=== PATIENT | male | born 1955 | race Caucasian/White ===

== ENCOUNTER 2017-04-02 16:26 | Emergency (ER) | payer MEDICAID ==
[~2017-04-02] VITALS: Ht 185.4 cm; Wt 68.1 kg
[~2017-04-02 16:26] MED LIST: CLON-529 PO; GABA-532 PO; LORA1TAB PO; NAPR220C15 PO; ONDA4TAB12 PO; QUET300T2 PO; SERT25TA PO; SERT50TA PO
[2017-04-02] MEDS ORDERED: LORA-269 PO (21:00)
[2017-04-02] MEDS ORDERED: ZOL50T PO (21:00)
[2017-04-02] MEDS ORDERED: naproxen sodium 220mg tablet PO SCH (21:40)
[2017-04-02] MEDS: LORazepam 1 MG tablet PO SCH (21:52)
[2017-04-03] MEDS: LORazepam 1 MG tablet PO SCH (07:27)
[2017-04-03] MEDS ORDERED: sertraline 50mg tablet PO SCH (08:00)
[2017-04-03 09:40] VITALS: BP 106/62
== END 2017-04-03 09:42 ==
LOC: ER 16:26
DX: R45.851 Suicidal ideations (principal); J44.9 Chronic obstructive pulmonary disease, unspecified; G89.29 Other chronic pain; F41.9 Anxiety disorder, unspecified; Z59.0 Homelessness; F17.200 Nicotine dependence, unspecified, uncomplicated
CPT/HCPCS: 99285

== ENCOUNTER 2017-05-09 17:48 | Emergency (ER) | payer MEDICAID ==
[~2017-05-09] VITALS: Ht 185.4 cm; Wt 63.3 kg
[~2017-05-09 17:48] MED LIST changes: -CLON-529 PO; -GABA-532 PO; +LORA-269 PO; -LORA1TAB PO; -ONDA4TAB12 PO; -QUET300T2 PO; -SERT25TA PO; -SERT50TA PO; +ZOL50T PO
[2017-05-09 20:20] LABS: BASOPHILS % (AUTO) 0.1 % (0-1); EOSINOPHILS # (AUTO) 0.2 X10'3 (0-0.9); EOSINOPHILS % (AUTO) 2.3 % (0-6); HEMATOCRIT 42.4 % (42.0-52.0); HEMOGLOBIN 14.4 g/dl (14.0-17.9); LYMPHOCYTES # (AUTO) 2.1 X10'3 (1.1-4.8); LYMPHOCYTES % (AUTO) 19.8 % (21-51); MEAN CORPUSCULAR HEMOGLOBIN 30.3 PG (27.0-31.0); MEAN CORPUSCULAR HGB CONC 33.9 % (33.0-36.5); MEAN CORPUSCULAR VOLUME 89.3 FL (78-98); MEAN PLATELET VOLUME 7.8 FL (7.4-10.4); MONOCYTES # (AUTO) 0.7 X10'3 (0-0.9); MONOCYTES % (AUTO) 7.1 % (2-12); NEUTROPHILS # (AUTO) 7.5 X10'3 (1.8-7.7); NEUTROPHILS % (AUTO) 70.7 % (42-75); PLATELET COUNT 213 X10'3 (140-440); RED BLOOD COUNT 4.74 X10'6 (4.70-6.10); RED CELL DISTRIBUTION WIDTH 13.1 % (11.5-14.5); WHITE BLOOD COUNT 10.6 X10'3 (4.5-11.0)
[2017-05-09 20:45] LABS: ALANINE AMINOTRANSFERASE 49 U/L (12-78); ALBUMIN 4.1 G/DL (3.4-5.0); ALBUMIN/GLOBULIN RATIO 1.1 (1.1-1.5); ALKALINE PHOSPHATASE 88 IU/L (46-116); ANION GAP 9 (8-16); ASPARTATE AMINO TRANSFERASE 35 U/L (10-37); BILIRUBIN,TOTAL 0.7 MG/DL (0.1-1.0); BLOOD UREA NITROGEN 22 MG/DL (7-18); BUN/CREATININE RATIO 24.4 (5.4-32.0); CHLORIDE 100 MMOL/L (99-107); ETHANOL < 0.010 GM/DL (0.0-0.010); GLUCOSE 94 MG/DL (70-104); POTASSIUM 3.4 MMOL/L (3.5-5.1); SODIUM 141 MMOL/L (135-145); TOTAL CARBON DIOXIDE 31.9 MMOL/L (24-32); TOTAL PROTEIN 7.9 G/DL (6.4-8.2); eGFR 86 ML/MIN
[2017-05-09] MEDS ORDERED: potassium Cl 20 mEq SR tablet PO STA (21:27)
[2017-05-09 23:39] LABS: URINE AMPHETAMINE SCREEN NEGATIVE (Neg); URINE BARBITUATE SCREEN NEGATIVE (Neg); URINE BENZODIAZEPINES SCREEN NEGATIVE (Neg); URINE CANNABINOID SCREEN NEGATIVE (Neg); URINE COCAINE SCREEN NEGATIVE (Neg); URINE METHADONE SCREEN NEGATIVE (Neg); URINE OPIATE SCREEN NEGATIVE (Neg); URINE PHENCYCLIDINE SCREEN NEGATIVE (Neg)
[2017-05-09] MEDS: ziprasidone 20mg capsule PO PRN (23:52)
[2017-05-10] MEDS: gabapentin 100mg capsule PO SCH ×4 (07:41→23:05)
[2017-05-10] MEDS: ziprasidone 20mg capsule PO PRN (07:41)
[2017-05-10] MEDS ORDERED: ziprasidone 20mg capsule PO ONE (11:00)
[2017-05-10] MEDS ORDERED: LORazepam 1 MG tablet PO ONE (13:00)
[2017-05-10] MEDS ORDERED: diphenhydrAMINE 25mg capsule PO ONE (13:00)
[2017-05-10] MEDS ORDERED: OLAN10TA3 PO (13:43)
[2017-05-10] MEDS ORDERED: ZOLP5TAB2 PO (13:50)
[2017-05-10] MEDS ORDERED: MIRT30TA PO (13:50)
[2017-05-10 13:53] LABS: CLARITY,URINE SLIGHTLY CLOUDY (Clear); COLOR,URINE YELLOW (Yellow); GLUCOSE, URINE NEGATIVE (Neg); KETONES,URINE 15 mg/dl (Neg); LEUKOCYTE ESTERASE ,URINE NEGATIVE (Neg); NITRITES, URINE NEGATIVE (Neg); OCCULT BLOOD,URINE NEGATIVE (Neg); PROTEIN,URINE TRACE mg/dl (Neg)
[2017-05-10 14:03] LABS: UA COLLECTION TYPE CLN CATCH MIDSTREAM
[2017-05-10 14:05] LABS: AMORPHOUS URATES 1+; BACTERIA,URINE NONE SEEN /HPF (Neg); CAL OXALATE CRYSTALS 1+ /HPF (NEGATIVE); MUCUS STRANDS FEW /LPF (Neg); RBC,URINE NONE SEEN /HPF (0-2); SPERM MODERATE /HPF (NEGATIVE); SQUAMOUS EPITHELIAL CELL,UR NONE SEEN /LPF (FEW); WBC,URINE 0-4 /HPF (0-4)
[2017-05-10] MEDS: ziprasidone 20mg capsule PO SCH ×2 (20:00→23:05)
[2017-05-10] MEDS: mirtazapine 15mg tablet PO SCH ×2 (21:00→23:05)
[2017-05-10] MEDS: OLANZapine 2.5MG tablet PO SCH ×2 (21:00→23:04)
[2017-05-10] MEDS: zolpidem 5mg tablet PO SCH ×2 (21:00→23:05)
[2017-05-11] MEDS: gabapentin 100mg capsule PO SCH (07:37)
[2017-05-11] MEDS: ziprasidone 20mg capsule PO SCH (07:37)
[2017-05-11 08:45] VITALS: BP 113/69
== END 2017-05-11 08:50 ==
LOC: ER 17:49
DX: F99 Mental disorder, not otherwise specified (principal); F23 Brief psychotic disorder; R45.851 Suicidal ideations; E87.6 Hypokalemia; G89.29 Other chronic pain; J44.9 Chronic obstructive pulmonary disease, unspecified; F41.9 Anxiety disorder, unspecified; F32.9 Major depressive disorder, single episode, unspecified; Z98.62 Peripheral vascular angioplasty status; Z56.0 Unemployment, unspecified; Z59.0 Homelessness; Z60.2 Problems related to living alone; Z79.899 Other long term (current) drug therapy
CPT/HCPCS: 36415; 80053; 80305; 80320; 81001; 84443; 85025; 99285; Q0163

== ENCOUNTER 2018-01-29 18:20 | Inpatient (IN) | payer MEDICAID ==
[~2018-01-29] VITALS: Ht 185.4 cm; Wt 80.6 kg
[~2018-01-29 18:20] MED LIST changes: +MIRT30TA PO; +OLAN10TA3 PO; +ZOLP5TAB2 PO
[2018-01-30 02:47] VITALS: BP 119/87
[2018-01-30] MEDS ORDERED: magnesium hydroxide 30ml (MOM) UD suspension PO PRN (05:15)
[2018-01-30] MEDS ORDERED: mag hydrox/Alum hydrox/simeth 30ml oral suspension PO PRN (05:15)
[2018-01-30] MEDS ORDERED: acetaminophen 325mg tablet PO PRN ×2 (05:15)
--- NOTE | 2018-01-30 05:52 | NUR ---
ADMIT NOTE: Suicidal Ideation/Schizoaffective DO/GD. Admit orders. [place] to unit. Physical/Mental Health assessment. Inventory personal belongings. Client was transferred from [facility] via EMS and arrived on the unit at 02:30. The client has a longstanding hx of mental health issues and numerous inpatient psych admissions. Client reported suicidal ideation. Client has had prior suicide attempts including overdoses and jumping off of a bridge into shallow water. The jump resulted in a spinal fracture. The client is a high fall risk. His gait is unsteady, a walker was provided. He appears to have general weakness. Client was recently diagnosed with a TIA and left-sided weakness. His gait is unsteady and client may require a LOS for safety. Cooperative during admission. Depressed. Appears older than stated age. Disheveled with poor hygiene. Client was escorted to his room and fell asleep.
--- NOTE | 2018-01-30 05:52 | NUR ---
HIGH FALL RISK.
[2018-01-30] MEDS ORDERED: MIRT30TA PO (07:35)
[2018-01-30] MEDS ORDERED: ZOLP5TAB8 PO (07:35)
[2018-01-30 07:52] LABS: HEMOGLOBIN A1C 5.5 % (4.5-6.2)
[2018-01-30 07:55] VITALS: BP 119/72
[2018-01-30 08:00] LABS: CHOL/HDL RATIO 4.8 (0.00-4.99); CHOLESTEROL 163 MG/DL (0-200); HDL CHOLESTEROL 34 MG/DL (35-60); LDL CHOLESTEROL 107 MG/DL (50-100); TRIGLYCERIDES 159 MG/DL (20-135)
[2018-01-30] MEDS ORDERED: sertraline 50mg tablet PO SCH (08:00)
[2018-01-30] MEDS: naproxen sodium 220mg tablet PO SCH ×2 (08:22→20:47)
[2018-01-30] MEDS: LORazepam 1 MG tablet PO SCH ×2 (08:22→20:45)
--- NOTE | 2018-01-30 12:05 | NUR ---
Nursing Note: This underwriter mortgage loan spoke with Khadijah Scott, Public Guardian. She gave verbal consent for all medications. Patient consent forms to be faxed to Public Guardian office to be signed on Thursday. [facility] Public Guardian FAX number [phone]. [place] Public Guardian office number [phone], After hours number [phone].
[2018-01-30] MEDS ORDERED: buPROPion SR 150mg tablet PO ONE (15:00)
[2018-01-30] MEDS ORDERED: sertraline 50mg tablet PO ONE (15:00)
--- NOTE | 2018-01-30 16:00 | NUR ---
Nursing Note: Consent Forms faxed to [facility] Public Guardian. The Public Guardian indicated the signed forms should be returned to this unit on February 01. Will continue to monitor.
--- NOTE | 2018-01-30 17:05 | NUR ---
Nursing Progress Note: Pt was sleeping at change of shift. Pt up to group room for breakfast. Pt is a fall risk. Fall risk precautions implemented. Pt's gait impaired and he uses a walker. He reports weakness in his L leg. When walking, his leg appears to become weak and he lunges to the left. Pt was maintained on standby assist and the bed alarm was set on his bed. Performed 1:1 assessment. When asked about depression pt stated, "Ya, a little bit." He had the same response when asked about anxiety. When asked about SI he said, "Not really." He denied having a suicide plan. His affect was constricted. He reported that he has visual and olfactory hallucinations saying, "Sometimes see images moving, things outside the windows, smell things that are not there." Pt slept for much of the morning. Medications administered, monitored pt for response. Q15 min safety checks maintained, no falls or injuries, will continue to monitor.
--- NOTE | 2018-01-30 18:30 | NUR ---
Nursing Notes: Patient is low fowlers in bed at shift change. Patient states he is feeling very tired. His affect is flat. Patient admits to occational hallucinations where he can see objects in the room moving, for example the shelves. This patient denies S/I or H/I at this time. There are no audible hallucinations. Patient states a bipolar history. This patient has been medication compliant. Patient ate dinner. This patient has difficulty ambulating. He is up with assist with the use of a walker too. On occasion patient exhibits some confussion. Plan: This patient is reassured that he is in a save place. Patient will bu up with assist only. 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 Q15 minute rounding for patient safety.
[2018-01-30 19:00] VITALS: BP 132/81
[2018-01-30] MEDS ORDERED: gabapentin 300mg capsule PO ONE (20:00)
[2018-01-30] MEDS: mirtazapine 15mg tablet PO SCH (20:44)
[2018-01-30] MEDS: docusate sod 100mg capsule PO SCH (20:45)
[2018-01-30] MEDS: gabapentin 300mg capsule PO SCH (20:46)
[2018-01-30] MEDS: olanzapine 10mg tablet PO SCH (20:46)
[2018-01-30] MEDS: lithium carbonate 150mg capsule PO SCH (20:47)
[2018-01-30] MEDS ORDERED: non-formulary drug (Mirtazapine (Remeron) 1 TAB) PO SCH (21:00)
[2018-01-30] MEDS ORDERED: zolpidem 5mg tablet PO SCH ×2 (21:00)
[2018-01-30] MEDS ORDERED: olanzapine 10mg tablet PO SCH (21:00)
[2018-01-30] MEDS: HYDROcodone/acetaminophen 5mg/325mg tablet PO PRN (23:34)
[2018-01-31 08:00] VITALS: BP 105/62
[2018-01-31] MEDS: buPROPion SR 150mg tablet PO SCH (08:08)
[2018-01-31] MEDS: lithium carbonate 150mg capsule PO SCH ×2 (08:08→20:22)
[2018-01-31] MEDS: LORazepam 1 MG tablet PO SCH ×2 (08:08→20:21)
[2018-01-31] MEDS: naproxen sodium 220mg tablet PO SCH ×2 (08:08→20:21)
[2018-01-31] MEDS: sertraline 50mg tablet PO SCH (08:09)
[2018-01-31] MEDS: gabapentin 300mg capsule PO SCH ×2 (08:09→20:21)
[2018-01-31] MEDS: docusate sod 100mg capsule PO SCH ×2 (08:09→20:21)
[2018-01-31] MEDS: HYDROcodone/acetaminophen 5mg/325mg tablet PO PRN ×3 (08:16→20:21)
--- NOTE | 2018-01-31 15:07 | NUR ---
SW Assessment and Discharge The undersigned completed a biopsychosocial assessment, treatment Planning #9 and JAXON. Valarie Rosas FUR TANNER Addendum: 01/31/18 at 1508 by Valarie Rosas SS Amended: Links added.
[2018-01-31] MEDS: predniSONE 20 mg tablet PO SCH (16:38)
[2018-01-31] MEDS ORDERED: zolpidem 5mg tablet PO PRN (16:55)
[2018-01-31] MEDS: ipratropium/albuterol 3ml nebule NEB SCH ×2 (17:01→23:00)
[2018-01-31 17:20] LABS: BASOPHILS % (AUTO) 0.3 % (0-1); EOSINOPHILS # (AUTO) 0.5 X10'3 (0-0.9); EOSINOPHILS % (AUTO) 5.5 % (0-6); HEMOGLOBIN 14.5 g/dl (14.0-17.9); LYMPHOCYTES # (AUTO) 1.5 X10'3 (1.1-4.8); LYMPHOCYTES % (AUTO) 16.4 % (21-51); MEAN CORPUSCULAR HEMOGLOBIN 30.9 PG (27.0-31.0); MEAN CORPUSCULAR VOLUME 93.4 FL (78-98); MEAN PLATELET VOLUME 8.1 FL (7.4-10.4); MONOCYTES # (AUTO) 0.6 X10'3 (0-0.9); MONOCYTES % (AUTO) 6.6 % (2-12); NEUTROPHILS # (AUTO) 6.5 X10'3 (1.8-7.7); NEUTROPHILS % (AUTO) 71.2 % (42-75); PLATELET COUNT 274 X10'3 (140-440); RED BLOOD COUNT 4.71 X10'6 (4.70-6.10); WHITE BLOOD COUNT 9.2 X10'3 (4.5-11.0)
[2018-01-31 17:25] LABS: ALANINE AMINOTRANSFERASE 40 U/L (12-78); ALBUMIN 3.8 G/DL (3.4-5.0); ALKALINE PHOSPHATASE 92 IU/L (46-116); ANION GAP 9 (8-16); ASPARTATE AMINO TRANSFERASE 22 U/L (10-37); BILIRUBIN,TOTAL 0.3 MG/DL (0.1-1.0); BLOOD UREA NITROGEN 25 MG/DL (7-18); BUN/CREATININE RATIO 22.9 (5.4-32.0); CHLORIDE 103 MMOL/L (99-107); CREATININE 1.09 MG/DL (0.60-1.10); GLUCOSE 105 MG/DL (70-104); PARTIAL THROMBOPLASTIN TIME 26 SECONDS (22-32); POTASSIUM 3.7 MMOL/L (3.5-5.1); SODIUM 138 MMOL/L (135-145); TOTAL CARBON DIOXIDE 26.1 MMOL/L (24-32); TOTAL PROTEIN 7.8 G/DL (6.4-8.2); eGFR 69 ML/MIN
--- NOTE | 2018-01-31 17:30 | NUR ---
NURSING PROGRESS NOTE The patient was asleep at change of shift. Attended all meals and groups. Depressed mood, bland affect. Denies SI/HI at this time. No hallucinations. COPD exacerbation. CXR and nebs treatment, prednisone added. Had wheezes and increase with exertion. LOS for left sided weakness. Education provided regarding medications. PRN for pain x2. continue to provide a sfe and therapeutic environment.
[2018-01-31 18:02] LABS: % IRON SATURATION 26 % (11-46); IRON 75 UG/DL (53-167); TOTAL IRON BINDING CAPACITY 287 UG/DL (259-388)
[2018-01-31 19:00] VITALS: BP 141/73
[2018-01-31] MEDS: mirtazapine 15mg tablet PO SCH (20:21)
[2018-01-31] MEDS: olanzapine 10mg tablet PO SCH (20:22)
--- NOTE | 2018-02-01 01:03 | NUR ---
RN PROGRESS NOTE: CHIEF COMPLAINT: Suicidal Ideation/Hx Schizophrenia/Depression. LEGAL STATUS: [facility] Conservatorship. SYMPTOMS/BEHAVIORS: Client was in bed at [facility] with a sitter present. He was AO X 3. Unsteady gait, uses a walker and is a standby assist. Reports that his appetite has been good. Difficulty falling and staying asleep. Reported a labile mood. Stated, "I just need to do something. I haven't been outside." This RN asked what the client liked to do 'inside' and client said, "Play cards. But I don't know how to play many card games. I know five star draw." Reported 8/10 back pain. Affect and mood are depressed. Made repeated requests for Galena. Begin requesting Galena 30 min after receiving 5 mg Galena Tab PO. INTERVENTIONS/PRN'S: 5 mg Ambien Tab PO, 5mg/325 mg Galena Tab PO for 8/10 back pain. JUSTIFICAFTION: Client is affect is depressed, mood is sad. During shift client was talking to unseen others and was responding to internal stimuli.
[2018-02-01] MEDS: ipratropium/albuterol 3ml nebule NEB SCH ×2 (06:59→10:48)
[2018-02-01 08:00] VITALS: BP 97/57
[2018-02-01] MEDS: HYDROcodone/acetaminophen 5mg/325mg tablet PO PRN ×2 (08:01→19:10)
[2018-02-01] MEDS: sertraline 50mg tablet PO SCH (08:01)
[2018-02-01] MEDS: buPROPion SR 150mg tablet PO SCH (08:01)
[2018-02-01] MEDS: predniSONE 20 mg tablet PO SCH (08:02)
[2018-02-01] MEDS: LORazepam 1 MG tablet PO SCH ×2 (08:02→19:09)
[2018-02-01] MEDS: gabapentin 300mg capsule PO SCH ×2 (08:02→21:25)
[2018-02-01] MEDS: lithium carbonate 150mg capsule PO SCH (08:02)
[2018-02-01] MEDS: naproxen sodium 220mg tablet PO SCH (08:02)
[2018-02-01] MEDS: docusate sod 100mg capsule PO SCH ×2 (08:02→21:24)
--- NOTE | 2018-02-01 17:41 | NUR ---
Nursing Progress Note: Legal hold: [facility] Report received from night coordinator nurse with use of SBAR. Pt is here for psychosis and depression NOS. Pt presents with a constricted affect. He was pleasant and cooperative with assessment. His thoughts appear linear and connected. He reports having high anxiety and some depression, but no SI. He indicates he has some visual hallucinations describing them as patterns of light. He reported that he did not sleep well. He said he woke up and could not go back to sleep due to his anxiety. Pt reports he has 7-8/10 pain in his back. As he laid in bed, He was reclining at a 45 degree angle supported by his elbows and said this made his back feel better. PRN [place] given for back pain. Pt maintained LOS due to fall risk. Multiple times during the day the aide had to support the patient when the patients legs gave out. Pt attended groups. Pt cooperative with medication administration, no adverse effects noted. Pt independent with ADLs. Administered medications, no adverse effects noted. No falls or injuries, will continue to monitor. Pt had an ECG in the AM which was ordered yesterday. The ECG was abnormal. Notified Dr. Baker and Dr. Jaimes. The QT was prolonged so Dr. Jaimes made medication changes. Zyprexa discontinued. Repeat ECG ordered for 02/02 AM.
[2018-02-01] MEDS ORDERED: temazepam 15mg capsule PO PRN (18:05)
[2018-02-01] MEDS: benzocaine/menthol oral lozeng 1 EACH BOX MM PRN (19:14)
[2018-02-01 19:40] VITALS: BP 118/70
[2018-02-01] MEDS: mirtazapine 15mg tablet PO SCH (21:25)
[2018-02-01] MEDS ORDERED: HYDROcodone/acetaminophen 5mg/325mg tablet PO ONE (22:00)
[2018-02-01] MEDS ORDERED: temazepam 15mg capsule PO ONE (22:00)
--- NOTE | 2018-02-02 04:10 | NUR ---
Nursing Progress Note: Chief Complaint: Psychosis/DTS [facility] Received report from ZAKI Baker. Pt. remains on LOS per fall precautions, isolated in room this shift, however did go out to take a shower. States S/I that, "Comes and goes," without a plan. Reports that his anxiety is not bad at this time, however his depression is still bad with some hopelessness, reports phobia r/t "starting over," and finding somewhere to go after this, however he believes that his sisters will help him. One lives in the [facility] and and one in [facility]. Pt. 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 compliant with all medications this shift, no adverse S/E noted, however Sertraline has been D/C'd and Olanzapine will be replaced by a medicine with less potential to influence QT interval. [place] will be held until repeat EKG tomorrow. Pt. reports he has difficulty with sleep. Continues to use walker for ambulation and complete ADLs with minimal assistance r/t on-going left-sided weakness. Mental Status Exam: Pt. presents as neat and well-groomed, he makes good eye contact during conversation. His behavior is relaxed and speech is clear and logical, however with blocking and poor insight. Affect is depressed and blunted, but pt. cooperative and pleasant with conversation. Thought process is clear and pt. A&O. Interventions:Pt. requested additional pain medication Roebling, this shift, for chronic medial back pain, at approximately 2130 and next PRN dose not due yet. This software writer explained to pt. that medication was PRN Q 4 hr. and was not due yet, pt. became slightly irritated and reported he would be unable to sleep because he was in pain and ordered Naproxen upset his stomach. Obtained order from Dr. Jaimes to give an additional dose of Roebling-5 and to give 30mg of Restoril one-time scheduled at HS. Pt. appears to be resting comfortably, tech at bedside, will continue to monitor.
[2018-02-02 08:00] VITALS: BP 112/61
[2018-02-02] MEDS: gabapentin 300mg capsule PO SCH ×2 (08:15→20:19)
[2018-02-02] MEDS: LORazepam 1 MG tablet PO SCH ×2 (08:15→20:19)
[2018-02-02] MEDS: atorvastatin 20mg tablet PO SCH (08:16)
[2018-02-02] MEDS: buPROPion SR 150mg tablet PO SCH (08:16)
[2018-02-02] MEDS: docusate sod 100mg capsule PO SCH ×2 (08:16→20:19)
[2018-02-02] MEDS: predniSONE 20 mg tablet PO SCH (08:16)
[2018-02-02] MEDS: HYDROcodone/acetaminophen 5mg/325mg tablet PO PRN ×3 (08:25→20:26)
[2018-02-02] MEDS: ipratropium/albuterol 3ml nebule NEB PRN (11:11)
--- NOTE | 2018-02-02 16:30 | NUR ---
Nursing Progress Note: Pt is under [facility] Conservatorship. Received Report from ZAKI Lopez. Patient sleeping at change of shift and up for breakfast. Patient with depressed affect. Patient has a sitter 1:1 due to Fall Risk. Patient states he is depressed but denies suicidal ideation. 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 Pt is pleasant and cooperative. Patient up to breakfast with his walker. Patient had PT eval today and PT states they will come back tomorrow to work on balance. Per PT, pt does fine walking but has trouble balancing. Patient attended both groups today. Patient continues on Q 15 minute checks. Continue to monitor.
--- NOTE | 2018-02-02 19:44 | NUR ---
Patient was walking around unit with FWW and sitter at beginning of shift. Patient appeared to be tolerating his walk well.
[2018-02-02 20:00] VITALS: BP 124/68
[2018-02-02] MEDS: aripiprazole 5mg tablet PO SCH (20:20)
[2018-02-02] MEDS: mirtazapine 15mg tablet PO SCH (20:20)
--- NOTE | 2018-02-02 23:47 | NUR ---
Nursing Progress Note: Chief Complaint[facility] Received report from ZAKI Valerio. Pt was walking around unit during shift change with KIM and Aida dill. Pt is cooperative during his physical assessment and answered all questions appropriately. Mental Status Exam: Pt. presents as neat and well-groomed, is making good eye contact while making conversation. His behavior is relaxed. Pt states he does not have current S/I and also mentioned that he has failed at all of his attempts. Interventions: Pt requested [place] to be brought with his other nightly medications this evening. He states it is for his back pain. Pt was encourage to ambulate and change positions in bed to help ease his back pain as well. Sitter at bedside with pt. Will continue to monitor.
[2018-02-03] MEDS: gabapentin 300mg capsule PO SCH ×2 (07:42→20:03)
[2018-02-03] MEDS: docusate sod 100mg capsule PO SCH ×2 (07:42→20:04)
[2018-02-03] MEDS: HYDROcodone/acetaminophen 5mg/325mg tablet PO PRN ×3 (07:42→17:23)
[2018-02-03] MEDS: LORazepam 1 MG tablet PO SCH ×2 (07:42→20:04)
[2018-02-03] MEDS: predniSONE 20 mg tablet PO SCH (07:42)
[2018-02-03] MEDS: buPROPion SR 150mg tablet PO SCH (07:42)
[2018-02-03] MEDS: atorvastatin 20mg tablet PO SCH (07:42)
[2018-02-03 08:06] VITALS: BP 113/69
[2018-02-03] MEDS: naproxen sodium 220mg tablet PO PRN (09:29)
--- NOTE | 2018-02-03 12:08 | NUR ---
Nursing Progress Note: Chief Complaint: Psychosis/DTS [facility] Received report from ZAKI Bowden. Pt was walking around unit during shift change with FWW and Avril dill. Pt is cooperative during his physical assessment and answered all questions appropriately. Mental Status Exam: Pt. presents as neat and well-groomed, is making good eye contact while making conversation. His behavior is relaxed. Pt states he does not have current S/I. Interventions: Pt requested to shave and was set up to do so. Pt requested [place] to be brought with his other morning medications this morning. He states it is for his back pain. Pt was encourage to ambulate and change positions in bed to help ease his back pain as well. Pt was able to walk the whole length of the hester with a FWW. PT tolerated walking with physical therapy well. Sitter at bedside with pt. Will continue to monitor for SI and fall risk.
[2018-02-03] MEDS: benzocaine/menthol oral lozeng 1 EACH BOX MM PRN (13:17)
[2018-02-03 20:00] VITALS: BP 109/55
[2018-02-03] MEDS: aripiprazole 5mg tablet PO SCH (20:05)
[2018-02-03] MEDS: mirtazapine 15mg tablet PO SCH (20:07)
--- NOTE | 2018-02-03 21:37 | NUR ---
Nursing Progress Note: Chief Complaint: Psychosis/DTS Client on voluntary/involuntary status for GD/DTS/DTO. Involuntary DTS [facility] Report received from day shift nurse ZAKI Hussein with use of SBAR. yes. Why are they here:Suicidal ideations, 5249. Diagnosis/presenting symptoms:Suicidal ideations, skitzo-effective. Assessment What has happened this shift: Pt sleeping when first seen. Pt cooperative during his physical assessment and answered all questions appropriately. Took all medications well, is thinking about a future job. S/I, H/I:none this shift A/VH: denies Sleep:good ADL's:needs some assistance with walking. Group attendance:N/A no group tonight Were meds taken:yes Any med S/E: none observed or reported. Mental Status Exam: Pt states he does not have current S/I. Appearance: neat and wll-groomed Eye contact: yes Behavior:relaxed Speech:Clear Mood: good Affect: positive Thought process: good Thought Content: good- thinking about future job Cognition:good Insight:good Judgment:good Interventions PRN's used:[] Therapeutic interventions:[] Restraints/seclusion/emergency medication:sitter at bedside Justification:[]
[2018-02-04] MEDS: atorvastatin 20mg tablet PO SCH (08:08)
[2018-02-04] MEDS: gabapentin 300mg capsule PO SCH ×2 (08:08→20:11)
[2018-02-04] MEDS: buPROPion SR 150mg tablet PO SCH (08:08)
[2018-02-04] MEDS: docusate sod 100mg capsule PO SCH ×2 (08:08→20:11)
[2018-02-04] MEDS: LORazepam 1 MG tablet PO SCH ×2 (08:08→20:11)
[2018-02-04] MEDS: predniSONE 20 mg tablet PO SCH (08:09)
[2018-02-04] MEDS: HYDROcodone/acetaminophen 5mg/325mg tablet PO PRN ×3 (08:09→19:42)
[2018-02-04 08:42] VITALS: BP 112/61
--- NOTE | 2018-02-04 17:35 | NUR ---
NURSING PROGRESS NOTE The patient was asleep at change of shift. He is depressed with a bland affect. Denies suicidal thoughts at this time. Looks brighter today and is eating well. had a shower. Attending groups with his peers. Good eye contact. Has generalized weakness due to back injury. PRN for pain today Cerulean given with good results. Education provided regarding coping skills and depression. Continue to provide a safe and therapeutic environment.
[2018-02-04 20:00] VITALS: BP 122/77
[2018-02-04] MEDS: mirtazapine 15mg tablet PO SCH (20:11)
[2018-02-04] MEDS: aripiprazole 5mg tablet PO SCH (20:11)
[2018-02-04] MEDS ORDERED: temazepam 15mg capsule PO SCH (21:00)
--- NOTE | 2018-02-05 03:42 | NUR ---
Nursing Progress Note: Chief Complaint: Psychosis Legal hold: Conserved Client on involuntary status for DTS Report received from overnight cashier nurse with use of SBAR: ZAKI Overton Why are they here: Pt. was in a [facility] facility [facility]NF) and having increased paranoia and increased agitation. He is on conservatorship and recently attempted suicide by jumping off [address] and fractured his back. Diagnosis/presenting symptoms: Pt. currently denies S/I, he states he is still having some depression, states, "Just a feeling of uncertainty, like I have so much to do," (in regards to finding appropriate housing and finding a job to care for himself). Diagnosis/presenting symptoms: Pt. presents with no s/s of paranoia and no episodes of agitation this shift. Assessment What has happened this shift: Pt. sitting in Group Room at beginning of shift watching TV and interacting with others. He presents and friendly and cooperative with assessment, however reports to this director underwriter sales that he is somewhat upset because his Conservator probably won't let him have a license and he needs to get a job upon discharge to pay his rent and buy food. He would like to apply for another job at a [employer]. Pt. states, "When I think about it I get overwhelmed and then I think about doing a stupid thing like going out and drinking." Pt. admits he has no desire to drink, this is just what comes to his mind. He also reports he may possibly discharge to a place called [facility] in [place]. Pt. presents with some phobia r/t discharge and how he will be able to take care of himself. Pt. is off LOS and is able to ambulate with use of his walker independently with a steady gait, no reports of dizziness, SOB, and no episodes of knees buckling. S/I, H/I: Pt. denies A/VH: None Sleep: Pt. reports he woke up the previous night around 0200 and was unable to fall back asleep, administered ordered Temazepam this evening and pt. appears to be resting comfortably. ADL's: Independent with use of walker, however pt. reports SOB while performing some tasks such as putting on his shoes. Group attendance: Attended HS snack in Group Room Were meds taken: Yes Any med S/E: No Mental Status Exam Appearance: Presents as neat and well dressed Eye contact: Good Behavior: Pleasant and cooperative Speech: Articulated and talkative Mood: Relaxed Affect: Animated Thought process: Intact Thought Content: Logical Cognition: A&O X4 Insight: Good Judgment: Good Interventions PRN's used: PRN [place] for chronic back pain with effectiveness Therapeutic interventions: Provided a therapeutic environment and promoted feeling of safety, fall precautions in place, and Q 15min safety checks in place. Restraints/seclusion/emergency medication: No Justification:N/A
[2018-02-05 08:00] VITALS: BP 97/68
[2018-02-05] MEDS: atorvastatin 20mg tablet PO SCH (08:12)
[2018-02-05] MEDS: docusate sod 100mg capsule PO SCH ×2 (08:12→20:26)
[2018-02-05] MEDS: gabapentin 300mg capsule PO SCH ×2 (08:12→20:26)
[2018-02-05] MEDS: buPROPion SR 150mg tablet PO SCH (08:12)
[2018-02-05] MEDS: LORazepam 1 MG tablet PO SCH ×2 (08:12→20:25)
[2018-02-05] MEDS: predniSONE 20 mg tablet PO SCH (08:12)
[2018-02-05] MEDS: HYDROcodone/acetaminophen 5mg/325mg tablet PO PRN ×3 (08:13→19:45)
--- NOTE | 2018-02-05 13:04 | NUR ---
Pt PO 100% regular meals meeting needs w/ LBM 02/03. Addendum: 02/05/18 at [address] Amended: Links added.
--- NOTE | 2018-02-05 16:19 | NUR ---
NURSING PROGRESS NOTE The patient is cooperative and compliant with all medications. Denies suicidal thoughts and states he is feeling better and more "coherent." Also states at this time in his life he feels he has the support of his family especially his sister Trcai. Reports not sleeping well at night, waking up tossing and turning. Encouraged to let nursing staff know when wakes at night. At times retreats to room stating fatigue. He is reading a novel. He would like to work again and is interested in learning more about [employer]. He is LPS Conserved. Had visit today with Dr. Stafford. Continue to provide a safe and therapeutic environment.
[2018-02-05 19:00] VITALS: BP 127/84
[2018-02-05] MEDS ORDERED: temazepam 15mg capsule PO PRN (20:20)
[2018-02-05] MEDS: mirtazapine 15mg tablet PO SCH (20:25)
[2018-02-05] MEDS: aripiprazole 5mg tablet PO SCH (20:26)
[2018-02-05] MEDS: temazepam 15mg capsule PO SCH (21:00)
--- NOTE | 2018-02-06 02:30 | NUR ---
Nurses Notes: This patient was in the recreation room at shift change. He is well oriented. 1:1 Assessment: Patient is ambulating well with the assistance of a walker. He tells this insurance underwriter he is still having moderate anxiety and depression this evening. Patient states he is excited about getting transferred in the near future to [facility] [place], hopefully soon. Patient denies homicidal or suicidal ideation. He denies hallucinations. Patient exhibits a flat affect. This patient has been compliant with medications and attending group. Plan: Q15 minute rounding, keep patient medication compliant.
[2018-02-06] MEDS: buPROPion SR 150mg tablet PO SCH (07:47)
[2018-02-06] MEDS: gabapentin 300mg capsule PO SCH ×2 (07:47→21:13)
[2018-02-06] MEDS: LORazepam 1 MG tablet PO SCH ×2 (07:47→21:12)
[2018-02-06] MEDS: docusate sod 100mg capsule PO SCH ×2 (07:48→21:12)
[2018-02-06] MEDS: atorvastatin 20mg tablet PO SCH (07:48)
[2018-02-06] MEDS: predniSONE 20 mg tablet PO SCH (07:48)
[2018-02-06 08:00] VITALS: BP 96/75
[2018-02-06] MEDS: HYDROcodone/acetaminophen 5mg/325mg tablet PO PRN ×2 (08:18→13:55)
[2018-02-06] MEDS: naproxen sodium 220mg tablet PO PRN (12:10)
--- NOTE | 2018-02-06 17:13 | NUR ---
RN Nursing Note: Dx: Psychosis NOS; Depression Status: Conserved 1:1 assessment provided at bedside. Pt reports he is not suicidal. He states he was depressed living on the streets and felt abandoned by his family. He states he is now in touch with a sister in [place] and is not as depressed. He states, [place] the river after jumping [place] the bridge he thinks he was confused from a heat stroke and dehydration. He states he does not remember planning to jump off the bridge. He c/o pain in his back and ask for "Daisetta." He reports he has to take it [id number]. Medication administration provided on all his medications and PRN norco. Education provided as needed on all his medications. Pt discussed going to [employer] in [place]. He is looking forward to going. He denies voices and hallucination of any. He denies SI today. He states he has been suicidal on and off throughout his life. Pt uses a FWW no falls or injuries Q15min safety checks provided
[2018-02-06 19:00] VITALS: BP 137/82
--- NOTE | 2018-02-06 19:00 | NUR ---
Nursing Notes: This patient is in the community room at shift change. He is conversing with others and watching television. 1:1 Assessment: Patient is warm/dry, well oriented, he has good color. He denies discomfort save for low level neck and back pain. This patient denies S/I or H/I. He denies hallucinations. Patient states his last Bm was yesterday. Patient states "I'm trying to be hopeful." Patient states some anxiety over his pending transfer to the [facility]. "I'm trying to get the details worked out about my new place." He desires to get a job but is concerned as he isn't allowed to have a drivers license. This patient has been medication compliant and has been attending group. He has been eating full meals. Plan: Patient was encouraged to follow through in group about his fears and anxiety. Patient was reassured that he is in a safe place. Q15 minute rounding will be continued for patient safety.
[2018-02-06] MEDS: temazepam 15mg capsule PO SCH (21:13)
[2018-02-06] MEDS: mirtazapine 15mg tablet PO SCH (21:14)
[2018-02-06] MEDS: aripiprazole 5mg tablet PO SCH (21:15)
[2018-02-07] MEDS: LORazepam 1 MG tablet PO SCH ×2 (07:47→20:52)
[2018-02-07] MEDS: predniSONE 20 mg tablet PO SCH (07:47)
[2018-02-07] MEDS: gabapentin 300mg capsule PO SCH ×2 (07:47→20:53)
[2018-02-07] MEDS: docusate sod 100mg capsule PO SCH ×2 (07:47→20:53)
[2018-02-07] MEDS: HYDROcodone/acetaminophen 5mg/325mg tablet PO PRN ×4 (07:47→22:01)
[2018-02-07] MEDS: atorvastatin 20mg tablet PO SCH (07:47)
[2018-02-07] MEDS: buPROPion SR 150mg tablet PO SCH (07:47)
[2018-02-07 08:00] VITALS: BP 119/82
--- NOTE | 2018-02-07 17:16 | NUR ---
RN Progress Note LPS Conserved Report received from ZAKI Gtz with SBAR Why are they here: increased paranoia, agitation had been escalating, recently attempted suicide by jumping off [address] and fractured his back. Diagnosis/presenting symptoms: Depression, anxiety Assessment What has happened this shift: Pt asleep at change of shift. Met with RN for 1:1 assessment at the bedside. Pt up to groups and meals. Met with Psychiatrist for 1:1 assessment today. Compliant with medications, participated in group milieu. S/I, H/I: Denies A/VH: Denies, does not appear to be responding to internal stimuli Sleep: reports some disturbance in sleep due to back pain and reports vivid dreams ADL's: Independent Group attendance: Yes Were meds taken: Yes Any med S/E: vivid dreams Mental Status Exam Appearance: Appears stated age Eye contact: Direct Behavior: Calm, cooperative Speech: clear Mood: anxious, "I'm just trying to stay hopeful" Affect: blunted Thought process: Goal directed Thought Content: No delusions/paranoia Cognition: alert and oriented x4 Insight: Good Judgment:Fair to good Interventions PRN's used: [place] x2 Therapeutic interventions: 1:1 assessment with RN, compliant with medications, participated in milieu Restraints/seclusion/emergency medication: N/A
--- NOTE | 2018-02-07 19:00 | NUR ---
Nursing Notes: This patient is in his room resting after shift change. He is well oriented, warm and dry, He has fair color. 1:1 Assessment: Patient tells this program writer that he is feeling depressed today. "It's because I don't respond well to change, like leaving here. But I'll be ok, I just have to adapt, it takes time." This patient denies S/I, H/I, or hallucinations. Patient has been compliant with medications, he has been going to group. This patient states he had a normal bowel movement today. Patient states his neck and back are hurting again. Plan: This patient is advised that he is in a safe place. We will give norco for pain as the Rx allows. Patient is reassured that we will transition him to outside living with care. Q15 minute rounding will be continued for patient safety.
[2018-02-07 19:55] VITALS: BP 117/70
[2018-02-07] MEDS: aripiprazole 5mg tablet PO SCH (20:50)
[2018-02-07] MEDS: temazepam 15mg capsule PO SCH (20:52)
[2018-02-07] MEDS: mirtazapine 15mg tablet PO SCH (20:53)
[2018-02-08] MEDS: HYDROcodone/acetaminophen 5mg/325mg tablet PO PRN ×4 (03:10→20:54)
[2018-02-08] MEDS: gabapentin 300mg capsule PO SCH ×2 (07:49→20:48)
[2018-02-08] MEDS: LORazepam 1 MG tablet PO SCH ×2 (07:49→20:47)
[2018-02-08] MEDS: buPROPion SR 150mg tablet PO SCH (07:49)
[2018-02-08] MEDS: docusate sod 100mg capsule PO SCH ×2 (07:49→20:48)
[2018-02-08] MEDS: atorvastatin 20mg tablet PO SCH (07:49)
[2018-02-08 08:00] VITALS: BP 121/80
[2018-02-08] MEDS: ipratropium/albuterol 3ml nebule NEB PRN (14:18)
--- NOTE | 2018-02-08 17:11 | NUR ---
RN Progress Note LPS Conserved Report received from ZAKI Gtz with SBAR Why are they here: increased paranoia, agitation had been escalating, recently attempted suicide by jumping off [address] and fractured his back. Diagnosis/presenting symptoms: Depression, anxiety Assessment What has happened this shift: Pt asleep at change of shift. Met with RN for 1:1 assessment at the bedside. Reports feeling depressed and anxious about the next step of life. "I'm tired the changes". C/O SOB; RT paged and given breathing treatment. S/I, H/I: Denies A/VH: Denies Sleep: reports some disturbance in sleep due to back pain, reportedly slept 8.75 hours ADL's: Independent Group attendance: Yes Were meds taken: Yes Any med S/E: denies Mental Status Exam Appearance: Appears stated age Eye contact: Direct Behavior: Calm, cooperative Speech: clear Mood: Depressed, anxious Affect: mildly constricted Thought process: Goal directed Thought Content: No delusions/paranoia Cognition: alert and oriented x4 Insight: Good Judgment:Fair to good Interventions PRN's used: [place] x2 Therapeutic interventions: 1:1 assessment with RN, compliant with medications, participated in milieu Restraints/seclusion/emergency medication: N/A
--- NOTE | 2018-02-08 17:30 | NUR ---
Nurses Notes: This patient is supine in bed at shift change.This patient is alert and oriented, warm and dry, he has good color. 1:1 Assessment: This patient exhibits depression, he states the same. Patient tells this typewriter repairer that he is worried about transitioning to the outside. He wants to get it done however. Patient has a sister who lives in [place], he states that she advocates for him. This patient states that it is change that he does not like. Patient denies H/I or S/I. He denies hallucinations. Patient has eaten meals and has been medication compliant. Plan: This patient is reassured that he is in a safe place. Patient will be encouraged to continue taking his medications. Q15 minute rounding will be done for patient safety.
[2018-02-08 19:44] VITALS: BP 123/77
[2018-02-08] MEDS: temazepam 15mg capsule PO SCH (20:48)
[2018-02-08] MEDS: aripiprazole 5mg tablet PO SCH (20:49)
[2018-02-08] MEDS: mirtazapine 15mg tablet PO SCH (21:20)
--- NOTE | 2018-02-09 03:30 | NUR ---
This patient has been sleeping quietly. Q15 minute vital signs are being done for patient safety.
[2018-02-09] MEDS: docusate sod 100mg capsule PO SCH ×2 (07:43→20:26)
[2018-02-09] MEDS: gabapentin 300mg capsule PO SCH ×2 (07:43→20:23)
[2018-02-09] MEDS: atorvastatin 20mg tablet PO SCH (07:43)
[2018-02-09] MEDS: LORazepam 1 MG tablet PO SCH ×2 (07:43→20:23)
[2018-02-09] MEDS: buPROPion SR 150mg tablet PO SCH (07:43)
[2018-02-09] MEDS: HYDROcodone/acetaminophen 5mg/325mg tablet PO PRN ×3 (07:49→20:25)
[2018-02-09 08:00] VITALS: BP 111/77
--- NOTE | 2018-02-09 16:57 | NUR ---
RN Progress Note LPS Conserved Report received from ZAKI Gtz with SBAR Pt admitted with increased paranoia, agitation had been escalating, recently attempted suicide by jumping [place] [address] and fractured his back. Diagnosis/presenting symptoms: Depression, anxiety Assessment What has happened this shift: Pt asleep at change of shift. Met with RN for 1:1 assessment at the bedside. Reports he is feeling depressed and anxious, but denies S/I. Denies A/VH. No reported sleep issues last night. Performs ADL's independently. Attends all groups, compliant with medications, denies AE's to meds. Mental Status Exam Appearance: Appears stated age Eye contact: Direct Behavior: Calm, cooperative Speech: clear Mood: Depressed Affect: mildly constricted Thought process: Goal directed Thought Content: No delusions/paranoia Cognition: alert and oriented x4 Insight: Good Judgment:Fair to good Interventions PRN's used: [place] x2 Therapeutic interventions: 1:1 assessment with RN, compliant with medications, participated in milieu Restraints/seclusion/emergency medication: N/A
[2018-02-09 20:00] VITALS: BP 97/61
[2018-02-09] MEDS: OLANZapine 5mg rapidly disint. tablet PO SCH (20:24)
--- NOTE | 2018-02-10 01:49 | NUR ---
Nurses Notes: This patient was in his room at shift change. He is self isolating. Patient is oriented X4, warm and dry, he has good color. 1:1 Assessment: This patient is interviewed from his bed. He tells this race and sports book writer that he is just tired today, "a little depressed too." Patient states he is awaiting placement, this causes him some angst, patient is resistant to change. Patient denies suicidal or homicidal ideations. Patient states mild depression is present. His affect is flat. Patient denies hallucinations. Patient states he has support of his sister and his brother in law respectively. This patient has been medication compliant, he states he has been attending group sessions. Plan: to reinforce to this patient that he is in a safe place. Continue to prepare patient mentally for his transfer. Q15 minute rounding for patient safety.
[2018-02-10 07:34] VITALS: BP 118/74
[2018-02-10] MEDS: buPROPion SR 150mg tablet PO SCH ×2 (08:14→20:42)
[2018-02-10] MEDS: gabapentin 300mg capsule PO SCH ×2 (08:14→20:42)
[2018-02-10] MEDS: docusate sod 100mg capsule PO SCH ×2 (08:15→20:42)
[2018-02-10] MEDS: LORazepam 1 MG tablet PO SCH ×2 (08:15→20:42)
[2018-02-10] MEDS: atorvastatin 20mg tablet PO SCH (08:15)
[2018-02-10] MEDS: HYDROcodone/acetaminophen 5mg/325mg tablet PO PRN ×3 (08:46→17:48)
--- NOTE | 2018-02-10 16:22 | NUR ---
RN PROGRESS NOTE: Patient awoke in severe pain. States that he suffered fracture of his spine jumping off bridge a few months ago, received [place] with adequate relief of pain. States that he still feels depressed, but appears to have some brightening. States that he will be discharging to [facility]. States that he has worked in [employer] for the last 10 years, and wants to return to work. States that this is the first time he has been out of work. Ambulates to the shower with walker. Denies SI. Patient went to all group activities. Continues on q15 minute checks for patient safety.
--- NOTE | 2018-02-10 18:45 | NUR ---
pt in bed; eyes closed; lights out; no distress noted
[2018-02-10 20:03] VITALS: BP 103/64
[2018-02-10] MEDS: OLANZapine 5mg rapidly disint. tablet PO SCH (20:43)
[2018-02-11] MEDS: HYDROcodone/acetaminophen 5mg/325mg tablet PO PRN ×3 (06:56→21:22)
[2018-02-11 07:51] VITALS: BP 110/69
[2018-02-11] MEDS: buPROPion SR 150mg tablet PO SCH ×2 (08:09→21:08)
[2018-02-11] MEDS: gabapentin 300mg capsule PO SCH ×2 (08:09→21:08)
[2018-02-11] MEDS: atorvastatin 20mg tablet PO SCH (08:09)
[2018-02-11] MEDS: docusate sod 100mg capsule PO SCH ×2 (08:09→21:08)
[2018-02-11] MEDS: LORazepam 1 MG tablet PO SCH ×2 (08:09→21:07)
--- NOTE | 2018-02-11 10:43 | NUR ---
Reassessment: Documented PO intake continues at 100% meeting nutrient needs. [facility] 02/10. No edema or wounds. Will continue to follow. Recommendations: 1) Continue with regular diet 2) Weekly wt Addendum: 02/11/18 at [address] Amended: Links added.
--- NOTE | 2018-02-11 17:39 | NUR ---
Chief Complaint: Depression, gravely disabled Legal hold: LPS conservator Client on LPS status for GD. Report received from automatic door mechanic nurse with use of SBAR[Betsy float nurse]. Why are they here: depression, recent suicide attempt, psychosis, gravely disabled. Diagnosis/presenting symptoms: Psychosis, depression Assessment Pt was sitting on the edge of his bed at change of shift. He was pleasant and cooperative with assessment. When asked about depression, he stated, "little bit, more boredom than anything." Regarding anxiety he said, "Little bit anxious, not as bad as yesterday." He said he has not had hallucinations for three weeks. He denied SI. Pt discussed his suicide attempt when he jumped off the bridge. He stated, "hearing voices, nothing to eat or drink for two weeks, just did it, not planned." Pt attended groups. PRN Fonda give for pain. Pt noted to be moaning in pain when he was trying to get out of bed in the morning. No falls or injuries, will continue to monitor. S/I, H/I: Pt denies A/VH: Pt denies ADL's: Independent Group attendance: Yes Were meds taken: Yes Any med S/E None noted Mental Status Exam Appearance: Neat and clean Eye contact: Direct Behavior: Appropriate Speech: Articulated Mood: Depressed Affect: Constricted Thought process: Linear Cognition: Sufficient Insight: Good Judgment: Fair Interventions PRN's used: [place] Therapeutic interventions: 1:1 assessment, therapeutic communication, administered medications and observed for adverse effects Restraints/seclusion/emergency medication: None Justification: Pt continues to exhibit symptoms of depression and anxiety.
[2018-02-11 19:00] VITALS: BP 113/74
[2018-02-11] MEDS: OLANZapine 5mg rapidly disint. tablet PO SCH (21:08)
--- NOTE | 2018-02-12 00:36 | NUR ---
Chief Complaint: Depression, gravely disabled Legal hold: LPS conservator Client on LPS status for GD. Report received from day shift nurse Olivia RN with use of SBAR. Why are they here: depression, recent suicide attempt, psychosis, gravely disabled. Diagnosis/presenting symptoms: Psychosis, depression Assessment Pt lying in bed at the start of the shift and remained there throughout. We met for 1:1 and pt reports improvement in his depression, but states he struggles with it due to his chronic pain issues. Discussed plan of trying to return to exercise when he gets discharge to help both his mood and his pain issues. S/I, H/I: Pt denies A/VH: Pt denies ADL's: Independent Group attendance: no group this shift Were meds taken: Yes Any med S/E none observed and denies any side effects Mental Status Exam Appearance: Neat and clean Eye contact: Good Behavior: WNL Speech: Normal rate, rhythm, volume Mood: Depressed Affect: Blunted Thought process: Linear Cognition: Sufficient Insight: Good Judgment: Fair Interventions PRN's used: [place] Therapeutic interventions: 1:1 assessment, therapeutic communication, administered medications and observed for adverse effects Restraints/seclusion/emergency medication: None Justification: Pt continues to exhibit symptoms of depression and anxiety.
[2018-02-12] MEDS: HYDROcodone/acetaminophen 5mg/325mg tablet PO PRN ×4 (01:11→19:20)
[2018-02-12 07:32] VITALS: BP 117/64
[2018-02-12] MEDS: docusate sod 100mg capsule PO SCH ×2 (07:42→20:59)
[2018-02-12] MEDS: LORazepam 1 MG tablet PO SCH ×2 (07:42→20:59)
[2018-02-12] MEDS: gabapentin 300mg capsule PO SCH ×2 (07:42→20:59)
[2018-02-12] MEDS: buPROPion SR 150mg tablet PO SCH ×2 (07:42→20:00)
[2018-02-12] MEDS: atorvastatin 20mg tablet PO SCH (07:43)
--- NOTE | 2018-02-12 14:31 | NUR ---
DISCHARGE PLANNING: Notified Public Guardian, Ewelina basil is ready for D/C. She said she will notify [facility]anco who does placement and either she or Blanco will call back will more detailed D/C - placement information. Shelly Hammond, ACSW
--- NOTE | 2018-02-12 16:09 | NUR ---
Nursing Progress Note: Pt up and out of bed for meals. Pt did attend am group, but refused art therapy and remained lying in bed. Pt did c/o pain in lower back and received norco x 2 which brought pain from 11/13 - 08/13. Pt stated he remains depressed and now bored. Pt does currently deny S.I. Pt says, "I'm tired of bopping around not having a set place to live" and is hopeful for what the social worker delinquency prevention is attempting to arrange for his discharge.
[2018-02-12 19:00] VITALS: BP 114/55
[2018-02-12] MEDS: OLANZapine 5mg rapidly disint. tablet PO SCH (20:59)
[2018-02-13] MEDS: HYDROcodone/acetaminophen 5mg/325mg tablet PO PRN ×4 (02:48→19:38)
--- NOTE | 2018-02-13 04:22 | NUR ---
Chief Complaint: Depression, gravely disabled Legal hold: LPS conservator Client on LPS status for GD. Report received from day shift nurse Jin RN with use of SBAR. Why are they here: depression, S/I, psychosis, gravely disabled. Diagnosis/presenting symptoms: Psychosis, depression Assessment Pt lying in bed at the start of the shift and remained there throughout. We met for 1:1 and pt continues to report improvement overall in his mood, but states pain issues continue to cause depression. Reports plan of seeing a pain specialist after he leaves here. S/I, H/I: Pt denies A/VH: Pt denies ADL's: Independent Group attendance: no group this shift Were meds taken: Yes Any med S/E none observed and denies any side effects Mental Status Exam Appearance: Neat and clean Eye contact: Good Behavior: WNL Speech: Normal rate, rhythm, volume Mood: Depressed Affect: Blunted Thought process: Linear Cognition: Sufficient Insight: Good Judgment: Fair Interventions PRN's used: [place] Therapeutic interventions: 1:1 assessment, therapeutic communication, administered medications and observed for adverse effects Restraints/seclusion/emergency medication: None Justification: Pt continues to exhibit symptoms of depression and anxiety.
[2018-02-13] MEDS: buPROPion SR 150mg tablet PO SCH ×2 (07:44→14:15)
[2018-02-13] MEDS: gabapentin 300mg capsule PO SCH ×2 (07:44→20:02)
[2018-02-13] MEDS: docusate sod 100mg capsule PO SCH ×2 (07:44→20:01)
[2018-02-13] MEDS: LORazepam 1 MG tablet PO SCH ×2 (07:44→20:01)
[2018-02-13] MEDS: atorvastatin 20mg tablet PO SCH (07:44)
[2018-02-13 08:00] VITALS: BP 100/64
--- NOTE | 2018-02-13 14:47 | NUR ---
Nursing Progress Note: Pt more isolative today. He refused am group, instead, sleeping in his bed. Pt rates his depression at 6/10 and says he hasn't thought of suicide today and holding on to hope that the Chain [employer]er will get him a room at [facility]. Pt had questions about what it looked like so he was provided a printout. Pt continues to c/o pain and received norco x 2 for pain 11/13 which was reduced to 5/10 after receiving medication.
[2018-02-13 19:00] VITALS: BP 107/68
[2018-02-13] MEDS: OLANZapine 5mg rapidly disint. tablet PO SCH (20:51)
--- NOTE | 2018-02-13 23:57 | NUR ---
Chief Complaint: Depression, gravely disabled Legal hold: LPS conservator Client on LPS status for GD. Report received from day shift nurse Jin HAINES with use of SBAR. Why are they here: depression, S/I, psychosis, gravely disabled. Diagnosis/presenting symptoms: Psychosis, depression Assessment Pt lying in bed at the start of the shift and remained there throughout. We met for 1:1 and I asked him why he was so isolative today. Pt reports he continues to feel depressed due his chronic pain, stating "I am tired of this crap." He denies any thoughts of suicide and contracts for safety. Does state there is a plan to be evalulated regarding pain management prior to discharge. Pt is looking forward to this and is hopeful that something can be done to better manage his pain. S/I, H/I: Pt denies A/VH: Pt denies ADL's: Independent Group attendance: no group this shift Were meds taken: Yes Any med S/E none observed and denies any side effects Mental Status Exam Appearance: Neat and clean Eye contact: Good Behavior: WNL Speech: Normal rate, rhythm, volume Mood: Depressed Affect: Blunted Thought process: Linear Cognition: Sufficient Insight: Good Judgment: Fair Interventions PRN's used: [place] Therapeutic interventions: 1:1 assessment, therapeutic communication, administered medications and observed for adverse effects Restraints/seclusion/emergency medication: None Justification: Pt continues to exhibit symptoms of depression
[2018-02-14] MEDS: HYDROcodone/acetaminophen 5mg/325mg tablet PO PRN ×4 (02:11→21:05)
[2018-02-14] MEDS: buPROPion SR 150mg tablet PO SCH ×2 (07:47→13:01)
[2018-02-14] MEDS: LORazepam 1 MG tablet PO SCH ×2 (07:47→21:05)
[2018-02-14] MEDS: gabapentin 300mg capsule PO SCH ×2 (07:47→21:05)
[2018-02-14] MEDS: atorvastatin 20mg tablet PO SCH (07:47)
[2018-02-14] MEDS: docusate sod 100mg capsule PO SCH ×2 (07:47→21:05)
[2018-02-14 08:00] VITALS: BP 115/74
[2018-02-14] MEDS ORDERED: buPROPion SR 150mg tablet PO SCH (13:30)
--- NOTE | 2018-02-14 16:28 | NUR ---
RN Progress Note LPS Conserved Report received from ZAKI Turner with use of SBAR Pt admitted with increased paranoia, agitation had been escalating, recently attempted suicide by jumping off [address] and fractured his back. Diagnosis/presenting symptoms: Depression, anxiety Assessment Pt asleep at change of shift. Met with RN for 1:1 assessment at the bedside. Presents calm and cooperative with a mildly constricted affect. Reports his mood is "ok... I'm worried about kind of a strange thing". Pt talking about not knowing he was receiving income for disability until recently, and has not heard this from his conservator or his sister. Denies S/I. No reported sleep issues last night. Reportedly slept 8 hours. Performs ADL's independently. Ambulates with the use of a walker. Attends all groups, compliant with medications. Reports some dry mouth as only AE to medications. Mental Status Exam Appearance: Appears stated age Eye contact: Direct Behavior: Calm, cooperative Speech: clear Mood: "ok" denies S/I Affect: mildly constricted Thought process: Goal directed Thought Content: No delusions/paranoia Cognition: alert and oriented x4 Insight: Good Judgment:Fair to good Interventions PRN's used: [place] x2 Therapeutic interventions: 1:1 assessment with RN, 1:1 with psychiatrist, compliant with medications, participated in milieu Restraints/seclusion/emergency medication: N/A
[2018-02-14 19:46] VITALS: BP 113/51
[2018-02-14] MEDS: OLANZapine 5mg rapidly disint. tablet PO SCH (21:05)
[2018-02-15] MEDS: temazepam 15mg capsule PO PRN ×2 (01:11→21:16)
--- NOTE | 2018-02-15 04:47 | NUR ---
RN Progress Note LPS Conserved Report received from nurse Schrader with use of SBAR Patient admitted with increased paranoia, agitation, recent suicide attempt by jumping off a bridge resulting in a back fracture. Diagnosis/presenting symptoms: Depression and anxiety. Assessment: Patient is in room at change of shift. Patient tells this gag writer that he is feeling better, "I'm looking forward to placement." Some mild anxiety is present. Minor depression is present. Back pain is present and chronic. Patient denies S/I or H/I. S/I, H/I:Denies A/VH: Denies Sleep:Sleeping well. ADL's:No problems. Group attendance:None scheduled during this shift. Were meds taken:Patient has been medication compliant. Any med S/E: Nnne Mental Status Exam Appearance:Appears stated age. Eye contact:Direct. Behavior:Calm and cooperative. Speech:Clear. Mood:"I'm ok." Affect:Mildly constricted. Thought process:Goal directed. Thought Content:No delusions or paranoia. Cognition:Alert and oriented X4. Insight:Good. Judgment:Fair to good. Interventions PRN's used: [place] and Restoril Therapeutic Interventions Restraints/seclusion/emergency medication:None Justification:[]
[2018-02-15 07:55] VITALS: BP 90/58
[2018-02-15] MEDS: gabapentin 300mg capsule PO SCH ×2 (08:03→21:16)
[2018-02-15] MEDS: docusate sod 100mg capsule PO SCH ×2 (08:03→21:15)
[2018-02-15] MEDS: atorvastatin 20mg tablet PO SCH (08:03)
[2018-02-15] MEDS: LORazepam 1 MG tablet PO SCH ×2 (08:03→21:17)
[2018-02-15] MEDS: buPROPion SR 150mg tablet PO SCH ×2 (08:03→12:55)
[2018-02-15] MEDS: HYDROcodone/acetaminophen 5mg/325mg tablet PO PRN ×3 (08:04→21:21)
--- NOTE | 2018-02-15 16:42 | NUR ---
RN Progress Note Chief Complaint: Pt admitted for mental status changes (paranoia and agitation) and after a TIA/stroke at [facility] decreased ability to ambulate. He was seen by telepsychiatrist at the [facility] but several days later, re-presented and was admitted to [place] for behavioral [facility] Legal Hold: LPS Conserved Report received from ZAKI Gtz with ESTEBAN Diagnosis/presenting symptoms: Depression, anxiety Assessment Pt asleep at change of shift. Met with RN for 1:1 assessment at the bedside. Continues to endorse symptoms of depression, but denies S/I. States "I'm just frustrated with this whole thing" re moving from place to place and being on conservatorship. When asked if he knows why he is conserved, he states that he does not. Educated patient on parameters for conservatorship and he endorses that he was unable to care for himself and had a suicide attempt. Provided supportive listening for patient as he voiced his frustration, and shared additional information about [facility] in [place] with patient. Pt participates in group and in the milieu of the unit. Reports some improvement of depressive symptoms on current medications. Compliant with medications and denies AE's to meds. Mental Status Exam Appearance: Appears stated age, ambulates with a walker Eye contact: Direct Behavior: Calm, cooperative Speech: clear Mood: Depressed Affect: mildly constricted Thought process: Goal directed Thought Content: No delusions/paranoia. Denies A/VH Cognition: alert and oriented x4 Insight: Fair Judgment:Fair to good Interventions PRN's used: [place] x2 Therapeutic interventions: 1:1 assessment with RN, therapeutic/active listening, education to improve insight, participated in milieu Restraints/seclusion/emergency medication: N/A Justification for Inpatient Hospitalization: Pt stable on current medications, and symptoms have lessened with treatment, however, pt is conserved and awaiting placement by conservator
[2018-02-15 19:55] VITALS: BP 112/87
[2018-02-15] MEDS: OLANZapine 5mg rapidly disint. tablet PO SCH (21:15)
[2018-02-15] MEDS: cyclobenzaprine 10mg tablet PO PRN (21:15)
--- NOTE | 2018-02-16 02:53 | NUR ---
RN Progress Note LPS Conserved Report received from nurse Schrader with use of SBAR Patient admitted with increased paranoia, agitation, recent suicide attempt by jumping off a bridge resulting in a back fracture. Diagnosis/presenting symptoms: Depression and anxiety. Assessment: Patient is in room at change of shift. Patient tells this web content writer that he is feeling better, Patient tells this web content writer that he is adapting with the idea of leaving here and having a new place to live. Some mild anxiety is present. Minor depression is present. Back pain is present and chronic. Patient denies S/I or H/I. S/I, H/I:Denies A/VH: Denies Sleep:Sleeping well. ADL's:No problems. Group attendance:None scheduled during this shift. Were meds taken:Patient has been medication compliant. Any med S/E: Nnne Mental Status Exam Appearance:Appears stated age. Eye contact:Direct. Behavior:Calm and cooperative. Speech:Clear. Mood:"I'm ok." Affect:Mildly constricted. Thought process:Goal directed. Thought Content:No delusions or paranoia. Cognition:Alert and oriented X4. Insight:Good. Judgment:Fair to good. Interventions PRN's used: [place] and Restoril Therapeutic Interventions Restraints/seclusion/emergency medication:None Justification: None
--- NOTE | 2018-02-16 06:40 | NUR ---
Received report on patient. Patient is sleeping sound in no apparent distress. Addendum: 02/16/18 at 0700 by Tatiana Maldonado RN Above not charted by Tatiana Maldonado RN
[2018-02-16] MEDS: buPROPion SR 150mg tablet PO SCH ×2 (07:25→12:49)
[2018-02-16] MEDS: LORazepam 1 MG tablet PO SCH ×2 (07:25→20:43)
[2018-02-16] MEDS: atorvastatin 20mg tablet PO SCH (07:25)
[2018-02-16] MEDS: docusate sod 100mg capsule PO SCH ×2 (07:25→20:44)
[2018-02-16 08:00] VITALS: BP 111/77
[2018-02-16] MEDS: LIDOcaine 5% patch TP SCH (08:00)
[2018-02-16] MEDS: gabapentin 300mg capsule PO SCH ×2 (08:00→20:44)
[2018-02-16] MEDS: HYDROcodone/acetaminophen 5mg/325mg tablet PO PRN ×3 (08:35→20:44)
--- NOTE | 2018-02-16 11:41 | NUR ---
RN Progress Note LPS Conserved Report received from Ulisses Dacosta RN Patient admitted with increased paranoia, agitation, recent suicide attempt by jumping off a bridge resulting in a back fracture. Diagnosis/presenting symptoms: Depression and anxiety. Assessment: Patient is in room at change of shift. Patient tells this underwriter that he is feeling better, he is adapting with the idea of leaving here and having a new place to live. Some mild anxiety is present. Minor depression is present. Back pain is present and chronic. Patient denies S/I or H/I at this time. S/I, H/I:Denies A/VH: Denies Sleep:Sleeping well. ADL's:No problems. Group attendance: Patient attended group. Were meds taken:Patient has been medication compliant. Any med S/E: Nnne Mental Status Exam Appearance:Appears stated age. Eye contact:Direct. Behavior:Calm and cooperative. Speech:Clear. Mood:Patient states he is mildy anxious but ok Affect:Mildly constricted. Thought process:Goal directed. Thought Content:No delusions or paranoia. Cognition:Alert and oriented X4. Insight:Good. Judgment:Fair to good. Interventions PRN's used: [place] Therapeutic Interventions Restraints/seclusion/emergency medication:None Justification: None
[2018-02-16 19:00] VITALS: BP 124/69
[2018-02-16] MEDS: OLANZapine 5mg rapidly disint. tablet PO SCH (20:43)
[2018-02-16] MEDS: temazepam 15mg capsule PO PRN (20:44)
--- NOTE | 2018-02-17 03:23 | NUR ---
RN Progress Note LPS Conserved Report received from nurse Tatiana Maldonado RN with use of SBAR Patient admitted with increased paranoia, agitation, recent suicide attempt by jumping off a bridge resulting in a back fracture. Diagnosis/presenting symptoms: Depression and anxiety. Assessment: Patient is in room at change of shift. Patient tells this ad copy writer that he is feeling better, Patient tells this ad copy writer that he is adapting with the idea of leaving here and having a new place to live. Some mild anxiety is present. Minor depression is present. Back pain is present and chronic. Patient denies S/I or H/I. This patient denies any hallucinations. Patient is medication compliant. He does self isolate in his room. S/I, H/I:Denies A/VH: Denies Sleep:Sleeping well. ADL's:No problems. Group attendance:None scheduled during this shift. Were med's taken:Patient has been medication compliant. Any med S/E: None Mental Status Exam Appearance:Appears stated age. Eye contact:Direct. Behavior:Calm and cooperative. Speech:Clear. Mood:"I'm ok." Affect:Mildly constricted. Thought process:Goal directed. Thought Content:No delusions or paranoia. Cognition:Alert and oriented X4. Insight:Good.
[2018-02-17 07:45] VITALS: BP 93/56
[2018-02-17] MEDS: atorvastatin 20mg tablet PO SCH (08:09)
[2018-02-17] MEDS: docusate sod 100mg capsule PO SCH ×2 (08:09→20:27)
[2018-02-17] MEDS: LORazepam 1 MG tablet PO SCH ×2 (08:09→20:27)
[2018-02-17] MEDS: buPROPion SR 150mg tablet PO SCH ×2 (08:09→12:44)
[2018-02-17] MEDS: gabapentin 300mg capsule PO SCH ×2 (08:10→20:27)
[2018-02-17] MEDS: HYDROcodone/acetaminophen 5mg/325mg tablet PO PRN ×4 (08:10→22:44)
[2018-02-17] MEDS: LIDOcaine 5% patch TP SCH (08:11)
--- NOTE | 2018-02-17 14:52 | NUR ---
Reassessment: Documented PO intake continues at 100% meeting nutrient needs. [facility] 02/17. No edema or wounds. No nutrition concerns at this time. Recommendations: 1) Continue with regular diet 2) Weekly wt Addendum: 02/17/18 at [address] Amended: Links added.
--- NOTE | 2018-02-17 16:20 | NUR ---
Nursing Progress Note: Chief Complaint: Patient came into the hospital with SI and hallucinating. Legal hold:[conserved] Client on voluntary/involuntary status for GD/DTS/DTO[involuntary GD]. Report received from nurse with use of SBAR[No SBAR]. Why are they here:[SI, gravely disabled]. Diagnosis/presenting symptoms:[Depression] Assessment What has happened this shift:[Patient has ambulated hallways three times to shower today, becomes slightly short of breath. Showered. Exhibits anxiety and is on ativan BID with good results. Feels like conservator is not working for him.] S/I, H/I:[Denies] A/VH: [Denies] Sleep:[States poor sleep last night, ] ADL's:[minimal assistance] Group attendance:[Yes] Were meds taken:[Yes] Any med S/E[No] Mental Status Exam Appearance:[Patient took shower and is clean and appropriate.] Eye contact:[good] Behavior:[Med compliant, attends groups, walked 3 x today] Speech:[soft] Mood:[Depressed] Affect:[Blunted] Thought process:[Logical and linear] Thought Content:[Concern about discharge] Cognition:[Good] Insight:[good] Judgment:[impaired] Interventions PRN's used:[norco] Therapeutic interventions:[1:1 to assess for severity of symptoms. Administered medications. Monitoed for AE's. Monitored progress on ambulating independently with standby assist, q15 minute observations for patient safety.] Restraints/seclusion/emergency medication:[no] Justification of Continued Inpatient Treatment:[Patient continues to improve psychologically and physically. He is gravely disabled and on conservatorship and is awaiting [facility]. If discharged, patient would be at high risk for readmission without concrete plan]
[2018-02-17 20:00] VITALS: BP 125/77
[2018-02-17] MEDS: cyclobenzaprine 10mg tablet PO PRN (20:27)
[2018-02-17] MEDS: OLANZapine 5mg rapidly disint. tablet PO SCH (20:28)
--- NOTE | 2018-02-18 01:13 | NUR ---
Chief Complaint: Depression, gravely disabled Legal hold: LPS conservator Client on LPS status for GD. Report received from day shift nurse Guera RN with use of SBAR. Why are they here: depression, S/I, psychosis, gravely disabled. Diagnosis/presenting symptoms: Psychosis, depression Assessment Pt lying in bed at the start of the shift and remained there throughout. We met for 1:1 and he states his mood is "ok", and continues to deny thoughts of suicide. He states that he just tries to keep his mind busy so he doesn't feel depressed. Continues to endorse depression surrounding his pain issues, discussed his plans after discharge to try to follow up with pain specialist. Denies any psychotic symptoms at this time and thoughts were clear, linear and goal directed. Stated he spoke with his sister that has been trying to get a hold of his conservator to find out about his discharge, and stated they are working on getting him placed. S/I, H/I: Pt denies A/VH: Pt denies ADL's: Independent Group attendance: no group this shift Were meds taken: Yes Any med S/E none observed and denies any side effects Mental Status Exam Appearance: Neat and clean Eye contact: Good Behavior: WNL Speech: Normal rate, rhythm, volume Mood: "ok" Affect: euthymic Thought process: Linear Cognition: Sufficient Insight: Good Judgment: Fair Interventions PRN's used: Anayeli Phillips Therapeutic interventions: 1:1 assessment, therapeutic communication, administered medications and observed for adverse effects Restraints/seclusion/emergency medication: None Justification: N/A pt on LPS conservatorship, continues to endorse some depression surrounding his chronic pain issues.
[2018-02-18 08:00] VITALS: BP 90/53
[2018-02-18] MEDS: LORazepam 1 MG tablet PO SCH ×2 (08:10→21:14)
[2018-02-18] MEDS: buPROPion SR 150mg tablet PO SCH ×2 (08:10→13:42)
[2018-02-18] MEDS: docusate sod 100mg capsule PO SCH ×2 (08:10→21:14)
[2018-02-18] MEDS: atorvastatin 20mg tablet PO SCH (08:10)
[2018-02-18] MEDS: gabapentin 300mg capsule PO SCH ×2 (08:10→21:14)
[2018-02-18] MEDS: LIDOcaine 5% patch TP SCH (08:24)
[2018-02-18] MEDS: HYDROcodone/acetaminophen 5mg/325mg tablet PO PRN ×4 (08:24→21:39)
--- NOTE | 2018-02-18 15:35 | NUR ---
Nursing Progress Note: Chief Complaint: Depression, gravely disabled Legal hold: LPS conservator Client on LPS status for GD. Report received from day shift nurse Guera RN with use of SBAR. Why are they here: depression, S/I, psychosis, gravely disabled. Diagnosis/presenting symptoms: Psychosis, depression Assessment: Patient asleep at change of shift and up for breakfast. Patient is pleasant and takes his medication as prescribed. Patient in room with RN. Patient took [place] at breakfast this morning. Patient denies suicidal ideation but has some depression due to his chronic back pain. Patient denies hearing voices. Patient is going to group and is social. S/I, H/I: Pt denies A/VH: Pt denies ADL's: Independent Group attendance: patient went to both groups Were meds taken: Yes Any med S/E none observed and denies any side effects Mental Status Exam Appearance: Neat and clean Eye contact: Good Behavior: WNL Speech: Normal rate, rhythm, volume Mood: "ok" Affect: euthymic Thought process: Linear Cognition: Sufficient Insight: Good Judgment: Fair Interventions PRN's used: [place] Therapeutic interventions: 1:1 assessment, therapeutic communication, administered medications and observed for adverse effects Restraints/seclusion/emergency medication: None Justification: N/A pt on LPS conservatorship, continues to endorse some depression surrounding his chronic pain issues.
[2018-02-18 20:00] VITALS: BP 124/76
[2018-02-18] MEDS: OLANZapine 5mg rapidly disint. tablet PO SCH (21:15)
--- NOTE | 2018-02-18 23:59 | NUR ---
Chief Complaint: Psychosis Legal hold: LPS Conserved Client on involuntary status for GD/DTS Report received from nurse with use of SBAR: ZAKI Valerio Why are they here: Pt. admitted for increased paranoia and agitation and was transferred from a care home facility. He is LPS Conserved for gravely disabled. Pt. has depression and previous suicide attempts, one during which he jumped off a bridge and broke his back. Pt. has a history of chronic pain, alcoholism, and a possible TIA/stroke which left him with left-sided weakness. He also was having SOB and QTc prolongation which prompted this MD to stop the major potentially offensive medications. Pt. is awaiting placement by conservator. Diagnosis/presenting symptoms: Pt. currently denies S/I, paranoia, agitation, or h/a. He is still experiencing some depression and anxiety r/t finding a place to live. Assessment What has happened this shift: Pt. laying in bed at the beginning of the shift, he seems to be well adjusted to his new room and new roommate since his move yesterday evening. He was up later to use the phone, continues to ambulate independently with steady gait. Pt. is pleasant, friendly, and cooperative. He denies any S/I or psychosis, however he admits to on-going depression and anxiety, when this travel writer questioned pt. why, he stated, "I have anxiety over finding a place to live." Pt. reports that he may be going to [facility] in [place], and he appears optimistic about this transition. S/I, H/I: Denies A/VH: Denies Sleep: Pt. reports he is sleeping well ADL's: Pt. is able to ambulate independently with use of walker. Group attendance: Pt. reports he has been attending all groups Were meds taken: Yes Any med S/E: Pt. reports he has been having dry itchy skin, however denies any rash, states, "I have been putting lotion on it and it helps." Will endorse to AM shift, and continue to monitor. Mental Status Exam Appearance: Neat and well groomed Eye contact: Good Behavior: Pleasant and relaxed Speech: Articulate and talkative Mood: Pleasant and cooperative Affect: Animated Thought process: Intact Thought Content: Logical, with continued phobia regarding discharge and how he will support himself Cognition: A&O X4 Insight: Good Judgment: Good Interventions PRN's used: PRN [place] administered for chronic back pain with effectiveness and Lidocaine Patch removed at HS per order Therapeutic interventions: Established rapport, provided active listening, and maintained a safe and therapeutic environment. Restraints/seclusion/emergency medication: N/A Justification of Continued Inpatient Treatment: Pt. remains at this facility awaiting placement by conservator. He is gravely disabled and a DTS per chronic depression and would be unable to independently form a plan for food, clothing, or mcfp independently.
[2018-02-19 08:00] VITALS: BP 114/61
[2018-02-19] MEDS: gabapentin 300mg capsule PO SCH ×2 (08:08→20:55)
[2018-02-19] MEDS: docusate sod 100mg capsule PO SCH ×2 (08:08→20:55)
[2018-02-19] MEDS: buPROPion SR 150mg tablet PO SCH ×2 (08:08→13:15)
[2018-02-19] MEDS: LORazepam 1 MG tablet PO SCH ×2 (08:08→20:55)
[2018-02-19] MEDS: atorvastatin 20mg tablet PO SCH (08:08)
[2018-02-19] MEDS: LIDOcaine 5% patch TP SCH (08:09)
[2018-02-19] MEDS: HYDROcodone/acetaminophen 5mg/325mg tablet PO PRN ×2 (10:11→19:21)
--- NOTE | 2018-02-19 16:09 | NUR ---
Nursing Progress Note: hief Complaint: Increased agitation and paranoia at half-way facility Legal hold:[conservatorship] Client on involuntary status for GD. Report received from nurse with use of SBAR[Pili RN]. Why are they here:[After pt was worked up neurologically, psychiatric hospitalization was recommended]. Diagnosis/presenting symptoms: [F29 Psychosis/Depression NOS] Assessment What has happened this shift:[Pt took a shower, went to groups, reported decreased depression and denies S.I. Pt was able to discuss previous S.A. ] S/I, H/I:[denies] A/VH: [denies] Sleep:[noc shift reported 9.25 hours] ADL's:[Y: independent] Group attendance:[Y] Were meds taken:[Y] Any med S/E[N] Mental Status Exam Appearance:[appropriate - took shower] Eye contact:[Good eye contact] Behavior:[cooperative, stays mostly to himself] Speech:[WNL] Mood:[ok] Affect:[appropriate, content] Thought process:[Logical] Thought Content:[appropriate to situation] Cognition:[Pt a/o x 4 and is able to focus on tasks] Insight:[fair] Judgment:[fair] Interventions PRN's used:[N] Therapeutic interventions:[1:1 interaction with empathic listening, milieu push & groups] Restraints/seclusion/emergency medication:[N] Justification of Continued Inpatient Treatment: [facility] will [facility] taking him.
[2018-02-19 19:00] VITALS: BP 122/79
[2018-02-19] MEDS: OLANZapine 5mg rapidly disint. tablet PO SCH (20:55)
--- NOTE | 2018-02-20 02:52 | NUR ---
Nursing progress note: Chief Complaint: Psychosis Legal hold: LPS Conserved Client on involuntary status for GD/DTS Report received from nurse with use of SBAR: Jin HAINES Why are they here: Pt. admitted for increased paranoia and agitation and was transferred from a care home facility. He is LPS Conserved for gravely disabled. Pt. has depression and previous suicide attempts, one during which he jumped off a bridge and broke his back. Pt. has a history of chronic pain, alcoholism, and a possible TIA/stroke which left him with left-sided weakness. Pt is awaiting placement by conservator. Diagnosis/presenting symptoms: Pt. currently denies S/I or anxiety. Patient is in good spirts due to a possible lead on discharge in [place]. Assessment What has happened this shift: Pt was painful when i came on to shift. Pt received PRN pain med and was in better spirts. Pt denies any S/I. Patient went to movie night and was in good spirts this shift. Unable to find his Lidoderm patch. Patient denies taking it off and throwing away. Pt's clothing and bedding was searched with no luck of finding the patch. S/I, H/I: Denies A/VH: Denies Sleep: Seems to slept well ADL's: Pt. is able to ambulate independently with use of walker. Group attendance: Pt. reports he has been attending all groups Were meds taken: Yes Any med S/E: N/A Mental Status Exam Appearance: Neat and well groomed Eye contact: Good Behavior: Cooperative, relaxed Speech: Talkative Mood: Pleasant and cooperative Affect: Normal Thought process: Intact Thought Content: Logical Cognition: A&O X4 Insight: Good Judgment: Good Interventions PRN's used: PRN [place] given for back pain. Lidoderm patch was unable to locate Therapeutic interventions: Established rapport, active listening, safe and therapeutic environment. Restraints/seclusion/emergency medication: N/A Justification of Continued Inpatient Treatment: Pt. remains at this facility awaiting placement by conservator. He is gravely disabled and a DTS per chronic depression. High readmission risk.
[2018-02-20 07:00] VITALS: BP 123/62
[2018-02-20] MEDS: HYDROcodone/acetaminophen 5mg/325mg tablet PO PRN ×4 (08:14→23:34)
[2018-02-20] MEDS: atorvastatin 20mg tablet PO SCH (08:14)
[2018-02-20] MEDS: buPROPion SR 150mg tablet PO SCH ×2 (08:14→12:07)
[2018-02-20] MEDS: docusate sod 100mg capsule PO SCH ×2 (08:14→20:37)
[2018-02-20] MEDS: gabapentin 300mg capsule PO SCH ×2 (08:14→20:37)
[2018-02-20] MEDS: LORazepam 1 MG tablet PO SCH ×2 (08:14→20:37)
[2018-02-20] MEDS: LIDOcaine 5% patch TP SCH (08:46)
[2018-02-20 08:47] VITALS: BP 123/62
--- NOTE | 2018-02-20 16:28 | NUR ---
Chief Complaint: Increased agitation and paranoia at care home facility Legal hold:[conservatorship] Client on involuntary status for GD. Report received from nurse with use of SBAR[Pili RN]. Why are they here:[After pt was worked up neurologically, psychiatric hospitalization was recommended]. Diagnosis/presenting symptoms: [F29 Psychosis/Depression NOS] Assessment What has happened this shift:[Pt went to groups, Pt stated his depression was slightly more today due to my physical health is just bringing me down ... Im pretty limited on what I can do. Pt denies S.I.] S/I, H/I:[denies] A/VH: [denies] Sleep:[no napping today] ADL's:[Y: independent] Group attendance:[Y] Were meds taken:[Y] Any med S/E[N] Mental Status Exam Appearance:[appropriate ] Eye contact:[Good eye contact] Behavior:[cooperative, stays mostly to himself] Speech:[WNL] Mood:[ok] Affect:[appropriate, content] Thought process:[Logical] Thought Content:[appropriate to situation] Cognition:[Pt a/o x 4 and is able to focus on tasks] Insight:[fair] Judgment:[fair] Interventions PRN's used:[N] Therapeutic interventions:[1:1 interaction with empathic listening, milieu push & groups] Restraints/seclusion/emergency medication:[N] Justification of Continued Inpatient Treatment: Pt awaiting placement at [facility] care. [facility] will possibly be taking him. Pt remains depressed due to his physical health and pain.
[2018-02-20] MEDS: cyclobenzaprine 10mg tablet PO PRN (18:55)
[2018-02-20 20:00] VITALS: BP 109/78
[2018-02-20] MEDS: OLANZapine 5mg rapidly disint. tablet PO SCH (20:37)
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
[2018-02-21] MEDS: LORazepam 1 MG tablet PO SCH ×2 (07:45→21:16)
[2018-02-21] MEDS: buPROPion SR 150mg tablet PO SCH ×2 (07:45→12:33)
[2018-02-21] MEDS: gabapentin 300mg capsule PO SCH ×2 (07:46→21:15)
[2018-02-21] MEDS: atorvastatin 20mg tablet PO SCH (07:46)
[2018-02-21] MEDS: docusate sod 100mg capsule PO SCH ×2 (07:46→21:15)
[2018-02-21] MEDS: HYDROcodone/acetaminophen 5mg/325mg tablet PO PRN ×4 (07:49→21:15)
[2018-02-21 08:00] VITALS: BP 100/60
[2018-02-21] MEDS: LIDOcaine 5% patch TP SCH (08:20)
--- NOTE | 2018-02-21 13:30 | NUR ---
Chief Complaint: Increased agitation and paranoia at half-way facility Legal hold:[conservatorship] Client on involuntary status for GD. Report received from nurse with use of SBAR: yes Why are they here: Psychosis. After pt was worked up neurologically, psychiatric hospitalization was recommended Diagnosis/presenting symptoms: Psychosis/Depression NOS Assessment What has happened this shift: Pt continues to feel depressed though denies SI, his focus seems to be on pending discharge, he is thinking over the logistics; wanting to get his stuff out of the safe and go through things, concerned phone may not be charged. Educated pt on discharge process and how usually there is time day of D/c to charge phone. Pt out of room for meals and groups, ambulates in the hester with FWW, gait steady, socializes with peers, currently in the rec room watching a football game, making game related comments to another male patient, no unsafe behaviors noted. S/I, H/I:denies A/VH: denies Sleep: Pt states he slept last night though woke up early in the morning. ADL's:independent Group attendance: Attended morning group Were meds taken:yes Any med S/E: none noted, none reported Mental Status Exam Appearance: Clean, appropriate Eye contact:good Behavior:calm, cooperative Speech:clear Mood: a little anxious over pending discharge Affect:depressed Thought process:logical, goal oriented Thought Content:organized, focused on discharge Cognition: A/O X 4 Insight:good Judgment:good Interventions PRN's used: [place] 5/325 mg at 0750 & 1230. Therapeutic interventions:1:1 interaction, discharge education, Q 15 minute checks Restraints/seclusion/emergency medication: none Justification of Continued Inpatient Treatment: Pt awaiting placement at [facility] and care. [facility] will possibly be taking him. Pt remains depressed due to his physical health and pain, needs assistance with medication management.
--- NOTE | 2018-02-21 16:48 | NUR ---
Pt took a shower and removed his lidocaine patch, he stuck it on his bedside table, a director industrial nursing found it and gave it to the charge nurse who disposed of it. Pt requested a new patch be put on, appled new patch.
[2018-02-21 19:58] VITALS: BP 114/66
[2018-02-21] MEDS: OLANZapine 5mg rapidly disint. tablet PO SCH (21:16)
[2018-02-21] MEDS: temazepam 15mg capsule PO PRN (21:16)
--- NOTE | 2018-02-22 02:36 | NUR ---
Nursing progress note: Chief Complaint: Psychosis Legal hold: LPS Conserved Client on involuntary status for GD/DTS Report received from nurse with use of SBAR: Why are they here: Pt. admitted for increased paranoia and agitation and was transferred from a care home facility. He is LPS Conserved for gravely disabled. Pt. has depression and previous suicide attempts, one during which he jumped off a bridge and broke his back. Pt. has a history of chronic pain, alcoholism, and a possible TIA/stroke which left him with left-sided weakness. Pt is awaiting placement by conservator. Diagnosis/presenting symptoms: Pt. currently denies S/I or anxiety. Patient is in good spirts due to a possible lead on discharge in [place]. Assessment: This patient is awake and well oriented. He is cooperative with staff. He is isolating himself in his room. Patient complains of chronic back pain. Patient states he had a bowel movement prior to evening shift. He still complains of feeling somewhat hopeless and has minor depression. S/I, H/I: Denies A/VH: Denies Sleep: Seems to slept well ADL's: Pt. is able to ambulate independently with use of walker. Group attendance: Pt. reports he has been attending all groups Were meds taken: Yes Any med S/E: N/A Mental Status Exam Appearance: Neat and well groomed Eye contact: Good Behavior: Cooperative, relaxed Speech: Talkative Mood: Depression and feeling hopeless. Affect: Normal Thought process: Intact Thought Content: Logical Cognition: A&O X4 Insight: Good Judgment: Good Interventions PRN's used: PRN [place] given for back pain, Restoril for sleep. Therapeutic interventions: Established rapport, active listening, safe and therapeutic environment. Restraints/seclusion/emergency medication: None. Justification of Continued Inpatient Treatment: Pt. remains at this facility awaiting placement by conservator. He is gravely disabled and a DTS per chronic depression. High readmission risk.
[2018-02-22] MEDS: buPROPion SR 150mg tablet PO SCH ×2 (07:53→12:40)
[2018-02-22] MEDS: LORazepam 1 MG tablet PO SCH ×2 (07:53→21:32)
[2018-02-22] MEDS: LIDOcaine 5% patch TP SCH (07:54)
[2018-02-22] MEDS: HYDROcodone/acetaminophen 5mg/325mg tablet PO PRN ×4 (07:54→21:33)
[2018-02-22] MEDS: gabapentin 300mg capsule PO SCH ×2 (07:54→21:33)
[2018-02-22] MEDS: docusate sod 100mg capsule PO SCH ×2 (07:54→21:33)
[2018-02-22] MEDS: atorvastatin 20mg tablet PO SCH (07:54)
[2018-02-22 08:00] VITALS: BP 125/69
[2018-02-22] MEDS: cyclobenzaprine 10mg tablet PO PRN (12:42)
--- NOTE | 2018-02-22 13:57 | NUR ---
Nursing progress note: Chief Complaint: Psychosis Legal hold: LPS Conserved Client on involuntary status for GD/DTS Report received from nurse with use of SBAR: Ulisses RN Why are they here: Pt. admitted for increased paranoia and agitation and was transferred from a retirement facility. He is LPS Conserved for gravely disabled. Pt. has depression and previous suicide attempts, one during which he jumped off a bridge and broke his back. Pt. has a history of chronic pain, alcoholism, and a possible TIA/stroke which left him with left-sided weakness. Pt is awaiting placement by conservator. Diagnosis/presenting symptoms: Depression Assessment: Pt rates depression today as 7/10, expresses some anxiety about pending discharge, "I don't really do well out there." Pt does however, express some hope and has some future oriented goals. He hopes that after discharge he will be able to get more exercise and possibly have a more comfortable bed thus reducing back pain so that he may be able to get a part-time job. Pt states that a good thing that happened was that his social security came through though was a little disappointed that he couldn't have waited another year until he was 64 so he could get a little more money. Pt understands that the money will be used for his room and board and seems okay with this, discussed possibility that pt may receive a small stipend for spending money. Pt stated that his back pain is worse today, states that standing aggravates it, medicated with prn [place] 5/325 mg at 0754 & 1242, prn Flexeril given at 1242, lidocaine patch applied per MD order. Pt showered today, states he likes to shower daily, socializes with staff and peers, attended groups, walked in hester with FWW, no unsafe behaviors noted. S/I, H/I: Denies A/VH: Denies Sleep: Pt states he did awaken during the noc with back pain ADL's: Pt. is able to ambulate independently with use of walker. Group attendance: Pt attended groups Were meds taken: Yes Any med S/E: No adverse side effects noted or reported Mental Status Exam: Appearance: Pt is clean, appears depressed at times Eye contact: Good Behavior: Cooperative, relaxed Speech: Talkative Mood: Depressed, anxious Affect: [place] Thought process: Linear, goal directed Thought Content: Apprehensive about the future, focused on discharge. Cognition: A&O X4 Insight: Good Judgment: Good Interventions PRN's used: PRN [place] 5/325 mg at 0754, 1242, prn Flexeril at 1242 Therapeutic interventions: Established rapport, therapeutic listening, encouragement of pt's future goals, pain management, distraction. Restraints/seclusion/emergency medication: None. Justification of Continued Inpatient Treatment: Pt. remains at this facility awaiting placement by conservator. He is gravely disabled and a DTS per chronic depression. High readmission risk.
[2018-02-22 19:50] VITALS: BP 126/77
[2018-02-22] MEDS: temazepam 15mg capsule PO PRN (21:31)
[2018-02-22] MEDS: OLANZapine 5mg rapidly disint. tablet PO SCH (21:34)
--- NOTE | 2018-02-23 04:27 | NUR ---
Nursing progress note: Chief Complaint: Psychosis Legal hold: LPS Conserved Client on involuntary status for GD/DTS Report received from nurse with use of SBAR: Why are they here: Pt. admitted for increased paranoia and agitation and was transferred from a senior living facility. He is LPS Conserved for gravely disabled. Pt. has depression and previous suicide attempts, one during which he jumped off a bridge and broke his back. Pt. has a history of chronic pain, alcoholism, and a possible TIA/stroke which left him with left-sided weakness. Pt is awaiting placement by conservator. Diagnosis/presenting symptoms: Pt. currently denies S/I or anxiety. Patient is in good spirts due to a possible lead on discharge in [place]. Assessment: This patient is awake and well oriented. He is cooperative with staff. He is isolating himself in his room. Patient complains of chronic back pain. Patient states he had a bowel movement today. This patient has not gotten out of bed except to go to the restroom this shift. The patient tells this justowriter operator that he is stressed, he states his depression is still present. Patient states he is ready to leave this unit, "it's time, I'm thinking it will be next week" S/I, H/I: Denies A/VH: Denies Sleep: Seems to slept well ADL's: Pt. is able to ambulate independently with use of walker. Group attendance: Pt. reports he has been attending all groups Were meds taken: Yes Any med S/E: N/A Mental Status Exam Appearance: Neat and well groomed Eye contact: Good Behavior: Cooperative, relaxed Speech: Talkative Mood: Depression. Affect: Normal Thought process: Intact Thought Content: Logical Cognition: A&O X4 Insight: Good Judgment: Good Interventions PRN's used: PRN [place] given for back pain, Restoril for sleep. Therapeutic interventions: Established rapport, active listening, safe and therapeutic environment. Restraints/seclusion/emergency medication: None. Justification of Continued Inpatient Treatment: Pt. remains at this facility awaiting placement by conservator. He is gravely disabled and a DTS per chronic depression. High readmission risk.
[2018-02-23] MEDS: HYDROcodone/acetaminophen 5mg/325mg tablet PO PRN ×4 (06:53→23:04)
[2018-02-23] MEDS: buPROPion SR 150mg tablet PO SCH ×2 (06:53→12:49)
[2018-02-23 08:00] VITALS: BP 106/57
[2018-02-23] MEDS: LORazepam 1 MG tablet PO SCH ×2 (08:04→21:21)
[2018-02-23] MEDS: atorvastatin 20mg tablet PO SCH (08:04)
[2018-02-23] MEDS: gabapentin 300mg capsule PO SCH ×2 (08:04→21:19)
[2018-02-23] MEDS: docusate sod 100mg capsule PO SCH ×2 (08:04→21:19)
[2018-02-23] MEDS: LIDOcaine 5% patch TP SCH (08:05)
--- NOTE | 2018-02-23 09:25 | NUR ---
Reassessment: PO intake continues at 100% meeting nutrient needs. [facility] 02/22. Will continue to follow. Recommendations: 1) Continue with regular diet 2) Weekly wt Addendum: 02/23/18 at [address] Amended: Links added.
--- NOTE | 2018-02-23 16:37 | NUR ---
RN Progress Note: Chief Complaint: Psychosis Legal hold: LPS Conserved Client on involuntary status for GD/DTS Report received from nurse with use of SBAR: Ulisses HAINES Why are they here: Pt. admitted for increased paranoia and agitation and was transferred from a residential facility. He is LPS Conserved for gravely disabled. Pt. has depression and previous suicide attempts, one during which he jumped off a bridge and broke his back. Pt. has a history of chronic pain, alcoholism, and a possible TIA/stroke which left him with left-sided weakness. Pt is awaiting placement by conservator. Diagnosis/presenting symptoms: Depression Assessment: Pt in bed at change of shift. He reports his back continues to hurt and ask for "pain medicine." He states he received his social security earlier than anticipated with the help of his conservator. He shares that he continues to be depressed mainly "out of boredom doing nothing all day and being here." He anticipates his depression will improve once he moves to the "[facility]." S/I, H/I: Denies A/VH: Denies Sleep: WNL's ADL's: Pt. is able to ambulate independently with use of walker. Group attendance: Pt attended groups Were meds taken: Yes Any med S/E: No adverse side effects noted or reported Mental Status Exam: Appearance: Pt is clean, appears depressed at times Eye contact: Good Behavior: Cooperative, relaxed Speech: Talkative Mood: Depressed, anxious Affect: [place] Thought process: Linear, goal directed Thought Content: Apprehensive about the future, focused on discharge. Cognition: A&O X4 Insight: Good Judgment: Good Interventions PRN's used: PRN [place] 5/325 mg Therapeutic interventions: Established rapport, therapeutic listening, pain management Restraints/seclusion/emergency medication: None. Justification of Continued Inpatient Treatment: Pt. remains at this facility awaiting placement by conservator. He is gravely disabled and a DTS per chronic depression.
[2018-02-23 19:00] VITALS: BP 132/61
[2018-02-23] MEDS: temazepam 15mg capsule PO PRN (21:19)
[2018-02-23] MEDS: naproxen sodium 220mg tablet PO PRN (21:19)
[2018-02-23] MEDS: cyclobenzaprine 10mg tablet PO PRN (21:19)
[2018-02-23] MEDS: OLANZapine 5mg rapidly disint. tablet PO SCH (21:20)
--- NOTE | 2018-02-24 04:16 | NUR ---
Nursing progress note: Chief Complaint: Psychosis Legal hold: LPS Conserved Client on involuntary status for GD/DTS Report received from ZAKI Rouse with use of SBAR: Why are they here: Pt. admitted for increased paranoia and agitation and was transferred from a snf facility. He is LPS Conserved for gravely disabled. Pt. has depression and previous suicide attempts, one during which he jumped off a bridge and broke his back. Pt. has a history of chronic pain, alcoholism, and a possible TIA/stroke which left him with left-sided weakness. Pt is awaiting placement by conservator. Diagnosis/presenting symptoms: Pt. currently denies S/I or anxiety. Patient is in good spirts due to a possible lead on discharge in [place]. Assessment: This patient is awake and well oriented. He is cooperative with staff. He is isolating himself in his room. Patient complains of chronic back pain. Patient states he had a bowel movement today. This patient has not gotten out of bed except to go to the restroom this shift. The patient tells this headline writer that he is stressed, he states his depression is still present. This patient has been medication compliant. Patients lidocaine patch for his back pain has fallen off, he states someone picked it up and threw it away. This patient states he is ready for a fresh start upon leaving this unit. Patient awoke during the night and requested a norco for his back pain. This was given. Q15 minute rounding is being done for patient safety. S/I, H/I: Denies A/VH: Denies Sleep: Seems to slept well ADL's: Pt. is able to ambulate independently with use of walker. Group attendance: Pt. reports he has been attending all groups Were meds taken: Yes Any med S/E: N/A Mental Status Exam Appearance: Neat and well groomed Eye contact: Good Behavior: Cooperative, relaxed Speech: Talkative Mood: Depression. Affect: Normal Thought process: Intact Thought Content: Logical Cognition: A&O X4 Insight: Good Judgment: Good Interventions PRN's used: PRN Blanket given for back pain, Restoril for sleep. Therapeutic interventions: Established rapport, active listening, safe and therapeutic environment. Restraints/seclusion/emergency medication: None. Justification of Continued Inpatient Treatment: Pt. remains at this facility awaiting placement by conservator. He is gravely disabled and a DTS per chronic depression. High readmission risk.
[2018-02-24 08:00] VITALS: BP 110/58
[2018-02-24] MEDS: buPROPion SR 150mg tablet PO SCH ×2 (08:15→13:30)
[2018-02-24] MEDS: LORazepam 1 MG tablet PO SCH ×2 (08:15→21:04)
[2018-02-24] MEDS: docusate sod 100mg capsule PO SCH ×2 (08:16→21:05)
[2018-02-24] MEDS: atorvastatin 20mg tablet PO SCH (08:16)
[2018-02-24] MEDS: HYDROcodone/acetaminophen 5mg/325mg tablet PO PRN ×4 (08:16→21:06)
[2018-02-24] MEDS: gabapentin 300mg capsule PO SCH ×2 (08:16→21:05)
[2018-02-24] MEDS: LIDOcaine 5% patch TP SCH (08:17)
--- NOTE | 2018-02-24 16:55 | NUR ---
NURSING PROGRESS NOTE The patient is LPS Conserved, involuntary GD/DTS. Has had significant previous suicide attempt by jumping from a bridge and fracturing back. He is no longer having suicidal thoughts. Depressed mood with bland affect. Pain issues to back, controlled with [place] 5mg q4h. Attends all groups and meals with others with good interactions. Awaiting placement and discharge to [facility] in [place].
[2018-02-24 20:00] VITALS: BP 119/80
[2018-02-24] MEDS: temazepam 15mg capsule PO PRN (21:05)
[2018-02-24] MEDS: OLANZapine 5mg rapidly disint. tablet PO SCH (21:05)
--- NOTE | 2018-02-25 00:38 | NUR ---
Nursing Note: Chief Complaint: Psychosis Legal hold: LPS Conserved Client on involuntary status for GD/DTS Report received from nurse with use of SBAR: ZAKI Overton Why are they here: Pt. admitted for increased paranoia and agitation and was transferred from a retirement facility. He is LPS Conserved for gravely disabled. Pt. has depression and previous suicide attempts, one during which he jumped off a bridge and broke his back. Pt. has a history of chronic pain, alcoholism, and a possible TIA/stroke which left him with left-sided weakness. He also was having SOB and QTc prolongation which prompted this MD to stop the major potentially offensive medications. Pt. is awaiting placement by conservator. Diagnosis/presenting symptoms: Pt. currently denies S/I, paranoia, agitation, or h/a. He is still experiencing some depression r/t not knowing where he will be discharging to and "Being cooped up in here." Pt. also admits he has been having some anxiety attacks during the day time. Assessment What has happened this shift: Pt. up in the Group Room at the beginning of the shift watching TV and interacting with others, he continues to ambulate with use of his walker, with steady gait. Fall precautions remain in place. Pt. is pleasant, friendly, and cooperative. He denies any S/I or psychosis, however he admits to on-going depression and anxiety, states, "I have anxiety attacks all day long." When questioned by this commercial underwriter what triggers his anxiety attacks, pt. reports he does not know, however his order for scheduled BID Ativan helps. He would like something to help his anxiety in the middle of the day as well, will endorse to AM shift. Pt. reports on-going phobia r/t discharge, he may be going to [facility] in [place], states, "I would like a room of my own." S/I, H/I: Denies A/VH: Denies Sleep: Pt. reports he has been sleeping very well ADL's: Pt. is able to ambulate independently with use of walker. Group attendance: Pt. reports he has been attending all groups Were meds taken: Yes Any med S/E: None. Mental Status Exam Appearance: Neat and well groomed Eye contact: Good Behavior: Pleasant and relaxed Speech: Articulate and talkative Mood: Pleasant and cooperative Affect: Animated Thought process: Intact Thought Content: Logical, with continued phobia regarding discharge and where he will be going Cognition: A&O X4 Insight: Good Judgment: Good Interventions PRN's used: PRN [place] administered for chronic back pain with effectiveness and Lidocaine Patch removed at HS per order Therapeutic interventions: Provided active listening and maintained a safe and therapeutic environment. This commercial underwriter will endorse to AM shift the possible need for a PRN or scheduled afternoon anxiolytic r/t pt. report of increased anxiety during this time of day. Restraints/seclusion/emergency medication: N/A Justification of Continued Inpatient Treatment: Pt. remains at this facility awaiting placement by conservator. He is gravely disabled and a DTS per chronic depression and would be unable to independently form a plan for food, clothing, or long-term independently.
[2018-02-25 08:00] VITALS: BP 98/52
[2018-02-25] MEDS: gabapentin 100mg capsule PO SCH ×2 (08:08→21:43)
[2018-02-25] MEDS: LORazepam 1 MG tablet PO SCH ×2 (08:08→21:29)
[2018-02-25] MEDS: buPROPion SR 150mg tablet PO SCH ×2 (08:08→13:06)
[2018-02-25] MEDS: docusate sod 100mg capsule PO SCH ×2 (08:08→21:29)
[2018-02-25] MEDS: atorvastatin 20mg tablet PO SCH (08:08)
[2018-02-25] MEDS: HYDROcodone/acetaminophen 5mg/325mg tablet PO PRN ×4 (08:09→21:32)
[2018-02-25] MEDS: LIDOcaine 5% patch TP SCH (08:09)
--- NOTE | 2018-02-25 15:58 | NUR ---
NURSING PROGRESS NOTE The patient is LPS Conserved, involuntary GD/DTS. Has had significant previous suicide attempt by jumping from a bridge and fracturing back. He is no longer having suicidal thoughts. Depressed mood with bland affect. Pain issues to back, controlled with [place] 5mg q4h. Attends all groups and meals with others with good interactions. Denies anxiety this shift. Reassurance regarding upcoming discharge offered. Awaiting placement and discharge to [facility] in [place].
[2018-02-25 19:00] VITALS: BP 125/67
[2018-02-25] MEDS: OLANZapine 5mg rapidly disint. tablet PO SCH (21:31)
[2018-02-25] MEDS: temazepam 15mg capsule PO PRN (21:31)
--- NOTE | 2018-02-26 00:02 | NUR ---
Nursing Note: Chief Complaint: Psychosis Legal hold: LPS Conserved Client on involuntary status for GD/DTS Report received from nurse with use of SBAR: ZAKI Overton Why are they here: Pt. admitted for increased paranoia and agitation and was transferred from a senior care facility. He is LPS Conserved for gravely disabled. Pt. has depression and previous suicide attempts, one during which he jumped off a bridge and broke his back. Pt. has a history of chronic pain, alcoholism, and a possible TIA/stroke which left him with left-sided weakness. He also was having SOB and QTc prolongation which prompted this MD to stop the major potentially offensive medications. Pt. is awaiting placement by conservator at [facility] in [place]. He is still having some c/o SOB and has a new order to use an Incentive Spirometer Q 15 min. while awake. Diagnosis/presenting symptoms: Pt. currently denies S/I, paranoia, agitation, or h/a. He is still experiencing some depression, states, "It's on and off throughout the day." Pt. reports his anxiety is better today. Assessment What has happened this shift: Pt. laying in bed at the beginning of the shift, continues to isolate here, reports he is relaxing after Thanksgiving dinner and escaping the noise of other patients in the hallway. 1:1 completed at bedside, he continues to deny S/I or any psychosis, however states, "My depression is on and off throughout the day, about what I'm going to do after here, I have too much time on my hands to think." Pt. reports that his anxiety is better today and he denies the need for any PRN anxiolytics as he had discussed yesterday evening, will continue to monitor. Pt. continues to ambulate with use of his walker, with steady gait, fall precautions remain in place. Pt. is pleasant, friendly, and cooperative. Pt. reports on-going phobia r/t discharge, his conservator is looking into sending him to [facility] in [place]. S/I, H/I: Denies A/VH: Denies Sleep: Pt. reports he has been sleeping very well ADL's: Pt. is able to ambulate independently with use of walker, fall precautions remain in place Group attendance: Pt. reports he has been attending all groups Were meds taken: Yes Any med S/E: None. Mental Status Exam Appearance: Neat and well groomed, dressed in hospital gown Eye contact: Good Behavior: Pleasant and relaxed Speech: Articulate and talkative Mood: Pleasant and cooperative Affect: Blunted, animated with conversation Thought process: Intact Thought Content: Logical, with continued phobia regarding discharge and how he will support himself Cognition: A&O X4 Insight: Good Judgment: Good Interventions PRN's used: PRN [place] administered for chronic back pain with effectiveness and Lidocaine Patch removed at HS per order. PRN Temazepam for sleep Therapeutic interventions: Provided active listening and maintained a safe and therapeutic environment. This production underwriter will endorse to AM shift the possible need for a PRN anxiolytic and continue to monitor patient. Restraints/seclusion/emergency medication: N/A Justification of Continued Inpatient Treatment: Pt. remains at this facility awaiting placement by conservator. He is gravely disabled and a DTS per chronic depression and would be unable to independently form a plan for food, clothing, or chcf independently.
--- NOTE | 2018-02-26 00:32 | NUR ---
Nursing Note on Incentive Spirometer: Pt. is still having some c/o SOB and has a new order to use an Incentive Spirometer Q 15 min. while awake and to send home with him, per Dr. Aguilar. Respiratory alerted and will go over use of IS with pt.
[2018-02-26 07:00] VITALS: BP 117/62
[2018-02-26] MEDS: docusate sod 100mg capsule PO SCH ×2 (08:12→20:15)
[2018-02-26] MEDS: atorvastatin 20mg tablet PO SCH (08:12)
[2018-02-26] MEDS: buPROPion SR 150mg tablet PO SCH ×2 (08:12→12:56)
[2018-02-26] MEDS: gabapentin 100mg capsule PO SCH (08:12)
[2018-02-26] MEDS: LORazepam 1 MG tablet PO SCH ×2 (08:12→20:15)
[2018-02-26] MEDS: HYDROcodone/acetaminophen 5mg/325mg tablet PO PRN ×3 (08:13→19:11)
[2018-02-26] MEDS: LIDOcaine 5% patch TP SCH (08:37)
--- NOTE | 2018-02-26 16:11 | NUR ---
Nursing Progress Note: Chief Complaint: Patient is now awaiting placement by conservator to [facility] Legal hold: Conserved. Client on voluntary/involuntary status for GD/DTS/DTO Involuntary for GD Report received from nurse with use of SBAR Yes Why are they here: Patient attempted suicide by jumping off [address] and broke his back. He has been conserved in the past. Diagnosis/presenting symptoms: Presented to unit as suicidal and depressed. Had been living on the streets. No plan for food, clothing or halfway. Assessment What has happened this shift: Patient states that he is bored awaiting placement. He attends all groups, meals, is medication compliant. Walks halls multiple times a day, but becomes short of breath. S/I, H/I: Denies. A/VH: Denies Sleep: Naps during day between activities ADL's: Independent. Group attendance: Yes Were meds taken: Yes. [place] q4' prn for back pain. Any med S/E None Mental Status Exam Appearance: 63-year-old male that is clean and neat. Eye contact: Good Behavior: Walks slow, in chronic pain. WNL. Compliant. Speech:Soft Mood: Depressed. Affect: Flat Thought process: Linear. Thought Content: Discharge plans. Cognition: Slowed. Insight:Fair Judgment: Fair Interventions PRN's used: Sac[place] Therapeutic interventions: 1:1 to assess for severity of symptoms. Administered medications. Monitored for side effects. Q15" checks for safety. Monitored patient ambulation. Restraints/seclusion/emergency medication: None. Justification of Continued Inpatient Treatment:Patient continues to be gravely disabled and cannot provide food/clothing or halfway.
[2018-02-26 20:00] VITALS: BP 141/90
[2018-02-26] MEDS: OLANZapine 5mg rapidly disint. tablet PO SCH (20:16)
[2018-02-26] MEDS: temazepam 15mg capsule PO PRN (20:16)
[2018-02-26] MEDS: gabapentin 300mg capsule PO SCH (20:16)
[2018-02-26] MEDS: ipratropium/albuterol 3ml nebule NEB PRN (20:41)
--- NOTE | 2018-02-27 00:43 | NUR ---
Nursing Note: Chief Complaint: Psychosis Legal hold: LPS Conserved Client on involuntary status for GD/DTS Report received from nurse with use of SBAR: ZAKI Lynne Why are they here: Pt. admitted for increased paranoia and agitation and was transferred from a half-way facility. He is LPS Conserved for gravely disabled. Pt. has depression and previous suicide attempts, one during which he jumped off a bridge and broke his back. Pt. has a history of chronic pain, alcoholism, and a possible TIA/stroke which left him with left-sided weakness. He also was having SOB and QTc prolongation which prompted this MD to stop the major potentially offensive medications. Pt. is awaiting placement by conservator at [facility] in [place]. He is still having some c/o SOB with exertion and has a new order to use an Incentive Spirometer Q 15 min. while awake. Diagnosis/presenting symptoms: Pt. continues to deny S/I or any psychosis. He is still experiencing depression, states, "I am depressed all the time, I'm bored, I'm just waiting around and I want my back to get better." Pt. reports his anxiety is till there also, but well managed. Assessment What has happened this shift: Pt. laying in bed at the beginning of the shift, ambulates to the Group Room briefly for HS snack and then returns to bed. 1:1 completed at bedside, he continues to be friendly and cooperative. Pt. continues to deny S/I or any psychosis, however states, "I am depressed all the time, I'm bored, I'm just waiting around and I want my back to get better. I want to be able to get around normally without using a walker." Pt. reports his anxiety is present, however controlled, he is anxious about what his new facility will be like and when he will get to go. Pt. continues to ambulate with use of his walker, with steady gait, however reports he got up too fast today and became dizzy and then realized that he was pushing his walker too fast which caused him to become off balance, fall precautions remain in place. Pt. encouraged on use of his incentive spirometer, he is compliant, however reports he is still having some SOB, PRN breathing tx provided and pt. voiced effectiveness, Dr. Jaimes notified and will continue to monitor. S/I, H/I: Denies A/VH: Denies Sleep: Pt. reports he has been sleeping very well with use of PRN Temazepam and he has not been waking up early in the morning like he used to ADL's: Pt. is able to ambulate independently with use of walker, fall precautions remain in place. Continues to have SOB with exertion and reports some dizziness, will continue to monitor. Group attendance: Pt. reports he has been attending all groups Were meds taken: Yes Any med S/E: None. Mental Status Exam Appearance: Neat and well groomed, dressed appropriately Eye contact: Good Behavior: Pleasant, yet withdrawn Speech: Articulate and talkative, WNL Mood: Pleasant, depressed at times Affect: Blunted Thought process: Intact Thought Content: Logical, with continued phobia regarding discharge Cognition: A&O X4 Insight: Good Judgment: Good Interventions PRN's used: PRN [place] administered for chronic back pain with effectiveness and Lidocaine Patch removed at HS per order. PRN Temazepam for sleep Therapeutic interventions: Provided active listening and maintained a safe and therapeutic environment. Maintained fall precautions and encouraged pt. to use call light during transfer as needed for any s/s of experienced SOB or dizziness. Provided education and encouraged use of IS, breathing tx provided, and Dr. Jaimes notified about continued SOB, will continue to monitor. Restraints/seclusion/emergency medication: N/AI Justification of Continued Inpatient Treatment: Pt. remains at this facility awaiting placement by conservator. He is gravely disabled and a DTS per chronic depression and would be unable to independently form a plan for food, clothing, or chcf independently.
[2018-02-27] MEDS: HYDROcodone/acetaminophen 5mg/325mg tablet PO PRN ×3 (05:43→19:09)
[2018-02-27 08:00] VITALS: BP 105/75
[2018-02-27] MEDS: atorvastatin 20mg tablet PO SCH (08:07)
[2018-02-27] MEDS: gabapentin 300mg capsule PO SCH ×2 (08:07→20:31)
[2018-02-27] MEDS: LORazepam 1 MG tablet PO SCH ×2 (08:08→20:31)
[2018-02-27] MEDS: buPROPion SR 150mg tablet PO SCH ×2 (08:08→13:23)
[2018-02-27] MEDS: LIDOcaine 5% patch TP SCH (08:08)
[2018-02-27] MEDS: docusate sod 100mg capsule PO SCH ×2 (08:08→20:30)
[2018-02-27] MEDS: cyclobenzaprine 10mg tablet PO PRN ×2 (12:21→19:08)
--- NOTE | 2018-02-27 12:27 | NUR ---
Nursing Progress Note: Chief Complaint: Patient is now awaiting placement by conservator to [facility] Legal hold: Conserved. Client on involuntary status for Involuntary for GD Report received from nurse with use of SBAR; Yes Why are they here: Patient attempted suicide by jumping off [address] and broke his back. He has been conserved in the past. Diagnosis/presenting symptoms: Presented to unit as suicidal and depressed. Had been living on the streets. No plan for food, clothing or [place] [facility]. Assessment What has happened this shift: Patient states that he is bored awaiting placement. He attends all groups, meals, is medication compliant. Walks halls multiple times a day, but becomes short of breath. Hospitalist in to assess his lungs will be ordering a nebulizer tx's. S/I, H/I: Denies. A/VH: Denies Sleep: Naps during day between activities ADL's: Independent. Group attendance: Yes Were Meds taken: Yes. [place] q4' PRN for back pain. Any med S/E None Mental Status Exam Appearance: 63-year-old male that is clean and neat. Eye contact: Good Behavior: Walks slow, in chronic pain. WNL. Compliant. Speech:Soft Mood: Depressed. Affect: Flat Thought process: Linear. Thought Content: Discharge plans. Cognition: Slowed. Insight:Fair Judgment: Fair Interventions PRN's used: Flexeril Therapeutic interventions: 1:1 to assess for severity of symptoms. Administered medications. Monitored for side effects. Q15" checks for safety. Monitored patient ambulation. Restraints/seclusion/emergency medication: None. Justification of Continued Inpatient Treatment: Patient continues to be gravely disabled and cannot provide food/clothing or [place] [facility].
[2018-02-27] MEDS ORDERED: ipratropium/albuterol 3ml nebule NEB PRN (14:20)
[2018-02-27] MEDS: ipratropium/albuterol 3ml nebule NEB SCH ×2 (15:57→19:00)
[2018-02-27 20:00] VITALS: BP 123/78
[2018-02-27] MEDS: budesonide 0.5mg/2ml UD nebule IH SCH (20:00)
[2018-02-27] MEDS: OLANZapine 5mg rapidly disint. tablet PO SCH (20:31)
--- NOTE | 2018-02-27 23:58 | NUR ---
RN progress note: Chief Complaint: Awaiting placement Legal hold:[LPS Conserved] Client on involuntary status for GD/DTS.. Report received from nurse with use of SBAR[Padma HAINES]. Why are they here:[The patient was living in a SNF when he started becoming paranoid and agitated. He was already conserved for GD. he was depressed with SI, and went and jumped off [place] bridge breaking his back. He has a history of suicide attempts. He has chronic back pain and left-side weakness from possible stroke.]. Diagnosis/presenting symptoms:[depression with SI, SOB, left side weakness, chronic pain] Assessment What has happened this shift:[The patient was in group room at shift change for a few minutes, then he ambulated with walker with steady gait to his room and got in bed. The patient is friendly and cooperative with care. The patient reports that he is bored and tired of waiting for placement. he says he's still depressed, but not wanting to harm himself anymore. The patient has SOB and is provided breathing treatments by respiratory. The patient has spent the rest of the evening in bed. ] S/I, H/I:[Denies] A/VH: [denies] Sleep:[Good with Restoril] ADL's:[Self] Group attendance:[No groups tonight] Were meds taken:[Compliant] Any med S/E[None noted] Mental Status Exam Appearance:[Clean and neat] Eye contact:[Good] Behavior:[Isolative, withdrawn] Speech:[clear, articulate] Mood:[depressed] Affect:[blunted] Thought process:[Linear] Thought Content:[Logical, preoccupied with his discharge and new place to live.] Cognition:[A/O x4] Insight:[fair] Judgment:[intact] Interventions PRN's used:[[place] for back pain, Restoril for sleep, flexeril for spasms.] Therapeutic interventions:[1:1, active listening, education about meds and IS, maintained fall precautions.] Restraints/seclusion/emergency medication:[None] Justification of Continued Inpatient Treatment:[The patient remains unable to live independently and formulate a plan for food, housing, and safety on his own. Awaiting discharge to [facility].]
[2018-02-28] MEDS: HYDROcodone/acetaminophen 5mg/325mg tablet PO PRN ×5 (04:16→21:04)
[2018-02-28] MEDS: budesonide 0.5mg/2ml UD nebule IH SCH ×2 (07:14→20:05)
[2018-02-28] MEDS: ipratropium/albuterol 3ml nebule NEB SCH ×3 (07:14→20:05)
[2018-02-28 08:00] VITALS: BP 118/59
[2018-02-28] MEDS: atorvastatin 20mg tablet PO SCH (08:11)
[2018-02-28] MEDS: buPROPion SR 150mg tablet PO SCH ×2 (08:11→12:10)
[2018-02-28] MEDS: LORazepam 1 MG tablet PO SCH ×2 (08:11→20:37)
[2018-02-28] MEDS: docusate sod 100mg capsule PO SCH ×2 (08:11→20:37)
[2018-02-28] MEDS: gabapentin 300mg capsule PO SCH ×2 (08:11→20:37)
[2018-02-28] MEDS: LIDOcaine 5% patch TP SCH (08:11)
--- NOTE | 2018-02-28 13:27 | NUR ---
Nursing Note: Chief Complaint: Psychosis Legal hold: LPS Conserved Client on involuntary status for GD/DTS Report received from nurse with use of SBAR: ZAKI Garcia Why are they here: Pt. admitted for increased paranoia and agitation and was transferred from a retirement facility. He is LPS Conserved for gravely disabled. Pt. has depression and previous suicide attempts, one during which he jumped off a bridge and broke his back. Pt. has a history of chronic pain, alcoholism, and a possible TIA/stroke which left him with left-sided weakness. Diagnosis/presenting symptoms: Psychosis, anxiety,depression, GD Assessment What has happened this shift: Pt rates depression today as a 5/10, states he feels "so so." Continues to c/o back pain especially while standing. Pt had a f/u EKG done today which was read by ER MD, showed no QT prolongation, no acute findings. Pt pleasant and cooperative, no unsafe behaviors noted. S/I, H/I: Denies A/VH: Denies Sleep: Pt. reports he has been sleeping very well ADL's: Pt. is able to ambulate independently with use of walker. Group attendance: Pt attended morning group. Were meds taken: Yes Any med S/E: None. Mental Status Exam Appearance: Neat and well groomed, pt likes to shower daily. Eye contact: Good Behavior: Pleasant, cooperative Speech: Articulate Mood: Depressed though stable Affect: calm Thought process: Intact Thought Content: Logical Cognition: A&O X4 Insight: Good Judgment: Good Interventions PRN's used: PRN [place] 5/325 mg at 0824, 1226. Therapeutic interventions: 1:1 intervention, pain management, Q 15 minute checks Restraints/seclusion/emergency medication: N/A Justification of Continued Inpatient Treatment: Pt. remains at this facility awaiting placement by conservator. He is gravely disabled and a DTS per chronic depression and would be unable to independently form a plan for food, clothing, or residential independently.
[2018-02-28 20:00] VITALS: BP 107/68
[2018-02-28] MEDS: temazepam 15mg capsule PO PRN (20:37)
[2018-02-28] MEDS: cyclobenzaprine 10mg tablet PO PRN (20:37)
[2018-02-28] MEDS: OLANZapine 5mg rapidly disint. tablet PO SCH (20:37)
--- NOTE | 2018-02-28 22:27 | NUR ---
RN progress note: Chief Complaint: Psychosis/paranoia Legal hold:[LPS Conserved] Client on involuntary status for GD/DTS. Report received from nurse with use of SBAR [Jose HAINES]. Why are they here:[The patient was living in a SNF when he started becoming paranoid and agitated. He was already conserved for GD. he was depressed with SI, and went and jumped off [address] bridge breaking his back. He has a history of suicide attempts. He has chronic back pain and left-side weakness from possible stroke.]. Diagnosis/presenting symptoms:[depression with SI, SOB, left side weakness, chronic pain] Assessment: What has happened this shift:[The patient was in group room at shift change. He sat for a while with other clients, then went to bed. He walks with steady gait using FWW. He believes he's walking well enough without it and would like to stop. The patient remains alert and cooperative with staff. The patient os showing none of the psychosis or paranoia he was admitted with. He is happy with his medications and reports that he is "just bored" waiting for his placement to happen.] S/I, H/I:[Denies] A/VH: [denies] Sleep:[Good with Restoril] ADL's:[Self] Group attendance:[No groups tonight] Were meds taken:[Compliant] Any med S/E[None noted] Mental Status Exam: Appearance:[Clean, wearing street clothes] Eye contact:[Good] Behavior:[Friendly, talkative] Speech:[clear, articulate] Mood:["OK, bored"] Affect:[Bright] Thought process:[Linear, goal directed] Thought Content:[Logical, preoccupied with his discharge and new place to live.] Cognition:[A/O x4] Insight:[fair] Judgment:[intact] Interventions PRN's used:[[place] for back pain, Restoril for sleep, Flexeril for spasms.] Therapeutic interventions:[1:1, active listening, education about meds and IS, pain management, maintained fall precautions.] Restraints/seclusion/emergency medication:[None] Justification of Continued Inpatient Treatment:[The patient remains unable to live independently and formulate a plan for food, housing, and safety on his own. Awaiting discharge to [facility].]
[2018-03-01] MEDS: HYDROcodone/acetaminophen 5mg/325mg tablet PO PRN ×5 (02:13→23:03)
[2018-03-01] MEDS: LORazepam 1 MG tablet PO SCH ×2 (07:41→20:10)
[2018-03-01] MEDS: docusate sod 100mg capsule PO SCH ×2 (07:41→20:10)
[2018-03-01] MEDS: gabapentin 300mg capsule PO SCH ×2 (07:41→20:10)
[2018-03-01] MEDS: buPROPion SR 150mg tablet PO SCH ×2 (07:41→12:26)
[2018-03-01] MEDS: atorvastatin 20mg tablet PO SCH (07:41)
[2018-03-01] MEDS: LIDOcaine 5% patch TP SCH (07:43)
[2018-03-01 08:00] VITALS: BP 117/56
[2018-03-01] MEDS: ipratropium/albuterol 3ml nebule NEB SCH ×4 (08:08→20:06)
[2018-03-01] MEDS: budesonide 0.5mg/2ml UD nebule IH SCH ×2 (08:08→20:06)
--- NOTE | 2018-03-01 14:13 | NUR ---
RN progress note: Chief Complaint: Psychosis/paranoia Legal hold:[LPS Conserved] Client on involuntary status for GD/DTS. Report received from nurse with use of SBAR [Jose HAINES]. Why are they here:[The patient was living in a SNF when he started becoming paranoid and agitated. He was already conserved for GD. he was depressed with SI, and went and jumped [place] bridge breaking his back. He has a history of suicide attempts. He has chronic back pain and left-side weakness from possible stroke.]. Diagnosis/presenting symptoms:[depression with SI, SOB, left side weakness, chronic pain] Assessment: Pt states his depression is the same today as it was yesterday, denies SI. Pt showers daily, continues to c/o low back pain, lidocaine patch applied, administered prn [place] at 0724 & 1227 with fairly good effect. Pt is able to ambulate independently with FWW, pleasant and cooperative with staff, participates in group. No unsafe behaviors noted. S/I, H/I:[Denies] A/VH: [denies] Sleep:[Good with Restoril] ADL's:[Self] Group attendance:[attended group] Were meds taken:[Compliant] Any med S/E[None noted] Mental Status Exam: Appearance: neat and clean Eye contact:[Good] Behavior:[Friendly, talkative] Speech:[clear, articulate] Mood:[depressed] Affect:[appropriate to situation] Thought process:[Linear, goal directed] Thought Content:[Logical, preoccupied with his discharge and new place to live.] Cognition:[A/O x4] Insight:[fair] Judgment:[good] Interventions PRN's used:[[place] 5/325 mg at 0742, 1227] Therapeutic interventions:[1:1, active listening, pain management, q 15 minute checks] Restraints/seclusion/emergency medication:[None] Justification of Continued Inpatient Treatment:[The patient remains unable to live independently and formulate a plan for food, housing, and safety on his own. Placement pending]
[2018-03-01] MEDS: cyclobenzaprine 10mg tablet PO PRN (17:31)
--- NOTE | 2018-03-01 19:09 | NUR ---
[employer] [employer] [facility], Continued: Please refer to the group notations for 03/01/18 for a complete overview of the patients functional overview. Patient was engaged, able to visualize as guided, coming up w/ a symbolic drawing that provided some insight and comfort to him. Patient wrote:(In relationship to his drawing themes & life struggles) "I am getting old. I think life should be getting easier, but that isn't always the case. I feel like I'm stressed all the time. I wish I could get my life easier. I want to move to a warmer climate. I need to quit feeling this way. I will not let my bad feelings run my life. I believe I can do better, If I apply myself". Patient was pleasant and interactive w/ the other patients, sometimes humorous and positive, having some insights. Bri Goldberg MA, [facility] #[id number] Art Therapist Addendum: 03/01/18 at 1914 by Bri SANDY Amended: Links added.
[2018-03-01 19:50] VITALS: BP 127/70
[2018-03-01 19:57] VITALS: BP 127/70
[2018-03-01] MEDS: OLANZapine 5mg rapidly disint. tablet PO SCH (20:10)
[2018-03-01] MEDS: temazepam 15mg capsule PO PRN (20:10)
--- NOTE | 2018-03-01 23:43 | NUR ---
RN progress note: Chief Complaint: Psychosis/paranoia Legal hold:[LPS Conserved] Client on involuntary status for GD/DTS. Report received from nurse with use of SBAR [Jose HAINES]. Why are they here:[The patient was living in a SNF when he started becoming paranoid and agitated. He was already conserved for GD. he was depressed with SI, and went and jumped off [place] bridge breaking his back. He has a history of suicide attempts. He has chronic back pain and left-side weakness from possible stroke.]. Diagnosis/presenting symptoms:[depression with SI, SOB, left side weakness, chronic pain] Assessment: What happened today: The patient spent the evening in his room, He is pleasant and cooperative. "[facility] accepted me, I'm going nuts just sitting here waiting." The patient did all groups today and stated that he enjoyed them. S/I, H/I:[Denies] A/VH: [denies] Sleep:[Good with Restoril] ADL's:[Self] Group attendance:[No groups tonight] Were meds taken:[Compliant] Any med S/E[None noted] Mental Status Exam: Appearance: neat and clean Eye contact:[Good] Behavior:[Friendly, talkative] Speech:[clear, articulate] Mood:[depressed] Affect:[appropriate to situation] Thought process:[Linear, goal directed] Thought Content:[Logical, preoccupied with his discharge and new place to live.] Cognition:[A/O x4] Insight:[fair] Judgment:[good] Interventions PRN's used:[[place] 5/325 mg x2.] Therapeutic interventions:[1:1, active listening, pain management, q 15 minute checks] Restraints/seclusion/emergency medication:[None] Justification of Continued Inpatient Treatment:[The patient remains unable to live independently and formulate a plan for food, housing, and safety on his own. Placement pending]
[2018-03-02] MEDS: HYDROcodone/acetaminophen 5mg/325mg tablet PO PRN ×3 (05:48→19:03)
[2018-03-02] MEDS: buPROPion SR 150mg tablet PO SCH ×2 (07:07→12:52)
[2018-03-02] MEDS: budesonide 0.5mg/2ml UD nebule IH SCH ×2 (07:13→19:06)
[2018-03-02] MEDS: ipratropium/albuterol 3ml nebule NEB SCH ×4 (07:13→19:07)
[2018-03-02 08:00] VITALS: BP 113/60
[2018-03-02] MEDS: LORazepam 1 MG tablet PO SCH ×2 (08:04→21:10)
[2018-03-02] MEDS: atorvastatin 20mg tablet PO SCH (08:04)
[2018-03-02] MEDS: gabapentin 300mg capsule PO SCH ×2 (08:04→21:11)
[2018-03-02] MEDS: docusate sod 100mg capsule PO SCH ×2 (08:04→21:10)
[2018-03-02] MEDS: LIDOcaine 5% patch TP SCH (08:06)
--- NOTE | 2018-03-02 09:07 | NUR ---
Reassessment: PO intake 100% on regular diet meeting nutrient needs. [facility] 02/28, pt receiving routine Col[facility] with [facility]. Will continue to follow. Recommendations: 1) Continue with regular diet 2) Weekly wt Addendum: 03/02/18 at [address] Amended: Links added.
[2018-03-02 20:00] VITALS: BP 131/81
[2018-03-02] MEDS: OLANZapine 5mg rapidly disint. tablet PO SCH (21:11)
[2018-03-02] MEDS: temazepam 15mg capsule PO PRN (21:11)
[2018-03-02] MEDS: naproxen sodium 220mg tablet PO PRN (21:12)
--- NOTE | 2018-03-03 01:23 | NUR ---
Nursing Note: Chief Complaint: Psychosis Legal hold: LPS Conserved Client on involuntary status for GD/DTS Report received from nurse with use of SBAR: ZAKI Beck Why are they here: Pt. admitted for increased paranoia and agitation and was transferred from a correction facility. He is LPS Conserved for gravely disabled. Pt. has depression and previous suicide attempts, one during which he jumped off a bridge and broke his back. Pt. has a history of chronic pain, alcoholism, and a possible TIA/stroke which left him with left-sided weakness. He also was having SOB and QTc prolongation which prompted this MD to stop the major potentially offensive medications. Pt. is awaiting placement by conservator at [facility] in [place]. He is still having some c/o SOB with exertion and has a new order to use an Incentive Spirometer Q 15 min. while awake and scheduled breathing treatments. Diagnosis/presenting symptoms: Pt. continues to deny S/I or any psychosis. He is still experiencing depression r/t his prolonged stay at this facility and experiencing boredom, however states, "At least I'm not out there in the rain." Pt. reports his anxiety is still there also, but managed. Assessment What has happened this shift: Pt. laying in bed at the beginning of the shift talking on the phone, continues to isolate here throughout the shift. Upon seeing this fiction writer he requests PRN [place] for chronic back pain and a breathing tx for SOB with effectiveness, pt. also continues to use his incentive spirometer. 1:1 completed at bedside, pt. continues to be animated with conversation and denies S/I or any psychosis. When this fiction writer questioned him about depression, pt. admitted on-going depression r/t his prolonged stay at this facility and experiencing boredom, however states, "At least I'm not out there in the rain. I need to figure out what the conservator is doing with my social security and disability money." Pt. reports his anxiety is still there also, but managed. Pt. continues to ambulate with use of his walker, with steady gait, fall precautions remain in place. No reports of dizziness or increased SOB this shift, will continue to monitor. S/I, H/I: Denies A/VH: Denies Sleep: Pt. reports he has been sleeping very well with use of PRN Temazepam, however he has been woken up early the last few days at approximately 0600 and he would appreciate being able to sleep until 0700, will endorse to AM shift. ADL's: Pt. is able to ambulate independently with use of walker, fall precautions remain in place. Continues to have some SOB with exertion, will continue to monitor. Group attendance: Pt. reports he has been attending all groups and identifies coping mechanisms as deep breathing and meditation. Were meds taken: Yes Any med S/E: None. Mental Status Exam Appearance: Neat and well groomed, dressed appropriately Eye contact: Good Behavior: Pleasant, yet withdrawn Speech: Articulate and talkative, WNL Mood: Pleasant, depressed at times Affect: Blunted Thought process: Intact Thought Content: Logical, with continued phobia regarding discharge Cognition: A&O X4 Insight: Good Judgment: Good Interventions PRN's used: PRN [place] administered for chronic back pain with effectiveness and Lidocaine Patch removed at HS per order. PRN Temazepam for sleep Therapeutic interventions: Provided active listening and maintained a safe and therapeutic environment. Maintained fall precautions and encouraged pt. to use call light during transfer as needed for any s/s of experienced SOB or dizziness. Provided education and encouraged use of IS, breathing tx provided, will continue to monitor. Restraints/seclusion/emergency medication: N/AI Justification of Continued Inpatient Treatment: Pt. remains at this facility awaiting placement by conservator. He is gravely disabled and a DTS per chronic depression and would be unable to independently form a plan for food, clothing, or usp independently. Per social services counselor, conservator is currently looking at placing patient at [facility] in [place], [place].
[2018-03-03] MEDS: HYDROcodone/acetaminophen 5mg/325mg tablet PO PRN ×4 (03:39→19:12)
--- NOTE | 2018-03-03 05:15 | NUR ---
Nursing Note: Pt. awake making statements to staff that she believes a bomb is under her bed and if she reaches her hand down there someone will grab her. However, pt. refuses to let any staff members into her room to check under the bed for her as she is asking. Pt. also reports that she believes we are all and the bomb already killed us all, this account underwriter asked pt if she was feeling anxious and she denied this although appears visibility shaken. This account underwriter asks pt. if she needs anything or if she can come in her room and talk, pt. states, "Absolutely not!" However, pt. does accept a bottled water, but will not let this account underwriter hand it to her, states, "Leave it by my door." Will endorse to AM shift the changes exhibited by this patient.
--- NOTE | 2018-03-03 05:45 | NUR ---
Disregard last note: Written under wrong patient
[2018-03-03 07:00] VITALS: BP_SYST 106; BP_SYST 127; BP_DIAS 61; BP_DIAS 76
[2018-03-03] MEDS: ipratropium/albuterol 3ml nebule NEB SCH ×4 (07:00→19:17)
--- NOTE | 2018-03-03 07:12 | NUR ---
Patient in room MH 326. I have received report from Jessica HAINES and had the opportunity to ask questions and assume patient care.
[2018-03-03] MEDS: budesonide 0.5mg/2ml UD nebule IH SCH ×2 (08:00→20:00)
[2018-03-03] MEDS: LORazepam 1 MG tablet PO SCH ×2 (08:39→20:51)
[2018-03-03] MEDS: atorvastatin 20mg tablet PO SCH (08:39)
[2018-03-03] MEDS: docusate sod 100mg capsule PO SCH ×2 (08:39→20:52)
[2018-03-03] MEDS: buPROPion SR 150mg tablet PO SCH ×2 (08:39→12:35)
[2018-03-03] MEDS: gabapentin 300mg capsule PO SCH ×2 (08:39→20:52)
[2018-03-03] MEDS: LIDOcaine 5% patch TP SCH (08:40)
--- NOTE | 2018-03-03 09:15 | NUR ---
Patient states that he is "hearing noises that are not there" Patient denies thoughts of suicidal ideation at this time. Denies self harm thoughts or harm to others.
--- NOTE | 2018-03-03 15:08 | NUR ---
Patient was ambulated per Dr Jaimes request with gait belt and to check his oxygen saturation with ambulation. Patient ambulated 300 feet with gait belt tolerated well. However, patient stated " I am walking with my feet so I don't trip over them." Patient also, stated " I feel better with the walker due to my back pain." Patients Oxygen level was 93% with ambulation.
[2018-03-03 18:03] LABS: BASOPHILS % (AUTO) 0.3 % (0-1); EOSINOPHILS # (AUTO) 0.2 X10'3 (0-0.9); EOSINOPHILS % (AUTO) 3.7 % (0-6); HEMATOCRIT 40.9 % (42.0-52.0); HEMOGLOBIN 13.7 g/dl (14.0-17.9); LYMPHOCYTES # (AUTO) 1.8 X10'3 (1.1-4.8); LYMPHOCYTES % (AUTO) 29.5 % (21-51); MEAN CORPUSCULAR HEMOGLOBIN 30.7 PG (27.0-31.0); MEAN CORPUSCULAR HGB CONC 33.5 % (33.0-36.5); MEAN CORPUSCULAR VOLUME 91.6 FL (78-98); MEAN PLATELET VOLUME 8.2 FL (7.4-10.4); MONOCYTES # (AUTO) 0.5 X10'3 (0-0.9); MONOCYTES % (AUTO) 8.2 % (2-12); NEUTROPHILS # (AUTO) 3.6 X10'3 (1.8-7.7); NEUTROPHILS % (AUTO) 58.3 % (42-75); PLATELET COUNT 219 X10'3 (140-440); RED BLOOD COUNT 4.47 X10'6 (4.70-6.10); RED CELL DISTRIBUTION WIDTH 12.6 % (11.5-14.5); WHITE BLOOD COUNT 6.2 X10'3 (4.5-11.0)
[2018-03-03 18:21] LABS: ALANINE AMINOTRANSFERASE 32 U/L (12-78); ALBUMIN 3.3 G/DL (3.4-5.0); ALKALINE PHOSPHATASE 76 IU/L (46-116); ANION GAP 8 (8-16); ASPARTATE AMINO TRANSFERASE 14 U/L (10-37); BILIRUBIN,TOTAL 0.2 MG/DL (0.1-1.0); BLOOD UREA NITROGEN 19 MG/DL (7-18); BUN/CREATININE RATIO 20.4 (5.4-32.0); CALCIUM 8.7 MG/DL (8.5-10.1); CHLORIDE 105 MMOL/L (99-107); CREATININE 0.93 MG/DL (0.60-1.10); GLUCOSE 128 MG/DL (70-104); POTASSIUM 3.5 MMOL/L (3.5-5.1); SODIUM 140 MMOL/L (135-145); TOTAL CARBON DIOXIDE 27.4 MMOL/L (24-32); TOTAL PROTEIN 6.5 G/DL (6.4-8.2); eGFR 83 ML/MIN
--- NOTE | 2018-03-03 18:22 | NUR ---
Problems reprioritized. Patient report given, questions answered & plan of care reviewed with Jessica HAINES.
[2018-03-03 20:29] VITALS: BP 110/73
[2018-03-03] MEDS: temazepam 15mg capsule PO PRN (20:52)
[2018-03-03] MEDS: OLANZapine 5mg rapidly disint. tablet PO SCH (20:52)
[2018-03-03] MEDS: cyclobenzaprine 10mg tablet PO PRN (21:05)
--- NOTE | 2018-03-04 01:37 | NUR ---
Nursing Note: Chief Complaint: Psychosis Legal hold: LPS Conserved Client on involuntary status for GD/DTS Report received from nurse with use of SBAR: ZAKI Whittaker Why are they here: Pt. admitted for increased paranoia and agitation and was transferred from a residential facility. He is LPS Conserved for gravely disabled. Pt. has depression and previous suicide attempts, one during which he jumped off a bridge and broke his back. Pt. has a history of chronic pain, alcoholism, and a possible TIA/stroke which left him with left-sided weakness. He also was having SOB and QTc prolongation which prompted this MD to stop the major potentially offensive medications. Pt. is awaiting placement by conservator at a [facility] in [place]. He is still having some c/o SOB with exertion and has a new order to use an Incentive Spirometer Q 15 min. while awake and scheduled breathing treatments. Pt. received a CMP, BMP, PBNP, chest x-ray, and echocardiogram this shift to r/o SOB r/t cardiac problems, results pending. Diagnosis/presenting symptoms: Pt. continues to deny S/I or any psychosis. He is still experiencing depression and anxiety r/t his prolonged stay at this facility and experiencing boredom, states, "I am feeling cooped up in here." Assessment What has happened this shift: Pt. laying in bed at the beginning of the shift in the dark, continues to isolate here throughout the shift. Upon seeing this creative writer he requests PRN [place] for chronic back pain and a breathing tx for SOB, states, "I can't walk from one end of the hester to the other without pain, I just get winded too easily." Pt. does admit that he may be experiencing more back pain lately because he has been walking less r/t SOB. Chest x-ray, and echocardiogram completed this shift as ordered to r/o SOB r/t cardiac problems, results pending. Pt. also continues to use his incentive spirometer. 1:1 completed at bedside, pt. continues to deny S/I or any psychosis. He is still experiencing depression and anxiety r/t his prolonged stay at this facility and experiencing boredom, states, "I am feeling cooped up in here." He reports that he plans to talk to Dr. Jaimes about the possibility of increasing his scheduled Ativan to 2mg BID. Pt. continues to ambulate with use of his walker, with steady gait, fall precautions remain in place. No reports of dizziness or increased SOB this shift, will continue to monitor. S/I, H/I: Denies A/VH: Denies Sleep: Pt. reports he has been going to sleep easily, however waking up a few times during the night, PRN Temazepam administered ADL's: Pt. is able to ambulate independently with use of walker, fall precautions remain in place. Continues to have some SOB with exertion, will continue to monitor. Group attendance: Pt. reports he has been attending all groups and identifies coping mechanisms as deep breathing and meditation. Were meds taken: Yes Any med S/E: None. Mental Status Exam Appearance: Neat and well groomed, dressed appropriately Eye contact: Good Behavior: Pleasant, yet withdrawn Speech: Articulate and talkative, WNL Mood: Pleasant, depressed and anxious at times Affect: Blunted Thought process: Intact Thought Content: Logical, with continued phobia and anxiety regarding discharge Cognition: A&O X4 Insight: Fair to Good Judgment: Good Interventions PRN's used: PRN [place] and Baclofen administered for chronic back pain with effectiveness and Lidocaine Patch removed at HS per order. PRN Temazepam for sleep Therapeutic interventions: Provided active listening and maintained a safe and therapeutic environment. Maintained fall precautions and encouraged pt. to use call light during transfer as needed for any s/s of experienced SOB or dizziness. Provided education on ordered test completed this shift (chest x-ray and echocardiogram) and encouraged use of IS, breathing tx provided, will continue to monitor. Restraints/seclusion/emergency medication: N/AI Justification of Continued Inpatient Treatment: Pt. remains at this facility awaiting placement by [facility]. He is gravely disabled and a DTS per chronic depression and would be unable to independently form a plan for food, clothing, or residential independently. Per social organization professor, [facility] is currently looking at placing patient at a [facility] in [place], [place].
[2018-03-04] MEDS: HYDROcodone/acetaminophen 5mg/325mg tablet PO PRN ×4 (05:52→22:05)
[2018-03-04] MEDS: ipratropium/albuterol 3ml nebule NEB SCH ×4 (07:43→19:00)
[2018-03-04] MEDS: budesonide 0.5mg/2ml UD nebule IH SCH ×2 (07:44→20:00)
[2018-03-04 08:00] VITALS: BP 112/63
[2018-03-04] MEDS: LORazepam 1 MG tablet PO SCH ×2 (08:16→20:51)
[2018-03-04] MEDS: docusate sod 100mg capsule PO SCH ×2 (08:16→20:51)
[2018-03-04] MEDS: LIDOcaine 5% patch TP SCH (08:16)
[2018-03-04] MEDS: buPROPion SR 150mg tablet PO SCH ×2 (08:17→12:26)
[2018-03-04] MEDS: atorvastatin 20mg tablet PO SCH (08:17)
[2018-03-04] MEDS: gabapentin 300mg capsule PO SCH ×2 (08:17→20:51)
--- NOTE | 2018-03-04 17:03 | NUR ---
NURSING PROGRESS NOTE Chief Complaint Depression, suicide attempt Legal hold:[Conserved] Client on voluntary/involuntary status for GD/DTS/DTO[GD]. Report received from nurse with use of SBAR[ZAKI Ribera]. Why are they here:[Conserved, awaiting housing]. Diagnosis/presenting symptoms:[Depression] Assessment What has happened this shift:[The patient attended all groups and meals with others, is med compliant. Denies SI and states he is ready to leave and would like to get to his permanent housing. States he is bored here. No incidents. Continues to have lower back pain being treated with Norcol] S/I, H/I:[Denies] A/VH: [Denies] Sleep:[Napped] ADL's:[took shower by self] Group attendance:[Yes] Were meds taken:[Yes] Any med S/E[No] Mental Status Exam Appearance:[Neat and clean] Eye contact:[good] Behavior:[cooperative] Speech:[clear] Mood:[mild depressed] Affect:[bland] Thought process:[goal directed] Thought Content:[wnl] Cognition:[normal] Insight:[good] Judgment:[good] Interventions PRN's used:[[place], back pain] Therapeutic interventions:[1:1, q15m checks, groups, reassurance. ] Restraints/seclusion/emergency medication:[None] Justification of Continued Inpatient Treatment:[awaiting housing by guardian]
[2018-03-04 20:00] VITALS: BP 134/83
[2018-03-04] MEDS: cyclobenzaprine 10mg tablet PO PRN (20:52)
[2018-03-04] MEDS: OLANZapine 5mg rapidly disint. tablet PO SCH (20:52)
[2018-03-04] MEDS: temazepam 15mg capsule PO PRN (20:52)
--- NOTE | 2018-03-05 01:23 | NUR ---
Nursing Note: Chief Complaint: Psychosis Legal hold: LPS Conserved Client on involuntary status for GD/DTS Report received from nurse with use of SBAR: ZAKI Overton Why are they here: Pt. admitted for increased paranoia and agitation and was transferred from a assisted facility. He is LPS Conserved for gravely disabled. Pt. has depression and previous suicide attempts, one during which he jumped off a bridge and broke his back. Pt. has a history of chronic pain, alcoholism, and a possible TIA/stroke which left him with left-sided weakness. He also was having SOB and QTc prolongation which prompted this MD to stop the major potentially offensive medications. A new chest xray shows some bibasilar atelectasis. Pt. is awaiting placement by conservator at a [facility] in [place]. Diagnosis/presenting symptoms: Pt. continues to deny S/I, he states his mood is, "So, so, my depression is not too bad." Assessment What has happened this shift: Pt. laying in bed at the beginning of the shift in the dark, continues to isolate here throughout the shift. When this casualty underwriter questions pt. about this he states, "I'm just relaxing here, it's too loud out there." However, pt. also reports he misses having a roommate. Pt. continues to deny S/I, he states his mood is, "So, so, my depression is not too bad, I'm just really bored." He reports he took a shower today and attended groups. Pt. continues to ambulate with use of his walker, with steady gait, fall precautions remain in place. No reports of dizziness or increased SOB this shift, and echocardiogram results are back and are WNL. Chest x-ray results show some bibasilar atelectasis, Dr. Jaimes notified and scheduled breathing treatments administered with effectiveness. Dr. Jaimes believes the pt's on-going SOB which is exacerbated when bending over, may be r/t the twenty pound wt. gain he has had since November (the pressure from his omentum restricts expansion of his lungs and contributes to worsening of SOB). New orders given to discontinue Olanzapine which can contribute to weight gain and re-start Abilify at , pt. is agreeable. Pt. V/S are WNL, he denies any pain upon inhalation, or any production of sputum, and lung sounds are clear bilaterally. Pt. has an Incentive Spirometer at bedside, this casualty underwriter encourages and witnesses pt's correct use of IS when awake, and encourages more frequent use and mobility to increase lung expansion. Will endorse to AM shift and continue to monitor, per Dr. Jaimes, the pt's frequent use of PRN [place] r/t chronic back pain may be further contributing to the problem. S/I, H/I: Denies A/VH: Denies Sleep: Pt. reports he slept very well last night after the administration of PRN Flexeril ADL's: Pt. is able to ambulate independently with use of walker, fall precautions remain in place. Continues to have some SOB with exertion, will continue to monitor. Group attendance: Pt. reports he has been attending all groups, no new coping skills identified Were meds taken: Yes Any med S/E: Weight gain possibly r/t Olanzapine, discontinued this shift Mental Status Exam Appearance: Neat and well groomed, dressed appropriately Eye contact: Good Behavior: Pleasant, psychomotor activity WNL Speech: WNL Mood: Cooperative Affect: Blunted, animated with conversation Thought process: Intact, WNL Thought Content: Continues to have some phobia regarding discharge and continued SOB Cognition: A&O X4 Insight: Fair to Good Judgment: Good Interventions PRN's used: PRN [place] and Baclofen administered for chronic back pain with effectiveness and Lidocaine Patch removed at HS per order. PRN Temazepam for sleep Therapeutic interventions: Provided active listening and maintained a safe and therapeutic environment and encouraged and witnesses pt's correct use of IS when awake, and encourages more frequent use and mobility to increase lung expansion. Maintained fall precautions and encouraged pt. to use call light during transfer as needed for any s/s of experienced SOB or dizziness. Restraints/seclusion/emergency medication: N/AI Justification of Continued Inpatient Treatment: Pt. remains at this facility awaiting placement by [facility]. He is gravely disabled and a DTS. Per social media designer, [facility] is currently looking at placing patient at a [facility] in [place], [place].
[2018-03-05] MEDS: HYDROcodone/acetaminophen 5mg/325mg tablet PO PRN ×5 (02:51→22:45)
--- NOTE | 2018-03-05 02:54 | NUR ---
Nursing Note: Pt. awoke requested PRN [place] for chronic back pain, administered and prompted pt. on use of Incentive Spirometer, pt. complied.
[2018-03-05 08:00] VITALS: BP 111/62
[2018-03-05] MEDS: LIDOcaine 5% patch TP SCH (08:01)
[2018-03-05] MEDS: LORazepam 1 MG tablet PO SCH ×2 (08:01→19:03)
[2018-03-05] MEDS: docusate sod 100mg capsule PO SCH ×2 (08:02→20:59)
[2018-03-05] MEDS: gabapentin 300mg capsule PO SCH ×2 (08:03→20:59)
[2018-03-05] MEDS: atorvastatin 20mg tablet PO SCH (08:03)
[2018-03-05] MEDS: buPROPion SR 150mg tablet PO SCH ×2 (08:03→12:34)
[2018-03-05] MEDS: budesonide 0.5mg/2ml UD nebule IH SCH ×2 (09:35→20:13)
[2018-03-05] MEDS: ipratropium/albuterol 3ml nebule NEB SCH ×4 (09:35→20:13)
--- NOTE | 2018-03-05 16:26 | NUR ---
NURSING PROGRESS NOTE Chief Complaint Depression, suicide attempt Legal hold:[Conserved] Client on voluntary/involuntary status for GD/DTS/DTO[GD]. Report received from nurse with use of SBAR[ZAKI Ribera]. Why are they here:[Conserved, awaiting housing]. Diagnosis/presenting symptoms:[Depression] Assessment What has happened this shift:[The patient attended all groups and meals with others, is med compliant. Encouraged to use incentive spirometer which he did multiple times today. Complaining about guardian not communicating with him regarding his money. His sister called guardian and was able to talk with someone who will send information. He states he is "bored" and would like to "get on with living." S/I, H/I:[Denies] A/VH: [Denies] Sleep:[Napped] ADL's:[took shower by self] Group attendance:[Yes] Were meds taken:[Yes] Any med S/E[No] Mental Status Exam Appearance:[Neat and clean] Eye contact:[good] Behavior:[cooperative] Speech:[clear] Mood:[mild depressed] Affect:[bland] Thought process:[goal directed] Thought Content:[wnl] Cognition:[normal] Insight:[good] Judgment:[good] Interventions PRN's used:[[place], back pain] Therapeutic interventions:[1:1, q15m checks, groups, reassurance. ] Restraints/seclusion/emergency medication:[None] Justification of Continued Inpatient Treatment:[awaiting housing by guardian]
[2018-03-05 19:00] VITALS: BP 128/67
[2018-03-05] MEDS ORDERED: olanzapine 10mg tablet PO SCH (21:00)
[2018-03-05] MEDS ORDERED: aripiprazole 5mg tablet PO SCH (21:00)
[2018-03-05] MEDS: cyclobenzaprine 10mg tablet PO PRN (21:00)
[2018-03-05] MEDS: temazepam 15mg capsule PO PRN (21:00)
--- NOTE | 2018-03-06 00:08 | NUR ---
Nursing Note: Chief Complaint: Psychosis Legal hold: LPS Conserved Client on involuntary status for GD/DTS Report received from nurse with use of SBAR: ZAKI Overton Why are they here: Pt. admitted for increased paranoia and agitation and was [place] [facility]. He is LPS Conserved for gravely disabled. Pt. has depression and previous suicide attempts, one during which he jumped off a bridge and broke his back. Pt. has a history of chronic pain, alcoholism, and a possible TIA/stroke which left him with left-sided weakness. He has ongoing c/o SOB and is receiving scheduled breathing tx, encouraged to use incentive spirometer, and Dr. Jaimes has changed Olanzapine to Abilify to combat recent weight gain. Pt. is awaiting placement by conservator at a [facility] in [place]. Diagnosis/presenting symptoms: Pt. continues to deny S/I, he reports he is having more anxiety today about future housing and, "Figuring everything out." Assessment What has happened this shift: Pt. laying in bed at the beginning of the shift in the dark, up for HS snack. Pt. continues to deny S/I, he reports he is having more anxiety today about future housing and, "Figuring everything out," scheduled Ativan administered with effectiveness. This caption writer returned later to complete 1:1 and assess pt's anxiety, pt. states, "I don't know how much longer I can do this, just here waiting here. 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 voiced content. Pt. continues to ambulate with use of his walker, with steady gait, fall precautions remain in place. No reports of increased SOB this shift, pt. states, "I am breathing a little better and I am using my incentive spirometer." Dr. Jaimes has changed Olanzapine to Abilify to combat recent weight gain which he feels may be contributing to his SOB, however Abilify unavailable per pharmacy so Dr. Jaimes will begin tomorrow night. S/I, H/I: Denies A/VH: Denies Sleep: Pt. reports he slept pretty well last night, but he is always waking up tired, will continue to monitor. ADL's: Pt. is able to ambulate independently with use of walker, fall precautions remain in place. Group attendance: Pt. reports he has been attending all groups Were meds taken: Yes Any med S/E: Weight gain possibly r/t Olanzapine, will discontinue and start on Abilify per Dr. Jaimes Mental Status Exam Appearance: Neat and appropriately dressed, presents as fatigued Eye contact: Good Behavior: Pleasant, restless, psychomotor activity WNL Speech: WNL Mood: Cooperative with restlessness Affect: Blunted Thought process: Intact, WNL Thought Content: Continues to have phobia regarding discharge Cognition: A&O X4 Insight: Fair to Good Judgment: Good Interventions PRN's used: PRN [place] and Baclofen administered for chronic back pain with effectiveness and Lidocaine Patch removed at HS per order. PRN Temazepam for sleep Therapeutic interventions: Provided active listening and information on conservator sending information, maintained a safe and therapeutic environment, and encouraged and witnesses pt's correct use of IS when awake. Maintained fall precautions and encouraged pt. to use call light during transfer as needed for any s/s of experienced SOB or dizziness. Restraints/seclusion/emergency medication: N/A Justification of Continued Inpatient Treatment: Pt. remains at this facility awaiting placement by conservator. He is gravely disabled and a DTS. Per psych social worker, conservator is currently looking at placing patient at a [facility] in [place], [place].
[2018-03-06 08:00] VITALS: BP 120/74
[2018-03-06] MEDS: LORazepam 1 MG tablet PO SCH ×2 (08:03→21:25)
[2018-03-06] MEDS: LIDOcaine 5% patch TP SCH (08:03)
[2018-03-06] MEDS: gabapentin 300mg capsule PO SCH ×2 (08:03→21:24)
[2018-03-06] MEDS: docusate sod 100mg capsule PO SCH ×2 (08:04→21:25)
[2018-03-06] MEDS: atorvastatin 20mg tablet PO SCH (08:04)
[2018-03-06] MEDS: HYDROcodone/acetaminophen 5mg/325mg tablet PO PRN ×4 (08:04→21:24)
[2018-03-06] MEDS: buPROPion SR 150mg tablet PO SCH ×2 (08:04→13:04)
[2018-03-06] MEDS: budesonide 0.5mg/2ml UD nebule IH SCH ×2 (08:09→19:50)
[2018-03-06] MEDS: ipratropium/albuterol 3ml nebule NEB SCH ×4 (08:09→19:50)
--- NOTE | 2018-03-06 12:11 | NUR ---
NURSING PROGRESS NOTE Chief Complaint Depression, suicide attempt Legal hold:[Conserved] Client on voluntary/involuntary status for GD/DTS/DTO[GD]. Report received from nurse with use of SBAR[ZAKI Ribera]. Why are they here:[Conserved, awaiting housing]. Diagnosis/presenting symptoms:[Depression] Assessment What has happened this shift:[The patient attended all groups and meals with others and went out on patio with group. Compliant with all medications. Asks appropriate questions. States his lungs feel better today and is not SOB, reports using incentive spirometer frequently. Complaining about guardian not communicating with him regarding his money. Asking questions about challenging conservatorship. He states he would really like to get in permanent housing. Depressed mood, pleasant affect. Denies any thoughts of suicide. S/I, H/I:[Denies] A/VH: [Denies] Sleep:[Napped] ADL's:[by self] Group attendance:[Yes] Were meds taken:[Yes] Any med S/E[No] Mental Status Exam Appearance:[Neat and clean] Eye contact:[good] Behavior:[cooperative] Speech:[clear] Mood:[mild depressed] Affect:[bland and pleasant] Thought process:[goal directed] Thought Content:[wnl] Cognition:[normal] Insight:[good] Judgment:[good] Interventions PRN's used:[[place], back pain] Therapeutic interventions:[1:1, q15m checks, groups, reassurance. ] Restraints/seclusion/emergency medication:[None] Justification of Continued Inpatient Treatment:[awaiting housing by guardian]
[2018-03-06 20:00] VITALS: BP 119/74
[2018-03-06] MEDS: temazepam 15mg capsule PO PRN (21:24)
[2018-03-06] MEDS: cyclobenzaprine 10mg tablet PO PRN (21:29)
[2018-03-06] MEDS: aripiprazole 5mg tablet PO SCH (21:30)
--- NOTE | 2018-03-07 03:12 | NUR ---
RN progress note: Chief Complaint: Psychosis. Legal hold:Conserved Client on involuntary status for GD/DTS. Report received from nurse with use of SBAR: Brooklynn HAINES. Why are they here: The patient was living in a SNF, when he started becoming paranoid and agitated. His depression increased and he became suicidal, leading him to jump off [place] bridge where he broke his back. The patient is conserved and waiting for placement. Diagnosis/presenting symptoms: Depression with SI Assessment What has happened this shift: The patient remained in bed this evening. The patient's attitude has been good, even though he continues to wait for housing. the patient reports that his medication is working well, and he no longer is thinking of suicide. He has anxiety related to his future housing, but meds are effective. The MD increased his Restoril, so he can sleep better, and it has been effective so far. S/I, H/I:[Denies] A/VH: [Denies] Sleep: Has been sleeping since HS med pass. ADL's:Independent Group attendance:No groups tonight Were meds taken:[Yes] Any med S/E: None noted. Mental Status Exam Appearance: Neat and clean, looks appropriate. Eye contact: Good Behavior:Talkative, cooperative, restless Speech:[clear] Mood: Anxious Affect: Bright Thought process: Linear, goal directed Thought Content:Preoccupied with lack of housing. Cognition: A/O x4 Insight: Good Judgment: intact Interventions PRN's used: [place] 5/325 x2 for pain, flexeril for spasms, Restoril for sleep. Therapeutic interventions:[1:1, q15m checks, active listening. Restraints/seclusion/emergency medication:[None] Justification of Continued Inpatient Treatment: Waiting for conservators to find housing. The patient remains GD and DTS. If discharged now without housing, the patient would be at risk to harm himself again.
[2018-03-07] MEDS: ipratropium/albuterol 3ml nebule NEB SCH ×4 (06:57→19:40)
[2018-03-07] MEDS: budesonide 0.5mg/2ml UD nebule IH SCH ×2 (06:57→19:41)
[2018-03-07 08:00] VITALS: BP 118/69
[2018-03-07] MEDS: buPROPion SR 150mg tablet PO SCH ×2 (08:21→13:25)
[2018-03-07] MEDS: LORazepam 1 MG tablet PO SCH ×2 (08:21→20:36)
[2018-03-07] MEDS: gabapentin 300mg capsule PO SCH ×2 (08:22→20:36)
[2018-03-07] MEDS: docusate sod 100mg capsule PO SCH ×2 (08:22→20:36)
[2018-03-07] MEDS: atorvastatin 20mg tablet PO SCH (08:22)
[2018-03-07] MEDS: HYDROcodone/acetaminophen 5mg/325mg tablet PO PRN ×3 (08:22→20:36)
[2018-03-07] MEDS: LIDOcaine 5% patch TP SCH (08:23)
--- NOTE | 2018-03-07 16:54 | NUR ---
Nursing Progress Note Chief Complaint: Psychosis, depression and S/I. Legal hold:Conserved Client on involuntary status for GD/DTS. Report received from Jose HAINES with use of SBAR Why are they here: Patient presented depressed with S/I and past suicide attempts. Diagnosis/presenting symptoms: Psychosis/Depression NOS Assessment What has happened this shift: Patient asleep at change of shift. Met with RN for 1:1 assessment at bedside. Patient reports that he slept well the night before after taking his new medication, Restoril. He states that he is doing well today, reports being happy but bored. He says that he wants to be able to get outside and see the trees. He eats his meals and attends group with others. He reports chronic back pain that is relieved with pain medications but is exasperated when walking. S/I, H/I: none reported A/VH: denies Sleep: reports sleeping well last night ADL's:Independent Group attendance: yes Were meds taken: yes Any med S/E: denied Mental Status Exam Appearance: appropriate, hair brushed and cleaned, showered Eye contact: Good Behavior:cooperative, friendly Speech: clear soft tone, normal rate and rythm Mood: bored Affect: blunted Thought process: Linear, goal directed, wants housing and employment Thought Content: focused on housing, loss of truck and personal belongings Cognition: A/O x4 Insight: fair to good Judgment: good Interventions PRN's used: [place] 5/325 x2 for pain. Therapeutic interventions: Therapeutic and supportive listening. Discussion related to goal building that included obtaining housing and employment. Restraints/seclusion/emergency medication: no Justification of Continued Inpatient Treatment: Patient is conserved and waiting for housing.
[2018-03-07 20:00] VITALS: BP 120/74
[2018-03-07] MEDS: temazepam 15mg capsule PO PRN (20:35)
[2018-03-07] MEDS: aripiprazole 5mg tablet PO SCH (20:35)
[2018-03-07] MEDS: cyclobenzaprine 10mg tablet PO PRN (20:36)
--- NOTE | 2018-03-08 00:43 | NUR ---
RN progress note: Chief Complaint: "I got tired of living like I was, so I jumped off the bridge". Legal hold: T-Conserved Client on involuntary status for GD/DTS. Report received from nurse with use of SBAR: Macrina HAINES. Why are they here: The patient was living in a SNF, when he started becoming paranoid and agitated. His depression increased and he became suicidal, leading him to jump off [place] bridge where he broke his back. The patient is conserved and waiting for placement. Diagnosis/presenting symptoms: Depression with SI Assessment What has happened this shift: the patient was found in his bed at shift change. He's alert and cooperative with care. His affect is bright, and his attitude is hopeful. He denies having thoughts of self harm anymore. His only complaint is that he's bored silly waiting for somebody to find him housing. The patient reports that the Restoril increase really helped him sleep last night. S/I, H/I:[Denies] A/VH: [Denies] Sleep: "I slept until 0600. ADL's:Independent Group attendance:No groups tonight Were meds taken: Yes Any med S/E: None noted. Mental Status Exam Appearance: Laying in bed. He appears clean without odors. Eye contact: Good Behavior: Bored, restless Speech:[clear] Mood: "Relaxed" Affect: Bright Thought process: Linear, goal directed Thought Content:Preoccupied with lack of housing, and his guardians lack of finding him housing. Cognition: A/O x4 Insight: Good Judgment: Fair Interventions PRN's used: [place] 5/325 x1 for pain, flexeril for spasms, Restoril for sleep. Therapeutic interventions:[1:1, q15m checks, active listening, provided positive support. Restraints/seclusion/emergency medication:[None] Justification of Continued Inpatient Treatment: Waiting for conservators to find housing. The patient remains GD and DTS. If discharged now without housing, the patient would be at risk to harm himself bobamalia
[2018-03-08] MEDS: HYDROcodone/acetaminophen 5mg/325mg tablet PO PRN ×4 (05:19→20:36)
[2018-03-08] MEDS: ipratropium/albuterol 3ml nebule NEB SCH ×4 (07:00→19:01)
[2018-03-08 07:29] VITALS: BP 98/69
[2018-03-08] MEDS: budesonide 0.5mg/2ml UD nebule IH SCH ×2 (07:48→19:01)
[2018-03-08] MEDS: docusate sod 100mg capsule PO SCH ×2 (08:20→20:34)
[2018-03-08] MEDS: LIDOcaine 5% patch TP SCH (08:20)
[2018-03-08] MEDS: atorvastatin 20mg tablet PO SCH (08:20)
[2018-03-08] MEDS: LORazepam 1 MG tablet PO SCH ×2 (08:20→20:34)
[2018-03-08] MEDS: buPROPion SR 150mg tablet PO SCH ×2 (08:20→13:03)
[2018-03-08] MEDS: gabapentin 300mg capsule PO SCH ×2 (08:20→20:35)
--- NOTE | 2018-03-08 13:43 | NUR ---
Reassessment: PO intake 100% on regular diet meeting nutrient needs. LB 03/07, pt receiving routine Colace with [facility] DAVID. Will continue to follow Recommendations: 1) Continue with regular diet 2) Weekly wt Addendum: 03/08/18 at [address] Amended: Links added.
--- NOTE | 2018-03-08 16:09 | NUR ---
RN PROGRESS NOTE Chief Complaint: Psychosis, depression, and S/I Legal hold: [facility] Conservatorship Client on involuntary status for GD/DTS Report received from Jose HAINES with use of SBAR Why are they here: Patient presented depressed with S/I and past suicide attempts Diagnosis/presenting symptoms: Psychosis/Depression NOS Assessment Pt asleep at change of shift. Met with RN for 1:1 assessment at the bedside after breakfast. Presents calm and cooperative with a blunted affect. Reports no changes in mood since the following day "I'm patito depressed and want to get out of here". Denies current S/I. His C/C at this time is that he has "cabin fever" and uncertainty and no control over placement and financial decisions is unsettling. Pt rests in his bed in between group activities and meals. Seen by hospitalist today at Dr. Jaimes's request due to pt's C/O ongoing intermittent SOB. Pt seen by Dr. Gamboa and christina x2 6 hours apart ordered. Pt denies chest pain/tightness. S/I, H/I: denies A/VH: denies Sleep: states he was woken up too early, but slept ok last night ADL's: Independent, showered today Group attendance: yes Were meds taken: yes Any med S/E: denies Mental Status Exam Appearance: well groomed, good hygiene, dressed appropriately Eye contact: Good Behavior: cooperative, friendly, psychomotor mildly reduced d/t back pain and L sided weakness (ambulates with walker) Speech: clear, normal rate and rythm Mood: "patito depressed" Affect: blunted Thought process: goal directed Thought Content: focused on housing, loss of truck and personal belongings Cognition: A/O x4 Insight: fair to good Judgment: good Interventions PRN's used: [place] 5/325 x2 for pain Therapeutic interventions: Therapeutic and supportive listening. Encouraged to engage in groups, pain management with [place], ice pack, and lidoderm patch Restraints/seclusion/emergency medication: none Justification of Continued Inpatient Treatment: Patient is conserved and awaiting placement
[2018-03-08 20:00] VITALS: BP 122/63
[2018-03-08] MEDS: aripiprazole 5mg tablet PO SCH (20:35)
[2018-03-08] MEDS: cyclobenzaprine 10mg tablet PO PRN (20:35)
[2018-03-08] MEDS: temazepam 15mg capsule PO PRN (20:35)
--- NOTE | 2018-03-09 03:04 | NUR ---
RN progress note: Chief Complaint: "I got tired of living like I was, so I jumped off the [place] bridge". Legal hold: LPS Conserved Client on involuntary status for GD/DTS. Report received from nurse with use of SBAR: Macrina HAINES. Why are they here: The patient was living in a SNF, when he started becoming paranoid and agitated. His depression increased and he became suicidal, leading him to jump off [place] bridge where he broke his back. The patient is conserved and waiting for placement. Diagnosis/presenting symptoms: Psychosis/Depression with SI. Assessment What has happened this shift: The patient was in his bed at change of shift. 1:1 completed at bedside. The patient reported that he is just bored laying here waiting for something to happen. "I want to be able to go outside and look at the [place], see some trees." The patient stayed in bed all night and reported that nothing has changed today. "Still haven't heard from the Conservator." The patient remained in bed all night. S/I, H/I:[Denies] A/VH: [Denies] Sleep: "I slept until 0600. ADL's:Independent Group attendance:"No groups today, I hurt too much." Were meds taken: Yes Any med S/E: None noted. Mental Status Exam Appearance: Laying in bed. appears clean, well groomed. Eye contact: Good Behavior: Bored, restless. Speech: Clear, normal volume Mood: "I'm pretty quiet." Affect: Depressed, blunted. Thought process: Linear, goal directed Thought Content:Preoccupied with lack of housing, and his Guardians finding him housing. Cognition: A/O x4 Insight: Good Judgment: Intact Interventions PRN's used: [place] 5/325 x1 for pain, Flexeril for spasms, Restoril for sleep. Therapeutic interventions:[1:1, q15m checks, active listening, provided positive support. Provided medications. Restraints/seclusion/emergency medication:[None] Justification of Continued Inpatient Treatment: Waiting for conservators to find housing. The patient remains GD and DTS. If discharged now without housing, the patient would be at risk to harm himself again.
[2018-03-09] MEDS: HYDROcodone/acetaminophen 5mg/325mg tablet PO PRN ×3 (07:09→19:15)
[2018-03-09] MEDS: ipratropium/albuterol 3ml nebule NEB SCH ×2 (07:30→18:53)
[2018-03-09] MEDS: budesonide 0.5mg/2ml UD nebule IH SCH ×2 (07:33→18:53)
--- NOTE | 2018-03-09 07:42 | NUR ---
PT ONLY WANT SVNS 7A & 7P.
[2018-03-09 08:00] VITALS: BP 112/67
[2018-03-09] MEDS: LORazepam 1 MG tablet PO SCH ×2 (08:39→21:00)
[2018-03-09] MEDS: atorvastatin 20mg tablet PO SCH (08:40)
[2018-03-09] MEDS: buPROPion SR 150mg tablet PO SCH ×2 (08:40→13:08)
[2018-03-09] MEDS: gabapentin 300mg capsule PO SCH ×2 (08:40→21:01)
[2018-03-09] MEDS: docusate sod 100mg capsule PO SCH ×2 (08:40→21:00)
[2018-03-09] MEDS: LIDOcaine 5% patch TP SCH (08:44)
--- NOTE | 2018-03-09 17:13 | NUR ---
RN PROGRESS NOTE Chief Complaint: Psychosis, depression, and S/I Legal hold: [facility] Conservatorship Client on involuntary status for GD/DTS Report received from Jose HAINES with use of SBAR Why are they here: Patient presented depressed with S/I and past suicide attempts Diagnosis/presenting symptoms: Psychosis/Depression NOS Assessment Pt asleep at change of shift, awakened early C/O back pain and requesting a [place]. Met with RN for 1:1 assessment at the bedside. Pt presents depressed, affect is blunted. He continues to state that it's difficult to be stuck here and finds it difficult to enjoy activities. Pt rests in bed between group activities and meals. Socializes with others appropriately. S/I, H/I: denies A/VH: denies Sleep: difficulty sleeping due to pt's roommates snoring. Provided earplugs ADL's: Independent. Showers every other day Group attendance: yes Were meds taken: yes Any med S/E: denies Mental Status Exam Appearance: well groomed, dressed appropriately for the unit Eye contact: good Behavior: calm, quiet. Psychomotor slightly reduced/ambulates with a walker Speech: clear, normal rate and rhythm Mood: depressed Affect: blunted Thought process: goal directed Thought Content: no delusions, no paranoia noted Cognition: A/O x4 Insight: fair to good Judgment:good Interventions PRN's used: [place] 5/325 x2 for pain Therapeutic interventions: 1:1 assessment with RN provided supportive listening and emotional support. Encouraged to participate in groups. Provided calm milieu Restraints/seclusion/emergency medication: none Justification of Continued Inpatient Treatment: Patient is conserved and awaiting placement
[2018-03-09 20:09] VITALS: BP 127/76
[2018-03-09] MEDS: cyclobenzaprine 10mg tablet PO PRN (21:01)
[2018-03-09] MEDS: aripiprazole 5mg tablet PO SCH (21:01)
[2018-03-09] MEDS: temazepam 15mg capsule PO PRN (21:02)
--- NOTE | 2018-03-10 00:12 | NUR ---
Nursing Note: Chief Complaint: Psychosis Legal hold: LPS Conserved Client on involuntary status for GD/DTS Report received from nurse with use of SBAR: ZAKI Schrader Why are they here: Pt. admitted for increased paranoia and agitation and was transferred from a group home facility. He is LPS Conserved for gravely disabled. Pt. has depression and previous suicide attempts, one during which he jumped off a bridge and broke his back. Pt. has a history of chronic pain, alcoholism, and a possible TIA/stroke which left him with left-sided weakness. He has ongoing c/o SOB with exertion, possibly r/t recent weight gain (Olanzapine changed to Abilify), cardiac etiology r/o. Pt. is awaiting placement by conservator at a [facility] in [place]. Diagnosis/presenting symptoms: Pt. continues to deny S/I, he reports he is still feeling depressed and anxious, "I'm in the doldrums, feeling cooped up." Assessment What has happened this shift: Pt. laying in bed this shift, requests PRN [place] for chronic back pain, up for HS snack. Pt. continues to deny S/I, he reports he is still feeling depressed and anxious, "I'm in the doldrums, feeling cooped up." He reports that he called his conservator today and left a message, regarding what is happening to back-pay from his checks. Also, he has not yet received the print-out of his finances, will endorse to AM shift. Pt. spoke a little about how he came to be conserved, immediately after he tried to take his own life from jumping from a bridge, he regrets his decision because he has to live everyday in pain now (chronic back pain). Pt. continues to ambulate with use of his walker, with steady gait, fall precautions remain in place. No reports of increased SOB this shift, scheduled breathing treatment received with effectiveness and pt. using his incentive spirometer. S/I, H/I: Denies A/VH: Denies Sleep: Pt. reports he is sleeping well with the increased dose of Temazepam ADL's: Pt. is able to ambulate independently with use of walker, fall precautions remain in place. Group attendance: Pt. reports he has been attending all groups, reports coping mechanisms a deep breathing and relaxation Were meds taken: Yes Any med S/E: Weight gain possibly r/t Olanzapine, medication has been discontinued and pt. started on Abilify, no adverse S/E reported Mental Status Exam Appearance: Neat and appropriately dressed in hospital attire. Eye contact: Good Behavior: Pleasant, restless, psychomotor activity WNL Speech: WNL Mood: Fatigued with some restlessness Affect: Blunted Thought process: Intact, WNL Thought Content: Continues to have phobia regarding discharge and his finances Cognition: A&O X4 Insight: Fair to Good Judgment: Good Interventions PRN's used: PRN [place] and Baclofen administered for chronic back pain with effectiveness and Lidocaine Patch removed at HS per order. PRN Temazepam for sleep Therapeutic interventions: Provided active listening, maintained a safe and therapeutic environment, encouraged and witnesses pt's correct use of IS when awake, and Q 15 min. safety checks in place. Maintained fall precautions and encouraged pt. to use call light during transfer. Restraints/seclusion/emergency medication: N/A Justification of Continued Inpatient Treatment: Pt. remains at this facility awaiting placement by conservator. He is gravely disabled and a DTS. Per vp digital marketing social media and crm, conservator is currently looking at placing patient at a [facility] in [place], [place].
[2018-03-10] MEDS: HYDROcodone/acetaminophen 5mg/325mg tablet PO PRN ×4 (04:53→19:03)
[2018-03-10] MEDS: ipratropium/albuterol 3ml nebule NEB SCH ×2 (07:04→21:17)
[2018-03-10] MEDS: budesonide 0.5mg/2ml UD nebule IH SCH ×2 (07:04→21:17)
[2018-03-10] MEDS: LORazepam 1 MG tablet PO SCH ×2 (07:59→20:19)
[2018-03-10] MEDS: docusate sod 100mg capsule PO SCH ×2 (07:59→20:19)
[2018-03-10] MEDS: buPROPion SR 150mg tablet PO SCH ×2 (07:59→12:21)
[2018-03-10] MEDS: atorvastatin 20mg tablet PO SCH (07:59)
[2018-03-10 08:00] VITALS: BP 111/67
[2018-03-10] MEDS: gabapentin 300mg capsule PO SCH ×2 (08:00→20:20)
[2018-03-10] MEDS: LIDOcaine 5% patch TP SCH (08:00)
[2018-03-10 08:21] VITALS: BP 111/67
--- NOTE | 2018-03-10 14:57 | NUR ---
Nursing progress note: Chief Complaint: Psychosis Legal hold: LPS Conserved Client on involuntary status for GD/DTS Report received from nurse with use of SBAR: Jessica HAINES Why are they here: Pt. admitted for increased paranoia and agitation and was transferred from a halfway facility. He is LPS Conserved for gravely disabled. Pt. has depression and previous suicide attempts, one during which he jumped off a bridge and broke his back. Pt. has a history of chronic pain, alcoholism, and a possible TIA/stroke which left him with left-sided weakness. Pt is awaiting placement by conservator. Diagnosis/presenting symptoms: Psychosis,Depression NOS Assessment: Pt states that his mood is better today thought continues to be depressed, denies SI. Pt expressed some irritation on being conserved as he feels that he has no control over his life, he has requested an itemized list of expenses from his guardian as he would like to know how his money is being utilized, pt states "I've heard weird things about the conservator." Pt showered today. Pt had a brighter affect after lunch, told SW and myself that his guardian actually called back and told him that the place they have been trying to place him-[facility]-had a bed open up. Pt was telling SW that he wants to get off his conservatorship as soon as possible, SW explained that the place where he is going is only for conserved people but that while he is staying there, he could be getting on the waiting list for low income housing. S/I, H/I: Denies A/VH: Denies Sleep: No complaints today ADL's: Ambulates Ad lennie with FWW, likes to shower daily Group attendance: Pt attended groups Were meds taken: Yes Any med S/E: No adverse side effects noted or reported Mental Status Exam: Appearance: Pt is clean, appears depressed Eye contact: Good Behavior: Cooperative, relaxed Speech: articulate, audible, talkative Mood: Depressed, anxious Affect: [place] Thought process: Linear, goal directed Thought Content: conservatorship and placement, feels as though he has no control over his life Cognition: A&O X4 Insight: Good Judgment: Good Interventions PRN's used: PRN [place] 5/325 mg at 0900 & 1423 Therapeutic interventions: 1:1, therapeutic listening, encouraged to focus on the positives rather than the negatives of his situation, pain management, Q 15 min checks. Restraints/seclusion/emergency medication: None. Justification of Continued Inpatient Treatment: Pt is conserved and awaiting placement, states he has been accepted and a bed has opened up at [facility].
[2018-03-10 20:13] VITALS: BP 102/61
[2018-03-10] MEDS: aripiprazole 5mg tablet PO SCH (20:21)
[2018-03-10] MEDS: cyclobenzaprine 10mg tablet PO PRN (20:22)
[2018-03-10] MEDS: temazepam 15mg capsule PO PRN (20:25)
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
[2018-03-11] MEDS: HYDROcodone/acetaminophen 5mg/325mg tablet PO PRN ×4 (04:45→19:01)
[2018-03-11 08:00] VITALS: BP 102/57
[2018-03-11] MEDS: buPROPion SR 150mg tablet PO SCH ×2 (08:49→13:21)
[2018-03-11] MEDS: gabapentin 300mg capsule PO SCH ×2 (08:49→20:29)
[2018-03-11] MEDS: atorvastatin 20mg tablet PO SCH (08:49)
[2018-03-11] MEDS: docusate sod 100mg capsule PO SCH ×2 (08:49→20:29)
[2018-03-11] MEDS: LORazepam 1 MG tablet PO SCH ×2 (08:49→20:29)
[2018-03-11] MEDS: ipratropium/albuterol 3ml nebule NEB SCH ×2 (09:10→20:52)
[2018-03-11] MEDS: budesonide 0.5mg/2ml UD nebule IH SCH ×2 (09:14→20:52)
--- NOTE | 2018-03-11 12:19 | NUR ---
NURSING PROGRESS NOTE Chief Complaint: Depression with suicidal ideation Legal hold: LPS Conserved Client on involuntary status for: Gravely disabled Report received from nurse with use of SBAR: ZAKI Lopez Why are they here: He is LPS Conserved. Depression and previous suicide attempts, jumped off a bridge and fractured his back to which he suffers from chronic back pain. Awaiting placement by conservator at [facility] in [place], [place]. Diagnosis/presenting symptoms: Depression. Denies suicidal thoughts, states he is ready to move to permanent housing and is bored. Pain to back 5/10 Assessment What has happened this shift: Depressed mood, bland affect. Attended all groups and meals with cohorts. Cooperative, and med compliant. States his SOB comes and goes and is worse when bends over. He continues to use incentive spirometer. Reports concern about being conserved and would like sometime in the near future to possibly become responsible for his own affairs. Walks in hallway multiple times today. C/O pain to lower back which is chronic and receives prn [place]. S/I, H/I: Denies A/VH: Denies Sleep: Napped ADL's: Ambulates independently with walker, fall precautions remain in place. ADLs by self. Group attendance: Yes Any med S/E: Weight gain possibly r/t Olanzapine, medication has been discontinued and pt. started on Abilify. Mental Status Exam Appearance: Neat and clean Eye contact: Good Behavior: Cooperative Speech: WNL Mood: Pleasant Affect: [place] Thought process: Intact, WNL Thought Content: Normal Cognition: A&O X4 Insight: Good Judgment: Good Interventions PRN's used: PRN [place] for back pain. Therapeutic interventions: 1:1 maintained a safe and therapeutic environment, encouraged incentive spirometer, and Q 15 min. safety checks in place. Restraints/seclusion/emergency medication: None Justification of Continued Inpatient Treatment: Pt. remains at this facility awaiting placement by conservator.
[2018-03-11] MEDS: LIDOcaine 5% patch TP SCH (13:20)
[2018-03-11 20:00] VITALS: BP 120/81
[2018-03-11] MEDS: aripiprazole 5mg tablet PO SCH (20:29)
[2018-03-11] MEDS: cyclobenzaprine 10mg tablet PO PRN (20:30)
[2018-03-11] MEDS: temazepam 15mg capsule PO PRN (20:30)
--- NOTE | 2018-03-11 23:15 | NUR ---
Nursing Note: Chief Complaint: Psychosis Legal hold: LPS Conserved Client on involuntary status for GD/DTS Report received from nurse with use of SBAR: ZAKI Overton Why are they here: Pt. admitted for increased paranoia and agitation, he is LPS Conserved. Pt. has depression and previous suicide attempts, one during which he jumped off a bridge and broke his back. Pt. has a history of chronic pain, alcoholism, and a possible TIA/stroke which left him with left-sided weakness. He has ongoing c/o SOB with exertion, possibly r/t recent weight gain (Olanzapine changed to Abilify), cardiac etiology r/o. Pt. is awaiting placement by conservator at [facility] in [place], [place]. Diagnosis/presenting symptoms: Pt. continues to deny S/I, he reports he is still, "Liya depressed with a little anxiety." Assessment What has happened this shift: Pt. laying in bed in dark room relaxing, continues to isolate here throughout the shift. Requests PRN [place] for chronic back pain, and uses his incentive spirometer while awake as encouraged by this junior technical writer. Pt. continues to deny S/I, he reports he is still, "Liya depressed with a little anxiety." Pt. continues to ambulate with use of his walker, with steady gait, fall precautions remain in place. Reports ongoing SOB with exertion, reports he became "winded" 4-5X throughout the day but it's not as bad as before, scheduled breathing treatment received with effectiveness. Pt. reports, he decided not to talk to Dr. Jaimes about increasing the strength of his [place], instead he will try taking his ordered Aleve tomorrow after breakfast on a full stomach because the pain relief it provides lasts longer than the the [place], however it upsets his stomach if he doesn't take it after eating, will endorse to AM shift and continue to monitor. S/I, H/I: Denies A/VH: Denies Sleep: Reports he slept well last night until his roommate woke him up at 0530, this junior technical writer encouraged pt. to let staff know immediately if he felt any anxiety or fear r/t periodic labile behavior of roommate and he voiced understanding ADL's: Pt. is able to ambulate independently with use of walker, fall precautions remain in place. He reports ongoing SOB with exertion, however it is getting better. Group attendance: Pt. reports he attended groups today and he enjoyed the [employer] theme, he was proud of the sleigh he made. Were meds taken: Yes Any med S/E: Weight gain possibly r/t Olanzapine, medication has been discontinued and pt. started on Abilify, pt. reports he feels his SOB is getting better. Mental Status Exam Appearance: Neat and appropriately dressed in nighttime attire. Eye contact: Good Behavior: Cooperative with fatigue, psychomotor activity WNL Speech: WNL, talkative with this junior technical writer Mood: Pleasant Affect: Blunted, animated with conversation Thought process: Intact, WNL Thought Content: Continues to have phobia regarding discharge, his finances, and conservatorship Cognition: A&O X4 Insight: Fair to Good Judgment: Good Interventions PRN's used: PRN [place] and Baclofen administered for chronic back pain. PRN Temazepam for sleep Therapeutic interventions: Provided active listening, maintained a safe and therapeutic environment, encouraged pt. to let staff know if he felt any anxiety or fear r/t periodic labile behavior of roommate and he voiced understanding, encouraged and witnesses pt's correct use of IS when awake, and Q [address] checks in [address]. Maintained fall precautions and encouraged pt. to use call light during transfer. Restraints/seclusion/emergency medication: N/A Justification of Continued Inpatient Treatment: Pt. remains at this facility awaiting placement by iker. Iker spoke with this patient today and reports that a place will most likely open up at [facility] in [place], [place] by the end of this month.
[2018-03-12] MEDS: HYDROcodone/acetaminophen 5mg/325mg tablet PO PRN ×4 (03:13→20:34)
[2018-03-12] MEDS: buPROPion SR 150mg tablet PO SCH ×2 (08:17→12:49)
[2018-03-12] MEDS: gabapentin 300mg capsule PO SCH ×2 (08:17→21:36)
[2018-03-12] MEDS: atorvastatin 20mg tablet PO SCH (08:17)
[2018-03-12] MEDS: LORazepam 1 MG tablet PO SCH (08:17)
[2018-03-12] MEDS: docusate sod 100mg capsule PO SCH ×2 (08:17→21:35)
[2018-03-12] MEDS: ipratropium/albuterol 3ml nebule NEB SCH ×2 (08:22→19:44)
[2018-03-12] MEDS: BUDESONIDE 0.25 MG/2 ML AMPUL.NEB IH SCH ×2 (08:22→19:43)
[2018-03-12 11:33] VITALS: BP 103/64
[2018-03-12] MEDS ORDERED: LORazepam 1 MG tablet PO PRN (11:50)
[2018-03-12] MEDS: LIDOcaine 5% patch TP SCH (15:27)
[2018-03-12] MEDS ORDERED: clonazePAM 0.5mg tablet PO ONE (16:10)
--- NOTE | 2018-03-12 17:39 | NUR ---
NURSING PROGRESS NOTE Chief Complaint: Depression with suicidal ideation Legal hold: LPS Conserved Client on involuntary status for: Gravely disabled Report received from nurse with use of SBAR: Jessica RN Why are they here: He is LPS Conserved. Depression and previous suicide attempts, jumped off a bridge and fractured his back to which he suffers from chronic back pain. Awaiting placement by conservator at [facility] in [place], [place]. Diagnosis/presenting symptoms: Depression. Denies suicidal thoughts, states he is ready to move to permanent housing and is bored. Pain to back 5/10 Assessment What has happened this shift: Depressed mood, bland affect. Increased anxiety today, states he is having a "panic attack" and upon entering his room appeared pale and tremulous. He was asked to deep breath and he did so, returning his color and started to feel better. When asked he said he was "having really bad thoughts", upon further questioning admitted it "might be voices coming back." Dr. Jaimes was notified and new order was received for increased Ativan (prn). Patient was able to recover and attend afternoon group, walk in the hallway, and watch some TV with others. continues to deny suicidal thoughts. S/I, H/I: Denies A/VH: Possible voices returning Sleep: Napped ADL's: Ambulates independently with walker, fall precautions remain in place. ADLs by self. Group attendance: Yes Any med S/E: Possible AH due to decrease in Zyprexa. Mental Status Exam Appearance: Neat and clean Eye contact: Good Behavior: Cooperative Speech: WNL Mood: Pleasant Affect: [place] and at times anxious Thought process: Intact, WNL Thought Content: Normal Cognition: A&O X4 Insight: Good Judgment: Good Interventions PRN's used: PRN [place] for back pain, Ativan for anxiety Therapeutic interventions: 1:1 maintained a safe and therapeutic environment, encouraged incentive spirometer, and Q [address] min[address] checks in [address]. Restraints/seclusion/emergency medication: None Justification of Continued Inpatient Treatment: Pt. remains at this facility awaiting placement by conservator.
[2018-03-12 19:00] VITALS: BP 151/73
[2018-03-12] MEDS: clonazePAM 0.5mg tablet PO SCH (21:35)
[2018-03-12] MEDS: aripiprazole 5mg tablet PO SCH (21:36)
--- NOTE | 2018-03-13 00:54 | NUR ---
NURSING PROGRESS NOTE Chief Complaint: Depression with suicidal ideation Legal hold: LPS Conserved Client on involuntary status for: Gravely disabled Report received from Brooklynn HAINES with use of SBAR. Why are they here: He is LPS Conserved. Depression and previous suicide attempts, jumped off a bridge and fractured his back to which he suffers from chronic back pain. Diagnosis/presenting symptoms: Pt admitted due to depression and S/I with history of previous of suicide attempts. Assessment What has happened this shift: Pt was lying in bed at the start of the shift, I introduced myself as his nurse and asked if he had any immediate needs and discussed what happened earlier in the day when he had a panic attack. Pt reported having 5/10 bacl pain and was due for a [place], which was given. I asked pt about the events earlier in the day and if he was hearing voices or having any strange thoughts. Pt stated that it just over came him (the panic attack) and that he wasn't thinking anything, but that is how they normally happen per pt. Pt discussed his prior issues with anxiety, in particular when he was working. Pt was also verbal about his frustrations with still being here, concerns about his money, what is going on with his placement and wanting to get off conservatorship. Pt also stated that his sister is planning on calling his conservator to try to get some answers/results. Tried to reassure pt, provided supportive feedback. Pt did request to shave which I assisted him with. Pt also did come to group room during a movie and popcorn, but did not stay long stating he had seen the movie "10 times". He took his evening meds and has been resting since that time. S/I, H/I: Denies A/VH: denies Sleep: states increased difficulty sleeping due to new roommate that he states snores loudly ADL's: independent, pt shaved this evening with supervision Group attendance: no groups scheduled this shift Any med S/E: denies any side effects at this time Mental Status Exam Appearance: Neat and clean Eye contact: Good Behavior: Cooperative Speech: normal rate, rhythm, volume Mood: "oK" Affect: blunted, does smile at times during interaction Thought process: linear Thought Content: WNL, focused on issues with money, conservators office, placement Cognition: A&O X4 Insight: Good Judgment: Good Interventions PRN's used: [place] Therapeutic interventions: 1:1, medications administered and pt monitored for effects and side effects, therapeutic support given, continues on q 15 checks for safety, education on new rx of Klonopin Restraints/seclusion/emergency medication: None Justification of Continued Inpatient Treatment: Pt. remains at this facility awaiting placement by conservator.
[2018-03-13] MEDS: HYDROcodone/acetaminophen 5mg/325mg tablet PO PRN ×4 (04:49→19:39)
[2018-03-13 08:00] VITALS: BP 119/68
[2018-03-13] MEDS: clonazePAM 0.5mg tablet PO SCH ×2 (08:16→20:11)
[2018-03-13] MEDS: atorvastatin 20mg tablet PO SCH (08:16)
[2018-03-13] MEDS: LIDOcaine 5% patch TP SCH ×2 (08:16→09:58)
[2018-03-13] MEDS: buPROPion SR 150mg tablet PO SCH (08:17)
[2018-03-13] MEDS: duloxetine 30mg CAPSULE.DR PO SCH (08:17)
[2018-03-13] MEDS: docusate sod 100mg capsule PO SCH ×2 (08:18→20:11)
[2018-03-13] MEDS: ipratropium/albuterol 3ml nebule NEB SCH ×2 (09:35→20:16)
[2018-03-13] MEDS: BUDESONIDE 0.25 MG/2 ML AMPUL.NEB IH SCH ×2 (09:35→20:00)
--- NOTE | 2018-03-13 16:47 | NUR ---
Chief Complaint: Depression with suicidal ideation Legal hold: LPS Conserved Client on involuntary status for: Gravely disabled Report received from HENRY HAINES with use of SBAR. Why are they here: He is LPS Conserved. Depression and previous suicide attempts, jumped off a bridge and fractured his back to which he suffers from chronic back pain. Diagnosis/presenting symptoms: Pt admitted due to depression and S/I with history of previous of suicide attempts. Assessment What has happened this shift: Patient was sleeping when I initially checked in on patient after I recieved report. When I brought in patients morning meds patient was very appropriate and friendly, he enquired about his placement and that he has not talked to his consertiver for quit some time. I asked him how he was feeling today and he stated that he was depressed about his placement taking so long. He also stated that he was experiening back pain and would like pain meds. Patient denies any suicidal thoughts or ideations. Patient stayed in his room for most of the day and slept on and off. After lunch he walked around the [place] ways and used the telephone. Around two o'clock patient asked for another poain med stating he was in pain 7/10 in his lower back, patient was very pleasent when med was administered. S/I, H/I: Denies A/VH: denies Sleep: states increased difficulty sleeping due to new roommate that he states snores loudly ADL's: independent Group attendance: Patient attended one of the group activities Any med S/E: denies any side effects at this time Mental Status Exam Appearance: Neat and clean Eye contact: Good Behavior: Cooperative Speech: normal rate, rhythm, volume Mood: "Depressed" Affect: blunted, does smile at times during interaction Thought process: linear Thought Content: WNL, focused on issues with conservator and placement Cognition: A&O X4 Insight: Good Judgment: Good Interventions PRN's used: [place] Therapeutic interventions: 1:1, medications administered and pt monitored for effects and side effects, therapeutic support given, continues on q 15 checks for safety Restraints/seclusion/emergency medication: None Justification of Continued Inpatient Treatment: Pt. remains at this facility awaiting placement by conservator.
[2018-03-13] MEDS ORDERED: ibuprofen tablet 400 MG TABLET PO ONE (17:00)
[2018-03-13 19:00] VITALS: BP 126/73
[2018-03-13] MEDS: aripiprazole 5mg tablet PO SCH (20:12)
[2018-03-13] MEDS: gabapentin 300mg capsule PO SCH (20:12)
[2018-03-13] MEDS: temazepam 15mg capsule PO PRN (20:13)
--- NOTE | 2018-03-14 00:32 | NUR ---
NURSING PROGRESS NOTE Chief Complaint: Depression with suicidal ideation Legal hold: LPS Conserved Client on involuntary status for: Gravely disabled Report received from Benito HAINES with use of SBAR. Why are they here: He is LPS Conserved. Depression and previous suicide attempts, jumped off a bridge and fractured his back to which he suffers from chronic back pain. Diagnosis/presenting symptoms: Pt admitted due to depression and S/I with history of previous of suicide attempts. Assessment What has happened this shift: Pt lying and bed at the start of the shift and pt remained throughout the shift. Pt continues to endorse frustration and boredom with being here, we discussed ways to cope with these feelings and pt verbalized understanding. S/I, H/I: Denies A/VH: denies Sleep: disrupted, prn restoril given to help with sleep tonight ADL's: independent Group attendance: no groups scheduled this shift Any med S/E: denies any side effects at this time Mental Status Exam Appearance: Neat and clean Eye contact: Good Behavior: Cooperative Speech: normal rate, rhythm, volume Mood: bored Affect: blunted, does smile at times during interaction Thought process: linear Thought Content: WNL Cognition: A&O X4 Insight: Good Judgment: Good Interventions PRN's used: [place], Restoril Therapeutic interventions: 1:1, medications administered and pt monitored for effects and side effects, therapeutic support given, continues on q 15 checks for safety Restraints/seclusion/emergency medication: None Justification of Continued Inpatient Treatment: Pt. remains at this facility awaiting placement by conservator.
[2018-03-14] MEDS: HYDROcodone/acetaminophen 5mg/325mg tablet PO PRN ×4 (05:29→21:23)
[2018-03-14 07:00] VITALS: BP 107/59
[2018-03-14] MEDS: ipratropium/albuterol 3ml nebule NEB SCH ×2 (07:51→20:16)
[2018-03-14] MEDS: BUDESONIDE 0.25 MG/2 ML AMPUL.NEB IH SCH ×2 (07:51→20:16)
[2018-03-14] MEDS: docusate sod 100mg capsule PO SCH ×2 (08:44→21:17)
[2018-03-14] MEDS: buPROPion SR 150mg tablet PO SCH (08:44)
[2018-03-14] MEDS: duloxetine 30mg CAPSULE.DR PO SCH (08:44)
[2018-03-14] MEDS: clonazePAM 0.5mg tablet PO SCH ×3 (08:44→21:17)
[2018-03-14] MEDS: atorvastatin 20mg tablet PO SCH (08:44)
[2018-03-14] MEDS: LIDOcaine 5% patch TP SCH (08:45)
--- NOTE | 2018-03-14 15:42 | NUR ---
Nursing Progress Note. Chief Complaint: Depression with SI. Legal hold: LPS Conserved. Client on involuntary status for GD. Report received from Yue with use of SBAR. Why are they here: Patient is gravely disabled, was wandering around [place] unable to obtain food or water. Became suicidal and jumped off [address] sustaining nondisplaced pelvic fracture.. Diagnosis/presenting symptoms: Depression with suicidal ideation Assessment What has happened this shift: Ayan complains of back pain and [place] given ~q4' with good relief. Attends all meals and groups. Reading in his room this afternoon. S/I, H/I: Denies. A/VH: Denies. Sleep: Naps after meals. ADL's: Showered today, independent. Walks with front wheel walker. Group attendance: Yes. Were meds taken: Yes. Any med S/E None. Mental Status Exam Appearance: Clean and appropriate 63 year old male with graying hair. Eye contact: Direct. Behavior: Cooperative, calm. Speech: Clear, slowed Mood: Depressed. Affect: Flat. Thought process: Goal oriented. Thought Content: Discharge. Cognition: intact. Insight: Fair. Judgment: Poor. Interventions PRN's used: [place] Therapeutic interventions: 1:1 to assess for severity of symtpoms. Administered medications and monitored for side effects. q15" checks for patient safety. Restraints/seclusion/emergency medication: None Justification of Continued Inpatient Treatment: Patient continues to be gravely disabled. Awaiting placement by Public Guardian. Without a residence, patient would not be safe to discharge at this point.
[2018-03-14 19:59] VITALS: BP 127/63
[2018-03-14] MEDS: aripiprazole 5mg tablet PO SCH (21:17)
[2018-03-14] MEDS: gabapentin 300mg capsule PO SCH (21:17)
--- NOTE | 2018-03-15 00:51 | NUR ---
NURSING PROGRESS NOTE Chief Complaint: Depression with suicidal ideation Legal hold: LPS Conserved Client on involuntary status for: Gravely disabled Report received from Guera RN with use of SBAR. Why are they here: He is LPS Conserved. Depression and previous suicide attempts, jumped off a bridge and fractured his back to which he suffers from chronic back pain. Diagnosis/presenting symptoms: Pt admitted due to depression and S/I with history of previous of suicide attempts. Assessment What has happened this shift: Patient lying and bed at the start of the shift and pt remained throughout the shift. Patient talked to RN about being transferred to a facility and he is a little depressed because he is still here. Patient states he wants to call his Conservator tomorrow and find out when he is going to his new place. Patient was pleasant and c/o 5/10 back pain. RN gave patient his medication a little later in the evening due to the fact that it was too soon to give him his [place]. Patient denies SI/HI. Pt denies hallucinations. Patient continues on Q 15 minute checks. S/I, H/I: Denies A/VH: denies Sleep: disrupted due to back pain ADL's: independent Group attendance: no groups scheduled this shift Any med S/E: denies any side effects at this time Mental Status Exam Appearance: Neat and clean Eye contact: Good Behavior: Cooperative Speech: normal rate, rhythm, volume Mood: bored Affect: blunted, does smile at times during interaction Thought process: linear Thought Content: WNL Cognition: A&O X4 Insight: Good Judgment: Good Interventions PRN's used: [place], Restoril Therapeutic interventions: 1:1, medications administered and pt monitored for effects and side effects, therapeutic support given, continues on q 15 checks for safety Restraints/seclusion/emergency medication: None Justification of Continued Inpatient Treatment: Pt. remains at this facility awaiting placement by conservator.
[2018-03-15] MEDS: HYDROcodone/acetaminophen 5mg/325mg tablet PO PRN ×4 (04:46→22:09)
[2018-03-15 08:00] VITALS: BP 98/51
[2018-03-15] MEDS: BUDESONIDE 0.25 MG/2 ML AMPUL.NEB IH SCH ×2 (08:00→19:26)
[2018-03-15] MEDS: duloxetine 30mg CAPSULE.DR PO SCH (08:52)
[2018-03-15] MEDS: docusate sod 100mg capsule PO SCH ×2 (08:52→19:06)
[2018-03-15] MEDS: buPROPion SR 150mg tablet PO SCH (08:52)
[2018-03-15] MEDS: atorvastatin 20mg tablet PO SCH (08:52)
[2018-03-15] MEDS: clonazePAM 0.5mg tablet PO SCH ×2 (08:52→19:06)
[2018-03-15] MEDS: LIDOcaine 5% patch TP SCH (08:53)
[2018-03-15] MEDS: ipratropium/albuterol 3ml nebule NEB SCH ×2 (09:00→19:26)
--- NOTE | 2018-03-15 16:29 | NUR ---
RN PROGRESS NOTE Chief Complaint: Psychosis, depression, and S/I Legal hold: [facility] Conservatorship Client on involuntary status for GD/DTS Report received from Pili HAINES with use of SBAR Why are they here: Patient presented depressed with S/I and past suicide attempts Diagnosis/presenting symptoms: Psychosis/Depression NOS Assessment Pt asleep at change of shift, met with RN for 1:1 assessment at the bedside. Pt presents with a flat affect, reports a sad mood. Reports no significant changes in mood, that he's waiting for his conservator to find placement. Pt spent time resting in bed, and was up to the group room for groups and meals. S/I, H/I: Denies A/VH: Denies Sleep: interrupted sleep from roommate's snoring, is using earplugs ADL's: Independent Group attendance: yes Were meds taken: yes Any med S/E: Denies Mental Status Exam Appearance: dressed appropriately for the unit, appears stated age Eye contact: good Behavior: psychomotor slightly reduced/ambulates with a walker Speech: clear, normal rate and rhythm Mood: sad, bored Affect: blunted Thought process: goal directed Thought Content: no delusions or paranoia noted Cognition: A/O x4 Insight: fair to good Judgment: good Interventions PRN's used: [place] 5/325 x2 for pain Therapeutic interventions: 1:1 assessment with RN provided supportive listening and emotional support. Encouraged to participate in groups. Provided calm milieu Restraints/seclusion/emergency medication: none Justification of Continued Inpatient Treatment: Patient is conserved and awaiting placement
[2018-03-15 20:00] VITALS: BP 124/58
[2018-03-15] MEDS ORDERED: ibuprofen 200mg tablet PO ONE (20:15)
[2018-03-15] MEDS: aripiprazole 5mg tablet PO SCH (20:36)
[2018-03-15] MEDS: gabapentin 300mg capsule PO SCH (20:37)
[2018-03-15] MEDS: cyclobenzaprine 10mg tablet PO PRN (20:37)
[2018-03-15] MEDS: temazepam 15mg capsule PO PRN (20:38)
--- NOTE | 2018-03-16 01:17 | NUR ---
Nursing Note: Chief Complaint: Psychosis Legal hold: LPS Conserved Client on involuntary status for GD/DTS Report received from nurse with use of SBAR: ZAKI Schrader Why are they here: Pt. admitted for increased paranoia and agitation, he is LPS Conserved. Pt. has depression and a suicide attempt during which he jumped off a bridge and broke his back. Pt. has a history of chronic pain, alcoholism, and a possible TIA/stroke which left him with left-sided weakness. He has ongoing c/o SOB with exertion, possibly r/t recent weight gain, cardiac etiology r/o. Pt. is awaiting placement by conservator at [facility] in [place], [place]. Diagnosis/presenting symptoms: Pt. continues to deny S/I, denies anxiety, however states, "I am still depressed about being here, it's driving me crazy being locked up." Assessment What has happened this shift: Pt. laying in bed at the beginning of the shift, continued to isolate here. He c/o fatigue r/t not brandy able to sleep at night per roommate's snoring and he is agreeable with changing rooms to 330B. Pt. reports he likes the view from his new room and he appears to be tolerating the change well, will continue to monitor. Pt. continues to deny S/I, denies anxiety, however states, "I am still depressed about being here, it's driving me crazy being locked up." He reports he spoke with his sister today and he believes he will be discharging on the 04 of April, however he plans to call his conservator again tomorrow. Pt. continues to ambulate with use of his walker, with steady gait, fall precautions remain in place. Reports some ongoing SOB with exertion, scheduled breathing treatment received with effectiveness, however pt. reports that they give him a h/a sometimes, one-time order for 600mg of Motrin administered with effectiveness. Pt. also continues to use his incentive spirometer while awake as encouraged by this senior technical writer. S/I, H/I: Denies A/VH: Denies Sleep: Reports he has not been able to sleep per his roommates snoring, and he is agreeable with changing rooms to 330B, will monitor. ADL's: Pt. is able to ambulate independently with use of walker, fall precautions remain in place. He reports ongoing SOB with exertion, however reports it is getting better. Group attendance: Pt. reports he has attended every group since he has been here, and states he was the only one to attend art group today. Were meds taken: Yes Any med S/E: Weight gain possibly r/t Olanzapine, medication has been discontinued Mental Status Exam Appearance: Neat and appropriately dressed Eye contact: Good Behavior: Cooperative with fatigue, psychomotor activity WNL Speech: WNL, somewhat monotonous r/t fatigue Mood: Pleasant, however slightly irritated r/t lack of sleep Affect: Constricted with animation during conversation Thought process: Intact, WNL Thought Content: Continues to have preoccupation with discharge and his conservatorship Cognition: A&O X4 Insight: [place] to Good Judgment: Good Interventions PRN's used: PRN Hortense and Baclofen administered for chronic back pain and obtained a one-time order for Motrin for a h/a r/t breathing treatment. PRN Temazepam for sleep Therapeutic interventions: Provided active listening, maintained a safe and therapeutic environment, changed rooms to 330B per pt. inability to sleep, encouraged and witnesses pt's correct use of IS when awake, obtained an order for Motrin r/t h/a from breathing treatments, and Q 15 min. safety checks in place. Maintained fall precautions and encouraged pt. to use call light during transfer. Restraints/seclusion/emergency medication: N/A Justification of Continued Inpatient Treatment: Pt. remains at this facility awaiting placement by conservator. Per Dr. Jaimes's note, pt. will discharge to [facility] in [place], [place] by the end of this month.
[2018-03-16 07:48] VITALS: BP 105/62
[2018-03-16] MEDS: duloxetine 30mg CAPSULE.DR PO SCH (07:57)
[2018-03-16] MEDS: buPROPion SR 150mg tablet PO SCH (07:57)
[2018-03-16] MEDS: docusate sod 100mg capsule PO SCH ×2 (07:57→20:27)
[2018-03-16] MEDS: clonazePAM 0.5mg tablet PO SCH ×2 (07:57→20:28)
[2018-03-16] MEDS: HYDROcodone/acetaminophen 5mg/325mg tablet PO PRN ×3 (07:58→20:30)
[2018-03-16] MEDS: LIDOcaine 5% patch TP SCH (07:58)
[2018-03-16] MEDS: atorvastatin 20mg tablet PO SCH (07:58)
[2018-03-16] MEDS: BUDESONIDE 0.25 MG/2 ML AMPUL.NEB IH SCH ×2 (08:39→19:14)
--- NOTE | 2018-03-16 10:21 | NUR ---
Reassessment: PO intake 100% on regular diet meeting nutrient needs. [facility] 03/15, pt receiving routine Colace with [facility] SUSANN. Will continue to follow. Recommendations: 1) Continue with regular diet 2) Weekly wt Addendum: 03/16/18 at [address] Amended: Links added. Addendum: 03/16/18 at [address] I have reviewed and agree with this note by Horseshoer. Sondra Wen RD
--- NOTE | 2018-03-16 15:03 | NUR ---
Nursing progress note: Chief Complaint: Psychosis Legal hold: LPS Conserved Client on involuntary status for GD/DTS Report received from nurse with use of SBAR: Jessica HAINES Why are they here: Pt. admitted for increased paranoia and agitation and was transferred from a halfway facility. He is LPS Conserved for gravely disabled. Pt. has depression and previous suicide attempts, one during which he jumped off a bridge and broke his back. Pt. has a history of chronic pain, alcoholism, and a possible TIA/stroke which left him with left-sided weakness. Pt is awaiting placement by conservator. Diagnosis/presenting symptoms: Psychosis,Depression NOS Assessment: What has happened this shift: Pt alert, pleasant and cooperative, out of room for meals and groups, continues to feel depressed and somewhat frustrated over how long he has been here. Denies SI, happy with room change, " I changed rooms you know? That salma snores." S/I, H/I: Denies A/VH: Denies Sleep: Per pt, slept better ADL's: Ambulates Ad lennie with FWW, likes to shower daily Group attendance: Pt attended groups Were meds taken: Yes Any med S/E: No adverse side effects noted or reported Mental Status Exam: Appearance: Pt is neat & clean Eye contact: Good Behavior: Calm, cooperative Speech: articulate, audible Mood: Depressed Affect: Bored, tired Thought process: Linear, goal directed Thought Content: Appreciating his new room Cognition: A&O X4 Insight: Good Judgment: Good Interventions PRN's used: PRN [place] 5/325 mg at 0758 & 1417 Therapeutic interventions: 1:1, therapeutic conversation,Q 15 min checks. Restraints/seclusion/emergency medication: None. Justification of Continued Inpatient Treatment: Pt is conserved and awaiting placement, plan is for him to discharge to [facility] on 04/04/18.
[2018-03-16] MEDS: ipratropium/albuterol 3ml nebule NEB SCH (19:15)
[2018-03-16] MEDS: aripiprazole 5mg tablet PO SCH (20:28)
[2018-03-16] MEDS: gabapentin 300mg capsule PO SCH (20:29)
[2018-03-16 20:30] VITALS: BP 105/46
[2018-03-16] MEDS: temazepam 15mg capsule PO PRN (20:30)
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
[2018-03-17] MEDS: HYDROcodone/acetaminophen 5mg/325mg tablet PO PRN ×4 (03:48→19:24)
[2018-03-17] MEDS: ipratropium/albuterol 3ml nebule NEB SCH ×2 (07:36→21:00)
[2018-03-17] MEDS: BUDESONIDE 0.25 MG/2 ML AMPUL.NEB IH SCH ×2 (07:36→20:00)
[2018-03-17] MEDS: buPROPion SR 150mg tablet PO SCH (07:59)
[2018-03-17] MEDS: docusate sod 100mg capsule PO SCH ×2 (07:59→20:36)
[2018-03-17] MEDS: duloxetine 30mg CAPSULE.DR PO SCH (07:59)
[2018-03-17] MEDS: clonazePAM 0.5mg tablet PO SCH ×2 (07:59→20:36)
[2018-03-17] MEDS: atorvastatin 20mg tablet PO SCH (07:59)
[2018-03-17] MEDS: LIDOcaine 5% patch TP SCH (07:59)
[2018-03-17 08:00] VITALS: BP 116/74
[2018-03-17] MEDS: cyclobenzaprine 10mg tablet PO PRN (14:02)
--- NOTE | 2018-03-17 14:34 | NUR ---
Nursing progress note: Chief Complaint: Psychosis Legal hold: LPS Conserved Client on involuntary status for GD/DTS Report received from nurse with use of SBAR: Pili HAINES Why are they here: Pt. admitted for increased paranoia and agitation and was transferred from a shelter facility. He is LPS Conserved for gravely disabled. Pt. has depression and previous suicide attempts, one during which he jumped off a bridge and broke his back. Pt. has a history of chronic pain, alcoholism, and a possible TIA/stroke which left him with left-sided weakness. Pt is awaiting placement by conservator. Diagnosis/presenting symptoms: Psychosis,Depression NOS Assessment: Pt states his depression is a little better today, continues to be cooperative with meds an unit procedures, looking forward to discharge at the end of the month, no unsafe behaviors noted. S/I, H/I: Denies A/VH: Denies Sleep: slept 8.25 hours per noc shift report ADL's: Ambulates Ad lennie with FWW, likes to shower daily Group attendance: Pt attended groups Were meds taken: Yes Any med S/E: No adverse side effects noted or reported Mental Status Exam: Appearance: Pt is neat & clean Eye contact: Good Behavior: Calm, cooperative Speech: articulate, audible Mood: Depressed Affect: Bored, tired Thought process: Linear, goal directed Thought Content: frustrated that discharge is taking so long Cognition: A&O X4 Insight: Good Judgment: Good Interventions PRN's used: PRN [place] 5/325 mg at 0758 & 1417 Therapeutic interventions: 1:1, therapeutic conversation, pain management, Q 15 min checks. Restraints/seclusion/emergency medication: None. Justification of Continued Inpatient Treatment: Pt is conserved and awaiting placement, plan is for him to discharge to [facility] on 04/04/18.
[2018-03-17 20:28] VITALS: BP 127/79
[2018-03-17] MEDS: aripiprazole 5mg tablet PO SCH (20:36)
[2018-03-17] MEDS: gabapentin 300mg capsule PO SCH (20:36)
[2018-03-18] MEDS: HYDROcodone/acetaminophen 5mg/325mg tablet PO PRN ×4 (04:16→20:17)
--- NOTE | 2018-03-18 04:31 | NUR ---
NURSING PROGRESS NOTE Chief Complaint: Depression with suicidal ideation Legal hold: LPS Conserved Client on involuntary status for: Gravely disabled Report received from oJse HAINES with use of SBAR. Why are they here: He is LPS Conserved. Depression and previous suicide attempts, jumped off a bridge and fractured his back. Diagnosis/presenting symptoms: Pt admitted due to depression and S/I with history of previous of suicide attempts. Assessment What has happened this shift: Pt lying and bed at the start of the shift and pt remained throughout the shift. Pt happy about now having a date for transfer to the [facility]. He continues to deny and thoughts of suicide or depression s/s. Some continued frustration over his lengthy stay here, but happier now with his room change. S/I, H/I: Denies A/VH: denies Sleep: sleeps well, wakes at night due to pain ADL's: independent Group attendance: no groups scheduled this shift Any med S/E: denies any side effects at this time Mental Status Exam Appearance: Neat and clean Eye contact: Good Behavior: Cooperative Speech: normal rate, rhythm, volume Mood: good Affect: euthymic Thought process: linear Thought Content: WNL Cognition: A&O X4 Insight: Good Judgment: Good Interventions PRN's used: [place] Therapeutic interventions: 1:1, medications administered and pt monitored for effects and side effects, therapeutic support given, continues on q 15 checks for safety Restraints/seclusion/emergency medication: None Justification of Continued Inpatient Treatment: Pt. remains at this facility awaiting placement by conservator.
[2018-03-18 08:00] VITALS: BP 109/68
[2018-03-18] MEDS: docusate sod 100mg capsule PO SCH ×2 (08:29→20:16)
[2018-03-18] MEDS: duloxetine 30mg CAPSULE.DR PO SCH (08:29)
[2018-03-18] MEDS: clonazePAM 0.5mg tablet PO SCH ×2 (08:29→20:16)
[2018-03-18] MEDS: buPROPion SR 150mg tablet PO SCH (08:29)
[2018-03-18] MEDS: atorvastatin 20mg tablet PO SCH (08:29)
[2018-03-18] MEDS: ipratropium/albuterol 3ml nebule NEB SCH ×2 (09:00→21:00)
[2018-03-18] MEDS: BUDESONIDE 0.25 MG/2 ML AMPUL.NEB IH SCH ×2 (09:35→20:00)
[2018-03-18] MEDS: LIDOcaine 5% patch TP SCH (11:03)
[2018-03-18] MEDS: cyclobenzaprine 10mg tablet PO PRN (14:45)
--- NOTE | 2018-03-18 17:37 | NUR ---
NURSING PROGRESS NOTE Chief Complaint: Depression with suicidal ideation Legal hold: LPS Conserved Client on involuntary status for: Gravely disabled Report received from nurse with use of SBAR: Yue RN Why are they here: He is LPS Conserved. Depression and previous suicide attempts, jumped off a bridge and fractured his back to which he suffers from chronic back pain. Awaiting placement by conservator at [facility] in [place], [place]. Diagnosis/presenting symptoms: Depressive mood Assessment What has happened this shift: Depressed mood, bland affect. Attended all groups and meals with cohorts. Cooperative, and med compliant. Walks in hallway multiple times today. C/O pain to lower back which is chronic and received [place] and muscle relaxant. States concern again over loss of his belongings and mementos. Phone number for [employer] was given to patient as requested. He remains cooperative and calm. S/I, H/I: Denies A/VH: Denies Sleep: Napped ADL's: Ambulates independently with walker, fall precautions remain in place. ADLs by self. Group attendance: Yes Any med S/E: None Mental Status Exam Appearance: Neat and clean Eye contact: Good Behavior: Cooperative Speech: WNL Mood: Pleasant Affect: [place] Thought process: Intact, WNL Thought Content: Normal Cognition: A&O X4 Insight: Good Judgment: Good Interventions PRN's used: PRN [place] for back pain. Therapeutic interventions: 1:1 maintained a safe and therapeutic environment, encouraged incentive spirometer, and Q 15 min. safety checks in place. Restraints/seclusion/emergency medication: None Justification of Continued Inpatient Treatment: Pt. remains at this facility awaiting placement by conservator.
[2018-03-18 19:00] VITALS: BP 114/76
[2018-03-18] MEDS: gabapentin 300mg capsule PO SCH (20:16)
[2018-03-18] MEDS: aripiprazole 5mg tablet PO SCH (20:17)
--- NOTE | 2018-03-19 02:25 | NUR ---
NURSING PROGRESS NOTE Chief Complaint: Depression with suicidal ideation Legal hold: LPS Conserved Client on involuntary status for: Gravely disabled Report received from Brooklynn HAINES with use of SBAR. Why are they here: He is LPS Conserved. Depression and previous suicide attempts, jumped off a bridge and fractured his back. Diagnosis/presenting symptoms: Pt admitted due to depression and S/I with history of previous of suicide attempts. Assessment What has happened this shift: Pt lying and bed at the start of the shift and pt remained throughout the shift. No changes with pt, he continues to be in good spirits, despite being bored and tired of being here. Continues to deny depression, S/I and any psychotic symptoms. S/I, H/I: Denies A/VH: denies Sleep: slept well ADL's: independent Group attendance: no groups scheduled this shift Any med S/E: denies any side effects at this time Mental Status Exam Appearance: Neat and clean Eye contact: Good Behavior: Cooperative, pleasant Speech: normal rate, rhythm, volume Mood: good Affect: euthymic Thought process: linear Thought Content: WNL Cognition: A&O X4 Insight: Good Judgment: Good Interventions PRN's used: [facility] Therapeutic interventions: 1:1, medications administered and pt monitored for effects and side effects, therapeutic support given, continues on q 15 checks for safety Restraints/seclusion/emergency medication: None Justification of Continued Inpatient Treatment: Pt. remains at this facility awaiting placement by conservator.
[2018-03-19] MEDS: HYDROcodone/acetaminophen 5mg/325mg tablet PO PRN ×3 (04:49→19:18)
[2018-03-19 08:00] VITALS: BP 106/58
[2018-03-19] MEDS: docusate sod 100mg capsule PO SCH ×2 (08:28→20:46)
[2018-03-19] MEDS: clonazePAM 0.5mg tablet PO SCH ×2 (08:28→20:46)
[2018-03-19] MEDS: buPROPion SR 150mg tablet PO SCH (08:28)
[2018-03-19] MEDS: atorvastatin 20mg tablet PO SCH (08:28)
[2018-03-19] MEDS: duloxetine 30mg CAPSULE.DR PO SCH (08:28)
[2018-03-19] MEDS: ipratropium/albuterol 3ml nebule NEB SCH ×2 (12:36→20:07)
[2018-03-19] MEDS: BUDESONIDE 0.25 MG/2 ML AMPUL.NEB IH SCH ×2 (12:37→20:00)
[2018-03-19] MEDS: LIDOcaine 5% patch TP SCH (16:30)
--- NOTE | 2018-03-19 16:54 | NUR ---
NURSING PROGRESS NOTE Chief Complaint: Depression with suicidal ideation Legal hold: LPS Conserved Client on involuntary status for: Gravely disabled Report received from nurse with use of SBAR: ZAKI Turner Why are they here: He is LPS Conserved. Depression and previous suicide attempts, jumped off a bridge and fractured his back to which he suffers from chronic back pain. Awaiting placement by conservator at [facility] in [place], [place]. Diagnosis/presenting symptoms: Depressive mood Assessment What has happened this shift: Depressed mood, bland affect. Cooperative, and med compliant. Walks in hallway multiple times today. C/O pain to lower back which is chronic and received [place] x 2. States he has no new concerns today. He remains cooperative and calm. Denies suicidal thoughts and no hallucinations. Showered and shaved in late afternoon Lidocaine patch was applied after shower at patient's request. S/I, H/I: Denies A/VH: Denies Sleep: Napped ADL's: Ambulates independently, only uses walker if increasing back. ADLs by self. Group attendance: Yes Any med S/E: None Mental Status Exam Appearance: Neat and clean Eye contact: Good Behavior: Cooperative Speech: WNL Mood: Pleasant Affect: [place] Thought process: Intact, WNL Thought Content: Normal Cognition: A&O X4 Insight: Good Judgment: Good Interventions PRN's used: PRN [place] for back pain x 2. Therapeutic interventions: 1:1 maintained a safe and therapeutic environment, encouraged incentive spirometer, and Q 15 min. safety checks in place. Restraints/seclusion/emergency medication: None Justification of Continued Inpatient Treatment: Pt. remains at this facility awaiting placement by conservator.
[2018-03-19 20:00] VITALS: BP 106/76
[2018-03-19] MEDS: aripiprazole 5mg tablet PO SCH (20:46)
[2018-03-19] MEDS: gabapentin 300mg capsule PO SCH (20:46)
[2018-03-20] MEDS: HYDROcodone/acetaminophen 5mg/325mg tablet PO PRN ×4 (03:26→20:48)
--- NOTE | 2018-03-20 04:23 | NUR ---
NURSING PROGRESS NOTE Chief Complaint: Depression with suicidal ideation Legal hold: LPS Conserved Client on involuntary status for: Gravely disabled Report received from Brooklynn HAINES with use of SBAR. Why are they here: He is LPS Conserved. Depression and previous suicide attempts, jumped off a bridge and fractured his back. Diagnosis/presenting symptoms: Pt admitted due to depression and S/I with history of previous of suicide attempts. Assessment What has happened this shift: Pt talking with at the start of the shift in his room and pt remained in bed throughout the shift, which has been his norm, but pt did state "This is too early for me to be going to bed." I encouraged him to come out and watch tv and engage with others, but pt did not do so. No changes in mental health status, his mood remains good, no psychotic symptoms present, and he continues to deny S/I. Pt reports talking to his public guardian and that they are going to bring him some needed items such as shoes ect, and confirmed plan to transfer to [facility] near the end of the month, but they did say date could vary. S/I, H/I: Denies A/VH: denies Sleep: slept well ADL's: independent Group attendance: no groups scheduled this shift Any med S/E: denies any side effects at this time Mental Status Exam Appearance: Neat and clean Eye contact: Good Behavior: Cooperative, pleasant Speech: normal rate, rhythm, volume Mood: good Affect: euthymic Thought process: linear Thought Content: WNL Cognition: A&O X4 Insight: Good Judgment: Good Interventions PRN's used: [place] Therapeutic interventions: 1:1, medications administered and pt monitored for effects and side effects, therapeutic support given, continues on q 15 checks for safety Restraints/seclusion/emergency medication: None Justification of Continued Inpatient Treatment: Pt. remains at this facility awaiting placement by conservator.
[2018-03-20 08:00] VITALS: BP 124/76
[2018-03-20] MEDS: BUDESONIDE 0.25 MG/2 ML AMPUL.NEB IH SCH ×2 (08:00→20:00)
[2018-03-20] MEDS: ipratropium/albuterol 3ml nebule NEB SCH ×2 (08:14→21:00)
[2018-03-20] MEDS: clonazePAM 0.5mg tablet PO SCH ×2 (09:13→20:47)
[2018-03-20] MEDS: atorvastatin 20mg tablet PO SCH (09:13)
[2018-03-20] MEDS: duloxetine 30mg CAPSULE.DR PO SCH (09:13)
[2018-03-20] MEDS: docusate sod 100mg capsule PO SCH ×2 (09:13→20:47)
[2018-03-20] MEDS: buPROPion SR 150mg tablet PO SCH (09:13)
[2018-03-20] MEDS: LIDOcaine 5% patch TP SCH (09:22)
--- NOTE | 2018-03-20 16:31 | NUR ---
NURSING PROGRESS NOTE Chief Complaint: Depression with suicidal ideation Legal hold: LPS Conserved Client on involuntary status for: Gravely disabled Report received from Yue HAINES with use of SBAR. Why are they here: He is LPS Conserved. Depression and previous suicide attempts, jumped off a bridge and fractured his back. Diagnosis/presenting symptoms: Pt admitted due to depression and S/I with history of previous of suicide attempts. Assessment What has happened this shift: Pt sleeping at shift change. Awoke in pleasant mood. Showered in AM and took meds. No changes in mental health status, his mood remains good, no psychotic symptoms present, and he continues to deny S/I. Attended and participated in both groups today.Talked about his potential transfer to [facility] near the end of the month. Was able to relay information about [facility] and [place]. S/I, H/I: Denies A/VH: denies Sleep: slept well last night and rested in bed periodically this shift. ADL's: independent Group attendance: Attended both groups today. Any med S/E: denies any side effects at this time Mental Status Exam Appearance: Neat and clean Eye contact: Good Behavior: Cooperative, pleasant Speech: normal rate, rhythm, volume Mood: good Affect: euthymic Thought process: linear Thought Content: WNL Cognition: A&O X4 Insight: Good Judgment: Good Interventions PRN's used: [place] X2 Therapeutic interventions: 1:1, medications administered and pt monitored for effects and side effects, therapeutic support given, continues on q 15 checks for safety, therapeutic milieu maintained. Restraints/seclusion/emergency medication: None Justification of Continued Inpatient Treatment: Pt. remains at this facility awaiting placement by conservator. Addendum: 03/21/18 at 0437 by Ulisses Mcgraw RN NURSING PROGRESS NOTE Chief Complaint: Depression with suicidal ideation Legal hold: LPS Conserved Client on involuntary status for: Gravely disabled Report received from Yue HAINES with use of SBAR. Why are they here: He is LPS Conserved. Depression and previous suicide attempts, jumped off a bridge and fractured his back. Diagnosis/presenting symptoms: Pt admitted due to depression and S/I with history of previous of suicide attempts. Assessment What has happened this shift: This patient is in bed at shift change. He is resting quietly low fowlers position. Patient is well oriented. Affect is flat. He complains of minor depression only. Patient is anticipating a transfer soon to the [facility] in [place]. Patient states he is feeling upbeat. Patient has been medication compliant. S/I, H/I: Denies A/VH: denies Sleep: slept well last night and rested in bed periodically this shift. ADL's: independent Group attendance: Attended both groups today. Any med S/E: denies any side effects at this time Mental Status Exam Appearance: Neat and clean Eye contact: Good Behavior: Cooperative, pleasant Speech: normal rate, rhythm, volume Mood: good Affect: euthymic Thought process: linear Thought Content: WNL Cognition: A&O X4 Insight: Good Judgment: Good Interventions PRN's used: [place] X2 Therapeutic interventions: 1:1, medications administered and pt monitored for effects and side effects, therapeutic support given, continues on q 15 checks for safety, therapeutic milieu maintained. Restraints/seclusion/emergency medication: None Justification of Continued Inpatient Treatment: Pt. remains at this facility awaiting placement by conservator. Addendum: 03/21/18 at 0453 by Ulisses Mcgraw RN NURSING PROGRESS NOTE Chief Complaint: Depression with suicidal ideation Legal hold: LPS Conserved Client on involuntary status for: Gravely disabled Report received from ZAKI Cornejo with use of SBAR. Why are they here: He is LPS Conserved. Depression and previous suicide attempts, jumped off a bridge and fractured his back. Diagnosis/presenting symptoms: Pt admitted due to depression and S/I with history of previous of suicide attempts. Assessment What has happened this shift: Pt is mid fowlers in bed at shift change. He is well oriented and states he is happy. Patient anticipates his potential transfer to [facility] near the end of the month. Was able to relay information about [facility] and [place]. Patient states he is mentally ready to transfer. S/I, H/I: Denies A/VH: denies Sleep: slept well last night and rested in bed periodically this shift. ADL's: independent Group attendance: No group on shift mgr. Any med S/E: denies any side effects at this time Mental Status Exam Appearance: Neat and clean Eye contact: Good Behavior: Cooperative, pleasant Speech: normal rate, rhythm, volume Mood: good Affect: euthymic Thought process: linear Thought Content: WNL Cognition: A&O X4 Insight: Good Judgment: Good Interventions PRN's used: [place] X2 Therapeutic interventions: 1:1, medications administered and pt monitored for effects and side effects, therapeutic support given, continues on q 15 checks for safety, therapeutic milieu maintained. Restraints/seclusion/emergency medication: None Justification of Continued Inpatient Treatment: Pt. remains at this facility awaiting placement by conservator.
[2018-03-20 19:00] VITALS: BP 107/74
[2018-03-20] MEDS: aripiprazole 5mg tablet PO SCH (20:44)
[2018-03-20] MEDS: temazepam 15mg capsule PO PRN (20:46)
[2018-03-20] MEDS: gabapentin 300mg capsule PO SCH (20:47)
--- NOTE | 2018-03-21 05:01 | NUR ---
NURSING PROGRESS NOTE Chief Complaint: Depression with suicidal ideation Legal hold: LPS Conserved Client on involuntary status for: Gravely disabled Report received from ZAKI Cornejo with use of SBAR. Why are they here: He is LPS Conserved. Depression and previous suicide attempts, jumped off a bridge and fractured his back. Diagnosis/presenting symptoms: Pt admitted due to depression and S/I with history of previous of suicide attempts. Assessment What has happened this shift: Pt is mid fowlers in bed at shift change. He is well oriented and states he is happy. Patient anticipates his potential transfer to [facility] near the end of the month. Was able to relay information about [facility] and [place]. Patient states he is mentally ready to transfer. S/I, H/I: Denies A/VH: denies Sleep: slept well last night and rested in bed periodically this shift. ADL's: independent Group attendance: No group on overnight stocker. Any med S/E: denies any side effects at this time Mental Status Exam Appearance: Neat and clean Eye contact: Good Behavior: Cooperative, pleasant Speech: normal rate, rhythm, volume Mood: good Affect: euthymic Thought process: linear Thought Content: WNL Cognition: A&O X4 Insight: Good Judgment: Good Interventions PRN's used: [place] X2 Therapeutic interventions: 1:1, medications administered and pt monitored for effects and side effects, therapeutic support given, continues on q 15 checks for safety, therapeutic milieu maintained. Restraints/seclusion/emergency medication: None Justification of Continued Inpatient Treatment: Pt. remains at this facility awaiting placement by conservator.
[2018-03-21 07:42] VITALS: BP 114/71
[2018-03-21] MEDS: clonazePAM 0.5mg tablet PO SCH ×3 (07:54→21:16)
[2018-03-21] MEDS: cyclobenzaprine 10mg tablet PO PRN (07:54)
[2018-03-21] MEDS: atorvastatin 20mg tablet PO SCH (07:54)
[2018-03-21] MEDS: naproxen sodium 220mg tablet PO PRN (07:54)
[2018-03-21] MEDS: duloxetine 30mg CAPSULE.DR PO SCH (07:54)
[2018-03-21] MEDS: buPROPion SR 150mg tablet PO SCH (07:54)
[2018-03-21] MEDS: BUDESONIDE 0.25 MG/2 ML AMPUL.NEB IH SCH ×2 (08:00→11:23)
[2018-03-21] MEDS: docusate sod 100mg capsule PO SCH ×2 (08:00→21:17)
[2018-03-21] MEDS: LIDOcaine 5% patch TP SCH (08:07)
[2018-03-21] MEDS: ipratropium/albuterol 3ml nebule NEB SCH ×2 (09:00→11:24)
--- NOTE | 2018-03-21 09:05 | NUR ---
Paged hospitalist to read ecg
--- NOTE | 2018-03-21 09:30 | NUR ---
Paged hospitalist to read ecg. No response first page.
--- NOTE | 2018-03-21 15:12 | NUR ---
RN PROGRESS NOTE Chief Complaint: Psychosis, MDD, and S/I Legal hold: [facility] Conservatorship Client on involuntary status for GD/DTS Report received from Ulisses HAINES with use of SBAR Why are they here: Patient presented depressed with S/I and past suicide attempts. Unable to return to previous housing arrangement. Awaiting placement by the [facility]. Diagnosis/presenting symptoms: Psychosis/Depression Assessment Pt awake at change of shift, met with RN for 1:1 assessment at the bedside. Pt presents with a flat affect, reports a depressed mood. Pt spent time resting in bed, and was up to the group room for groups and meals. Pt showered today and was present at all meals. He ambulated in the hallway several times. An ECG was done prolonged QT ordered by Dr Flaherty. Hospitalist was paged twice to read it. S/I, H/I: Denies A/VH: Denies Sleep: Naps several times a day ADL's: Independent Group attendance: yes Were meds taken: yes Any med S/E: Denies Mental Status Exam Appearance: Neat, clean, casual Eye contact: good Behavior: psychomotor slightly reduced/ambulates with a walker Speech: clear, normal rate and rhythm Mood: depressed Affect: blunted Thought process: linear, future oriented Thought Content: Bored. Awaiting placement Cognition: A/O x4 Insight: fair Judgment: good Interventions PRN's used: None Therapeutic interventions: 1:1 assessment with RN provided active listening and emotional support. Encouraged to participate in groups. Encouraged to participate in milieu. Q15 minute checks for safety. Restraints/seclusion/emergency medication: none Justification of Continued Inpatient Treatment: Patient is conserved and awaiting placement
[2018-03-21] MEDS: HYDROcodone/acetaminophen 5mg/325mg tablet PO PRN (17:03)
[2018-03-21 19:57] VITALS: BP 103/75
[2018-03-21] MEDS: naproxen 375mg tablet PO SCH (21:14)
[2018-03-21] MEDS: temazepam 15mg capsule PO PRN (21:15)
[2018-03-21] MEDS: aripiprazole 5mg tablet PO SCH (21:16)
[2018-03-21] MEDS: gabapentin 400mg capsule PO SCH (21:17)
[2018-03-21] MEDS: HYDROcodone/acetaminophen 10/325mg tab PO SCH (21:18)
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
[2018-03-22] MEDS: cyclobenzaprine 10mg tablet PO PRN (07:21)
[2018-03-22] MEDS: docusate sod 100mg capsule PO SCH ×2 (07:22→21:06)
[2018-03-22] MEDS: naproxen 375mg tablet PO SCH ×2 (07:22→21:06)
[2018-03-22] MEDS: clonazePAM 0.5mg tablet PO SCH ×3 (07:22→21:05)
[2018-03-22] MEDS: atorvastatin 20mg tablet PO SCH (07:22)
[2018-03-22] MEDS: HYDROcodone/acetaminophen 5mg/325mg tablet PO PRN ×2 (07:23→16:39)
[2018-03-22] MEDS: buPROPion SR 150mg tablet PO SCH (07:23)
[2018-03-22] MEDS: LIDOcaine 5% patch TP SCH (07:24)
[2018-03-22] MEDS: duloxetine 30mg CAPSULE.DR PO SCH (07:24)
[2018-03-22] MEDS: BUDESONIDE 0.25 MG/2 ML AMPUL.NEB IH SCH ×2 (07:25→19:55)
[2018-03-22 07:57] VITALS: BP 105/62
[2018-03-22] MEDS: ipratropium/albuterol 3ml nebule NEB SCH ×2 (09:00→19:55)
--- NOTE | 2018-03-22 13:43 | NUR ---
RN PROGRESS NOTE Chief Complaint: Psychosis, MDD, GD, and anxiety Legal hold: [facility]/DTS Report received from Pili HAINES with use of SBAR Why are they here: Patient presented depressed with S/I and past suicide attempts. Unable to return to previous housing arrangement. Awaiting placement by public guardian. Diagnosis/presenting symptoms: Psychosis/Depression Assessment Pt awake at change of shift. He asked for [place] for pain. He was present on the unit at all meals and groups. He napped in the late morning. He was seen ambulating on the unit without his walker at one point. Asked pt to make sure he ambulates with walker. Educated pt on fall risk. Cymbalta being optimized. Encouraged ambulation for pain. S/I, H/I: Denies A/VH: Denies Sleep: Naps several times a day, complains of wakefulness at night ADL's: Independent Group attendance: yes Were meds taken: yes Any med S/E: Denies Mental Status Exam Appearance: Neat, clean, casual Eye contact: good Behavior: pleasant, cooperative Speech: clear, normal rate and rhythm Mood: euthymic Affect: blunted Thought process: linear, future oriented, unguarded Thought Content: Bored. Awaiting placement Cognition: A/O x4 Insight: good Judgment: good Interventions PRN's used: [place] Therapeutic interventions: 1:1 assessment with RN provided active listening and emotional support. Encouraged to participate in groups. Encouraged to participate in milieu. Q15 minute checks for safety. Educated on medication and safety Restraints/seclusion/emergency medication: none Justification of Continued Inpatient Treatment: Patient is conserved and awaiting placement. Medications being optimized
[2018-03-22 19:50] VITALS: BP 114/54
[2018-03-22] MEDS: HYDROcodone/acetaminophen 10/325mg tab PO SCH (21:05)
[2018-03-22] MEDS: gabapentin 400mg capsule PO SCH (21:06)
[2018-03-22] MEDS: temazepam 15mg capsule PO PRN (21:07)
[2018-03-22] MEDS: aripiprazole 5mg tablet PO SCH (21:07)
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
[2018-03-23] MEDS: ipratropium/albuterol 3ml nebule NEB SCH ×2 (07:26→19:30)
[2018-03-23] MEDS: BUDESONIDE 0.25 MG/2 ML AMPUL.NEB IH SCH ×2 (07:26→19:30)
[2018-03-23] MEDS: docusate sod 100mg capsule PO SCH ×2 (07:42→20:40)
[2018-03-23] MEDS: atorvastatin 20mg tablet PO SCH (07:42)
[2018-03-23] MEDS: LIDOcaine 5% patch TP SCH (07:42)
[2018-03-23] MEDS: HYDROcodone/acetaminophen 5mg/325mg tablet PO PRN ×2 (07:43→17:25)
[2018-03-23] MEDS: clonazePAM 0.5mg tablet PO SCH ×3 (07:43→20:40)
[2018-03-23] MEDS: duloxetine 30mg CAPSULE.DR PO SCH (07:43)
[2018-03-23] MEDS: naproxen 375mg tablet PO SCH ×2 (07:43→20:39)
[2018-03-23] MEDS: cyclobenzaprine 10mg tablet PO PRN (07:43)
[2018-03-23] MEDS: buPROPion SR 150mg tablet PO SCH (07:44)
[2018-03-23 08:00] VITALS: BP 122/90
--- NOTE | 2018-03-23 13:50 | NUR ---
RN PROGRESS NOTE Chief Complaint: Psychosis, MDD, GD, and anxiety Legal hold: [facility] Client on involuntary status for GD/DTS Report received from Pili HAINES with use of SBAR Why are they here: Patient presented depressed with S/I and past suicide attempts. Unable to return to previous housing arrangement. Awaiting placement by public guardian. Diagnosis/presenting symptoms: Psychosis/Depression Assessment One to one for assessment with patient in his room. Patient awake at change of shift. He states he woke up early. He complains of pain but does not want his lidocaine patch put on right away. He takes all of his medications. He eatws breakfast and goes back to sleep. He is present for groups. He does not shower today or change clothes. He is awaiting placement at the [facility] which, according to addiction social worker, might not happen until April. S/I, H/I: Denies A/VH: Denies Sleep: Naps several times a day, complains of wakefulness at night ADL's: Independent Group attendance: yes Were meds taken: yes Any med S/E: Denies Mental Status Exam Appearance: disheveled, casual Eye contact: good Behavior: pleasant, cooperative Speech: clear, normal rate and rhythm Mood: euthymic Affect: blunted, constricted Thought process: linear, future oriented, unguarded Thought Content: Bored. Awaiting placement Cognition: A/O x4 Insight: good Judgment: good Interventions PRN's used: [place] Therapeutic interventions: 1:1 assessment with RN provided active listening and emotional support. Encouraged to participate in groups. Encouraged to participate in milieu. Q15 minute checks for safety. Educated on medication and safety Restraints/seclusion/emergency medication: none Justification of Continued Inpatient Treatment: Patient is conserved and awaiting placement. Medications being optimized
[2018-03-23 20:25] VITALS: BP 106/59
[2018-03-23] MEDS: HYDROcodone/acetaminophen 10/325mg tab PO SCH (20:40)
[2018-03-23] MEDS: gabapentin 400mg capsule PO SCH (20:40)
[2018-03-23] MEDS: temazepam 15mg capsule PO PRN (20:40)
[2018-03-23] MEDS: aripiprazole 5mg tablet PO SCH (20:40)
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
[2018-03-24 08:01] VITALS: BP 121/58
[2018-03-24] MEDS: clonazePAM 0.5mg tablet PO SCH ×3 (08:04→20:51)
[2018-03-24] MEDS: docusate sod 100mg capsule PO SCH ×2 (08:04→20:52)
[2018-03-24] MEDS: duloxetine 30mg CAPSULE.DR PO SCH (08:05)
[2018-03-24] MEDS: atorvastatin 20mg tablet PO SCH (08:05)
[2018-03-24] MEDS: naproxen 375mg tablet PO SCH ×2 (08:05→20:51)
[2018-03-24] MEDS: HYDROcodone/acetaminophen 5mg/325mg tablet PO PRN ×2 (08:05→14:22)
[2018-03-24] MEDS: LIDOcaine 5% patch TP SCH (08:05)
[2018-03-24] MEDS: buPROPion SR 150mg tablet PO SCH (08:05)
[2018-03-24] MEDS: BUDESONIDE 0.25 MG/2 ML AMPUL.NEB IH SCH ×2 (09:55→20:00)
[2018-03-24] MEDS: ipratropium/albuterol 3ml nebule NEB SCH ×2 (09:55→21:54)
--- NOTE | 2018-03-24 13:40 | NUR ---
Nursing Note: Chief Complaint: Psychosis Legal hold: LPS Conserved Client on involuntary status for GD/DTS Report received from nurse with use of SBAR: ZAKI Alejandre Why are they here: Pt. admitted for increased paranoia and agitation and was transferred from a assisted facility. He is LPS Conserved for gravely disabled. Pt. has depression and previous suicide attempts, one during which he jumped off a bridge and broke his back. Pt. has a history of chronic pain, alcoholism, and a possible TIA/stroke which left him with left-sided weakness. Diagnosis/presenting symptoms: Psychosis, anxiety,depression, GD Assessment What has happened this shift: Pt rates his depression as a 3/10 today, denies SI, out of room for meals and group, no unsafe behaviors noted. S/I, H/I: Denies A/VH: Denies Sleep: Slept per noc shift and pt report. ADL's: Pt. is able to ambulate independently with use of FWW Group attendance: Pt attended morning group. Were meds taken: Yes Any med S/E: None. Mental Status Exam Appearance: Neat and well groomed Eye contact: Good Behavior: Pleasant, cooperative Speech: Articulate Mood: Depressed though stable Affect: Calm, bored Thought process: organized, linear Thought Content: Logical Cognition: A&O X4 Insight: Good Judgment: Good Interventions PRN's used: PRN [place] 5/325 mg at 0805. Therapeutic interventions: 1:1 assessment, pain management, Q 15 minute checks Restraints/seclusion/emergency medication: N/A Justification of Continued Inpatient Treatment: Pt. remains at this facility awaiting placement by conservator. He will hopefully be discharged to [facility] early April.
[2018-03-24] MEDS ORDERED: tuberculin, purif. prot. deriv. 5 units/0.1ml ID ONE (14:00)
[2018-03-24 19:58] VITALS: BP 118/76
[2018-03-24] MEDS: gabapentin 400mg capsule PO SCH (20:51)
[2018-03-24] MEDS: HYDROcodone/acetaminophen 10/325mg tab PO SCH (20:51)
[2018-03-24] MEDS: aripiprazole 5mg tablet PO SCH (20:52)
--- NOTE | 2018-03-25 05:22 | NUR ---
Nursing Note: Chief Complaint: Psychosis Legal hold: LPS Conserved Client on involuntary status for GD/DTS Report received from nurse with use of SBAR: ZAKI Baltazar Why are they here: Pt. admitted for increased paranoia and agitation and was transferred from a [facility] facility. He is LPS Conserved for gravely disabled. Pt. has depression and previous suicide attempts, one during which he jumped off a bridge and broke his back. Pt. has a history of chronic pain, alcoholism, and a possible TIA/stroke which left him with left-sided weakness. Diagnosis/presenting symptoms: Psychosis, anxiety,depression, GD Assessment What happened this shift: Patient self isolates in bed. He is well oriented with a flat affect. Patient complains of minor depression. He denies H/I or S/I. Patient has eaten. Patient states I just feel tired, I need to get out of here to feel better. S/I, H/I: Denies A/VH: Denies Sleep: Slept per noc shift and pt report. ADL's: Pt. is able to ambulate independently with use of FWW Group attendance: No group on nights. Were meds taken: Yes Any med S/E: None. Mental Status Exam Appearance: Neat and well groomed Eye contact: Good Behavior: Pleasant, cooperative Speech: Articulate Mood: Depressed though stable Affect: Calm, bored Thought process: organized, linear Thought Content: Logical Cognition: A&O X4 Insight: Good Judgment: Good Interventions PRN's used: PRN [place] 5/325 Therapeutic interventions: 1:1 assessment, pain management, Q 15 minute checks Restraints/seclusion/emergency medication: N/A Justification of Continued Inpatient Treatment: Pt. remains at this facility awaiting placement by conservator. [facility]
[2018-03-25 08:00] VITALS: BP 101/59
[2018-03-25] MEDS: naproxen 375mg tablet PO SCH ×2 (08:06→21:29)
[2018-03-25] MEDS: duloxetine 30mg CAPSULE.DR PO SCH (08:06)
[2018-03-25] MEDS: clonazePAM 0.5mg tablet PO SCH ×3 (08:06→21:29)
[2018-03-25] MEDS: buPROPion SR 150mg tablet PO SCH (08:06)
[2018-03-25] MEDS: docusate sod 100mg capsule PO SCH ×2 (08:06→21:29)
[2018-03-25] MEDS: HYDROcodone/acetaminophen 5mg/325mg tablet PO PRN ×2 (08:38→16:48)
--- NOTE | 2018-03-25 09:35 | NUR ---
Reassessment: PO intake 100% on regular diet meeting nutrient needs. [facility] 03/21, pt receiving routine Colace with [facility]. Will continue to follow. Recommendations: 1) Continue with regular diet 2) Weekly wt Addendum: 03/25/18 at [address] Amended: Links added. Addendum: 03/25/18 at [address] RD agree with note
[2018-03-25] MEDS: atorvastatin 20mg tablet PO SCH (10:30)
[2018-03-25] MEDS: LIDOcaine 5% patch TP SCH (10:32)
[2018-03-25] MEDS: BUDESONIDE 0.25 MG/2 ML AMPUL.NEB IH SCH ×2 (11:07→20:00)
[2018-03-25] MEDS: ipratropium/albuterol 3ml nebule NEB SCH ×2 (11:07→21:00)
--- NOTE | 2018-03-25 17:37 | NUR ---
Nursing Progress Note: Chief Complaint: Psychosis Legal hold: LPS Conserved Client on involuntary status for GD/DTS Report received from nurse with use of SBAR: Ulisses RN Why are they here: Pt conserved for grave disability, he was admitted for depression with SI. He has previous suicide attempts including jumping off a bridge. Diagnosis/presenting symptoms: Psychosis, anxiety,depression, GD Assessment Pt was sleeping at change of shift. He was cooperative with assessment and medication administration. PRN [place] relieved back pain given x's 2. Pt attended groups. S/I, H/I: Denies A/VH: Denies Sleep: Napped ADL's: Independent with front wheel walker Group attendance: Pt attended groups Were meds taken: Yes Any med S/E: None. Mental Status Exam Appearance: Clean and neat Eye contact: Direct Behavior: Cooperative Speech: Articulate Mood: Depressed Affect: Constricted Thought process: Linear and connected Thought Content: Logical Cognition: A&O X4 Insight: Good Judgment: Good Interventions PRN's used: PRN [place] 5/325 mg x's 2. Therapeutic interventions: 1:1 assessment, pain management, Q 15 minute checks Restraints/seclusion/emergency medication: N/A Justification of Continued Inpatient Treatment: Unable to formulate a plan for food, housing, and clothing, GD.
[2018-03-25 20:00] VITALS: BP 125/56
[2018-03-25] MEDS: aripiprazole 5mg tablet PO SCH (21:29)
[2018-03-25] MEDS: gabapentin 400mg capsule PO SCH (21:29)
[2018-03-25] MEDS: HYDROcodone/acetaminophen 10/325mg tab PO SCH (21:30)
--- NOTE | 2018-03-26 01:09 | NUR ---
NURSING PROGRESS NOTE Chief Complaint: Depression with suicidal ideation Legal hold: LPS Conserved Client on involuntary status for: Gravely disabled Report received from Olivia HAINES with use of SBAR. Why are they here: He is LPS Conserved. Depression and previous suicide attempts, jumped off a bridge and fractured his back. Diagnosis/presenting symptoms: Pt admitted due to depression and S/I with history of previous of suicide attempts. Assessment What has happened this shift: Pt sitting in hallway socializing with another patient at the start of the shift, pt went to bed at 8pm and then slept the rest of the night. He continues to deny any depression s/s, denies any thoughts of suicide, and no psychotic symptoms present at this time. He does continue to c/o boredom being here for so long, and states that conservator told him that his transfer may not happen till after the first of the year. No complaints of side effects to meds and none noted. S/I, H/I: Denies A/VH: denies Sleep: has been sleeping well per pt ADL's: independent Group attendance: no groups scheduled this shift Any med S/E: none Mental Status Exam Appearance: unshaven Eye contact: Good Behavior: appropriate Speech: WNL Mood: "bored" Affect: WNL Thought process: linear, goal directed Thought Content: WNL Cognition: A&O X4 Insight: Good Judgment: Good Interventions PRN's used: none Therapeutic interventions: 1:1, medications administered and pt monitored for effects and side effects, therapeutic support given, continues on q 15 checks for safety Restraints/seclusion/emergency medication: None Justification for continued hospitalization: Pt on LPS conservatorship and is awaiting placement.
[2018-03-26 07:00] VITALS: BP 113/63
[2018-03-26] MEDS: clonazePAM 0.5mg tablet PO SCH ×3 (08:13→20:41)
[2018-03-26] MEDS: naproxen 375mg tablet PO SCH ×2 (08:13→20:41)
[2018-03-26] MEDS: docusate sod 100mg capsule PO SCH ×2 (08:13→20:38)
[2018-03-26] MEDS: buPROPion SR 150mg tablet PO SCH (08:13)
[2018-03-26] MEDS: duloxetine 30mg CAPSULE.DR PO SCH (08:13)
[2018-03-26] MEDS: atorvastatin 20mg tablet PO SCH (08:13)
[2018-03-26] MEDS: HYDROcodone/acetaminophen 5mg/325mg tablet PO PRN ×2 (08:14→13:42)
[2018-03-26] MEDS: BUDESONIDE 0.25 MG/2 ML AMPUL.NEB IH SCH ×2 (10:19→20:00)
[2018-03-26] MEDS: ipratropium/albuterol 3ml nebule NEB SCH ×2 (10:20→20:43)
[2018-03-26] MEDS: LIDOcaine 5% patch TP SCH (13:43)
--- NOTE | 2018-03-26 15:44 | NUR ---
Nursing Progress Note Chief Complaint: Depression. SI. Legal hold: [employer] Conservatorship. Client on involuntary status for GD. Report received from Yue with use of SBAR. Why are they here: Patient became suicidal after wandering around for two weeks without sufficient amounts of food or water and jumped off [employer] [place] [address], landed on his back and sustained fx. Diagnosis/presenting symptoms: Depression. Assessment What has happened this shift: Patient took shower and shaved this a.m. Attended all groups. Patient complains of getting short of breath while walking. S/I, H/I: None. A/VH: None. Sleep: Good. ADL's: Independent. Group attendance: Attends all groups. Were meds taken: Yes. Any med S/E: None. Mental Status Exam Appearance: 63-year-old male walking with walker. Eye contact: Good. Behavior: Slowed. Compliant. Speech: Slowed, clear. Mood: Depressed. Affect: Flat. Thought process: Linear. Thought Content: When he will be discharged. Not being able to communicate with guardian. Cognition: A&O Insight: Fair. Judgment: Fair. Interventions PRN's used: [place]. Therapeutic interventions: 1:1 to assess for severity of symptoms. q15" safety checks. Restraints/seclusion/emergency medication: None. Justification of Continued Inpatient Treatment: Patient is awaiting to hear from Public Guardian when he will be moved to [facility].
[2018-03-26 19:00] VITALS: BP 115/71
[2018-03-26] MEDS: gabapentin 400mg capsule PO SCH (20:38)
[2018-03-26] MEDS: HYDROcodone/acetaminophen 10/325mg tab PO SCH (20:39)
[2018-03-26] MEDS: aripiprazole 5mg tablet PO SCH (20:41)
--- NOTE | 2018-03-27 03:49 | NUR ---
NURSING PROGRESS NOTE Chief Complaint: Depression with suicidal ideation Legal hold: LPS Conserved Client on involuntary status for: Gravely disabled Report received from Guera RN with use of SBAR. Why are they here: He is LPS Conserved. Depression and previous suicide attempts, jumped off a bridge and fractured his back. Diagnosis/presenting symptoms: Pt admitted due to depression and S/I with history of previous of suicide attempts. Assessment What has happened this shift: No changes with this pt, he continues to deny S/I, psychotic symptoms. He continues to voice his frustration with being here so long. No complaints of side effects to meds and none noted. S/I, H/I: Denies A/VH: denies Sleep: good ADL's: independent Group attendance: no groups scheduled this shift Any med S/E: none Mental Status Exam Appearance: neat and clean Eye contact: Good Behavior: appropriate Speech: WNL Mood: "bored" Affect: WNL Thought process: linear, goal directed Thought Content: WNL Cognition: A&O X4 Insight: Good Judgment: Good Interventions PRN's used: none Therapeutic interventions: 1:1, medications administered and pt monitored for effects and side effects, therapeutic support given, continues on q 15 checks for safety Restraints/seclusion/emergency medication: None Justification for continued hospitalization: Pt on LPS conservatorship and is awaiting placement.
[2018-03-27 08:00] VITALS: BP 116/70
[2018-03-27] MEDS: BUDESONIDE 0.25 MG/2 ML AMPUL.NEB IH SCH ×2 (08:00→20:00)
[2018-03-27] MEDS: naproxen 375mg tablet PO SCH ×2 (08:12→20:40)
[2018-03-27] MEDS: clonazePAM 0.5mg tablet PO SCH ×3 (08:12→20:40)
[2018-03-27] MEDS: buPROPion SR 150mg tablet PO SCH (08:12)
[2018-03-27] MEDS: docusate sod 100mg capsule PO SCH ×2 (08:12→20:39)
[2018-03-27] MEDS: atorvastatin 20mg tablet PO SCH (08:12)
[2018-03-27] MEDS: duloxetine 30mg CAPSULE.DR PO SCH (08:12)
[2018-03-27] MEDS: LIDOcaine 5% patch TP SCH (08:13)
[2018-03-27] MEDS: HYDROcodone/acetaminophen 5mg/325mg tablet PO PRN ×2 (08:17→13:42)
[2018-03-27] MEDS: cyclobenzaprine 10mg tablet PO PRN (08:19)
[2018-03-27] MEDS: ipratropium/albuterol 3ml nebule NEB SCH ×2 (08:55→20:41)
--- NOTE | 2018-03-27 17:05 | NUR ---
Nursing progress note: Legal hold:[Conserved] Client on voluntary/involuntary status for GD/DTS/DTO[GD]. Report received from nurse with use of SBAR[Y]. Why are they here:[Conserved]. Diagnosis/presenting symptoms:[Conserved] Assessment What has happened this shift:[PT got up and amulates and showered and ate and played guitar.] S/I, H/I:[Denies] A/VH: [denies today] Sleep:[short naps] ADL's:[self] Group attendance:[attended] Were meds taken:[Y] Any med S/E[denies] Mental Status Exam Appearance:[clean] Eye contact:[good] Behavior:[well behaved] Speech:[normal] Mood:[good] Affect:[normal] Thought process:[good] Thought Content:[good] Cognition:[able to focus] Insight:[good] Judgment:[good] Interventions PRN's used:[pain meds] Therapeutic interventions:[none] Restraints/seclusion/emergency medication:[NA] Justification of Continued Inpatient Treatment:[conserved awaiting placement]
[2018-03-27 19:00] VITALS: BP 117/74
[2018-03-27] MEDS: gabapentin 400mg capsule PO SCH (20:39)
[2018-03-27] MEDS: aripiprazole 5mg tablet PO SCH (20:40)
[2018-03-27] MEDS: HYDROcodone/acetaminophen 10/325mg tab PO SCH (20:40)
--- NOTE | 2018-03-28 03:48 | NUR ---
NURSING PROGRESS NOTE Chief Complaint: Depression with suicidal ideation Legal hold: LPS Conserved Client on involuntary status for: Gravely disabled Report received from Surjit HAINES with use of SBAR. Why are they here: He is LPS Conserved. Depression and previous suicide attempts, jumped off a bridge and fractured his back. Diagnosis/presenting symptoms: Pt admitted due to depression and S/I with history of previous of suicide attempts. Assessment What has happened this shift:Pt continues to do well, but states that he felt groggy this morning and requested his evening meds be given earlier to try to help avoid this feeling in the am. His mood continues to be even, denies thoughts of suicide, denies psychotic s/s. Voiced some of his frustrations about being on conservatorship like not being able to drive and having to be under some ones control. Pt is sleeping through the night without waking due to pain with the addition of the naproxen and norco as a give at bedtime, pt is happy about this. S/I, H/I: Denies A/VH: denies Sleep: good ADL's: independent Group attendance: no groups scheduled this shift Any med S/E: none Mental Status Exam Appearance: neat and clean Eye contact: Good Behavior: pleasant and cooperative Speech: WNL Mood: good Affect: WNL Thought process: linear, goal directed Thought Content: WNL Cognition: A&O X4 Insight: Good Judgment: Good Interventions PRN's used: none Therapeutic interventions: 1:1, medications administered and pt monitored for effects and side effects, therapeutic support given, continues on q 15 checks for safety Restraints/seclusion/emergency medication: None Justification for continued hospitalization: Pt on LPS conservatorship and is awaiting placement.
[2018-03-28] MEDS: LIDOcaine 5% patch TP SCH (07:47)
[2018-03-28] MEDS: clonazePAM 0.5mg tablet PO SCH ×3 (07:48→20:21)
[2018-03-28] MEDS: cyclobenzaprine 10mg tablet PO PRN (07:48)
[2018-03-28] MEDS: docusate sod 100mg capsule PO SCH ×2 (07:48→20:21)
[2018-03-28] MEDS: duloxetine 30mg CAPSULE.DR PO SCH (07:48)
[2018-03-28] MEDS: buPROPion SR 150mg tablet PO SCH (07:48)
[2018-03-28] MEDS: atorvastatin 20mg tablet PO SCH (07:48)
[2018-03-28] MEDS: naproxen 375mg tablet PO SCH ×2 (07:48→20:21)
[2018-03-28 08:00] VITALS: BP 124/71
[2018-03-28] MEDS: BUDESONIDE 0.25 MG/2 ML AMPUL.NEB IH SCH ×2 (08:00→20:26)
[2018-03-28] MEDS: HYDROcodone/acetaminophen 5mg/325mg tablet PO PRN (10:33)
[2018-03-28] MEDS: ipratropium/albuterol 3ml nebule NEB SCH ×2 (10:35→20:26)
--- NOTE | 2018-03-28 12:13 | NUR ---
Nursing Note: Chief Complaint: Psychosis, MDD, anxiety, SI Legal hold: LPS Conserved Client on involuntary status for GD/DTS Report received from nurse with use of SBAR: ZAKI Turner Why are they here: Pt. admitted for increased paranoia and agitation and was transferred from a half-way facility. He is LPS conserved for being gravely disabled. Pt. has depression and previous suicide attempts, one during which he jumped off a bridge and broke his back. He has a history of anxiety and depression and multiple suicide attempts. Pt. has a history of chronic pain, alcoholism, and a possible TIA/stroke which left him with left-sided weakness. Diagnosis/presenting symptoms: Psychosis, anxiety,depression, GD Assessment What has happened this shift: Pt is pleasant and cooperative. He is up before breakfast. He eats well. He takes all of his medications. He asks for a pain pill. He complained of SOB. Vitals done and O2 is 97% and pulse 79. He has a respiratory treatment and is educated on its importance. He is up and socializing with other on the unit. He denies SI. S/I, H/I: Denies A/VH: Denies Sleep: Slept per noc shift and pt report. Naps ADL's: Pt. is able to ambulate independently with use of FWW Group attendance: No group. Were meds taken: Yes Any med S/E: None. Mental Status Exam Appearance: Neat and well groomed, showered today Eye contact: Good Behavior: Pleasant, cooperative Speech: Articulate, soft Mood: Depressed, anxious Affect: euthymic Thought process: organized, linear, Thought Content: Logical, future oriented Cognition: A&O X4 Insight: Good Judgment: Fair Interventions PRN's used: PRN [place] 5/325 mg and Flexeril Therapeutic interventions: 1:1 assessment, pain management, Q 15 minute checks, therapeutic active listening, Restraints/seclusion/emergency medication: no Justification of Continued Inpatient Treatment: Pt. remains at this facility awaiting placement by conservator. He will be discharged to [facility] early April. Paperwork being filled out by psychiatrist to assist placement.
--- NOTE | 2018-03-28 14:32 | NUR ---
Reassessment: Documented PO intake with recent fluctuations however still averaging 75% on regular diet meeting nutrient needs. [facility] 03/28. Will continue to follow. Recommendations: 1) Continue with regular diet 2) Weekly wt Addendum: 03/28/18 at [address] Amended: Links added.
[2018-03-28 20:00] VITALS: BP 98/65
[2018-03-28] MEDS: gabapentin 400mg capsule PO SCH (20:21)
[2018-03-28] MEDS: HYDROcodone/acetaminophen 10/325mg tab PO SCH (20:21)
[2018-03-28] MEDS: temazepam 15mg capsule PO PRN (20:21)
[2018-03-28] MEDS: aripiprazole 5mg tablet PO SCH (20:21)
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
[2018-03-29 07:00] VITALS: BP 104/60
[2018-03-29] MEDS: cyclobenzaprine 10mg tablet PO PRN (07:02)
[2018-03-29] MEDS: clonazePAM 0.5mg tablet PO SCH ×3 (07:02→20:29)
[2018-03-29] MEDS: naproxen 375mg tablet PO SCH ×2 (07:02→20:29)
[2018-03-29] MEDS: buPROPion SR 150mg tablet PO SCH (07:02)
[2018-03-29] MEDS: docusate sod 100mg capsule PO SCH ×2 (07:02→20:30)
[2018-03-29] MEDS: duloxetine 30mg CAPSULE.DR PO SCH (07:02)
[2018-03-29] MEDS: atorvastatin 20mg tablet PO SCH (07:02)
[2018-03-29] MEDS: LIDOcaine 5% patch TP SCH (07:03)
[2018-03-29] MEDS: HYDROcodone/acetaminophen 5mg/325mg tablet PO PRN ×2 (07:03→15:40)
[2018-03-29] MEDS: ipratropium/albuterol 3ml nebule NEB SCH ×2 (07:53→20:29)
[2018-03-29] MEDS: BUDESONIDE 0.25 MG/2 ML AMPUL.NEB IH SCH ×2 (07:53→20:00)
--- NOTE | 2018-03-29 13:16 | NUR ---
Nursing Note: Chief Complaint: Psychosis, MDD, anxiety, SI Legal hold: LPS Conserved Client on involuntary status for GD/DTS Report received from nurse with use of SBAR: ZAKI Alejandre Why are they here: Pt. admitted for increased paranoia and agitation and was transferred [place] [facility]. He is LPS conserved for being gravely disabled. Pt. has depression and previous suicide attempts, one during which he jumped off a bridge and broke his back. He has a history of anxiety and depression and multiple suicide attempts. Pt. has a history of chronic pain, alcoholism, and a possible TIA/stroke which left him with left-sided weakness. Diagnosis/presenting symptoms: Psychosis, anxiety,depression, GD Assessment What has happened this shift: Patient pleasant and cooperative. He reports he slept well S/I, H/I: Denies A/VH: Denies Sleep: Slept per noc shift and pt report. Naps ADL's: Pt. is able to ambulate independently with use of FWW.No shower today. Group attendance: Yes. Were meds taken: Yes Any med S/E: None. Mental Status Exam Appearance: Neat and well groomed Eye contact: Good Behavior: Pleasant, cooperative Speech: Articulate, soft Mood: Depressed, anxious Affect: restricted Thought process: linear, Thought Content: Logical, future oriented Cognition: A&O X4 Insight: Good Judgment: Fair Interventions PRN's used: PRN [place] 5/325 mg and Flexeril Therapeutic interventions: 1:1 assessment, pain management, Q 15 minute checks, therapeutic active listening, Restraints/seclusion/emergency medication: no Justification of Continued Inpatient Treatment: Pt. remains at this facility awaiting placement by conservator. He will be discharged to [facility] early April. Paperwork being filled out by psychiatrist to assist placement.
[2018-03-29] MEDS: aripiprazole 5mg tablet PO SCH (20:28)
[2018-03-29] MEDS: gabapentin 400mg capsule PO SCH (20:29)
[2018-03-29] MEDS: temazepam 15mg capsule PO PRN (20:29)
[2018-03-29] MEDS: HYDROcodone/acetaminophen 10/325mg tab PO SCH (20:30)
[2018-03-29 20:37] VITALS: BP 120/84
--- NOTE | 2018-03-30 00:24 | NUR ---
Nursing progress note: Chief Complaint: Psychosis Legal hold: LPS Conserved Client on involuntary status for GD/DTS Report received from nurse with use of SBAR from Jer HAINES Why are they here: Pt. admitted for increased paranoia and agitation and [facility]. He is LPS Conserved for gravely disabled. Pt. has depression and previous suicide attempts, one during which he jumped off a bridge and broke his back. Pt. has a history of chronic pain, alcoholism, and a possible TIA/stroke which left him with left-sided weakness. Pt is awaiting placement by conservator. Diagnosis/presenting symptoms: Psychosis,Depression NOS Assessment: What has happened this shift: Patient stays in bed again the entire shift. He is pleasant on approach and talkative. He talks about when he used to live in [place] and camping there which seems to make him smile. Patient says he has been in a good mood and did some [place] crafts today. Q15 minute safety checks. 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 Restraints/seclusion/emergency medication: None. Justification of Continued Inpatient Treatment: Pt is conserved and awaiting placement, plan is for him to discharge to [facility] on 04/04/18.
[2018-03-30] MEDS: HYDROcodone/acetaminophen 5mg/325mg tablet PO PRN ×2 (07:03→17:12)
[2018-03-30] MEDS: buPROPion SR 150mg tablet PO SCH (07:03)
[2018-03-30] MEDS: duloxetine 30mg CAPSULE.DR PO SCH (07:03)
[2018-03-30] MEDS: naproxen 375mg tablet PO SCH ×2 (07:04→20:33)
[2018-03-30] MEDS: atorvastatin 20mg tablet PO SCH (07:04)
[2018-03-30] MEDS: docusate sod 100mg capsule PO SCH ×2 (07:04→20:33)
[2018-03-30 08:00] VITALS: BP 111/79
[2018-03-30] MEDS: BUDESONIDE 0.25 MG/2 ML AMPUL.NEB IH SCH ×2 (08:09→19:21)
[2018-03-30] MEDS: ipratropium/albuterol 3ml nebule NEB SCH ×2 (08:09→19:21)
[2018-03-30] MEDS: LIDOcaine 5% patch TP SCH (08:55)
[2018-03-30] MEDS: clonazePAM 0.5mg tablet PO SCH ×3 (08:57→20:35)
--- NOTE | 2018-03-30 14:15 | NUR ---
RN Progress Note: Chief Complaint: Psychosis, MDD, anxiety, SI Legal hold: LPS Conserved Client on involuntary status for GD/DTS Report received from nurse with use of SBAR: ZAIK Alejandre Why are they here: Pt. admitted for increased paranoia and agitation and was transferred from a [facility] facility. He is LPS conserved for being gravely disabled. Pt. has depression and previous suicide attempts, one during which he jumped off a bridge and broke his back. He has a history of anxiety and depression and multiple suicide attempts. Pt. has a history of chronic pain, alcoholism, and a possible TIA/stroke which left him with left-sided weakness. Diagnosis/presenting symptoms: Psychosis, anxiety,depression, GD Assessment What has happened this shift: Patient up before breakfast. Complained of SOB. Respiratory paged and performed breathing tx. Patient present and active in all groups. He showered. He interacted with other patients in the milieu. S/I, H/I: Denies A/VH: Denies Sleep: Slept per noc shift and pt report. Naps ADL's: Pt. is able to ambulate independently with use of FWW.No shower today. Group attendance: Yes. Were meds taken: Yes Any med S/E: None. Mental Status Exam Appearance: Neat and well groomed Eye contact: Good Behavior: Pleasant, cooperative Speech: Articulate, soft Mood: Depressed, anxious Affect: euthymic Thought process: linear, logical Thought Content: future oriented Cognition: A&O X4 Insight: Good Judgment: Fair Interventions PRN's used: PRN [place] 5/325 mg X2 Therapeutic interventions: 1:1 assessment, pain management, Q 15 minute checks, therapeutic active listening, medication eduaction. Restraints/seclusion/emergency medication: no Justification of Continued Inpatient Treatment: Pt. remains at this facility awaiting placement by conservator. He will be discharged to [facility] early April. Paperwork being filled out by psychiatrist to assist placement.
[2018-03-30 19:55] VITALS: BP 123/73
[2018-03-30] MEDS: temazepam 15mg capsule PO PRN (20:34)
[2018-03-30] MEDS: HYDROcodone/acetaminophen 10/325mg tab PO SCH (20:34)
[2018-03-30] MEDS: aripiprazole 5mg tablet PO SCH (20:34)
--- NOTE | 2018-03-31 01:21 | NUR ---
Nursing progress note: Chief Complaint: Psychosis Legal hold: LPS Conserved Client on involuntary status for GD/DTS Report received from nurse with use of SBAR from Jer HAINES Why are they here: Pt. admitted for increased paranoia and agitation and was transferred from a [facility] facility. He is LPS Conserved for gravely disabled. Pt. has depression and previous suicide attempts, one during which he jumped off a bridge and broke his back. Pt. has a history of chronic pain, alcoholism, and a possible TIA/stroke which left him with left-sided weakness. Pt is awaiting placement by conservator. Diagnosis/presenting symptoms: Psychosis,Depression NOS Assessment: What has happened this shift: Patient rests in bed this shift. 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 He said he enjoyed making a cookie and watching a movie. He reports he is still a little SOB upon exertion. Finished Hardware Erector encourages patient to use incentive spirometer which pt agrees to do. Q15 minute safety checks. 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 Restraints/seclusion/emergency medication: None. Justification of Continued Inpatient Treatment: Pt is conserved and awaiting placement, plan is for him to discharge to [facility] on 04/04/18 or early April.
[2018-03-31] MEDS: HYDROcodone/acetaminophen 5mg/325mg tablet PO PRN ×4 (03:57→17:41)
[2018-03-31 08:00] VITALS: BP 102/77
[2018-03-31] MEDS: BUDESONIDE 0.25 MG/2 ML AMPUL.NEB IH SCH ×2 (08:00→20:00)
[2018-03-31] MEDS: atorvastatin 20mg tablet PO SCH (08:36)
[2018-03-31] MEDS: docusate sod 100mg capsule PO SCH ×2 (08:36→20:17)
[2018-03-31] MEDS: duloxetine 30mg CAPSULE.DR PO SCH (08:36)
[2018-03-31] MEDS: buPROPion SR 150mg tablet PO SCH (08:36)
[2018-03-31] MEDS: clonazePAM 0.5mg tablet PO SCH ×3 (08:36→20:16)
[2018-03-31] MEDS: naproxen 375mg tablet PO SCH ×2 (08:36→20:16)
[2018-03-31] MEDS: LIDOcaine 5% patch TP SCH (08:37)
[2018-03-31] MEDS: ipratropium/albuterol 3ml nebule NEB SCH ×2 (09:00→20:13)
--- NOTE | 2018-03-31 14:50 | NUR ---
Nursing progress note: Chief Complaint: Psychosis Legal hold: LPS Conserved Client on involuntary status for GD/DTS Report received from nurse with use of SBAR from Pili HAINES Why are they here: Pt. admitted for increased paranoia and agitation and was [facility]. He is LPS Conserved for gravely disabled. Pt. has depression and previous suicide attempts, one during which he jumped off a bridge and broke his back. Pt. has a history of chronic pain, alcoholism, and a possible TIA/stroke which left him with left-sided weakness. Pt is awaiting placement by conservator. Diagnosis/presenting symptoms: Psychosis,Depression NOS Assessment: Patient was asleep at change of shift and up for breakfast. Patient appears to be walking better while using the walker. Patient up for breakfast. RN spoke with patient 1:1 in patient's room. Patient denies SI/HI. Patient has some depression. Patient went to group today (only 1) in the afternoon. Patient is pleasant and has chronic pain to his lower back. What has happened this shift:Q15 minute safety checks. S/I, H/I: Denies A/VH: Denies Sleep: no problems ADL's: Ambulates Ad lennie with FWW Group attendance: yes, 1 group today Were meds taken: Yes, pt is med compliant Any med S/E: No adverse side effects noted, none reported Mental Status Exam: Appearance: clean Eye contact: Good Behavior: rests in bed Speech:clear Mood: pleasant Affect: content Thought process: goal oriented Thought Content: reminiscing Cognition: A&O X4 Insight: Good Judgment: Good Interventions PRN's used: [place] Therapeutic interventions: 1:1, therapeutic conversation,Q 15 min checks. Restraints/seclusion/emergency medication: None. Justification of Continued Inpatient Treatment: Pt is conserved and awaiting placement, plan is for him to discharge to [facility] on 04/04/18 or early April.
[2018-03-31 20:00] VITALS: BP 108/64
[2018-03-31] MEDS: temazepam 15mg capsule PO PRN (20:16)
[2018-03-31] MEDS: HYDROcodone/acetaminophen 10/325mg tab PO SCH ×2 (20:16→21:16)
[2018-03-31] MEDS: aripiprazole 5mg tablet PO SCH (20:16)
[2018-03-31] MEDS: cyclobenzaprine 10mg tablet PO PRN (20:17)
--- NOTE | 2018-03-31 23:52 | NUR ---
Nursing progress note: Chief Complaint: Psychosis Legal hold: LPS Conserved Client on involuntary status for GD/DTS Report received from nurse with use of SBAR from Iman HAINES Why are they here: Pt. admitted for increased paranoia and agitation and was transferred from a [facility] facility. He is LPS Conserved for gravely disabled. Pt. has depression and previous suicide attempts, one during which he jumped off a bridge and broke his back. Pt. has a history of chronic pain, alcoholism, and a possible TIA/stroke which left him with left-sided weakness. Pt is awaiting placement by conservator. Diagnosis/presenting symptoms: Psychosis,Depression NOS Assessment: Pt was laying in bed at change of shift. 1:1 assessment completed at [facility]. pt denies s/i. continues to report some depression. Pt is c/o back pain and stating he would like to lose weight but walking the length of the hester is painful for him. Pt reports attending groups. Pt states he is awaiting a bed at [facility] in [place]. Pt reports he has interrupted sleep last night. States his appetite is good. He declined his RT tx this evening and asked RT to come back in the morning. He states he doesnt think the treatments are effective for him. S/I, H/I: Denies A/VH: Denies Sleep: reports sleep was interrupted last night ADL's: Ambulates w/walker Group attendance: no evening groups Were meds taken: Pt is med compliant Any med S/E: None reported or observed Mental Status Exam: Appearance: clean Eye contact: Good Behavior: walked some laps in the hester but remained in bed Speech: WNL Mood: pleasant Affect: congruent Thought process: linear, goal oriented Thought Content: talking about exercise and spoke w/his sister about stretching. Cognition: A&O X4 Insight: Good Judgment: Good Interventions PRN's used: [place] Therapeutic interventions: 1:1, therapeutic conversation,Q 15 min checks. Restraints/seclusion/emergency medication: None. Justification of Continued Inpatient Treatment: Pt is conserved and awaiting placement, plan is for him to discharge to [facility] on 04/04/18 or early April.
[2018-04-01] MEDS: HYDROcodone/acetaminophen 5mg/325mg tablet PO PRN ×3 (01:29→14:04)
[2018-04-01 08:00] VITALS: BP 116/71
[2018-04-01] MEDS: BUDESONIDE 0.25 MG/2 ML AMPUL.NEB IH SCH ×2 (08:00→23:01)
[2018-04-01] MEDS: docusate sod 100mg capsule PO SCH ×2 (08:08→20:11)
[2018-04-01] MEDS: duloxetine 30mg CAPSULE.DR PO SCH (08:08)
[2018-04-01] MEDS: buPROPion SR 150mg tablet PO SCH (08:09)
[2018-04-01] MEDS: clonazePAM 0.5mg tablet PO SCH ×3 (08:09→20:10)
[2018-04-01] MEDS: naproxen 375mg tablet PO SCH ×2 (08:09→20:10)
[2018-04-01] MEDS: atorvastatin 20mg tablet PO SCH (08:09)
[2018-04-01] MEDS: LIDOcaine 5% patch TP SCH (08:11)
[2018-04-01] MEDS: ipratropium/albuterol 3ml nebule NEB SCH ×2 (09:00→23:01)
[2018-04-01 19:00] VITALS: BP 128/76
[2018-04-01] MEDS: temazepam 15mg capsule PO PRN (20:10)
[2018-04-01] MEDS: aripiprazole 5mg tablet PO SCH (20:10)
[2018-04-01] MEDS: HYDROcodone/acetaminophen 10/325mg tab PO SCH (20:10)
[2018-04-02] MEDS: HYDROcodone/acetaminophen 5mg/325mg tablet PO PRN ×4 (01:30→18:04)
--- NOTE | 2018-04-02 01:59 | NUR ---
Nursing progress note: Chief Complaint: Psychosis Legal hold: LPS Conserved Client on involuntary status for GD/DTS Report received from nurse with use of SBAR from Iman HAINES Why are they here: Pt. admitted for increased paranoia and agitation and was transferred from a [facility] facility. He is LPS Conserved for gravely disabled. Pt. has depression and previous suicide attempts, one during which he jumped off a bridge and broke his back. Pt. has a history of chronic pain, alcoholism, and a possible TIA/stroke which left him with left-sided weakness. Pt is awaiting placement by conservator. Diagnosis/presenting symptoms: Psychosis,Depression NOS Assessment: Pt was laying in bed at change of shift. 1:1 assessment completed at bedside. Pt denies s/i, denies a/vh, reports he reports "depression is ok I guess, I really wish I could go outside." Pt is hopeful he will have a bed at [facility] soon, states he plans to call his conservator tomorrow. Appetite is good, states he is going to stop eating deserts and things because he states loosing weight around his abdomen will help w/breathing. Pt reports sitting up he has trouble breathing but not so much if he is laying down. Pt did not have a respiratory tx tonight. Encouraged pt to use incentive spirometer and to get out of bed as tolerated. Pt reports he is sleeping "pretty good". S/I, H/I: Denies A/VH: Denies Sleep: reports sleep is good ADL's: Ambulates w/walker Group attendance: no evening groups Were meds taken: Pt is med compliant Any med S/E: None reported or observed Mental Status Exam: Appearance: clean Eye contact: Good Behavior: remained in bed for duration of shift Speech: WNL Mood: pleasant Affect: congruent Thought process: linear, goal oriented Thought Content: talking about discharge, going outside, looking forward to placement Cognition: A&O X4 Insight: Good Judgment: Good Interventions PRN's used: [place] Therapeutic interventions: 1:1, therapeutic conversation,Q 15 min checks. Restraints/seclusion/emergency medication: None. Justification of Continued Inpatient Treatment: Pt is conserved and awaiting placement, plan [facility] or early April.
[2018-04-02] MEDS: clonazePAM 0.5mg tablet PO SCH ×3 (07:55→20:13)
[2018-04-02] MEDS: atorvastatin 20mg tablet PO SCH (07:55)
[2018-04-02] MEDS: naproxen 375mg tablet PO SCH ×2 (07:55→20:13)
[2018-04-02] MEDS: docusate sod 100mg capsule PO SCH ×2 (07:55→20:13)
[2018-04-02] MEDS: buPROPion SR 150mg tablet PO SCH (07:55)
[2018-04-02] MEDS: duloxetine 30mg CAPSULE.DR PO SCH (07:55)
[2018-04-02 08:00] VITALS: BP 120/82
[2018-04-02] MEDS: BUDESONIDE 0.25 MG/2 ML AMPUL.NEB IH SCH ×2 (08:00→20:23)
[2018-04-02] MEDS: ipratropium/albuterol 3ml nebule NEB SCH ×2 (08:23→20:22)
[2018-04-02] MEDS: LIDOcaine 5% patch TP SCH (11:25)
[2018-04-02 15:13] LABS: BASOPHILS # (AUTO) 0.2 X10'3 (0-0.2); BASOPHILS % (AUTO) 2.7 % (0-1); EOSINOPHILS # (AUTO) 0.3 X10'3 (0-0.9); EOSINOPHILS % (AUTO) 3.5 % (0-6); HEMATOCRIT 46.2 % (42.0-52.0); HEMOGLOBIN 15.7 g/dl (14.0-17.9); LYMPHOCYTES # (AUTO) 2.1 X10'3 (1.1-4.8); LYMPHOCYTES % (AUTO) 25.5 % (21-51); MEAN CORPUSCULAR VOLUME 91.3 FL (78-98); MEAN PLATELET VOLUME 8.4 FL (7.4-10.4); MONOCYTES # (AUTO) 0.6 X10'3 (0-0.9); MONOCYTES % (AUTO) 6.7 % (2-12); NEUTROPHILS # (AUTO) 5.1 X10'3 (1.8-7.7); NEUTROPHILS % (AUTO) 61.6 % (42-75); PLATELET COUNT 186 X10'3 (140-440); RED BLOOD COUNT 5.05 X10'6 (4.70-6.10); RED CELL DISTRIBUTION WIDTH 11.9 % (11.5-14.5); WHITE BLOOD COUNT 8.3 X10'3 (4.5-11.0)
[2018-04-02 15:38] LABS: ALBUMIN 3.9 G/DL (3.4-5.0); ANION GAP 9 (8-16); BLOOD UREA NITROGEN 21 MG/DL (7-18); BUN/CREATININE RATIO 17.8 (5.4-32.0); CHLORIDE 101 MMOL/L (99-107); CREATININE 1.18 MG/DL (0.60-1.10); GLUCOSE 110 MG/DL (70-104); POTASSIUM 4.4 MMOL/L (3.5-5.1); SODIUM 138 MMOL/L (135-145); TOTAL CARBON DIOXIDE 27.6 MMOL/L (24-32); eGFR 63 ML/MIN
--- NOTE | 2018-04-02 16:56 | NUR ---
Nursing progress note: Chief Complaint: Psychosis Legal hold: LPS Conserved Client on involuntary status for GD/DTS Report received from nurse with use of SBAR from Pili HAINES Why are they here: Pt. admitted for increased paranoia and agitation and was transferred from a senior living facility. He is LPS Conserved for gravely disabled. Pt. has depression and previous suicide attempts, one during which he jumped off a bridge and broke his back. Pt. has a history of chronic pain, alcoholism, and a possible TIA/stroke which left him with left-sided weakness. Pt is awaiting placement by conservator. Diagnosis/presenting symptoms: Psychosis,Depression NOS Assessment: Patient was asleep at change of shift and up for breakfast. Patient appears to be walking better while using the walker. RN spoke with patient 1:1 in patient's room. Patient denies SI/HI. Patient denies depression but states he is bored. Patient went to groups today. Patient has been complaining of increased SOB and Dr Hood came to evaluate patient and ordered a CXR and labs. Patient's results show possible LLL infiltrate/atelectasis Patient is pleasant and has chronic pain to his lower back. RN gave patient [place] x 3 today. What has happened this shift:Q15 minute safety checks. S/I, H/I: Denies A/VH: Denies Sleep: no problems ADL's: Ambulates Ad lennie with FWW Group attendance: yes Were meds taken: Yes, pt is med compliant Any med S/E: No adverse side effects noted, none reported Mental Status Exam: Appearance: clean Eye contact: Good Behavior: rests in bed Speech:clear Mood: pleasant Affect: content Thought process: goal oriented Thought Content: reminiscing Cognition: A&O X4 Insight: Good Judgment: Good Interventions PRN's used: [place] Therapeutic interventions: 1:1, therapeutic conversation,Q 15 min checks. Restraints/seclusion/emergency medication: None. Justification of Continued Inpatient Treatment: Pt is conserved and awaiting placement, plan is for him to discharge to [facility] on 04/04/18 or early April.
[2018-04-02] MEDS ORDERED: furosemide 20MG tablet PO ONE (18:45)
[2018-04-02 19:00] VITALS: BP 117/71
[2018-04-02] MEDS: aripiprazole 5mg tablet PO SCH (20:13)
[2018-04-02] MEDS: temazepam 15mg capsule PO PRN (20:13)
[2018-04-02] MEDS: HYDROcodone/acetaminophen 10/325mg tab PO SCH (20:14)
--- NOTE | 2018-04-02 23:20 | NUR ---
Nursing progress note: Chief Complaint: Psychosis Legal hold: LPS Conserved Client on involuntary status for GD/DTS Report received from nurse with use of SBAR from Dara HAINES Why are they here: Pt. admitted for increased paranoia and agitation and was transferred from a care home facility. He is LPS Conserved for gravely disabled. Pt. has depression and previous suicide attempts, one during which he jumped off a bridge and broke his back. Pt. has a history of chronic pain, alcoholism, and a possible TIA/stroke which left him with left-sided weakness. Pt is awaiting placement by conservator. Diagnosis/presenting symptoms: Psychosis,Depression NOS Assessment What has happened this shift: Pt was walking in the hester w/out his walker at change of shift. 1:1 assessment completed at bedside. Pt denies s/i, states he is only depressed/anxious because he wants to get out of here. He is looking forward to getting a bed at [facility]. He would like to go outside during the day, but they have been unable to accommodate this due to staffing. Pt spent remainder of the evening in bed. He was given a one time dose of 20mg of lasix per Dr Sana gordon. Pt had one void of 300mg at 1900 and went to sleep after evening meds. Pt called his sister a couple of times this evening but remained in bed. Pt reports that he had what he would consider "almost a panic attack" early in the day when he felt he couldnt breath. S/I, H/I: Denies A/VH: Denies Sleep: was interrupted last night, ADL's: Ambulates Ad lennie with FWW Group attendance: yes Were meds taken: Yes, pt is med compliant Any med S/E: No adverse side effects noted, none reported Mental Status Exam: Appearance: clean Eye contact: Good Behavior: rests in bed Speech:clear Mood: pleasant Affect: appropriate to situation Thought process: goal oriented Thought Content: talking about breathing tx Cognition: A&O X4 Insight: Good Judgment: Good Interventions PRN's used: [place] Therapeutic interventions: 1:1, therapeutic conversation,Q 15 min checks. Restraints/seclusion/emergency medication: None. Justification of Continued Inpatient Treatment: Pt is conserved and awaiting placement, plan is for him to discharge to [facility] on 04/04/18 or early April. Addendum: 04/03/18 at 0500 by Jaqui Lucas RN pt had 700mL urine output this shift
[2018-04-03] MEDS: HYDROcodone/acetaminophen 5mg/325mg tablet PO PRN ×3 (00:56→13:33)
--- NOTE | 2018-04-03 05:20 | NUR ---
Day shift please contact Dr Hood. Urine output 700MLs last night he would like to be notified today.
[2018-04-03] MEDS: docusate sod 100mg capsule PO SCH ×2 (07:59→21:39)
[2018-04-03 08:00] VITALS: BP 103/65
[2018-04-03] MEDS: clonazePAM 0.5mg tablet PO SCH ×3 (08:00→21:39)
[2018-04-03] MEDS: atorvastatin 20mg tablet PO SCH (08:00)
[2018-04-03] MEDS: duloxetine 30mg CAPSULE.DR PO SCH (08:00)
[2018-04-03] MEDS: buPROPion SR 150mg tablet PO SCH (08:01)
[2018-04-03] MEDS: naproxen 375mg tablet PO SCH ×2 (08:01→21:40)
[2018-04-03] MEDS: LIDOcaine 5% patch TP SCH (08:02)
[2018-04-03] MEDS: ipratropium/albuterol 3ml nebule NEB SCH ×2 (09:40→20:38)
[2018-04-03] MEDS: BUDESONIDE 0.25 MG/2 ML AMPUL.NEB IH SCH ×2 (09:40→20:38)
[2018-04-03] MEDS: furosemide 20MG tablet PO SCH (13:28)
--- NOTE | 2018-04-03 13:36 | NUR ---
Nutrition consult RE: "pt needs to lose 20# for health per MD." Not appropriate at this time since pt current healthy weight w/ BMI 23 and do not want to encourage additional wt loss at this time. PO 100% meals meeting needs. LBM 03/31. No nutrition concerns at this time. Recommendations: 1) Continue with regular diet 2) Weekly wt Addendum: 04/03/18 at [address] Amended: Links added.
[2018-04-03] MEDS ORDERED: benzocaine/menthol oral lozeng 1 EACH BOX MM PRN (15:30)
[2018-04-03] MEDS ORDERED: mag hydrox/Alum hydrox/simeth 30ml oral suspension PO PRN (15:30)
[2018-04-03] MEDS ORDERED: magnesium hydroxide 30ml (MOM) UD suspension PO PRN (15:30)
[2018-04-03] MEDS ORDERED: acetaminophen 325mg tablet PO PRN ×2 (15:30)
--- NOTE | 2018-04-03 16:11 | NUR ---
Nursing progress note: Chief Complaint: Psychosis Legal hold: LPS Conserved Client on involuntary status for GD/DTS Report received from nurse with use of SBAR from Kaylin HAINES Why are they here: Pt. admitted for increased paranoia and agitation and was transferred from a custodial facility. He is LPS Conserved for gravely disabled. Pt. has depression and previous suicide attempts, one during which he jumped off a bridge and broke his back. Pt. has a history of chronic pain, alcoholism, and a possible TIA/stroke which left him with left-sided weakness. Pt remains gravely disabled and needs placement by conservator. Diagnosis/presenting symptoms: Psychosis,Depression NOS Assessment What has happened this shift: Recieved pt in bed at beginning of shift. A&O x4, calm and cooperative. Showered this AM and ambulated to group room and around unit throughout day with his walker. 1:1 assessment completed at bedside. Pt denies s/i, and states he is looking forward to getting a bed at [facility] in [place]. C/O chronic pain in lower back and recieved [place] X2 on this shift. Seen by Dr Hood today who ordered Lasix 20 mg qd and to repeat a BMP on 1Jan. Recieved Lasix 20 mg po @ 1325. Reports SOB episodes mostly when in sitting position. S/I, H/I: Denies A/VH: Denies Sleep: Reports interrupted last night, ADL's: Ambulates Ad lennie with FWW Group attendance: yes Were meds taken: Yes, pt is med compliant Any med S/E: No adverse side effects noted, none reported Mental Status Exam: Appearance: Clean Eye contact: Good Behavior: Cooperative Speech:Clear Mood: Pleasant, and cooperative Affect: Appropriate to situation Thought process: Goal oriented Thought Content: talking about breathing tx Cognition: A&O X4 Insight: Good Judgment: Good Interventions PRN's used: [place] X 2 Therapeutic interventions: Therapeutic 1:1 conversations, Active listening,Q 15 min checks, Maintained safe and therapeutic [place]. Restraints/seclusion/emergency medication: None. Justification of Continued Inpatient Treatment: Pt is conserved and remains gravely disabled, plan is for him to discharge to [facility] on 04/04/18 or early April. Addendum: 04/03/18 at 1634 by Clemente Strauss RN Note: Pt BP @ 1325 prior lasix was 122/85. Re checked due to AM systolic BP 103. Addendum: 04/03/18 at 1642 by Clemente Strauss RN Per Dr Flaherty PT consult requested to increase core strength
[2018-04-03 20:00] VITALS: BP 103/65
[2018-04-03] MEDS: aripiprazole 5mg tablet PO SCH (21:39)
[2018-04-03] MEDS: cyclobenzaprine 10mg tablet PO PRN (21:39)
[2018-04-03] MEDS: HYDROcodone/acetaminophen 10/325mg tab PO SCH (21:40)
[2018-04-03] MEDS: temazepam 15mg capsule PO PRN (21:40)
--- NOTE | 2018-04-04 03:28 | NUR ---
RN progress note: Chief Complaint: Psychosis. Legal hold: LPS Conserved Client on involuntary status for GD/DTS. Report received from nurse with use of SBAR: Clemente HAINES. Why are they here: The patient was living in a SNF, when he started becoming paranoid and agitated. His depression increased and he became suicidal, leading him to jump off [place] bridge where he broke his back. The patient is conserved and waiting for placement. Diagnosis/presenting symptoms: Psychosis/Depression with SI. Assessment What has happened this shift: Received patient in bed. The patient is alert, pleasant, and cooperative. He reports that he's still having SOB. "I've been laying here wondering why my breathing is so difficult. This has been going on for a long time, and nobody has answers." He c/o boredom waiting for placement. "I'm supposed to find out something in the next couple days." The patient was compliant with medications and went to sleep after HS med pass. S/I, H/I:Denies. A/VH: Denies Sleep: "I'm sleeping pretty good." ADL's: Independent. Uses FWW for ambulation. Group attendance:"We played something called [employer], it was pretty fun." Were meds taken: Yes Any med S/E: None noted. Mental Status Exam Appearance: Laying in bed. appears clean, well groomed. Eye contact: Good Behavior: Bored, restless, depressed. Speech: Clear. Mood: "Pretty quiet mood today." Affect: Depressed, blunted, brightens sometimes. Thought process: Linear, goal directed Thought Content: Preoccupied with lack of housing, and how long he's having to wait. Cognition: A/O x4 Insight: Good Judgment: Intact Interventions PRN's used:Flexeril for spasms, Restoril for sleep. Therapeutic interventions:1:1, [id number] safety checks, active listening, provided positive support. Provided medications. Maintained safe and therapeutic environment. Restraints/seclusion/emergency medication:None Justification of Continued Inpatient Treatment: Waiting for conservators to find housing. The patient remains GD and DTS. If discharged now without housing, the patient would be at risk to harm himself again.
[2018-04-04] MEDS: LIDOcaine 5% patch TP SCH (07:02)
[2018-04-04] MEDS: buPROPion SR 150mg tablet PO SCH (07:03)
[2018-04-04] MEDS: atorvastatin 20mg tablet PO SCH (07:03)
[2018-04-04] MEDS: duloxetine 30mg CAPSULE.DR PO SCH (07:03)
[2018-04-04] MEDS: furosemide 20MG tablet PO SCH (07:03)
[2018-04-04] MEDS: HYDROcodone/acetaminophen 5mg/325mg tablet PO PRN ×2 (07:04→14:57)
[2018-04-04] MEDS: docusate sod 100mg capsule PO SCH ×2 (07:05→20:37)
[2018-04-04] MEDS: clonazePAM 0.5mg tablet PO SCH ×3 (07:05→20:36)
[2018-04-04] MEDS: naproxen 375mg tablet PO SCH ×2 (07:05→20:36)
[2018-04-04 08:30] VITALS: BP 125/70
[2018-04-04] MEDS: BUDESONIDE 0.25 MG/2 ML AMPUL.NEB IH SCH ×2 (10:44→20:56)
[2018-04-04] MEDS: ipratropium/albuterol 3ml nebule NEB SCH ×2 (10:44→20:56)
--- NOTE | 2018-04-04 10:55 | NUR ---
RN Progress Note: Chief Complaint: MDD, anxiety, SI Legal hold: LPS Conserved Client on involuntary status for GD/DTS Report received from nurse with use of SBAR: ZAKI Garcia Why are they here: Pt. admitted for increased paranoia and agitation and was transferred from a senior living facility. He is LPS conserved for being gravely disabled. Pt. has depression and previous suicide attempts, one during which he jumped off a bridge and broke his back. He has a history of anxiety and depression and multiple suicide attempts. Pt. has a history of chronic pain, alcoholism, and a possible TIA/stroke which left him with left-sided weakness. Diagnosis/presenting symptoms: anxiety, depression, GD Assessment What has happened this shift: Patient up before breakfast. He took all medications. He asked for PRN nOrco. He went back to bed after breakfast. No groups today. S/I, H/I: Denies A/VH: Denies Sleep: Slept per noc shift and pt report. Naps ADL's: Pt. is able to ambulate independently with use of FWW. No shower today. Group attendance: No Were meds taken: Yes Any med S/E: None. Mental Status Exam Appearance: Neat and well groomed Eye contact: Good Behavior: Pleasant, cooperative Speech: Articulate, soft Mood: anxious Affect: euthymic Thought process: linear, logical Thought Content: future oriented Cognition: A&O X4 Insight: Good Judgment: Fair Interventions PRN's used: PRN [place] 5/325 mg X2 Therapeutic interventions: 1:1 assessment, pain management, Q 15 minute checks, therapeutic active listening, medication education. Restraints/seclusion/emergency medication: no Justification of Continued Inpatient Treatment: Pt. remains at this facility awaiting placement by conservator. He will be discharged to [facility] early April. Paperwork being filled out by psychiatrist to assist placement.
[2018-04-04 19:58] VITALS: BP 113/74
[2018-04-04] MEDS: aripiprazole 5mg tablet PO SCH (20:35)
[2018-04-04] MEDS: HYDROcodone/acetaminophen 10/325mg tab PO SCH (20:36)
[2018-04-04] MEDS: cyclobenzaprine 10mg tablet PO PRN (20:36)
[2018-04-04] MEDS: temazepam 15mg capsule PO PRN (20:37)
--- NOTE | 2018-04-05 03:54 | NUR ---
RN progress note: Chief Complaint: Psychosis. Legal hold: LPS Conserved Client on involuntary status for GD/DTS. Report received from nurse with use of SBAR: Irene HAINES. Why are they here: The patient was living in a SNF, when he started becoming paranoid and agitated. His depression increased and he became suicidal, leading him to jump off [place] bridge where he broke his back. The patient is conserved and waiting for placement. Diagnosis/presenting symptoms: Psychosis/Depression with SI/chronic pain. Assessment What has happened this shift: Received patient in bed. The patient is alert, pleasant, and cooperative. He states that that he had a PT eval today, and they gave him some exercises to do in bed, in the hope that he can strengthen his core muscles and help his breathing. He also reports that he's breathing better today, "I lost some weight." He continues to wait for placement at [facility]. "I can't wait to get established in someplace." The patient remained isolated in his room all night. S/I, H/I:Denies. A/VH: Denies Sleep: "I slept OK, but woke up with back pain." ADL's: Independent. Uses FWW for ambulation. Group attendance: No groups Were meds taken: Yes Any med S/E: None noted. Mental Status Exam Appearance: Laying in bed. appears clean, well groomed. Eye contact: Good Behavior: Bored, restless, depressed. Speech: Clear. Mood: "Not bad." Affect: Depressed, blunted, brightens sometimes. Thought process: Linear, goal directed Thought Content: Preoccupied with lack of housing, and how long he's having to wait. Cognition: A/O x4 Insight: Good Judgment: Intact Interventions PRN's used:Flexeril for spasms, Restoril for sleep. Therapeutic interventions:1:1, [id number] safety checks, active listening, provided positive support. Provided medications. Maintained safe and therapeutic environment. Restraints/seclusion/emergency medication:None Justification of Continued Inpatient Treatment: Waiting for conservators to find housing. The patient remains GD and DTS. If discharged now without housing, the patient would be at risk to harm himself again.
[2018-04-05] MEDS: HYDROcodone/acetaminophen 5mg/325mg tablet PO PRN ×4 (04:13→19:39)
[2018-04-05] MEDS: BUDESONIDE 0.25 MG/2 ML AMPUL.NEB IH SCH ×2 (07:00→20:37)
[2018-04-05] MEDS: ipratropium/albuterol 3ml nebule NEB SCH ×2 (07:00→20:37)
[2018-04-05] MEDS: atorvastatin 20mg tablet PO SCH (07:07)
[2018-04-05] MEDS: docusate sod 100mg capsule PO SCH ×2 (07:07→20:25)
[2018-04-05] MEDS: clonazePAM 0.5mg tablet PO SCH ×3 (07:07→20:25)
[2018-04-05] MEDS: duloxetine 30mg CAPSULE.DR PO SCH (07:07)
[2018-04-05] MEDS: buPROPion SR 150mg tablet PO SCH (07:07)
[2018-04-05] MEDS: naproxen 375mg tablet PO SCH ×2 (07:07→20:26)
[2018-04-05] MEDS: furosemide 20MG tablet PO SCH (07:07)
[2018-04-05 08:00] VITALS: BP 104/67
[2018-04-05] MEDS: LIDOcaine 5% patch TP SCH (08:12)
--- NOTE | 2018-04-05 10:33 | NUR ---
RN Progress Note: Chief Complaint: MDD, anxiety, SI, depression Legal hold: LPS Conserved Client on involuntary status for GD/DTS Report received from nurse with use of SBAR: ZAKI Garcia Why are they here: Pt. admitted for increased paranoia and agitation and was transferred from a retirement facility. He is LPS conserved for being gravely disabled. Pt. has depression and previous suicide attempts, one during which he jumped off a bridge and broke his back. He has a history of anxiety and depression and multiple suicide attempts. Pt. has a history of chronic pain, alcoholism, and a possible TIA/stroke which left him with left-sided weakness. Diagnosis/presenting symptoms: anxiety, depression, GD Assessment Patietn up before breakfast. He is up on the unit and socializing with his roommate. He received a pair of slippers from his sister today and was smiling. He say he is going to try to call his conservator today about going to [facility]. He is future oriented and looking forward to leaving here. He has been doing his back exercises, but says the pain is very bad today. S/I, H/I: Denies A/VH: Denies Sleep: Slept per noc shift and pt report. Naps ADL's: Pt. is able to ambulate independently with use of FWW. No shower today. Group attendance: Yes Were meds taken: Yes Any med S/E: None. Mental Status Exam Appearance: Neat and well groomed Eye contact: Good Behavior: Pleasant, cooperative Speech: Articulate, soft Mood: anxious, depressed Affect: euthymic Thought process: linear, logical Thought Content: future oriented "I just feel blah staying here so long." Cognition: A&O X4 Insight: Good Judgment: Fair Interventions PRN's used: PRN [place] 5/325 mg X2 Therapeutic interventions: 1:1 assessment, pain management, Q 15 minute checks, therapeutic active listening, medication education. Restraints/seclusion/emergency medication: no Justification of Continued Inpatient Treatment: Pt. remains at this facility awaiting placement by conservator. He will be discharged to [facility] early April. Paperwork being filled out by psychiatrist to assist placement.
[2018-04-05] MEDS ORDERED: ARIP30TA11 PO (13:24)
[2018-04-05] MEDS ORDERED: TIOT18CA3 PO (13:24)
[2018-04-05] MEDS ORDERED: CYCL-1 PO (13:24)
[2018-04-05] MEDS ORDERED: BUPR150T6 PO (13:24)
[2018-04-05] MEDS ORDERED: DULO30CA51 PO (13:24)
[2018-04-05] MEDS ORDERED: ATOR20TA66 PO (13:24)
[2018-04-05] MEDS ORDERED: CLON-514 PO (13:24)
[2018-04-05] MEDS ORDERED: COL100C PO (13:24)
[2018-04-05] MEDS ORDERED: LIDO700A47 TP (13:24)
[2018-04-05] MEDS ORDERED: HYDR-4383 PO (13:24)
[2018-04-05] MEDS ORDERED: NAPR-1166 PO (13:24)
[2018-04-05] MEDS ORDERED: FURO20TA4 PO (13:24)
[2018-04-05] MEDS ORDERED: HYDR-3972 PO (13:24)
[2018-04-05] MEDS ORDERED: ALBU8.5H8 IH (13:24)
[2018-04-05 19:55] VITALS: BP 140/73
[2018-04-05] MEDS: HYDROcodone/acetaminophen 10/325mg tab PO SCH (20:25)
[2018-04-05] MEDS: aripiprazole 5mg tablet PO SCH (20:25)
[2018-04-05] MEDS: temazepam 15mg capsule PO PRN (20:25)
[2018-04-05] MEDS: cyclobenzaprine 10mg tablet PO PRN (20:26)
--- NOTE | 2018-04-06 00:02 | NUR ---
RN progress note: Chief Complaint: Psychosis. Legal hold: LPS Conserved Client on involuntary status for GD/DTS. Report received from nurse with use of SBAR: Irene HAINES. Why are they here: The patient was living in a SNF, when he started becoming paranoid and agitated. His depression increased and he became suicidal, leading him to jump [place] where he broke his back. The patient is conserved and waiting for placement. Diagnosis/presenting symptoms: Psychosis/Depression with SI/chronic pain. Assessment What has happened this shift: The patient was received in his bed. He is happy to know that he will be discharging to [facility] this week. "I will try to get through this next year. I'm going to try real hard to get off conservation." The patient continues to do his exercises the PT gave him. He stayed isolated to his room all night and went to sleep right after HS med pass. S/I, H/I:Denies. A/VH: Denies Sleep: "OK." ADL's: Independent. Uses FWW for ambulation. Group attendance: No groups Were meds taken: Yes Any med S/E: None noted. Mental Status Exam Appearance: Laying in bed. appears clean, well groomed. Eye contact: Good Behavior: Bored, restless, depressed. Speech: Clear. Mood: "Pretty good, now that I know when I'm leaving." Affect: Depressed, blunted, brightens sometimes. Thought process: Linear, goal directed Thought Content: Preoccupied with lack of housing, and how long he's having to wait. Cognition: A/O x4 Insight: Good Judgment: Intact Interventions PRN's used:Flexeril for spasms, Restoril for sleep. Therapeutic interventions:1:1, [id number] safety checks, active listening, provided positive support. Provided medications. Maintained safe and therapeutic environment. Restraints/seclusion/emergency medication:None Justification of Continued Inpatient Treatment: Waiting for conservators to find housing. The patient remains GD and DTS. If discharged now without housing, the patient would be at risk to harm himself again.
[2018-04-06 07:07] LABS: ALBUMIN 3.6 G/DL (3.4-5.0); ANION GAP 7 (8-16); BLOOD UREA NITROGEN 22 MG/DL (7-18); BUN/CREATININE RATIO 18.5 (5.4-32.0); CALCIUM 8.8 MG/DL (8.5-10.1); CHLORIDE 105 MMOL/L (99-107); CREATININE 1.19 MG/DL (0.60-1.10); GLUCOSE 89 MG/DL (70-104); POTASSIUM 4.1 MMOL/L (3.5-5.1); SODIUM 140 MMOL/L (135-145); TOTAL CARBON DIOXIDE 28.3 MMOL/L (24-32); eGFR 62 ML/MIN
[2018-04-06] MEDS: furosemide 20MG tablet PO SCH (07:33)
[2018-04-06] MEDS: naproxen 375mg tablet PO SCH ×2 (07:33→20:00)
[2018-04-06] MEDS: atorvastatin 20mg tablet PO SCH (07:33)
[2018-04-06] MEDS: clonazePAM 0.5mg tablet PO SCH ×3 (07:33→20:59)
[2018-04-06] MEDS: docusate sod 100mg capsule PO SCH ×2 (07:33→20:58)
[2018-04-06] MEDS: buPROPion SR 150mg tablet PO SCH (07:33)
[2018-04-06] MEDS: LIDOcaine 5% patch TP SCH (07:34)
[2018-04-06] MEDS: HYDROcodone/acetaminophen 5mg/325mg tablet PO PRN ×4 (07:34→20:50)
[2018-04-06] MEDS: duloxetine 30mg CAPSULE.DR PO SCH (07:34)
[2018-04-06 08:00] VITALS: BP 115/76
[2018-04-06] MEDS: ipratropium/albuterol 3ml nebule NEB SCH ×2 (09:52→21:00)
[2018-04-06] MEDS: BUDESONIDE 0.25 MG/2 ML AMPUL.NEB IH SCH ×2 (09:52→21:00)
--- NOTE | 2018-04-06 11:34 | NUR ---
RN Progress Note: Chief Complaint: MDD, anxiety, Legal hold: LPS Conserved Client on involuntary status for GD/DTS Report received from nurse with use of SBAR: ZAKI Garcia Why are they here: Pt admitted for increased paranoia and agitation and was transferred from a long-term facility. He is LPS conserved for being gravely disabled. Pt. has depression and previous suicide attempts, one during which he jumped off a bridge and broke his back. He has a history of anxiety and depression and multiple suicide attempts. Pt. has a history of chronic pain, alcoholism, and a possible TIA/stroke which left him with left-sided weakness. Diagnosis/presenting symptoms: anxiety, depression, GD Assessment Patient up for breakfast. He is compliant with all medications. He reports that he is still depressed and anxious, but no longer suicidal. He attends groups. He is forming a friendship with his roommate. He attempts to do the back exercises that physical therapy recommends and ambulates in the hester. He is in need of a PCP and will be transferring to [facility] in the next few days. S/I, H/I: Denies A/VH: Denies Sleep: Slept per noc shift and pt report. Naps ADL's: Pt. is able to ambulate independently with use of FWW. Shower today. Group attendance: Yes Were meds taken: Yes Any med S/E: None. Mental Status Exam Appearance: Neat and well groomed Eye contact: Good Behavior: Pleasant, cooperative Speech: Articulate, soft Mood: anxious, depressed Affect: euthymic Thought process: linear, logical Thought Content: future oriented Cognition: A&O X4 Insight: Good Judgment: Good Interventions PRN's used: PRN [place] 5/325 mg X2 Therapeutic interventions: 1:1 assessment, pain management, Q 15 minute checks, therapeutic active listening, medication education. Restraints/seclusion/emergency medication: no Justification of Continued Inpatient Treatment: Pt. remains at this facility awaiting placement by conservator. He will be discharged to [facility] this week. Arrangements are being made with public guardian for a PCP and discharge.
--- NOTE | 2018-04-06 16:47 | NUR ---
RN progress note: At Dr Kilpatrick request paged hospitalist Dr Hood. He did not respond. Paged group pager and Dr June answers,. Explained to MD that pt has had SOB and and multiple CXR and an Echocardiogram and placed on Lasix and pt continues to have SOB. MD states she will speak with Dr Hood tomorrow and call back to give an answer.
--- NOTE | 2018-04-06 16:54 | NUR ---
RN progress note: Called Rony wheeler at social workers request. Must call back Apr 07 to speak with Josie or Nori financial aid administrator.
[2018-04-06 19:57] VITALS: BP 138/73
[2018-04-06] MEDS: aripiprazole 5mg tablet PO SCH (20:58)
[2018-04-06] MEDS: HYDROcodone/acetaminophen 10/325mg tab PO SCH (20:59)
[2018-04-07] MEDS: HYDROcodone/acetaminophen 5mg/325mg tablet PO PRN ×4 (02:54→16:42)
--- NOTE | 2018-04-07 03:34 | NUR ---
RN Progress Note: Chief Complaint: Depression, anxiety, SI Legal hold: LPS Conserved Client on involuntary status for GD/DTS Report received from nurse with use of SBAR: ZAKI Randle Why are they here: Pt. admitted for increased paranoia and agitation and was transferred from a residential facility. He is LPS conserved for being gravely disabled. Pt. has depression and previous suicide attempts, one during which he jumped off a bridge and broke his back. He has a history of anxiety and depression and multiple suicide attempts. Pt. has a history of chronic pain, alcoholism, and a possible TIA/stroke which left him with left-sided weakness. Diagnosis/presenting symptoms: anxiety, depression, GD Assessment What has happened this shift: Pt is expecting to be discharged to [facility] in the next couple of days. He feels ready for DC but says he is a little nervous. Denies depression or SI. S/I, H/I: Denies A/VH: Denies Sleep: Asleep at this time. Woke up x1 given Doole per request went back to sleep. ADL's: Pt. is able to ambulate independently with use of FWW. No shower today. Group attendance: No group tonight. Were meds taken: Yes Any med S/E: None. Mental Status Exam Appearance: Neat and well groomed Eye contact: Good Behavior: Pleasant, cooperative Speech: Articulate, soft Mood: anxious Affect: euthymic Thought process: linear, logical Thought Content: future oriented Cognition: A&O X4 Insight: Good Judgment: Fair Interventions PRN's used: PRN Doole 5/325 mg X2 Therapeutic interventions: 1:1 assessment, pain management, Q 15 minute checks, therapeutic active listening, medication education. Restraints/seclusion/emergency medication: no Justification of Continued Inpatient Treatment: Pt. remains at this facility awaiting placement by conservator. Plan is to discharge to [facility] In the next couple days.
[2018-04-07 07:32] VITALS: BP 122/92
[2018-04-07] MEDS: ipratropium/albuterol 3ml nebule NEB SCH ×2 (07:50→20:47)
[2018-04-07] MEDS: BUDESONIDE 0.25 MG/2 ML AMPUL.NEB IH SCH ×2 (07:50→20:00)
[2018-04-07] MEDS: naproxen 375mg tablet PO SCH ×2 (07:58→20:00)
[2018-04-07] MEDS: duloxetine 30mg CAPSULE.DR PO SCH (07:58)
[2018-04-07] MEDS: LIDOcaine 5% patch TP SCH (07:58)
[2018-04-07] MEDS: docusate sod 100mg capsule PO SCH ×2 (07:58→21:20)
[2018-04-07] MEDS: clonazePAM 0.5mg tablet PO SCH ×3 (07:58→21:19)
[2018-04-07] MEDS: furosemide 20MG tablet PO SCH (07:58)
[2018-04-07] MEDS: buPROPion SR 150mg tablet PO SCH (07:58)
[2018-04-07] MEDS: atorvastatin 20mg tablet PO SCH (07:58)
--- NOTE | 2018-04-07 16:14 | NUR ---
Nursing Progress Note: Chief Complaint: Psychosis Legal hold: LPS Conserved Client on involuntary status for GD/DTS Report received from ZAKI Singer with use of SBAR Why are they here: Pt conserved for grave disability, he was admitted for depression with SI. He has previous suicide attempts including jumping off a bridge. Diagnosis/presenting symptoms: Psychosis, anxiety,depression, GD Assessment Pt was sleeping at change of shift. He was cooperative with assessment and medication administration. Pt reported feeling depressed and anxious because he thought he was going to leave today. PRN Mousie relieved back pain. Pt napped following lunch and did not attend group. He was concerned about getting a front-wheel walker when he is discharged. He indicated if one cannot be provided for him, he will rent one. S/I, H/I: Denies A/VH: Denies Sleep: Napped ADL's: Independent with front wheel walker Group attendance: No Were meds taken: Yes Any med S/E: None. Mental Status Exam Appearance: Clean and neat Eye contact: Direct Behavior: Cooperative Speech: Articulate Mood: Depressed Affect: Constricted Thought process: Linear and connected Thought Content: Logical Cognition: A&O X4 Insight: Good Judgment: Good Interventions PRN's used: PRN Mousie 5/325 mg x's 2. Therapeutic interventions: Established therapeutic relationship, offered support in a calm, nonthreatening manner, performed 1:1 assessment, educated and administered medications as ordered while monitoring for side effects, pain management, Q 15 minute checks Restraints/seclusion/emergency medication: N/A Justification of Continued Inpatient Treatment: Medication stabilization and management.
[2018-04-07 19:55] VITALS: BP 109/69
[2018-04-07] MEDS: aripiprazole 5mg tablet PO SCH (21:19)
[2018-04-07] MEDS: HYDROcodone/acetaminophen 10/325mg tab PO SCH (21:20)
--- NOTE | 2018-04-08 00:49 | NUR ---
RN Progress Note: Chief Complaint: MDD, anxiety, SI, depression Legal hold: LPS Conserved Client on involuntary status for GD/DTS Report received from nurse with use of SBAR: Olivia Why are they here: Pt. admitted for increased paranoia and agitation and was transferred from a [facility] facility. He is LPS conserved for being gravely disabled. Pt. has depression and previous suicide attempts, one during which he jumped off a bridge and broke his back. He has a history of anxiety and depression and multiple suicide attempts. Pt. has a history of chronic pain, alcoholism, and a possible TIA/stroke which left him with left-sided weakness. Diagnosis/presenting symptoms: anxiety, depression, GD Assessment Pt in group room at start of shift interacts with other pts and staff. Ambulates in [place] with FWW. Pt looking forward to discharge to [facility]. "I have asked around and people say it is an OK place" Cooperative with care took all meds. Went to sleep without difficulty sleeping at this time. S/I, H/I: Denies A/VH: Denies Sleep:sleeping at this time ADL's: Pt. is able to ambulate independently with use of FWW. No shower today. Group attendance: Yes Were meds taken: Yes Any med S/E: None. Mental Status Exam Appearance: Neat and well groomed Eye contact: Good Behavior: Pleasant, cooperative Speech: Articulate, soft Mood: good Affect: appropriate Thought process: linear, logical Thought Content: future oriented Cognition: A&O X4 Insight: Good Judgment: Fair Interventions PRN's used: PRN [place] 5/325 mg x1 Therapeutic interventions: 1:1 assessment, pain management, Q 15 minute checks, therapeutic active listening, medication education. Restraints/seclusion/emergency medication: no Justification of Continued Inpatient Treatment: Pt. remains at this facility awaiting placement by conservator. Discharge to [facility] expected tomorrow.
[2018-04-08 07:56] VITALS: BP 113/75
[2018-04-08] MEDS: HYDROcodone/acetaminophen 5mg/325mg tablet PO PRN ×2 (08:33→12:54)
[2018-04-08] MEDS: naproxen 375mg tablet PO SCH (08:34)
[2018-04-08] MEDS: clonazePAM 0.5mg tablet PO SCH ×2 (08:34→12:54)
[2018-04-08] MEDS: docusate sod 100mg capsule PO SCH (08:34)
[2018-04-08] MEDS: atorvastatin 20mg tablet PO SCH (08:34)
[2018-04-08] MEDS: duloxetine 30mg CAPSULE.DR PO SCH (08:34)
[2018-04-08] MEDS: buPROPion SR 150mg tablet PO SCH (08:34)
[2018-04-08] MEDS: furosemide 20MG tablet PO SCH (08:34)
[2018-04-08] MEDS: LIDOcaine 5% patch TP SCH (08:35)
[2018-04-08] MEDS ORDERED: clonazePAM 0.5mg tablet PO ONE (12:20)
[2018-04-08] MEDS ORDERED: HYDR-3965 PO (12:26)
[2018-04-08] MEDS ORDERED: AMOX-419 PO (12:30)
[2018-04-08] MEDS ORDERED: NICO2GUM47 BC (14:26)
--- NOTE | 2018-04-08 15:00 | NUR ---
Discharge Note Patient discharged to the [facility] ambulatory, with all his personal possessions. Accompanied by ZAKI Baker.Belongings inventoried in front of patient and inventory sheet signed. Elidia from the Public Guardian's office here to transport patient to his board and care. No signs and symptoms of distress. Denies suicidal ideation or intent. Given a new four wheel walker upon discharge. Community crisis service information and national suicide hotline handout given. Cassie Rosales, patient's public guardian, has arranged for all follow-up care for patient. Patient was not given nicotine replacement products because he states "I stopped smoking two years ago. I'm done."
--- NOTE | 2018-04-08 17:47 | NUR ---
RN Progress Note: Chief Complaint: MDD, anxiety, SI, depression Legal hold: LPS Conserved Client on involuntary status for GD/DTS Report received from nurse with use of SBAR: Carlie Why are they here: Pt. admitted for increased paranoia and agitation and was transferred [place] [facility]. He is LPS conserved for being gravely disabled. Pt. has depression and previous suicide attempts, one during which he jumped off a bridge and broke his back. He has a history of anxiety and depression and multiple suicide attempts. Pt. has a history of chronic pain, alcoholism, and a possible TIA/stroke which left him with left-sided weakness. Diagnosis/presenting symptoms: Grave disability, F25.1 Schizoaffective d/o, depressed Assessment Patient is met in his room this morning. He reports that his back is in pain and that he is tired of it. He is observed fidgeting with his hands and looking around often. Today he will discharge to [facility], when asked if he is anxious about this he reports that he does not know anything about it. RN described his new residence and allowed patient to discuss being able to go outside, which he is looking forward to. Patient is later observed in the group room with others. S/I, H/I: Denies A/VH: Denies Sleep: no issues reported ADL's: Independent. Group attendance: Yes Were meds taken: Yes Any med S/E: None reported, no IMs or tremors observed Mental Status Exam Appearance: Neat and well groomed Eye contact: direct Behavior: Pleasant, cooperative Speech: soft tone, normal rate and rhythm Mood: good Affect: appropriate Thought process: linear, goal directed Thought Content: future oriented Cognition: A&O X4 Insight: Good Judgment: Fair to good Interventions PRN's used: PRN [place] 5/325 mg x2 Therapeutic interventions: 1:1 therapeutic conversation with RN, pain management, Q 15 minute checks, therapeutic active listening, medication education. Restraints/seclusion/emergency medication: no Justification of Continued Inpatient Treatment: Discharged to [facility], outpatient appointments for primary care and psychiatry to be scheduled by Public Guardian.
== END 2018-04-08 15:05 | disposition home or self-care (01) | DRG 750 ==
LOC: ADULT MH 18:20
PROVIDERS: ADMIT Psychiatry & Neurology Psychiatry; ATTEND Psychiatry & Neurology Psychiatry
DX: F25.1 Schizoaffective disorder, depressive type (principal); R45.851 Suicidal ideations; F29 Unspecified psychosis not due to a substance or known physiological condition; F32.9 Major depressive disorder, single episode, unspecified; G89.29 Other chronic pain; I25.10 Atherosclerotic heart disease of native coronary artery without angina pectoris; F41.9 Anxiety disorder, unspecified; E78.5 Hyperlipidemia, unspecified; G47.00 Insomnia, unspecified; J02.9 Acute pharyngitis, unspecified; J44.9 Chronic obstructive pulmonary disease, unspecified; I10 Essential (primary) hypertension; M54.5 Low back pain; M54.6 Pain in thoracic spine; R26.81 Unsteadiness on feet; R94.31 Abnormal electrocardiogram [ECG] [EKG]; Z79.899 Other long term (current) drug therapy; Z98.61 Coronary angioplasty status; Z79.82 Long term (current) use of aspirin; Z87.81 Personal history of (healed) traumatic fracture; Z87.891 Personal history of nicotine dependence; Z81.1 Family history of alcohol abuse and dependence
CPT/HCPCS: 36415; 71045; 71046; 72074; 72110; 80048; 80053; 80061; 82607; 83036; 83540; 83550; 83880; 84443; 84484; 85025; 85610; 85730; 87070; 93005; 93306; 94640; 94760; 97110; 97116; 97161; 97162; 97530; 99285; J3490; J7512; J7626

== ENCOUNTER 2020-07-31 10:53 | Emergency (ER) | payer MEDICARE, MEDICAID ==
[~2020-07-31] VITALS: Ht 185.4 cm; Wt 65.9 kg
[~2020-07-31 10:53] MED LIST changes: +ALBU8.5H8 IH; +ARIP30TA22 PO; +ATOR20TA66 PO; +BUPR150T21 PO; +CLON1TAB96 PO; +COL100C PO; +CYCL-1 PO; +DULO30CA52 PO; -LORA-269 PO; -MIRT30TA PO; +NAPR-1166 PO; -NAPR220C15 PO; -OLAN10TA3 PO; +TIOT18CA3 PO; -ZOL50T PO; -ZOLP5TAB2 PO
[2020-07-31] MEDS ORDERED: LORazepam 1 MG tablet PO ONE (11:20)
--- NOTE | 2020-07-31 11:51 | NUR ---
PT TO CT VIA WHEELCHAIR WITH LPN PER DIEM AND SECURITY.
[2020-07-31 12:13] LABS: BASOPHILS # (AUTO) 0.1 X10'3 (0-0.2); BASOPHILS % (AUTO) 0.7 % (0-1); EOSINOPHILS # (AUTO) 0.2 X10'3 (0-0.9); EOSINOPHILS % (AUTO) 1.5 % (0-6); HEMATOCRIT 45.4 % (42.0-52.0); HEMOGLOBIN 15.5 g/dl (14.0-17.9); LYMPHOCYTES # (AUTO) 1.8 X10'3 (1.1-4.8); LYMPHOCYTES % (AUTO) 16.8 % (21-51); MEAN CORPUSCULAR HEMOGLOBIN 32.1 PG (27.0-31.0); MEAN CORPUSCULAR HGB CONC 34.1 g/dL (33.0-36.5); MEAN CORPUSCULAR VOLUME 94.2 FL (78-98); MEAN PLATELET VOLUME 8.4 FL (7.4-10.4); MONOCYTES # (AUTO) 0.7 X10'3 (0-0.9); MONOCYTES % (AUTO) 6.8 % (2-12); NEUTROPHILS # (AUTO) 8.1 X10'3 (1.8-7.7); NEUTROPHILS % (AUTO) 74.2 % (42-75); PLATELET COUNT 207 X10'3 (140-440); RED BLOOD COUNT 4.82 X10'6 (4.70-6.10); RED CELL DISTRIBUTION WIDTH 13.4 % (11.5-14.5)
[2020-07-31 12:16] LABS: ALANINE AMINOTRANSFERASE 73 U/L (12-78); ALBUMIN 4.1 G/DL (3.4-5.0); ALBUMIN/GLOBULIN RATIO 1.2 (1.1-1.5); ALKALINE PHOSPHATASE 88 IU/L (46-116); ANION GAP 13 (8-16); ASPARTATE AMINO TRANSFERASE 41 U/L (10-37); BILIRUBIN,TOTAL 0.6 MG/DL (0.1-1.0); BLOOD UREA NITROGEN 20 MG/DL (7-18); BUN/CREATININE RATIO 18.7 (5.4-32.0); CALCIUM 9.5 MG/DL (8.5-10.1); CHLORIDE 100 MMOL/L (99-107); CREATININE 1.07 MG/DL (0.60-1.10); GLUCOSE 80 MG/DL (70-104); POTASSIUM 3.7 MMOL/L (3.5-5.1); SODIUM 138 MMOL/L (135-145); TOTAL CARBON DIOXIDE 25.3 MMOL/L (24-32); TOTAL PROTEIN 7.6 G/DL (6.4-8.2); eGFR 70 ML/MIN
[2020-07-31 12:27] LABS: ETHANOL < 0.010 GM/DL (0.0-0.010)
[2020-07-31] MEDS ORDERED: OMEP-50 PO (13:24)
[2020-07-31] MEDS ORDERED: ALBU8HFA PO (13:24)
[2020-07-31] MEDS ORDERED: BUPR-344 PO (13:24)
[2020-07-31] MEDS ORDERED: HYDR-3686 PO (13:24)
[2020-07-31] MEDS ORDERED: TRAZ300T2 PO (13:24)
[2020-07-31] MEDS ORDERED: NICO-503 PO (13:24)
[2020-07-31] MEDS ORDERED: SERT-434 PO (13:24)
[2020-07-31] MEDS ORDERED: ATOR20TA66 PO (13:24)
[2020-07-31] MEDS ORDERED: DOCU100C40 PO (13:24)
[2020-07-31] MEDS ORDERED: MICO57CR2 TOP (13:24)
--- NOTE | 2020-07-31 13:35 | NUR ---
Received pt from ER main. Pt arrived and is laying peacefully without signs of distress.
[2020-07-31] MEDS ORDERED: hydrOXYzine 25 MG tablet PO PRN (14:10)
[2020-07-31] MEDS ORDERED: NICOTINE POLACRILEX 2 MG LOZENGE BC PRN (14:10)
[2020-07-31] MEDS ORDERED: albuterol 2.5 MG/3 ML nebule NEB PRN (14:10)
--- NOTE | 2020-07-31 15:00 | NUR ---
Pt lying in bed interacting with pt in the bed next to him. Pt has flat affect.
[2020-07-31 15:36] LABS: CLARITY,URINE CLOUDY (Clear); COLOR,URINE YELLOW (Yellow); GLUCOSE, URINE NEGATIVE (Neg); KETONES,URINE 40 mg/dl (Neg); LEUKOCYTE ESTERASE ,URINE NEGATIVE (Neg); NITRITES, URINE NEGATIVE (Neg); OCCULT BLOOD,URINE NEGATIVE (Neg); PROTEIN,URINE NEGATIVE (Neg)
[2020-07-31 15:42] LABS: UA COLLECTION TYPE CLN CATCH MIDSTREAM
[2020-07-31 15:48] LABS: URINE AMPHETAMINE SCREEN NEGATIVE (Neg); URINE BARBITUATE SCREEN NEGATIVE (Neg); URINE BENZODIAZEPINES SCREEN POSITIVE (Neg); URINE CANNABINOID SCREEN NEGATIVE (Neg); URINE COCAINE SCREEN NEGATIVE (Neg); URINE METHADONE SCREEN NEGATIVE (Neg); URINE OPIATE SCREEN NEGATIVE (Neg); URINE PHENCYCLIDINE SCREEN NEGATIVE (Neg)
[2020-07-31 15:49] LABS: AMORPHOUS PHOSPHATES 4+
[2020-07-31 15:50] LABS: BACTERIA,URINE FEW /HPF (Neg); MUCUS STRANDS MANY /LPF (Neg); RBC,URINE NONE SEEN /HPF (0-2); SPERM MANY /HPF (NEGATIVE); SQUAMOUS EPITHELIAL CELL,UR FEW /LPF (FEW); WBC,URINE 0-4 /HPF (0-4)
--- NOTE | 2020-07-31 16:06 | NUR ---
FAXED PACKET [facility]
--- NOTE | 2020-07-31 17:00 | NUR ---
Pt lying in bed awake without complaints. Pt is concerned that [facility] won't take him back. He seems to be comforted when informed they are planning to take him back.
[2020-07-31 17:43] VITALS: BP 115/62
[2020-07-31] MEDS ORDERED: miconazole nitrate cream 57gm TP SCH (20:00)
[2020-07-31] MEDS ORDERED: buPROPion SR 150mg tablet PO SCH (20:00)
[2020-07-31] MEDS ORDERED: docusate sod 100mg capsule PO SCH (20:00)
[2020-07-31] MEDS ORDERED: sertraline 50mg tablet PO SCH (21:00)
[2020-07-31] MEDS ORDERED: traZODone 150mg tablet PO SCH (21:00)
--- NOTE | 2020-07-31 21:07 | NUR ---
PT WITH FUNGUS TO NAILBEDS, CHRONIC, CREAM RECEIVED FROM PHARMACY, APPLIED NOW, PT UP TO BR TO VOID, STEADY GAIT, NO DISTRESS
[2020-08-01] MEDS ORDERED: pantoprazole 40mg Tablet.DR PO SCH (07:30)
[2020-08-01] MEDS ORDERED: atorvastatin 20mg tablet PO SCH (08:00)
== END 2020-07-31 22:02 ==
LOC: ER 10:53
DX: R45.851 Suicidal ideations (principal); F41.0 Panic disorder [episodic paroxysmal anxiety]; F32.9 Major depressive disorder, single episode, unspecified; J44.9 Chronic obstructive pulmonary disease, unspecified; G89.29 Other chronic pain; Z86.69 Personal history of other diseases of the nervous system and sense organs; Z98.890 Other specified postprocedural states; Z72.89 Other problems related to lifestyle; Z56.0 Unemployment, unspecified; Z59.0 Homelessness; Z79.899 Other long term (current) drug therapy
CPT/HCPCS: 36415; 70450; 71045; 80053; 80305; 80320; 81001; 84443; 85025; 87426; 93005; 99285

== ENCOUNTER 2021-07-05 16:23 | Inpatient (IN) | payer MEDICARE, MEDICAID ==
[~2021-07-05] VITALS: Ht 185.4 cm; Wt 63.9 kg
[~2021-07-05 16:23] MED LIST changes: -ALBU8.5H8 IH; +ALBU8HFA PO; -ARIP30TA22 PO; +BUPR-344 PO; -BUPR150T21 PO; -CLON1TAB96 PO; -COL100C PO; -CYCL-1 PO; +DOCU100C40 PO; -DULO30CA52 PO; +HYDR-3686 PO; +MICO57CR2 TOP; +MIRT-87 PO; -NAPR-1166 PO; +OLAN15TA35 PO; +OMEP20CA16 PO; +QUET100T34 PO; -TIOT18CA3 PO; +TRAZ-256 PO; +polyethylene glycol 3350 pkt PO; +tamsulosin capsule PO
[2021-07-05] MEDS ORDERED: loperamide 2mg capsule PO PRN (22:00)
[2021-07-05] MEDS ORDERED: acetaminophen 325mg tablet PO PRN (22:00)
[2021-07-05] MEDS ORDERED: magnesium hydroxide 30ml (MOM) UD suspension PO PRN (22:00)
[2021-07-05] MEDS ORDERED: mag hydrox/Alum hydrox/simeth 30ml oral suspension PO PRN (22:00)
[2021-07-05 22:04] VITALS: BP 96/53
[2021-07-05] MEDS ORDERED: mirtazapine 15mg tablet PO ONE (22:10)
[2021-07-05] MEDS ORDERED: quetiapine 100mg tablet PO ONE (22:10)
[2021-07-05] MEDS ORDERED: docusate sod 100mg capsule PO PRN (22:20)
[2021-07-05] MEDS ORDERED: hydrOXYzine 25 MG tablet PO PRN (22:20)
[2021-07-05] MEDS: traZODone 50mg tablet PO PRN (22:25)
[2021-07-05] MEDS ORDERED: polyethylene glycol 3350 17gm powd pack PO PRN (23:05)
--- NOTE | 2021-07-05 23:47 | NUR ---
ROUTER OPERATOR NOTE: LEGAL HOLD: LPS/5150 for DTS REASON FOR ADMIT: Client is living at [facility]. Client reported thoughts of suicide, feelings of paranoia, and visual hallucinations. THIS SHIFT: Client presented to unit at 21:15 in a wheelchair. Clients affect is distressed. His hair is disheveled, clothes are soiled, and he has poor hygiene. Refused a shower. Client was cooperative. He stated, "I haven't slept. I have to get up five times a night to use the bathroom." Client reports that his thoughts of suicide are r/t his inability to sleep through the night. Believes his inability to sleep are r/t prostate. Client is pre-diabetic. At [facility] his blood sugar dropped below 70 and required a snack to increase his blood sugar level. Client reports a prior suicide three years ago stating, "I jumped off [place]. The police were there before I jumped. I swam to the side. There was a cove there. I hurt my back." Denies other attempts. Client reports seeing "people appear then I look around and their gone". Reports, "I feel people are after me." Client was given 15 mg Remeron Tab PO, 100 mg Trazodone Tab PO, and 100 mg Seroquel Tab PO. Will monitor sleep pattern. Andreas Garcia inventoried personal belongings. Candice Scales RN obtained MRSA nasal swab, physical, and 2 RN skin assessment. Accompanied to unit by Security Bebe and SHERI You.
--- NOTE | 2021-07-06 05:38 | NUR ---
MED REC NOTE: [facility] Home Med list did not include all of the meds client is taking. Buspar needs to be reviewed. Client was discharged on Buspar last year. [facility] has Sertraline (not Buspar) on Home Med list. Client stated, "Marina Andrea has a list of my meds."
[2021-07-06 07:53] VITALS: BP 110/46
[2021-07-06] MEDS ORDERED: buPROPion SR 150mg tablet PO SCH (08:00)
[2021-07-06] MEDS: miconazole nitrate cream 57gm TP SCH ×2 (08:00→20:00)
[2021-07-06] MEDS: atorvastatin 20mg tablet PO SCH (08:33)
[2021-07-06] MEDS: pantoprazole 40mg Tablet.DR PO SCH (08:33)
--- NOTE | 2021-07-06 09:09 | NUR ---
Malnutrition consult: Pt reports 2-13 lb wt loss with decreased appetite per malnutrition risk screen with RN. Most recent scaled wt hx in EMR is 64.1 kg taken 08/22/20 with a standing scale, current scaled wt is 62.2 kg. This is nonsignificant wt loss of 3% in 10 months. Pt currently on a regular diet and eating well, documented with 100% PO intake first meal. Pt with no documented decrease in muscle strength or edema. Pt currently lacks a minimum of two criteria for malnutrition. Will continue to follow. Addendum: 07/06/21 at [address] Amended: Links added.
[2021-07-06 11:21] LABS: CHOL/HDL RATIO 3.2 (0.00-4.99); CHOLESTEROL 134 MG/DL (0-200); HDL CHOLESTEROL 42 MG/DL (35-60); LDL CHOLESTEROL 73 MG/DL (50-100); TRIGLYCERIDES 129 MG/DL (20-135)
[2021-07-06] MEDS ORDERED: hydrOXYzine 25 MG tablet PO PRN (12:40)
[2021-07-06] MEDS: NICOTINE POLACRILEX 2 MG LOZENGE BC PRN (12:45)
[2021-07-06] MEDS: propranolol 10mg tablet PO SCH ×2 (12:45→21:00)
[2021-07-06] MEDS ORDERED: ipratropium/albuterol 3ml nebule NEB PRN (13:45)
--- NOTE | 2021-07-06 15:56 | NUR ---
RN Progress Note Legal hold: LPS/5150 for DTS Client on involuntary status for DTS Report received from nurse, MAEGAN Treadwell with use of SBAR Why are they here: Client is living at [facility]. Client reported thoughts of suicide, feelings of paranoia, and visual hallucinations. Assessment What has happened this shift: Received pt sleeping on his bed at start of the shift. Pt up for all meals. He had multiple complaints today of anxiety. FANTA Rivas started him on propranolol and he was given Nicotine Lozenges with effectiveness. Pt requested to rest most of the day stating, "I feel tired and not feeling good." S/I, H/I: Denies A/VH: Denies Sleep: Slept on and off throughout the day ADL's: Pt requested a shower and change of clothes Group attendance: N/a Were meds taken: Yes Any med S/E: none noted or reported Mental Status Exam Appearance: frail, thin male with greyish blonde hair wearing personal clothing Eye contact: fair Behavior: Cooperative, isolative Speech: soft with normal rate and rhythm Mood: "I'm fine." Affect: Blunted Thought process: "I just want to sleep." Thought Content: He talked about medications and getting better Cognition: A&O x3 Insight: Poor Judgment: Fair Interventions PRN's used: Nicotine Krzysztof Therapeutic interventions: Provided 1:1 assessment with therapeutic communication and active listening, encouraged participation in unit activities, medication administration/education/monitoring, q 15 minute safety checks. Restraints/seclusion/emergency medication: N/A Justification: Pt is a conserved pt in need of medication stabilization after decompensating in his intermediate.
[2021-07-06] MEDS ORDERED: quetiapine 100mg tablet PO SCH (18:00)
[2021-07-06 19:00] VITALS: BP 102/50
[2021-07-06] MEDS ORDERED: OLANZAPINE 5 MG TABLET PO SCH (21:00)
[2021-07-06] MEDS ORDERED: mirtazapine 15mg tablet PO SCH ×2 (21:00)
[2021-07-06] MEDS: traZODone 50mg tablet PO SCH (21:46)
[2021-07-06] MEDS: tamsulosin 0.4mg capsule PO SCH (21:46)
[2021-07-06] MEDS: sertraline 50mg tablet PO SCH (21:47)
[2021-07-06] MEDS: olanzapine 10mg tablet PO SCH (21:47)
[2021-07-06] MEDS: quetiapine 100mg tablet PO SCH (21:47)
--- NOTE | 2021-07-07 04:46 | NUR ---
RN Progress Note Legal hold: LPS/5150 for DTS Client on involuntary status for DTS Report received from ZAKI Rouse with use of SBAR. Why are they here: Client is living at [facility]. Client reported thoughts of suicide, feelings of paranoia, and visual hallucinations. Assessment What has happened this shift: The patient was laying in bed following shift change. He is self isolating. The patient is soft spoken with a normal rate, rhythm, and tone. He is well oriented. The patient expresses a fear that he has been having, "that they are coming to take me away." The patient can't elaborate who might be coming to take him away. Patient tells this fiction writer he has has recent hallucinations but none today. The patient is medication compliant. His affect is blunted. Patient describes his mood as being good. He is cooperative and friendly. The patient is focused on getting better. Patient denies S/I or H/I. Interventions PRN's used: Therapeutic interventions: Provided 1:1 assessment with therapeutic communication and active listening, encouraged participation in unit activities, medication administration/education/monitoring, q 15 minute safety checks. Restraints/seclusion/emergency medication: N/A Justification: Pt is a conserved pt in need of medication stabilization after decompensating in his detention.
[2021-07-07] MEDS ORDERED: SERT100T PO (06:58)
[2021-07-07] MEDS ORDERED: BUPR-94 PO (07:04)
[2021-07-07] MEDS: pantoprazole 40mg Tablet.DR PO SCH (07:36)
[2021-07-07] MEDS: propranolol 10mg tablet PO SCH ×2 (07:36→13:00)
[2021-07-07] MEDS: buPROPion SR 150mg tablet PO SCH (07:36)
[2021-07-07] MEDS: atorvastatin 20mg tablet PO SCH (07:36)
[2021-07-07] MEDS: miconazole nitrate cream 57gm TP SCH (07:59)
[2021-07-07 08:30] VITALS: BP 98/52
[2021-07-07] MEDS ORDERED: DOCU100C40 PO (11:39)
[2021-07-07] MEDS ORDERED: FLUT1BLS4 PO (11:39)
[2021-07-07] MEDS ORDERED: TRAZ-256 PO (11:41)
[2021-07-07] MEDS ORDERED: BENZ0.5T4 PO (11:44)
[2021-07-07] MEDS ORDERED: NICO-503 PO (11:44)
[2021-07-07] MEDS ORDERED: NAPR220C62 PO (11:44)
[2021-07-07 11:51] LABS: HEMOGLOBIN A1C 5.2 % (4.5-6.2)
[2021-07-07] MEDS ORDERED: OMEP20CA16 PO (11:57)
[2021-07-07] MEDS ORDERED: ATOR20TA66 PO (11:57)
[2021-07-07] MEDS ORDERED: FLO0.4C PO (12:00)
[2021-07-07] MEDS ORDERED: OLAN15TA35 PO (12:00)
[2021-07-07] MEDS ORDERED: MIRT-116 PO (12:01)
[2021-07-07] MEDS ORDERED: MICO57CR2 TP (12:03)
--- NOTE | 2021-07-07 17:00 | NUR ---
Nursing Progress Note: Ayan Legal hold: 5150 Client on involuntary status for DTS Report received from MAEGAN Treadwell with use of SBAR Why they are here: Client is living at [facility]. Client reported thoughts of suicide, feelings of paranoia, and visual hallucinations. Assessment What has happened this shift: Patient is resting quietly in bed at the start of the shift. 1:1 done at bedside. Patient is cooperative with medications except anti-fungal cream which the patient states he no longer needs. Provider notified and cream is discontinued. Eats meals in the community room and interacts appropriately with staff and peers. Continues to endorse feelings of depression but denies any SI at this time. Patient appears guarded and isolates to his room. 1300 Propranolol held for BP below parameters. Provider notified. Accuchecks D/Cd due to A1C 5.2 on 07/06. S/I, H/I: Denies A/VH: Denies Sleep: 2 hours in the morning. Naps off and on throughout the day ADL's: Independent Group attendance: NA Were meds taken: Refuses anti-fungal cream, 1300 Propranolol held for BP below parameters. All other medication administered as ordered. Any med S/E: None observed or reported. Mental Status Exam Appearance: Thin older appearing man, greyish blonde hair, somewhat disheveled wearing casual personal attire. Eye contact: fair Behavior: Cooperative, isolative, guarded Speech: Clear, normal rate/ volume, minimal Mood: "Fine." Affect: Blunted Thought process: Depressed Thought Content: Depressed over his personal life. Cognition: A&O x3 Insight: Fair Judgment: Fair Interventions PRN's used: NA Therapeutic interventions: Provided 1:1 assessment with therapeutic communication and active listening, encouraged participation in unit activities, medication administration/education/monitoring, q 15 minute safety checks. Restraints/seclusion/emergency medication: N/A Justification: Pt is a conserved pt in need of medication stabilization after decompensating in his alf.
[2021-07-07 20:00] VITALS: BP 120/80
[2021-07-07] MEDS: benztropine 1mg tablet PO SCH (20:09)
[2021-07-07] MEDS: traZODone 50mg tablet PO SCH (20:10)
[2021-07-07] MEDS: quetiapine 100mg tablet PO SCH (20:10)
[2021-07-07] MEDS: tamsulosin 0.4mg capsule PO SCH (20:10)
[2021-07-07] MEDS: mirtazapine 15mg tablet PO SCH (20:10)
[2021-07-07] MEDS: sertraline 50mg tablet PO SCH (20:10)
[2021-07-07] MEDS: olanzapine 10mg tablet PO SCH (20:11)
--- NOTE | 2021-07-08 02:57 | NUR ---
Nursing Progress Note: Legal hold: 5150 Client on involuntary status for DTS Report received from Jin RN with use of SBAR Why they are here: Client is living at [facility]. Client reported thoughts of suicide, feelings of paranoia, and visual hallucinations. Assessment What has happened this shift: Patient seen resting on his bed at shift change. 1:1 at bedside. He isolates to his room all evening until snack time. Patient reports he is still depressed, but is not suicidal anymore. He says that he started feeling paranoid and unsafe at his correction. Patient reports feeling safe here. He received his HS meds while he was still in the group room. Patient is polite and remembers this fha underwriter from prior admission. He is compliant with all medicine. Went to bed soon after. S/I,H/I: Denies A/VH: Denies Sleep: See sleep assessment ADL's: Independent Group attendance: N/A Were meds taken: Yes. Any med S/E: None observed or reported. Mental Status Exam Appearance: Thin older appearing man, greyish blonde hair, somewhat disheveled wearing casual personal attire. Eye contact: fair Behavior: Cooperative, isolative, guarded Speech: Clear, normal rate/ volume, minimal Mood: " I'm OK." Affect: Blunted Thought process: Depressed Thought Content: Depressed over his personal life. Cognition: A&O x3 Insight: Fair Judgment: Fair Interventions PRN's used: NA Therapeutic interventions: Provided 1:1 assessment with therapeutic communication and active listening, encouraged participation in unit activities, medication administration/education/monitoring, q 15 minute safety checks. Restraints/seclusion/emergency medication: N/A Justification: Pt is a conserved pt in need of medication stabilization after decompensating in his correction.
[2021-07-08] MEDS: buPROPion SR 150mg tablet PO SCH (07:58)
[2021-07-08] MEDS: atorvastatin 20mg tablet PO SCH (07:58)
[2021-07-08] MEDS: pantoprazole 40mg Tablet.DR PO SCH (07:58)
[2021-07-08] MEDS: benztropine 1mg tablet PO SCH ×2 (07:58→20:12)
[2021-07-08 08:00] VITALS: BP 113/66
--- NOTE | 2021-07-08 10:33 | NUR ---
Pt. attended group today. The topic today was identifying the triggers, signs and symptoms of an upcoming episode/event so that Pts. can learn to apply coping skills before they get to a bad place with their symptoms. Pt. engaged minimally in the group but when asked to share he would. He listened to his peers and this Community Manager. His demeanor was calm and compliant. He participated in the written activity and shared that his trigger is thoughts about failing he ends up getting depressing and hopeless. He recognizes he needs to think more positively but struggles to do so. His thought content and thought process were WNL. Remedios Richardson LCSW
--- NOTE | 2021-07-08 10:56 | NUR ---
Pt. attended group today. The topic today was identifying the triggers, signs and symptoms of an upcoming episode/event so that Pts. can learn to apply coping skills before they get to a bad place with their symptoms. Pt. was engaged in the group. His thought content contains possible delusional content. Today he shared that his triggering thought is when he thinks of kate (which is a giant squid) he ends up feeling like food. He remembered that he needs to survive. It is hard to discern whether he is dealing with delusional type thoughts or just attempting to be a bit "different". He appears to enjoy saying things that are strange/bizarre and seeing what reaction he can get. An example of this was when this Black Top Raker walked into the room he remarked that I smelled like marijuana. This Black Top Raker responded by saying "hmm maybe you are smelling my perfume". To which he stated, "Is that what they are calling it these days". His thought process is linear. His mood is dysphoric with restricted affect. Remedios Richardson LCSW Addendum: 07/11/21 at 1002 by Remedios Richardson SS This group note was meant to be written in another person's chart. This is not his note for this group.
[2021-07-08] MEDS: NICOTINE POLACRILEX 2 MG LOZENGE BC PRN (17:17)
--- NOTE | 2021-07-08 17:39 | NUR ---
Nursing Progress Note: Legal hold: 5150 Client on involuntary status for DTS Report received from MAEGAN Singer with use of SBAR Why they are here: Client is living at [facility]. Client reported thoughts of suicide, feelings of paranoia, and visual hallucinations. Assessment What has happened this shift: RN received pt. asleep in bed at start of shift. Pt. awoke for breakfast and took all medications. 1:1 done at bedside, pt. reports visual hallucinations, that he will see people sitting in front of him but they will disappear. Pt. reports he is here because he was getting stressed out, pt. unable to give further background information. Pt. reports hes concerned about getting back to [facility] and perseverates on his discharge plan. Pt. socializes minimally with peers and staff. Pt. isolates to his room most of the day. Pt. did go to groups. Pt. c/o of anxiety r/t being discharged today, pt. informed he's not being discharged. Pt. offered PRN Atarax 50mg po and received it with moderate effect. S/I, H/I: Denies A/VH: Denies Sleep: Pt. naps intermittently throughout the day. ADL's: Independent Group attendance: Yes Were meds taken: Yes Any med S/E: Denies. None observed. Mental Status Exam Appearance: Thin older appearing man, greyish blonde hair, somewhat disheveled wearing casual personal attire. Eye contact: WNL Behavior: Cooperative, isolative, guarded, attends groups. Speech: WNL Mood: Anxious Affect: Blunted Thought process: Depressed Thought Content: Focused on getting back to [facility]. Cognition: A&O x3 Insight: Fair Judgment: Fair Interventions PRN's used: Atarax 25mg po x1 Therapeutic interventions: Provided 1:1 assessment with therapeutic communication and active listening, encouraged participation in unit activities, medication administration/education/monitoring, q 15 minute safety checks. Restraints/seclusion/emergency medication: N/A Justification: Pt is a conserved pt in need of medication stabilization after decompensating in his senior living.
[2021-07-08] MEDS: tamsulosin 0.4mg capsule PO SCH (20:12)
[2021-07-08] MEDS: traZODone 50mg tablet PO SCH (20:12)
[2021-07-08] MEDS: quetiapine 100mg tablet PO SCH (20:13)
[2021-07-08] MEDS: mirtazapine 15mg tablet PO SCH (20:13)
[2021-07-08] MEDS: olanzapine 10mg tablet PO SCH (20:14)
[2021-07-08] MEDS: sertraline 50mg tablet PO SCH (20:14)
[2021-07-08 20:28] VITALS: BP 131/62
--- NOTE | 2021-07-09 01:44 | NUR ---
Nursing Progress Note: Legal hold: 5150 Client on involuntary status for DTS Report received from ZAKI Schrader with use of SBAR Why they are here: Client is living at [facility]. Client reported thoughts of suicide, feelings of paranoia, and visual hallucinations. Assessment What has happened this shift: Patient isolating and napping at shift change. 1:1 at bedside. Patient perseverates on issue of returning to his residence at [facility]. Patient worries that he'll be made to leave before he is ready. He also reports that he's sleeping well here, which is a relief, as he hasn't slept well in some time, by his account. He continues to isolate to his room until snack time, when he'll come sit in the group room and eat. He stays long enough to accept his HS meds, then he goes back to his room. S/I,H/I: Denies A/VH: Denies Sleep: See sleep assessment ADL's: Independent Group attendance: N/A Were meds taken: Yes. Any med S/E: None observed or reported. Mental Status Exam Appearance: Thin older appearing man, greyish blonde hair, somewhat disheveled wearing casual personal attire. Eye contact: fair Behavior: Cooperative, isolative, guarded Speech: Clear, normal rate/ volume, minimal Mood: " I'm OK." Affect: Blunted Thought process: Linear, goal oriented. Thought Content: Depressed over his personal life. Cognition: A&O x3 Insight: Fair Judgment: Fair Interventions PRN's used: NA Therapeutic interventions: Provided 1:1 assessment with therapeutic communication and active listening, encouraged participation in unit activities, medication administration/education/monitoring, q 15 minute safety checks. Restraints/seclusion/emergency medication: N/A Justification: Pt is a conserved pt in need of medication stabilization after decompensating in his [facility].
--- NOTE | 2021-07-09 07:20 | NUR ---
Initial: Pt admitted w/ Major depressive disorder per EMR. Currently on regular diet w/ mostly 100% intake of meals meeting est nutrient needs at this time. LBM / w/ PRN bowel care available. No nutrition intervention implemented at this time, will continue to monitor. Recs: 1. Continue Regular diet as tolerated 2. Bowel care per rx 3. Weekly wts Addendum: 07/09/21 at [address] Amended: Links added.
[2021-07-09 07:46] VITALS: BP 106/62
[2021-07-09] MEDS: atorvastatin 20mg tablet PO SCH (08:07)
[2021-07-09] MEDS: pantoprazole 40mg Tablet.DR PO SCH (08:07)
[2021-07-09] MEDS: benztropine 1mg tablet PO SCH ×2 (08:07→20:54)
[2021-07-09] MEDS: buPROPion SR 150mg tablet PO SCH (08:07)
--- NOTE | 2021-07-09 11:03 | NUR ---
Met with patient to discuss discharge plan and alleviate any concerns. His SAFFELL Team caser had reported that Ayan was anxious about discharge and worried he would get discharged to the streets in the middle of the night. Informed Ayan that he can return to [facility] which he stated he was happy about. Informed him we discharge during the day typically and that a [place] commercial trailer truck driver will transport him back to [facility]. He reported he was feeling better and denied any current SI. CUCA Thurman
[2021-07-09] MEDS: acetaminophen 325mg tablet PO PRN ×2 (11:29→20:58)
--- NOTE | 2021-07-09 17:15 | NUR ---
Nursing Progress Note: Legal hold: 5150/LPS Client on involuntary status for DTS Report received from MAEGAN Turner with use of SBAR Why they are here: Client is living at [facility]. Client reported thoughts of suicide, feelings of paranoia, and visual hallucinations. Assessment What has happened this shift: RN received pt. asleep in bed at start of shift. Pt. awoke for breakfast and took all medications. During 1:1 pt. continues to report some visual hallucinations, states he sees people who disappear in front of him. Pt. is anxious and wants to communicate with his pillowcase sewer. Pt. observed calling his pillowcase sewer. Pt. isolated to his room most of the day, except to eat meals. S/I, H/I: Denies A/VH: Denies Sleep: Pt. slept 8 hrs on NOC shift and naps intermittently throughout the day. ADL's: Independent Group attendance: Yes Were meds taken: Yes Any med S/E: Denies. Denies. None observed. Mental Status Exam Appearance: Thin older appearing man, greyish blonde hair, somewhat disheveled wearing casual personal attire. Eye contact: WNL Behavior: Cooperative, isolative, guarded, attends groups. Speech: WNL Mood: Anxious Affect: Blunted Thought process: Linear, perseverative. Thought Content: Focused on getting back to [facility]. Cognition: A&O x3 Insight: Fair Judgment: Fair Interventions PRN's used: None Therapeutic interventions: Provided 1:1 assessment with therapeutic communication and active listening, encouraged participation in unit activities, medication administration/education/monitoring, q 15 minute safety checks. Restraints/seclusion/emergency medication: N/A Justification: Pt is a conserved pt in need of medication stabilization after decompensating in his [place] [facility]
[2021-07-09 20:37] VITALS: BP 115/74
[2021-07-09] MEDS: quetiapine 100mg tablet PO SCH (20:54)
[2021-07-09] MEDS: sertraline 50mg tablet PO SCH (20:54)
[2021-07-09] MEDS: hydrOXYzine 25 MG tablet PO SCH ×2 (20:55→21:00)
[2021-07-09] MEDS: olanzapine 10mg tablet PO SCH (20:55)
[2021-07-09] MEDS: traZODone 50mg tablet PO SCH (20:55)
[2021-07-09] MEDS: tamsulosin 0.4mg capsule PO SCH (20:55)
[2021-07-09] MEDS: mirtazapine 15mg tablet PO SCH ×2 (20:56→21:00)
--- NOTE | 2021-07-10 05:57 | NUR ---
Nursing progress note: Received report from Yue along with ROBINAR: Patient pleasant and cooperative. No delusions, hallucinations, or expressive intent to harm self or others. Patient allowed assessment and took most of PM medications with ease, did refuse Mirtazapine and Atarax. He stated that he "didn't take those". He did c/o lower L back pain, prn Tylenol 650mg given. Patient allowed minimal contact and conversation. Patient slept remainder of night.
[2021-07-10] MEDS: hydrOXYzine 25 MG tablet PO SCH ×3 (07:50→20:07)
[2021-07-10] MEDS: atorvastatin 20mg tablet PO SCH (07:51)
[2021-07-10] MEDS: buPROPion SR 150mg tablet PO SCH (07:51)
[2021-07-10] MEDS: pantoprazole 40mg Tablet.DR PO SCH (07:51)
[2021-07-10] MEDS: benztropine 1mg tablet PO SCH ×2 (07:51→20:07)
[2021-07-10 07:54] VITALS: BP 109/55
--- NOTE | 2021-07-10 17:16 | NUR ---
Nursing Progress Note: Legal hold: LPS Client on involuntary status for DTS Report received from MAEGAN Turner with use of SBAR Why they are here: Client is living at [facility]. Client reported thoughts of suicide, feelings of paranoia, and visual hallucinations. Assessment What has happened this shift: RN received pt. asleep in bed at start of shift. Pt. awoke for breakfast and took all medications. During 1:1 pt. denies SI/HI, A/V hallucinations. Pt. reports feeling anxious about getting back to [facility]. Pt. received scheduled Atarax @ 1200 with good effect. Pt. did go to group as well as the patio, otherwise pt. isolated to his room most of the day and socialized minimally. S/I, H/I: Denies A/VH: Denies Sleep: Pt. slept 7.75 hrs on NOC shift and naps intermittently throughout the day. ADL's: Independent Group attendance: Yes Were meds taken: Yes Any med S/E: Denies. Denies. None observed. Mental Status Exam Appearance: Thin older appearing man, greyish blonde hair, somewhat disheveled wearing casual personal attire. Eye contact: WNL Behavior: Cooperative, isolative, guarded, attends groups. Speech: WNL Mood: Anxious Affect: Blunted Thought process: Linear. Thought Content: Focused on getting back to [facility]. Cognition: A&O x4 Insight: Fair Judgment: Fair Interventions PRN's used: None Therapeutic interventions: Provided 1:1 assessment with therapeutic communication and active listening, encouraged participation in unit activities, medication administration/education/monitoring, q 15 minute safety checks. Restraints/seclusion/emergency medication: N/A Justification: Pt is a conserved pt in need of medication stabilization after decompensating in his assisted
[2021-07-10 20:00] VITALS: BP 118/62
[2021-07-10] MEDS: sertraline 50mg tablet PO SCH (20:07)
[2021-07-10] MEDS: tamsulosin 0.4mg capsule PO SCH (20:07)
[2021-07-10] MEDS: traZODone 50mg tablet PO SCH (20:07)
[2021-07-10] MEDS: olanzapine 10mg tablet PO SCH (20:08)
[2021-07-10] MEDS: quetiapine 100mg tablet PO SCH (20:08)
[2021-07-10] MEDS: mirtazapine 15mg tablet PO SCH (20:08)
--- NOTE | 2021-07-11 03:28 | NUR ---
Nursing Progress Note: Legal hold: 5150 Client on involuntary status for DTS Report received from ZAKI Schrader with use of SBAR Why they are here: Client is living at [facility]. Client reported thoughts of suicide, feelings of paranoia, and visual hallucinations. Assessment What has happened this shift: Patient seen resting on his bed at shift change. 1:1 at bedside. Pt was up in the dayroom with peers playing the guitar. Pt stayed awake for snack, then returned to his room after taking his medications. S/I,H/I: Denies A/VH: Denies Sleep: See sleep assessment ADL's: Independent Group attendance: N/A Were meds taken: Yes. Any med S/E: None observed or reported. Mental Status Exam Appearance: Thin older appearing man, greyish blonde hair, somewhat disheveled wearing casual personal attire. Eye contact: fair Behavior: Cooperative, isolative, guarded Speech: Clear, normal rate/ volume, minimal Mood: " I'm OK." Affect: Blunted Thought process: Depressed Thought Content: Depressed over his personal life. Cognition: A&O x3 Insight: Fair Judgment: Fair Interventions PRN's used: NA Therapeutic interventions: Provided 1:1 assessment with therapeutic communication and active listening, encouraged participation in unit activities, medication administration/education/monitoring, q 15 minute safety checks. Restraints/seclusion/emergency medication: N/A Justification: Pt is a conserved pt in need of medication stabilization after decompensating in his shelter.
[2021-07-11 08:15] VITALS: BP 117/52
[2021-07-11] MEDS: atorvastatin 20mg tablet PO SCH (08:23)
[2021-07-11] MEDS: pantoprazole 40mg Tablet.DR PO SCH (08:23)
[2021-07-11] MEDS: buPROPion SR 150mg tablet PO SCH (08:23)
[2021-07-11] MEDS: benztropine 1mg tablet PO SCH ×2 (08:23→20:03)
[2021-07-11] MEDS: hydrOXYzine 25 MG tablet PO SCH ×3 (08:24→20:03)
[2021-07-11] MEDS: acetaminophen 325mg tablet PO PRN (08:26)
[2021-07-11] MEDS: NICOTINE POLACRILEX 2 MG LOZENGE BC PRN ×2 (08:51→17:13)
--- NOTE | 2021-07-11 09:32 | NUR ---
Pt attended both groups today. In the first group we talked about Self Nurturing about how to curate spaces of nurture/self-care for themselves. In the second group we did an Expressive Art Exercise where they niya out their path to wellness which mapped out how they will keep themselves well. Pt. engaged appropriately in both groups. He shared minimally in the first group, this Logistics Manager helped him understand the instructions in both groups and he was able to share what safe and nurturing spaces were for him and draw out his own path to wellness. He shared appropriately with the group. His demeanor was calm, compliant and pleasant to work with. He struggles to share his thoughts at times but keeps at it and jumps in when asked. Remedios Richardson, AUTO CAMP ATTENDANT
--- NOTE | 2021-07-11 13:28 | NUR ---
Nursing Progress Note: Legal hold: LPS Client on involuntary status for DTS Report received from nurse with use of SBAR: ZAKI Turner Why are they here: Client is living at [facility]. Client reported thoughts of suicide, feelings of paranoia, and visual hallucinations. Assessment What has happened this shift: Received pt. sleeping in bed at the beginning of the shift, he awoke before breakfast to check the time. This public relations writer introduced herself and established rapport, pt. presents as cooperative, anxious, guarded, and withdrawn. He attended breakfast in the Group Room with direction from staff, and afterwards returned back to his room where he remained withdrawn throughout much of the shift. 1:1 was completed at bedside, pt. exhibits soft speech with latency of response, and requires some questions to be asked multiple times with further clarification. He appears anxious AEB fidgeting and difficulty focusing throughout the conversation. Pt. denies any S/I, H/I, or A/DUNCAN. However he does admit to some V/DUNCAN and states, "I see people, and then I look away and look back and they aren't there." He reports he feels he needs more time on the unit and does not feel ready to leave yet. Pt. did attend morning group, however remained withdrawn to his room throughout much of the day. He c/o pain to his right heel, and upon assessment a small open area was noted (appeared to be a crack r/t dry skin). Area was cleaned with N/S, ABT ointment was applied, and a picture was taken and placed in pt's chart. FANTA Hanley was notified, and Eucerin Cream was ordered r/t dryness present on pt's bilateral feet. S/I, H/I: Denies A/VH: Pt. reports ongoing V/DUNCAN Sleep: Sleep hours are 6.75, however pt. reports restless sleep ADL's: Pt. requires encouragement and some direction Group attendance: Yes Were meds taken: Yes Any med S/E: None Mental Status Exam Appearance: Neat and appropriately dressed. Pt's facial hair is somewhat unkept, however he requests to shave today Eye contact: Moderate Behavior: Cooperative, anxious, guarded, and withdrawn Speech: Soft with a latent response to direct questions Mood: Anxious Affect: Blunted Thought process: Linear Thought Content: Ongoing V/DUNCAN and anxiety Cognition: A&O X4 Insight: Poor Judgment: Poor Interventions PRN's used: None Therapeutic interventions: Introduced self and established rapport, maintained a safe and supportive environment, ensured contract for safety, provided clear and simple instructions, attempted to orient to reality, encouraged independent performance of ADLs and participation on the unit, and maintained Q 15min safety checks. Restraints/seclusion/emergency medication: N/A Justification of Continued Inpatient Treatment: Per Talon PA, pt. continues to require a safe and supportive environment and medication adjustments.
[2021-07-11 20:00] VITALS: BP 118/80
[2021-07-11] MEDS: tamsulosin 0.4mg capsule PO SCH (20:03)
[2021-07-11] MEDS: mirtazapine 15mg tablet PO SCH (20:03)
[2021-07-11] MEDS: quetiapine 100mg tablet PO SCH (20:03)
[2021-07-11] MEDS: olanzapine 10mg tablet PO SCH (20:03)
[2021-07-11] MEDS: traZODone 50mg tablet PO SCH (20:04)
[2021-07-11] MEDS: mineral oil/petrolatum, white cream 113gm jar TP SCH (20:04)
[2021-07-11] MEDS: sertraline 50mg tablet PO SCH (20:04)
--- NOTE | 2021-07-12 03:46 | NUR ---
Nursing Progress Note: Ayan Vásquez Legal hold: LPS Client on involuntary status for DTS Report received from nurse with use of SBAR: Surjit RN Why are they here: Client is living at [facility]. Client reported thoughts of suicide, feelings of paranoia, and visual hallucinations. Assessment What has happened this shift: Received pt. lying in bed resting. He states he has had panic attacks and isnt sure if he is on the right medication. He currently reports some depression and anxiety. Pt denies SI however endorsed seeing things (like someone walking behind me and I turn around and they are gone.) Pt stated he had told Jhony JEWELL about this. Pt up for snacks and took all HS medications. Eucerin cream applied bilaterally to dry feet. S/I, H/I: Denies A/VH: Pt. reports ongoing V/DUNCAN Sleep: ADL's: Pt. requires encouragement and some direction Group attendance: Were meds taken: Yes Any med S/E: None Mental Status Exam Appearance: Neat and appropriately dressed. Pt's facial hair is somewhat unkept Eye contact: Moderate Behavior: Cooperative, anxious, guarded, and withdrawn Speech: Soft with a latent response to direct questions Mood: Anxious Affect: Blunted Thought process: Linear Thought Content: Ongoing V/DUNCAN and anxiety Cognition: A&O X4 Insight: Poor Judgment: Poor Interventions PRN's used: None Therapeutic interventions: Introduced self and established rapport, maintained a safe and supportive environment, ensured contract for safety, provided clear and simple instructions, attempted to orient to reality, encouraged independent performance of ADLs and participation on the unit, and maintained Q 15min safety checks. Restraints/seclusion/emergency medication: N/A Justification of Continued Inpatient Treatment: Per FANTA Hanley, pt. continues to require a safe and supportive environment and medication adjustments.
[2021-07-12 08:00] VITALS: BP 93/78
[2021-07-12] MEDS: buPROPion SR 150mg tablet PO SCH (08:44)
[2021-07-12] MEDS: OLANZAPINE 5 MG TABLET PO SCH (08:44)
[2021-07-12] MEDS: atorvastatin 20mg tablet PO SCH (08:44)
[2021-07-12] MEDS: hydrOXYzine 25 MG tablet PO SCH ×3 (08:44→20:31)
[2021-07-12] MEDS: pantoprazole 40mg Tablet.DR PO SCH (08:44)
[2021-07-12] MEDS: benztropine 1mg tablet PO SCH ×2 (08:44→20:31)
[2021-07-12] MEDS: mineral oil/petrolatum, white cream 113gm jar TP SCH ×2 (08:45→20:32)
[2021-07-12] MEDS: acetaminophen 325mg tablet PO PRN (08:45)
--- NOTE | 2021-07-12 13:33 | NUR ---
Nursing Progress Note: Legal hold: LPS Client on involuntary status for DTS Report received from nurse with use of SBAR: Terri Long RN Why are they here: Client is living at [facility]. Client reported thoughts of suicide, feelings of paranoia, and visual hallucinations. Assessment What has happened this shift: Received pt. awake standing in the doorway of his room at the beginning of the shift, he appeared anxious AEB slight a tremor in his bilateral upper extremities and continued latency of speech. Pt. stated, "I need to call Marina Mendez to get a ride home today." This parts data writer provided active listening and positive encouragement and educated pt. that he is not scheduled to leave today. Pt. reported some understanding, however later asked to speak to his social media developer regarding his belief that he is going to be discharged (and is not ready to do so yet) or that he will not be accepted back at [facility]. 1:1 completed later at bedside, pt. continues to deny S/I, but does report ongoing V/DUNCAN of "People" and anxiety. During the conversation, pt. appears anxious and frequently looks over his shoulder at something that is not present. Pt. continued to remain withdrawn from others throughout the shift, but he does attend groups with encouragement. He perseverates throughout the day on his fear of discharge, and not being able to return to [facility] and requires redirection with effectiveness. S/I, H/I: Denies A/VH: Pt. reports ongoing V/DUNCAN of people Sleep: Sleep hours are 8.25 and pt. naps intermittently during the day ADL's: Pt. requires encouragement and some direction Group attendance: Yes Were meds taken: Yes Any med S/E: None Mental Status Exam Appearance: Neat and appropriately dressed. Pt. was able to shower today with set-up help only Eye contact: Moderate Behavior: Cooperative, anxious, guarded, and withdrawn Speech: Soft with a latent response to direct questions Mood: Anxious Affect: Blunted Thought process: Linear Thought Content: Ongoing V/DUNCAN and anxiety. Perseveration regarding fear of being discharged. Cognition: A&O X4 Insight: Poor Judgment: Poor Interventions PRN's used: None Therapeutic interventions: Maintained a safe and supportive environment, ensured contract for safety, provided clear and simple instructions, attempted to orient to reality, encouraged independent performance of ADLs and participation on the unit, provided active listening and positive encouragement, applied Eucerin to bilateral feet and monitored dryness, and maintained Q 15min safety checks. Restraints/seclusion/emergency medication: N/A Justification of Continued Inpatient Treatment: Per FANTA Hanley, pt. continues to require a safe and supportive environment and medication adjustments.
[2021-07-12 20:00] VITALS: BP 124/48
[2021-07-12] MEDS: quetiapine 100mg tablet PO SCH (20:31)
[2021-07-12] MEDS: tamsulosin 0.4mg capsule PO SCH (20:31)
[2021-07-12] MEDS: mirtazapine 15mg tablet PO SCH (20:32)
[2021-07-12] MEDS: sertraline 50mg tablet PO SCH (20:32)
[2021-07-12] MEDS: olanzapine 10mg tablet PO SCH (20:32)
[2021-07-12] MEDS: traZODone 50mg tablet PO SCH (20:32)
--- NOTE | 2021-07-13 00:27 | NUR ---
Nursing Progress Note: Fahad Legal hold: LPS Client on involuntary status for DTS Report received from nurse with use of SBAR: Surjit HAINES Why are they here: Client is living at [facility]. Client reported thoughts of suicide, feelings of paranoia, and visual hallucinations. Assessment What has happened this shift: Received pt. lying in bed resting. Pt stated that he is feeling anxious 8/10, and is requesting medication. This song writer let the patient know he will get his anti-anxiety at medication time. Pt denies SI and AH but continues to report VH (people walking behind him and when he turns around they are gone.) He states his mood is anxious. Pt up for snacks and took all HS medication without issue. S/I, H/I: Denies A/VH: Pt. reports ongoing V/DUNCAN of people Sleep: ADL's: Pt. requires encouragement and some direction Group attendance: Yes Were meds taken: Yes Any med S/E: None Mental Status Exam Appearance: Neat and appropriately dressed. Eye contact: Moderate Behavior: Cooperative, anxious, guarded, and withdrawn Speech: Soft with a latent response to direct questions Mood: Anxious Affect: Blunted Thought process: Linear Thought Content: Ongoing V/DUNCAN and anxiety. Perseveration regarding fear of being discharged. Cognition: A&O X4 Insight: Poor Judgment: Poor Interventions PRN's used: None Therapeutic interventions: Maintained a safe and supportive environment, ensured contract for safety, provided clear and simple instructions, attempted to orient to reality, encouraged independent performance of ADLs and participation on the unit, provided active listening and positive encouragement, applied Eucerin to bilateral feet and monitored dryness, and maintained Q 15min safety checks. Restraints/seclusion/emergency medication: N/A Justification of Continued Inpatient Treatment: Per FANTA Hanley, pt. continues to require a safe and supportive environment and medication adjustments.
[2021-07-13 08:00] VITALS: BP 101/64
[2021-07-13] MEDS: NICOTINE POLACRILEX 2 MG LOZENGE BC PRN (08:36)
[2021-07-13] MEDS: OLANZAPINE 5 MG TABLET PO SCH (08:38)
[2021-07-13] MEDS: benztropine 1mg tablet PO SCH ×2 (08:38→20:19)
[2021-07-13] MEDS: pantoprazole 40mg Tablet.DR PO SCH (08:38)
[2021-07-13] MEDS: atorvastatin 20mg tablet PO SCH (08:38)
[2021-07-13] MEDS: acetaminophen 325mg tablet PO PRN (08:38)
[2021-07-13] MEDS: buPROPion SR 150mg tablet PO SCH (08:38)
[2021-07-13] MEDS: mineral oil/petrolatum, white cream 113gm jar TP SCH ×2 (08:38→20:20)
[2021-07-13] MEDS: hydrOXYzine 25 MG tablet PO SCH ×3 (08:38→20:20)
--- NOTE | 2021-07-13 15:16 | NUR ---
Nursing Progress Note: Legal hold: LPS Client on involuntary status for DTS Report received from nurse with use of SBAR: Terri Long RN Why are they here: Client is living at [facility]. Client reported thoughts of suicide, feelings of paranoia, and visual hallucinations. Assessment What has happened this shift: Received pt. sleeping in bed at the beginning of the shift, he was awoken by staff to attend breakfast in the Group Room. Afterwards, pt. retreated back to his room where he continued to be withdrawn. 1:1 was completed at bedside, pt. again appears visibility anxious AEB fidgeting and some trouble finding words, but his latency of speech has improved. When questioned by this consumer loan underwriter regarding the cause for his anxiety, pt. again reported a fear of being discharged. This consumer loan underwriter provided active listening and positive encouragement and pt. reported some contentment. He did not perseverate as much on this fear throughout the shift. Pt. again reports ongoing V/DUNCAN of "People." He was more visible on the unit this shift and attended group. However, pt. remains guarded and withdrawn from others. S/I, H/I: Denies A/VH: Pt. reports ongoing V/DUNCAN of people Sleep: Sleep hours are 6.75 and pt. naps intermittently during the day ADL's: Pt. requires encouragement and some direction Group attendance: Yes Were meds taken: Yes Any med S/E: None Mental Status Exam Appearance: Neat and appropriately dressed. Pt. was able to shower today with set-up help only Eye contact: Moderate Behavior: Cooperative, anxious, guarded, and withdrawn Speech: Soft, some trouble finding words, but his latency of speech has improved Mood: Anxious Affect: Blunted Thought process: Linear Thought Content: Ongoing V/DUNCAN and anxiety. Perseveration regarding fear of being discharged. Cognition: A&O X4 Insight: Poor Judgment: Poor Interventions PRN's used: None Therapeutic interventions: Maintained a safe and supportive environment, ensured contract for safety, provided clear and simple instructions, attempted to orient to reality, encouraged independent performance of ADLs and participation on the unit, provided active listening and positive encouragement, applied Eucerin to bilateral feet and monitored dryness, and maintained Q 15min safety checks. Restraints/seclusion/emergency medication: N/A Justification of Continued Inpatient Treatment: Per FANTA Hanley, pt. continues to require a safe and supportive environment and medication adjustments.
[2021-07-13 20:00] VITALS: BP 120/78
[2021-07-13] MEDS: tamsulosin 0.4mg capsule PO SCH (20:19)
[2021-07-13] MEDS: sertraline 50mg tablet PO SCH (20:19)
[2021-07-13] MEDS: mirtazapine 15mg tablet PO SCH (20:19)
[2021-07-13] MEDS: olanzapine 10mg tablet PO SCH (20:20)
[2021-07-13] MEDS: QUEtiapine 25mg tablet PO SCH (20:20)
[2021-07-13] MEDS: traZODone 50mg tablet PO SCH (20:20)
--- NOTE | 2021-07-14 01:33 | NUR ---
Nursing Progress Note: gen Legal hold: LPS Client on involuntary status for DTS Report received from nurse with use of SBAR: ZAKI sofia Why are they here: Client is living at [facility]. Client reported thoughts of suicide, feelings of paranoia, and visual hallucinations. Assessment What has happened this shift: Received pt. lying in bed resting at change of shift. Pt calm and friendly with care. Pt states he is feeling tired and not doing so good. He feels like freaking out about where hes going to go. (Discharge.) He stated he has talked to FANTA Sethi about his symptoms and is just somewhat concerned about his nervousness. He his endorsing AH stating that at the dining table there was someone there sitting with him and when he looked away and back again it was someone different. Pt up for snacks and took all HS medications. S/I, H/I: Denies A/VH: Pt. reports ongoing V/DUNCAN of people Sleep: ADL's: Pt. requires encouragement and some direction Group attendance: Yes Were meds taken: Yes Any med S/E: None Mental Status Exam Appearance: Neat and appropriately dressed. Eye contact: Moderate Behavior: Cooperative, anxious, guarded, and withdrawn Speech: Soft, some trouble finding words, but his latency of speech has improved Mood: Anxious Affect: Blunted Thought process: Linear Thought Content: Ongoing V/DUNCAN and anxiety. Perseveration regarding fear of being discharged. Cognition: A&O X4 Insight: Poor Judgment: Poor Interventions PRN's used: None Therapeutic interventions: Maintained a safe and supportive environment, ensured contract for safety, provided clear and simple instructions, attempted to orient to reality, encouraged independent performance of ADLs and participation on the unit, provided active listening and positive encouragement, applied Eucerin to bilateral feet and monitored dryness, and maintained Q 15min safety checks. Restraints/seclusion/emergency medication: N/A Justification of Continued Inpatient Treatment: Per FANTA Hanley, pt. continues to require a safe and supportive environment and medication adjustments.
[2021-07-14 07:45] VITALS: BP 106/76
[2021-07-14] MEDS: buPROPion SR 150mg tablet PO SCH (08:45)
[2021-07-14] MEDS: benztropine 1mg tablet PO SCH ×2 (08:45→19:58)
[2021-07-14] MEDS: mineral oil/petrolatum, white cream 113gm jar TP SCH ×2 (08:45→20:06)
[2021-07-14] MEDS: atorvastatin 20mg tablet PO SCH (08:45)
[2021-07-14] MEDS: pantoprazole 40mg Tablet.DR PO SCH (08:45)
[2021-07-14] MEDS: hydrOXYzine 25 MG tablet PO SCH ×3 (08:45→19:59)
[2021-07-14] MEDS: OLANZAPINE 5 MG TABLET PO SCH ×2 (08:45→13:08)
[2021-07-14] MEDS: acetaminophen 325mg tablet PO PRN (08:46)
--- NOTE | 2021-07-14 13:34 | NUR ---
Nursing Progress Note: Legal hold: LPS Client on involuntary status for DTS Report received from nurse with use of SBAR: Terri Long RN Why are they here: Client is living at [facility]. Client reported thoughts of suicide, feelings of paranoia, and visual hallucinations. Assessment What has happened this shift: Received pt. sleeping in bed at the beginning of the shift, he was awoken by staff to attend breakfast in the Group Room. Afterwards, pt. retreated back to his room where he continued to isolate as is his routine. 1:1 was completed at bedside, pt. reports ongoing anxiety and V/DUNCAN of "People." When questioned by this rewriter regarding any decrease in V/DUNCAN, pt. denies this and stated with a blunted affect, "I's the same." Pt. remains withdrawn throughout the day and is observed to be sitting in his room staring anxiously out the window. He continues to perseverate on his fear of being discharged and states, "I'm just worried I'll be discharged today." This rewriter provided active listening and positive encouragement to pt. and reassured him that he would not be leaving today. He reported some contentment. S/I, H/I: Denies A/VH: Pt. reports ongoing V/DUNCAN of people Sleep: Sleep hours are 8.25 and pt. naps intermittently during the day ADL's: Pt. requires encouragement and some direction Group attendance: N/A Were meds taken: Yes Any med S/E: None Mental Status Exam Appearance: Neat and appropriately dressed. Eye contact: Moderate Behavior: Cooperative, anxious, guarded, and withdrawn Speech: Soft, some trouble finding words, but his latency of speech has improved Mood: Anxious Affect: Blunted Thought process: Linear Thought Content: Ongoing V/DUNCAN and anxiety. Perseveration regarding fear of being discharged. Cognition: A&O X4 Insight: Poor Judgment: Poor Interventions PRN's used: None Therapeutic interventions: Maintained a safe and supportive environment, ensured contract for safety, provided clear and simple instructions, attempted to orient to reality, encouraged independent performance of ADLs and participation on the unit, provided active listening and positive encouragement, applied Eucerin to bilateral feet and monitored dryness, and maintained Q 15min safety checks. Restraints/seclusion/emergency medication: N/A Justification of Continued Inpatient Treatment: Per FANTA Hanley, pt. continues to require a safe and supportive environment and medication adjustments. Addendum: 07/14/21 at 1506 by Jessica Valdez RN Pt. has not had a bowl movement x5 days and is refusing MOM or prune juice. Bowl sounds present X4 quadrants and pt. reports flatus. Endorsed to FANTA Hanley who ordered Colace 100mg BID.
[2021-07-14] MEDS: NICOTINE POLACRILEX 2 MG LOZENGE BC PRN (16:21)
[2021-07-14] MEDS: tamsulosin 0.4mg capsule PO SCH (19:58)
[2021-07-14] MEDS: QUEtiapine 25mg tablet PO SCH (19:59)
[2021-07-14] MEDS: olanzapine 10mg tablet PO SCH (19:59)
[2021-07-14] MEDS: docusate sod 100mg capsule PO SCH (19:59)
[2021-07-14] MEDS: mirtazapine 15mg tablet PO SCH (19:59)
[2021-07-14 20:00] VITALS: BP 118/65
[2021-07-14] MEDS: sertraline 50mg tablet PO SCH (20:00)
[2021-07-14] MEDS: traZODone 50mg tablet PO SCH (20:00)
--- NOTE | 2021-07-15 02:06 | NUR ---
Nursing Progress Note: Fahad Legal hold: LPS Client on involuntary status for DTS Report received from nurse with use of SBAR: Macrina HAINES Why are they here: Client is living at [facility]. Client reported thoughts of suicide, feelings of paranoia, and visual hallucinations. Assessment What has happened this shift: Received pt. lying in bed resting at change of shift. Pt continues to endorse anxiety but denies depression. Pt +VH states he sees people at different times of the day but unable to explain further. Pt. up for snacks and took all HS mediations without issue. Isolated to his room the remainder of the evening. S/I, H/I: Denies A/VH: Pt. reports ongoing V/DUNCAN of people Sleep: ADL's: Pt. requires encouragement and some direction Group attendance: N/A Were meds taken: Yes Any med S/E: Dry mouth Mental Status Exam Appearance: Neat and appropriately dressed. Eye contact: Moderate Behavior: Cooperative, anxious, guarded, and withdrawn Speech: Soft, some trouble finding words, but his latency of speech has improved Mood: Anxious Affect: Blunted Thought process: Linear Thought Content: Ongoing V/DUNCAN and anxiety. Perseveration regarding fear of being discharged. Cognition: A&O X4 Insight: Poor Judgment: Poor Interventions PRN's used: None Therapeutic interventions: Maintained a safe and supportive environment, ensured contract for safety, provided clear and simple instructions, attempted to orient to reality, encouraged independent performance of ADLs and participation on the unit, provided active listening and positive encouragement, applied Eucerin to bilateral feet and monitored dryness, and maintained Q 15min safety checks. Restraints/seclusion/emergency medication: N/A Justification of Continued Inpatient Treatment: Per FANTA Hanley, pt. continues to require a safe and supportive environment and medication adjustments.
[2021-07-15] MEDS: acetaminophen 325mg tablet PO PRN (07:45)
[2021-07-15] MEDS: benztropine 1mg tablet PO SCH ×2 (07:45→20:13)
[2021-07-15] MEDS: OLANZAPINE 5 MG TABLET PO SCH ×2 (07:45→12:32)
[2021-07-15] MEDS: hydrOXYzine 25 MG tablet PO SCH ×3 (07:45→20:14)
[2021-07-15] MEDS: atorvastatin 20mg tablet PO SCH (07:45)
[2021-07-15] MEDS: pantoprazole 40mg Tablet.DR PO SCH (07:46)
[2021-07-15] MEDS: docusate sod 100mg capsule PO SCH ×2 (07:46→20:13)
[2021-07-15] MEDS: buPROPion SR 150mg tablet PO SCH (07:46)
[2021-07-15 07:59] VITALS: BP 104/62
[2021-07-15] MEDS: mineral oil/petrolatum, white cream 113gm jar TP SCH ×2 (08:10→20:15)
--- NOTE | 2021-07-15 17:24 | NUR ---
Nursing Progress Note: Ayan Vásquez Legal hold: LPS Client on involuntary status for DTS Report received from nurse with use of SBAR: HS brownell operator Why are they here: Client is living at [facility]. Client reported thoughts of suicide, feelings of paranoia, and visual hallucinations. Assessment What has happened this shift: Received pt. resting in bed, appeared to be sleeping comfortably. He was awaken for meds and breakfast. 1:1 assessment was completed at bedside. Pt pleasant and cooperative but appeared to be very anxious, guarded, and withdrawn. Pt. hands tremoring and he was fidgeting when having conversations. He did state that he was very anxious. Pt up for meals in dining room and ambulates in the hallways when asking for water but mostly in room throughout day. Patient sits on bed fidgeting with hands and items in room facing the window. Pt. denies any S/I, H/I, or V/H but does admit to having A/H. He stated that sometimes I hear people talking and it sounds like they go down the hester but when I go to look there is no one down the hester. When asked to elaborate what he is hearing with A/H pt states he cannot make out what theyre saying. Pt. inquired about group 3 times this shift and did get up to wait in dining room for group however there was no group today. Patient withdrawn and isolates. He was not seen interacting with others. Patient c/o pain in legs this morning, more so on the right than the left. Tylenol was given as ordered. Patient reports that he has not had BM in in 5 days but refusing to have bowel care. Routine Colace given as ordered. Patient having good PO fluid intake and states voiding well. S/I, H/I: Denies A/VH: Pt. reports ongoing A/H Sleep: ADL's: Pt. requires encouragement and some direction Group attendance: NA Were meds taken: Yes Any med S/E: None Mental Status Exam Appearance: Neat and appropriately dressed. Pt's facial hair is somewhat unkept, however he requests to shave today Eye contact: Moderate Behavior: Cooperative, anxious, guarded, and withdrawn Speech: Soft with a latent response to direct questions Mood: Anxious Affect: Blunted Thought process: Linear Thought Content: Ongoing A/DUNCAN and anxiety Cognition: A&O X4 Insight: Poor Judgment: Poor Interventions PRN's used: Tylenol Therapeutic interventions: Introduced self and established rapport, maintained a safe and supportive environment, ensured contract for safety, provided clear and simple instructions, attempted to orient to reality, encouraged independent performance of ADLs and participation on the unit, and maintained Q 15min safety checks. Restraints/seclusion/emergency medication: N/A Justification of Continued Inpatient Treatment: Per Talon PA, pt. continues to require a safe and supportive environment and medication adjustments.
[2021-07-15 20:14] VITALS: BP 108/79
[2021-07-15] MEDS: mirtazapine 15mg tablet PO SCH (20:14)
[2021-07-15] MEDS: traZODone 50mg tablet PO SCH (20:14)
[2021-07-15] MEDS: sertraline 50mg tablet PO SCH (20:14)
[2021-07-15] MEDS: QUEtiapine 25mg tablet PO SCH (20:14)
[2021-07-15] MEDS: olanzapine 10mg tablet PO SCH (20:15)
[2021-07-15] MEDS: tamsulosin 0.4mg capsule PO SCH (20:15)
--- NOTE | 2021-07-16 02:25 | NUR ---
Nursing Progress Note: Legal hold: LPS Client on involuntary status for DTS Report received from Jin RN with use of SBAR: Why are they here: Client is living at [facility]. Client reported thoughts of suicide, feelings of paranoia, and visual hallucinations. Assessment What has happened this shift: Patient resting on his bed at shift change. 1:1 at bedside. He is pleasant and cooperative, but doesn't say much. He continues to worry about things he can't control, and anxiety comes with it. He denies any MH symptoms beyond feeling anxious about discharging tomorrow, when he will finally find out if he will go back to [facility]. Patient is cooperative with medications. He continues to isolate to his room. S/I, H/I: Denies A/VH: Denies Sleep: See sleep assessment ADL's: Pt. requires encouragement and some direction Group attendance: N/A Were meds taken: Yes Any med S/E: Dry mouth Mental Status Exam Appearance: Neat and appropriately dressed. Eye contact: Moderate Behavior: Cooperative, anxious, guarded, and withdrawn Speech: Soft, some trouble finding words, but his latency of speech has improved Mood: Anxious Affect: Blunted Thought process: Linear Thought Content: Perseveration regarding fear of being discharged. Cognition: A&O X4 Insight: Poor Judgment: Poor Interventions PRN's used: None Therapeutic interventions: Maintained a safe and supportive environment, ensured contract for safety, provided clear and simple instructions, attempted to orient to reality, encouraged independent performance of ADLs and participation on the unit, provided active listening and positive encouragement, applied Eucerin to bilateral feet and monitored dryness, and maintained Q 15min safety checks. Restraints/seclusion/emergency medication: N/A Justification of Continued Inpatient Treatment: FANTA Burkett, pt. continues to require a safe and supportive environment and medication adjustments.
--- NOTE | 2021-07-16 07:09 | NUR ---
Initial: Pt admitted w/ Major depressive disorder per EMR. Currently on regular diet w/ mostly 100% intake of meals meeting est nutrient needs at this time. LBM 07/11 receiving routine bowel care. No nutrition intervention implemented at this time, will continue to monitor. Recs: 1. Continue Regular diet as tolerated 2. Bowel care per rx 3. Weekly wts Addendum: 07/16/21 at [address] Amended: Links added.
[2021-07-16 08:00] VITALS: BP 116/57
[2021-07-16] MEDS: mineral oil/petrolatum, white cream 113gm jar TP SCH ×2 (08:00→20:00)
[2021-07-16] MEDS: atorvastatin 20mg tablet PO SCH (08:04)
[2021-07-16] MEDS: buPROPion SR 150mg tablet PO SCH (08:04)
[2021-07-16] MEDS: benztropine 1mg tablet PO SCH ×2 (08:04→20:00)
[2021-07-16] MEDS: docusate sod 100mg capsule PO SCH ×2 (08:04→20:00)
[2021-07-16] MEDS: pantoprazole 40mg Tablet.DR PO SCH (08:04)
[2021-07-16] MEDS: hydrOXYzine 25 MG tablet PO SCH ×3 (08:04→21:43)
[2021-07-16] MEDS: OLANZAPINE 5 MG TABLET PO SCH ×2 (08:09→13:22)
--- NOTE | 2021-07-16 08:16 | NUR ---
PUBLIC GUARDIAN Gomez Rodriguez (ph#[phone]), Ayan' Public Guardian, called to report that he does not think Ayan is ready for discharge. He reported Ayan called him 6 times yesterday and perseverated on his discharge and fear of not having a ride. He reported it seems like Ayan will not do well if he were to return to [facility] at this point. Sent Gomez CROCKETT notes and RN notes. Informed him public relations writer will endorse to PA. Dolores Booker LMFT
--- NOTE | 2021-07-16 10:27 | NUR ---
Pt. attended both groups today. The first group was about the different communications styles i.e passive, aggressive and assertive. We discussed what the characteristics of each style was. We then discussed where they saw themselves at now and where they would like to be with their communication style. The second group was an Art Expression group where they colored a heart with what emotions they were currently dealing with. Pt. engaged in both groups appropriately. He tends to be a bit quiet doesn't always share his opinion unless asked. His demeanor was calm and cooperative. He identified with the passive communication. He participated in the art group appropriately drawing a flower in his heart and writing a letter from his heart to himself. He struggled with showing his picture as he shared he does not feel he is a very good artist. He explained why he niya a flower as this represented feeling happy. The main color he used was blue as this is his favorite color. His thought process and thought content were WNL. Remedios Richardson LCSW
--- NOTE | 2021-07-16 17:28 | NUR ---
Nursing Progress Note: Legal hold: LPS Client on involuntary status for DTS Report received from MAEGAN Turner with use of SBAR Why they are here: Client is living at [facility]. Client reported thoughts of suicide, feelings of paranoia, and visual hallucinations. Assessment What has happened this shift: RN received pt. asleep in bed at start of shift. Pt. awoke for breakfast and took all medications. During 1:1 pt. reports visual hallucinations, describes seeing people who appear for a little while and then disappear. Pt. reports feeling anxious about getting discharged back to to [facility]. Pt. isolated to his room most of the day but came out for group, meals, and snacks. S/I, H/I: Denies A/VH: Denies Sleep: Pt. slept 8.5 hrs on NOC shift and naps intermittently throughout the day. ADL's: Independent Group attendance: Yes Were meds taken: Yes Any med S/E: Denies. None observed. Mental Status Exam Appearance: Thin older appearing man, greyish blonde hair, somewhat disheveled wearing casual personal attire. Eye contact: WNL Behavior: Cooperative, isolative, guarded, attends groups. Speech: WNL Mood: Anxious Affect: Blunted Thought process: Linear Thought Content: Focused on getting back to [facility]. Cognition: A&O x4 Insight: Fair Judgment: Fair Interventions PRN's used: None Therapeutic interventions: Provided 1:1 assessment with therapeutic communication and active listening, encouraged participation in unit activities, medication administration/education/monitoring, q 15 minute safety checks. Restraints/seclusion/emergency medication: N/A Justification: Pt is a conserved pt in need of medication stabilization after decompensating in his long-term
[2021-07-16 20:00] VITALS: BP 123/58
[2021-07-16] MEDS ORDERED: QUEtiapine 25mg tablet PO PRN (20:00)
[2021-07-16] MEDS: tamsulosin 0.4mg capsule PO SCH (21:43)
[2021-07-16] MEDS: mirtazapine 15mg tablet PO SCH (21:43)
[2021-07-16] MEDS: olanzapine 10mg tablet PO SCH (21:44)
[2021-07-16] MEDS: sertraline 50mg tablet PO SCH (21:44)
--- NOTE | 2021-07-17 02:20 | NUR ---
Nursing Progress Note: Legal hold: LPS Client on involuntary status for DTS Report received from ZAKI Schrader with use of SBAR: Why are they here: Client is living at [facility]. Client reported thoughts of suicide, feelings of paranoia, and visual hallucinations. Assessment What has happened this shift: Patient seen at bedside for 1:1. He reports that he was supposed to discharge today, but it didn't happen. Now his anxiety is increased and he doesn't believe he's going back to [facility]. He is wringing his hands while he tells me this. They never stopped while in his room. He continues to report visual hallucinations, but denies other MH symptoms. Patient came down for snack time and HS med pass, before returning to his room. S/I, H/I: Denies A/VH: +VH Sleep: See sleep assessment ADL's: Pt. requires encouragement and some direction Group attendance: N/A Were meds taken: Yes Any med S/E: Dry mouth Mental Status Exam Appearance: Neat and appropriately dressed. Eye contact: Moderate Behavior: Cooperative, anxious, guarded, and withdrawn Speech: Soft, some trouble finding words, but his latency of speech has improved Mood: Anxious Affect: Blunted Thought process: Linear Thought Content: Perseveration regarding fear of being discharged. Cognition: A&O X4 Insight: Poor Judgment: Poor Interventions PRN's used: Trazodone Therapeutic interventions: Maintained a safe and supportive environment, ensured contract for safety, provided clear and simple instructions, attempted to orient to reality, encouraged independent performance of ADLs and participation on the unit, provided active listening and positive encouragement, applied Eucerin to bilateral feet and monitored dryness, and maintained Q 15min safety checks. Restraints/seclusion/emergency medication: N/A Justification of Continued Inpatient Treatment: Per FANTA Hanley, pt. continues to require a safe and supportive environment and medication adjustments.
[2021-07-17 07:43] VITALS: BP 110/72
[2021-07-17] MEDS: hydrOXYzine 25 MG tablet PO SCH ×3 (07:59→20:32)
[2021-07-17] MEDS: buPROPion SR 150mg tablet PO SCH (07:59)
[2021-07-17] MEDS: pantoprazole 40mg Tablet.DR PO SCH (08:00)
[2021-07-17] MEDS: mineral oil/petrolatum, white cream 113gm jar TP SCH ×2 (08:00→20:32)
[2021-07-17] MEDS: atorvastatin 20mg tablet PO SCH (08:00)
[2021-07-17] MEDS: OLANZAPINE 5 MG TABLET PO SCH ×2 (08:00→12:30)
[2021-07-17] MEDS: docusate sod 100mg capsule PO SCH ×2 (08:00→20:31)
[2021-07-17] MEDS: benztropine 1mg tablet PO SCH ×2 (08:00→20:32)
--- NOTE | 2021-07-17 17:10 | NUR ---
Nursing Progress Note: Legal hold: LPS Client on involuntary status for DTS Report received from MAEGAN Turner with use of SBAR Why they are here: Client is living at [facility]. Client reported thoughts of suicide, feelings of paranoia, and visual hallucinations. Assessment What has happened this shift: RN received pt. asleep in bed at start of shift. Pt. awoke for breakfast and took all medications. During 1:1 pt. seems guarded, impatient, and paranoid about RNs questions. Pt. reports visual hallucinations. When RN asked what pt. was seeing, pt. asks, should I really be telling you this? Pt. then describes seeing people who appear for a little while and then disappear. Pt. went to groups and meals in the community room. However, pt. isolates to his room often. S/I, H/I: Denies A/VH: Denies Sleep: Pt. slept 8.25 hrs on NOC shift and naps intermittently throughout the day. ADL's: Independent Group attendance: Yes Were meds taken: Yes Any med S/E: Denies. None observed. Mental Status Exam Appearance: Thin older appearing man, greyish blonde hair, somewhat disheveled wearing casual personal attire. Eye contact: WNL Behavior: Cooperative, isolative, guarded, attends groups. Speech: WNL Mood: Anxious Affect: Blunted Thought process: Linear Thought Content: Focused on getting back to [facility]. Cognition: A&O x4 Insight: Fair Judgment: Fair Interventions PRN's used: None Therapeutic interventions: Provided 1:1 assessment with therapeutic communication and active listening, encouraged participation in unit activities, medication administration/education/monitoring, q 15 minute safety checks. Restraints/seclusion/emergency medication: N/A Justification: Pt is a conserved pt in need of medication stabilization after decompensating in his detention
[2021-07-17 20:00] VITALS: BP 131/68
[2021-07-17] MEDS: mirtazapine 15mg tablet PO SCH (20:31)
[2021-07-17] MEDS: tamsulosin 0.4mg capsule PO SCH (20:31)
[2021-07-17] MEDS: olanzapine 10mg tablet PO SCH (20:32)
[2021-07-17] MEDS: sertraline 50mg tablet PO SCH (20:32)
--- NOTE | 2021-07-18 00:48 | NUR ---
Nursing Progress Note: Fahad Legal hold: LPS Client on involuntary status for DTS Report received from Macrina ISSA with use of SBAR Why they are here: Client is living at [facility]. Client reported thoughts of suicide, feelings of paranoia, and visual hallucinations. Assessment What has happened this shift: RN received pt. lying in bed resting. Pt calm and cooperative with care. Pt states his anxiety is at 8/10 and is also endorsing VH. He sees people that are there one minute and gone the next. HE states you must think I am crazy. Reminded pt we are here to help him heal and get better. Pt declined snack and took all HS medications without issue. S/I, H/I: Denies A/VH: Denies Sleep: ADL's: Independent Group attendance: Yes Were meds taken: Yes Any med S/E: Denies. None observed. Mental Status Exam Appearance: Thin older appearing man, greyish blonde hair, somewhat disheveled wearing casual personal attire. Eye contact: WNL Behavior: Cooperative, isolative, guarded, attends groups. Speech: WNL Mood: Anxious Affect: Blunted Thought process: Linear Thought Content: Focused on getting back to [facility]. Cognition: A&O x4 Insight: Fair Judgment: Fair Interventions PRN's used: None Therapeutic interventions: Provided 1:1 assessment with therapeutic communication and active listening, encouraged participation in unit activities, medication administration/education/monitoring, q 15 minute safety checks. Restraints/seclusion/emergency medication: N/A Justification: Pt is a conserved pt in need of medication stabilization after decompensating in his detention
[2021-07-18] MEDS: atorvastatin 20mg tablet PO SCH (07:26)
[2021-07-18] MEDS: pantoprazole 40mg Tablet.DR PO SCH (07:27)
[2021-07-18] MEDS: buPROPion SR 150mg tablet PO SCH (07:27)
[2021-07-18] MEDS: benztropine 1mg tablet PO SCH ×2 (07:27→20:19)
[2021-07-18] MEDS: docusate sod 100mg capsule PO SCH ×2 (07:27→20:19)
[2021-07-18] MEDS: OLANZAPINE 5 MG TABLET PO SCH ×2 (07:27→12:38)
[2021-07-18] MEDS: mineral oil/petrolatum, white cream 113gm jar TP SCH ×2 (07:27→20:00)
[2021-07-18] MEDS: hydrOXYzine 25 MG tablet PO SCH ×3 (07:27→20:19)
[2021-07-18 08:08] VITALS: BP 128/55
--- NOTE | 2021-07-18 15:29 | NUR ---
Nursing Progress Note: Ayan Vásquez Legal hold: LPS Client on involuntary status for DTS Report received from MAEGAN Turner with use of SBAR. Why they are here: Client is living at [facility]. Client reported thoughts of suicide, feelings of paranoia, and visual hallucinations. Assessment What has happened this shift: Patient is resting quietly in bed at the start of the shift. Eats meals in the community room and interacts appropriately with staff and peers. Cooperative with medications and 1:1 assessment. Answers direct questions and will engage in some conversation but speech is minimal. Patient endorses visual hallucinations stating, I always see things. Then states, Its not that I see things but you know when youre walking and you can tell someone is behind you and you look but then no one is there? Expresses concern over getting a ride back to [facility]. Reassured that transportation will be provided on discharge. S/I, H/I: Denies A/VH: Endorses VH Sleep: 1 hour in the morning. Takes a short nap in the afternoon. ADL's: Independent Group attendance: No Were meds taken: Yes Any med S/E: None observed or reported. Mental Status Exam Appearance: Thin older appearing man, greyish blonde hair, somewhat disheveled wearing casual personal attire. Eye contact: Fair Behavior: Cooperative, isolative, guarded Speech: Clear, soft, minimal Mood: Okay. Affect: Blunted Thought process: Linear Thought Content: Discharging back to his [facility]. Cognition: A&O x4 Insight: Fair Judgment: Fair Interventions PRN's used: None Therapeutic interventions: Provided 1:1 assessment with therapeutic communication and active listening, encouraged participation in unit activities, medication administration/education/monitoring, q 15 minute safety checks. Restraints/seclusion/emergency medication: N/A Justification: Pt is a conserved pt in need of medication stabilization after decompensating in his [facility]
--- NOTE | 2021-07-18 15:45 | NUR ---
Pt. attended both groups. He was alert and oriented X 4. His thought content and thought process appeared to be WNL. He appears to enjoy socializing and even reported today that he was grateful to be with the people at [facility]. Remedios Richardson LCSW
[2021-07-18] MEDS: NICOTINE POLACRILEX 2 MG LOZENGE BC PRN (19:13)
[2021-07-18 20:00] VITALS: BP 144/69
[2021-07-18] MEDS: sertraline 50mg tablet PO SCH (20:19)
[2021-07-18] MEDS: mirtazapine 15mg tablet PO SCH (20:19)
[2021-07-18] MEDS: tamsulosin 0.4mg capsule PO SCH (20:19)
[2021-07-18] MEDS: olanzapine 10mg tablet PO SCH (20:19)
--- NOTE | 2021-07-19 02:46 | NUR ---
Nursing Progress Note: Ayan Vásquez Legal hold: LPS Client on involuntary status for DTS Report received from MAEGAN Eddy with use of SBAR. Why they are here: Client is living at [facility]. Client reported thoughts of suicide, feelings of paranoia, and visual hallucinations. Assessment What has happened this shift: Patient up walking in the hallway at change of shift. Pt calm and cooperative and friendly with care. Pt endorses VH stating that he sees people around and then when he looks back again they are gone. Pt is concerned about discharged and getting back to [facility]. Assured pt he will be getting a ride back there at time of discharge. Pt up for snacks and took all HS medications without issue. S/I, H/I: Denies A/VH: Endorses VH Sleep: ADL's: Independent Group attendance: No Were meds taken: Yes Any med S/E: None observed or reported. Mental Status Exam Appearance: Thin older appearing man, greyish blonde hair, somewhat disheveled wearing casual personal attire. Eye contact: Fair Behavior: Cooperative, isolative, guarded Speech: Clear, soft, minimal Mood: Okay. Affect: Blunted Thought process: Linear Thought Content: Discharging back to his nursing home. Cognition: A&O x4 Insight: Fair Judgment: Fair Interventions PRN's used: None Therapeutic interventions: Provided 1:1 assessment with therapeutic communication and active listening, encouraged participation in unit activities, medication administration/education/monitoring, q 15 minute safety checks. Restraints/seclusion/emergency medication: N/A Justification: Pt is a conserved pt in need of medication stabilization after decompensating in his nursing home
[2021-07-19] MEDS: pantoprazole 40mg Tablet.DR PO SCH (07:30)
[2021-07-19] MEDS: atorvastatin 20mg tablet PO SCH (07:31)
[2021-07-19] MEDS: hydrOXYzine 25 MG tablet PO SCH ×3 (07:31→20:07)
[2021-07-19] MEDS: OLANZAPINE 5 MG TABLET PO SCH ×2 (07:31→12:28)
[2021-07-19] MEDS: benztropine 1mg tablet PO SCH ×2 (07:31→20:07)
[2021-07-19] MEDS: docusate sod 100mg capsule PO SCH ×2 (07:31→20:07)
[2021-07-19] MEDS: mineral oil/petrolatum, white cream 113gm jar TP SCH ×2 (07:31→19:43)
[2021-07-19] MEDS: buPROPion SR 150mg tablet PO SCH (07:31)
[2021-07-19 07:40] VITALS: BP 122/68
--- NOTE | 2021-07-19 15:47 | NUR ---
Nursing Progress Note: Ayan Vásquez Legal hold: LPS Client on involuntary status for DTS Report received from MAEGAN Treadwell with use of SBAR. Why they are here: Client is living at [facility]. Client reported thoughts of suicide, feelings of paranoia, and visual hallucinations. Assessment What has happened this shift: Patient is resting quietly in bed at the start of the shift. Cooperative with 1:1 assessment and medications. Patient spends time watching TV in the community room. Attends and participates in group. Noted taking a short nap in the afternoon. Continues to endorse VH of people walking behind him. S/I, H/I: Denies A/VH: Endorses VH Sleep: 1.5 hours in the morning, short nap in the afternoon ADL's: Independent Group attendance: No Were meds taken: Yes Any med S/E: None observed or reported. Mental Status Exam Appearance: Thin older appearing man, greyish blonde hair, somewhat disheveled wearing casual personal attire. Eye contact: Fair Behavior: Cooperative, isolative, withdrawn Speech: Clear, soft, minimal Mood: Good. Affect: Blunted Thought process: Linear Thought Content: Upcoming discharge Cognition: A&O x4 Insight: Fair Judgment: Fair Interventions PRN's used: None Therapeutic interventions: Provided 1:1 assessment with therapeutic communication and active listening, encouraged participation in unit activities, medication administration/education/monitoring, q 15 minute safety checks. Restraints/seclusion/emergency medication: N/A Justification: Pt is a conserved pt in need of medication stabilization after decompensating in his alf
[2021-07-19 20:00] VITALS: BP 116/61
[2021-07-19] MEDS: mirtazapine 15mg tablet PO SCH (20:07)
[2021-07-19] MEDS: sertraline 50mg tablet PO SCH (20:07)
[2021-07-19] MEDS: olanzapine 10mg tablet PO SCH (20:07)
[2021-07-19] MEDS: tamsulosin 0.4mg capsule PO SCH (20:07)
--- NOTE | 2021-07-20 03:10 | NUR ---
Nursing Progress Note: Ayan Vásquez Legal hold: LPS Client on involuntary status for DTS Report received from MAEGAN Treadwell with use of SBAR. Why they are here: Client is living at [facility]. Client reported thoughts of suicide, feelings of paranoia, and visual hallucinations. Assessment What has happened this shift: Patient is awake in his room at the start of the shift. Cooperative with medications and 1:1 assessment. Patient is isolative and withdrawn. Only answers direct questions. Patient eats snack in the community room then goes to bed. S/I, H/I: Denies A/VH: Endorses VH Sleep: See sleep assessment ADL's: Independent Group attendance: N/A Were meds taken: Yes Any med S/E: None observed or reported. Mental Status Exam Appearance: Thin older appearing man, greyish blonde hair, somewhat disheveled wearing casual personal attire. Eye contact: Fair Behavior: Cooperative, isolative, withdrawn Speech: Clear, soft, minimal Mood: Okay. Affect: Blunted Thought process: Linear Thought Content: meeting needs Cognition: A&O x4 Insight: Fair Judgment: Fair Interventions PRN's used: None Therapeutic interventions: Provided 1:1 assessment with therapeutic communication and active listening, encouraged participation in unit activities, medication administration/education/monitoring, q 15 minute safety checks. Restraints/seclusion/emergency medication: N/A Justification: Pt is a conserved pt in need of medication stabilization after decompensating in his [facility]
[2021-07-20 07:42] VITALS: BP 110/71
[2021-07-20] MEDS: pantoprazole 40mg Tablet.DR PO SCH (08:25)
[2021-07-20] MEDS: benztropine 1mg tablet PO SCH ×2 (08:25→20:37)
[2021-07-20] MEDS: hydrOXYzine 25 MG tablet PO SCH ×3 (08:25→20:37)
[2021-07-20] MEDS: buPROPion SR 150mg tablet PO SCH ×2 (08:25→17:56)
[2021-07-20] MEDS: OLANZAPINE 5 MG TABLET PO SCH ×2 (08:25→12:33)
[2021-07-20] MEDS: docusate sod 100mg capsule PO SCH ×2 (08:25→20:37)
[2021-07-20] MEDS: mineral oil/petrolatum, white cream 113gm jar TP SCH ×2 (08:25→20:00)
[2021-07-20] MEDS: atorvastatin 20mg tablet PO SCH (08:25)
--- NOTE | 2021-07-20 13:38 | NUR ---
Nursing Progress Note: Ayan Vásquez Legal hold: LPS Client on involuntary status for DTS Report received from MAEGAN Pinto with use of SBAR. Why they are here: Client is living at [facility]. Client reported thoughts of suicide, feelings of paranoia, and visual hallucinations. Assessment What has happened this shift: Patient sleeping at change of shift and up for breakfast. Patient denies Suicidal/Homicidal ideation. Patient is worried about not being able to go to [facility]. RN encourages patient that the plan is for him to go back to [facility]. Patient states he is still seeing someone following him. Patient is a little anxious today but is taking Atarax scheduled. Patient isolates in his room and is sometimes seen in the Community Room sitting and watching T.V. S/I, H/I: Denies A/VH: Endorses VH Sleep: Napped in the morning ADL's: Independent Group attendance: No Were meds taken: Yes Any med S/E: None observed or reported. Mental Status Exam Appearance: Thin, elderly gentleman, greyish blonde hair, somewhat disheveled wearing his own clothes Eye contact: Fair Behavior: Cooperative, isolative, withdrawn Speech: Clear, Poverty of speech. Mood: Depressed Affect: Flat Thought process: Linear Thought Content: worried about upcoming discharge Cognition: A&O x4 Insight: Fair Judgment: Fair Interventions PRN's used: None Therapeutic interventions: Provided 1:1 assessment with therapeutic communication and active listening, encouraged participation in unit activities, medication administration/education/monitoring, q 15 minute safety checks. Restraints/seclusion/emergency medication: N/A Justification: Pt is a conserved pt in need of medication stabilization after decompensating in his [facility]
[2021-07-20 19:00] VITALS: BP 137/87
[2021-07-20] MEDS: sertraline 50mg tablet PO SCH (20:36)
[2021-07-20] MEDS: olanzapine 10mg tablet PO SCH (20:36)
[2021-07-20] MEDS: mirtazapine 15mg tablet PO SCH (20:37)
[2021-07-20] MEDS: tamsulosin 0.4mg capsule PO SCH (20:40)
--- NOTE | 2021-07-21 03:08 | NUR ---
lindsey Progress Note: Ayan Vásquez Legal hold: LPS Client on involuntary status for DTS Report received from MAEGAN sofia with use of SBAR. Why they are here: Client is living at [facility] Client reported thoughts of suicide, feelings of paranoia, and visual hallucinations. Assessment What has happened this shift: Patient observed sleeping at change of shift. Patient stayed in bed all shift. Patient didn't leave his room to participate in snack or socialize with others. Patient took all night medication without issue and went back to bed. S/I, H/I: Denies A/VH: Denies Sleep: See sleep assessment ADL's: Independent Group attendance: No Were meds taken: Yes Any med S/E: None observed or reported. Mental Status Exam Appearance: Thin, elderly gentleman, greyish blonde hair, somewhat disheveled wearing his own clothes Eye contact: Fair Behavior: Cooperative, isolative, withdrawn Speech: Clear, Poverty of speech. Mood: Depressed Affect: Flat Thought process: Linear Thought Content: Sleeping Cognition: A&O x4 Insight: Fair Judgment: Fair Interventions PRN's used: None Therapeutic interventions: Provided 1:1 assessment with therapeutic communication and active listening, encouraged participation in unit activities, medication administration/education/monitoring, q 15 minute safety checks. Restraints/seclusion/emergency medication: N/A Justification: Pt is a conserved pt in need of medication stabilization after decompensating in his fdc
[2021-07-21] MEDS: benztropine 1mg tablet PO SCH ×2 (07:59→20:42)
[2021-07-21] MEDS: docusate sod 100mg capsule PO SCH ×2 (07:59→20:36)
[2021-07-21] MEDS: OLANZAPINE 5 MG TABLET PO SCH ×2 (07:59→12:49)
[2021-07-21] MEDS: pantoprazole 40mg Tablet.DR PO SCH (07:59)
[2021-07-21] MEDS: hydrOXYzine 25 MG tablet PO SCH ×3 (07:59→20:35)
[2021-07-21] MEDS: atorvastatin 20mg tablet PO SCH (07:59)
[2021-07-21 08:00] VITALS: BP 110/66
[2021-07-21] MEDS: acetaminophen 325mg tablet PO PRN (08:00)
[2021-07-21] MEDS: buPROPion SR 150mg tablet PO SCH ×2 (08:00→17:49)
[2021-07-21] MEDS: mineral oil/petrolatum, white cream 113gm jar TP SCH ×2 (08:12→20:41)
--- NOTE | 2021-07-21 13:55 | NUR ---
Nursing Progress Note: Legal hold: LPS Client on involuntary status for DTS Report received from Philippe MCINTYRE with use of SBAR. Why they are here: Client is living at [facility]. Client reported thoughts of suicide, feelings of paranoia, and visual hallucinations. Assessment What has happened this shift: Pt was up for breakfast and cooperative with medications. Pt rated his depression at an 8/10. He denied SI/HI/AH. Pt reported no VH so far today though admits to frequent VH of people who he sees and then they just disappear. Pt c/o 2/10 right foot pain and was given PRN Tylenol 650 mg at 0800 with good effect. No unsafe behaviors noted. S/I, H/I: Pt denies A/VH: Pt denies Sleep: Pt slept 8.25 hours last night per noc shift report. ADL's: Independent Group attendance: No groups today. Were meds taken: Yes Any med S/E: None noted or reported. Mental Status Exam Appearance: Thin, elderly gentleman, greyish blonde hair, somewhat disheveled wearing his own clothes Eye contact: Good Behavior: Pleasant, cooperative. Speech: Clear, audible, normal rate & rhythm. Mood: Depressed Affect: Blunted Thought process: Linear Thought Content: Thinks he takes too many pills in the morning. Cognition: A&O x4 Insight: Fair Judgment: Fair Interventions PRN's used: Tylenol Therapeutic interventions: Provided 1:1 assessment with therapeutic communication and active listening, ensured contract for safety, encouraged participation in unit activities, medication administration/education/monitoring, provided distraction, direction, positive reinforcement, and Q15 minute safety checks. Restraints/seclusion/emergency medication: None Justification: Pt is a conserved pt in need of medication stabilization after decompensating in his correction, plan is for him to return to [facility] once stable.
[2021-07-21 19:18] VITALS: BP 140/57
[2021-07-21] MEDS: sertraline 50mg tablet PO SCH (20:35)
[2021-07-21] MEDS: mirtazapine 15mg tablet PO SCH (20:35)
[2021-07-21] MEDS: tamsulosin 0.4mg capsule PO SCH (20:35)
[2021-07-21] MEDS: olanzapine 10mg tablet PO SCH (20:36)
[2021-07-21] MEDS: traZODone 50mg tablet PO PRN (20:44)
[2021-07-22] MEDS: buPROPion SR 150mg tablet PO SCH ×2 (07:45→17:37)
[2021-07-22] MEDS: pantoprazole 40mg Tablet.DR PO SCH (07:45)
[2021-07-22] MEDS: hydrOXYzine 25 MG tablet PO SCH ×3 (07:45→20:15)
[2021-07-22] MEDS: OLANZAPINE 5 MG TABLET PO SCH ×2 (07:45→13:06)
[2021-07-22] MEDS: docusate sod 100mg capsule PO SCH ×2 (07:45→20:14)
[2021-07-22] MEDS: benztropine 1mg tablet PO SCH ×2 (07:45→20:14)
[2021-07-22] MEDS: atorvastatin 20mg tablet PO SCH (07:45)
[2021-07-22] MEDS: acetaminophen 325mg tablet PO PRN ×2 (07:46→19:23)
[2021-07-22] MEDS: mineral oil/petrolatum, white cream 113gm jar TP SCH ×2 (07:48→20:00)
[2021-07-22 08:00] VITALS: BP 100/73
--- NOTE | 2021-07-22 10:13 | NUR ---
Pt. attended group today. Todays group was about the difference between Growth Mindset vs. Fixed Mindset. We learned about the differences and then discussed what aspect of developing a growth mindset they wanted to work on. Pt. engaged in the group. His demeanor is calm, compliant and pleasant to work with. He shared that he feels he leans more toward a fixed mindset. He also shared he would like to work on his playing guitar again as a way to grow his growth mindset. Remedios Richardson LCSW
--- NOTE | 2021-07-22 14:31 | NUR ---
Pt off the unit via w/c accompanied by PCT to CT.
--- NOTE | 2021-07-22 14:45 | NUR ---
Pt back on the unit.
--- NOTE | 2021-07-22 15:57 | NUR ---
Nursing Progress Note: Legal hold: LPS Client on involuntary status for DTS Report received from Latonya HAINES with use of SBAR. Why they are here: Client is living at [facility]. Client reported thoughts of suicide, feelings of paranoia, and visual hallucinations. Assessment What has happened this shift: Pt was up for breakfast and cooperative with medications. Pt was given PRN Tylenol 650 mg at 0746 for c/o 3/10 back pain with good effect. Pt c/o 8/10 anxiety after breakfast. He did not wish to take any PRN medication for it but preferred to manage it by isolating in his room and trying to nap. Pt denied depression and SI, stressed that what was really bothering him was the visual hallucinations that he usually does not have in the morning but later in the day. He starts seeing people who appear real and then disappear. Pt states that he finds this really disturbing, "they really freak me out." FANTA Hanley ordered a head CT today due to memory changes and visual hallucinations. CT was done, it has not been read by a radiologist as of yet. Public guardian just visited pt and determined that he is at baseline and ready to return to [facility]. S/I, H/I: Pt denies A/VH: +VH Sleep: Pt slept 8.25 hours last night per noc shift report. ADL's: Independent Group attendance: Yes Were meds taken: Yes Any med S/E: None noted or reported. Mental Status Exam Appearance: Thin, elderly gentleman, greyish blonde hair, somewhat disheveled wearing his own clothes Eye contact: Good Behavior: Pleasant, cooperative. Speech: Clear, audible, normal rate & rhythm. Mood: Anxious Affect: Full range. Thought process: Perseverative Thought Content: Perseverates on how the visual hallucinations are freaking him out. Cognition: A&O x4 Insight: Fair Judgment: Fair Interventions PRN's used: Tylenol Therapeutic interventions: Provided 1:1 assessment with therapeutic communication and active listening, ensured contract for safety, encouraged participation in group and unit activities, medication administration/education/monitoring, provided distraction, direction, positive reinforcement, and Q15 minute safety checks. Restraints/seclusion/emergency medication: None Justification: Public guardian met with pt today and determined that he is at baseline and ready to discharge back to [facility]. Discharge pending.
[2021-07-22 19:52] VITALS: BP 109/63
[2021-07-22] MEDS: tamsulosin 0.4mg capsule PO SCH (20:13)
[2021-07-22] MEDS: sertraline 50mg tablet PO SCH (20:13)
[2021-07-22] MEDS: olanzapine 10mg tablet PO SCH (20:14)
[2021-07-22] MEDS: mirtazapine 15mg tablet PO SCH (20:14)
--- NOTE | 2021-07-23 00:58 | NUR ---
Nursing Progress Note: Legal hold: LPS Client on involuntary status for DTS Report received from RN with use of SBAR. Why they are here: Client is living at [facility]. Client reported thoughts of suicide, feelings of paranoia, and visual hallucinations. Assessment What has happened this shift: Pt up on unit at start of shift but returned to room and stayed in bed until snack. Stayed up in group room after snack then returned to room Pt is pleasant and cooperative. Took all medications given PRN Tylenol per request for headache. Says he is looking forward to returning to [facility] tomorrow. S/I, H/I: Pt denies A/VH: +VH Sleep: Asleep at this time ADL's: Independent Group attendance: NA Were meds taken: Yes Any med S/E: None noted or reported. Mental Status Exam Appearance: Thin, elderly gentleman, greyish blonde hair, somewhat disheveled wearing his own clothes Eye contact: Good Behavior: Pleasant, cooperative. Speech: Clear, audible, normal rate & rhythm. Mood: Anxious Affect: Full range. Thought process: Perseverative Thought Content: Discharge to [facility] Cognition: A&O x4 Insight: Fair Judgment: Fair Interventions PRN's used: Tylenol Therapeutic interventions: Provided 1:1 assessment with therapeutic communication and active listening, ensured contract for safety, encouraged participation in group and unit activities, medication administration/education/monitoring, provided distraction, direction, positive reinforcement, and Q15 minute safety checks. Restraints/seclusion/emergency medication: None Justification: Public guardian met with pt today and determined that he is at baseline and ready to discharge back to [facility]. Discharge pending.
--- NOTE | 2021-07-23 07:16 | NUR ---
Reassessment: Currently on regular diet w/ mostly 75-100% intake of meals meeting est nutrient needs at this time. [facility] 07/10 receiving routine bowel care. No nutrition intervention implemented at this time, will continue to monitor. Recs: 1. Continue Regular diet as tolerated 2. Bowel care per rx 3. Weekly wts Addendum: 07/23/21 at [address] Amended: Links added.
[2021-07-23] MEDS: hydrOXYzine 25 MG tablet PO SCH ×3 (07:56→20:20)
[2021-07-23] MEDS: pantoprazole 40mg Tablet.DR PO SCH (07:56)
[2021-07-23] MEDS: OLANZAPINE 5 MG TABLET PO SCH ×2 (07:56→12:05)
[2021-07-23] MEDS: buPROPion SR 150mg tablet PO SCH ×2 (07:56→16:28)
[2021-07-23] MEDS: benztropine 1mg tablet PO SCH ×2 (07:56→20:20)
[2021-07-23] MEDS: docusate sod 100mg capsule PO SCH ×2 (07:56→20:21)
[2021-07-23] MEDS: atorvastatin 20mg tablet PO SCH (07:57)
[2021-07-23] MEDS: mineral oil/petrolatum, white cream 113gm jar TP SCH ×2 (07:57→20:27)
[2021-07-23 08:00] VITALS: BP 118/74
--- NOTE | 2021-07-23 09:50 | NUR ---
Pt. attended both groups that were offered today. In the first group we talked about talked about the Wellness and utilized the Self Care Wheel to help Patients determine the wellness/self-care activities they enjoy in each domain presented in the wheel. The four domains are the physical, spiritual, emotional and physical. Pt. engaged and filled out the different wellness activities he engages in each domain. He came back for the second group and engaged in a visual representation of her Path to Wellness. Pts are asked to draw their path with the steps they feels they need to take to move forward to maintaining wellness. He appeared to enjoy the activity and was open to sharing it with the group. He niya a river with his different steps. His mood was a bit anxious as he was waiting for his Covid result and was perseverating on what would happen if it was a negative result. He appeared to be fearful that it would result in him not being able to return home. His thought content and thought process were WNL. He was alert and oriented X 4. ROMARIO Hopkins
--- NOTE | 2021-07-23 10:11 | NUR ---
DISCHARGE PLAN Received message from Ayan's STAR Team case consultant, Matt, who visited Ayan yesterday. Matt reported he feels like Ayan is doing better and may be ready for discharge. Ayan asked development writer when he can go home and said he is ready to return to [facility]. Spoke to Ayan's Public Guardian, Gomez ([phone]# [phone]), regarding discharge tomorrow. Gomez reported he had NOT received any messages from Ayan over the last several days which is a good thing. Ayan has follow up scheduled with [facility]. [facility] has requested notes to see how he is doing and development writer sent those to TAD office. Ayan will need a Covid test to return. Plan: Ayan will get picked up tomorrow morning to return to [facility]. CUCA Thurman
--- NOTE | 2021-07-23 15:02 | NUR ---
Nursing Progress Note: yAan Vásquez Legal hold: LPS Client on involuntary status for DTS Report received from ZAKI Ewing with use of SBAR. Why they are here: Client is living at [facility]. Client reported thoughts of suicide, feelings of paranoia, and visual hallucinations. Assessment What has happened this shift: Patient is resting quietly in bed at the start of the shift. Cooperative with medications and 1:1 assessment. Endorses occasional visual hallucinations of a person behind him. Appears somewhat paranoid and anxious but is able to be redirected. Participates in group. Speech is soft and minimal. Takes a nap in the afternoon. S/I, H/I: Denies A/VH: endorses VH Sleep: 2 hours in the morning. Short nap in the afternoon ADL's: Independent Group attendance: Yes Were meds taken: Yes Any med S/E: None observed or reported. Mental Status Exam Appearance: Thin, elderly gentleman, greyish blonde hair, somewhat disheveled wearing his own clothes Eye contact: Good Behavior: Cooperative, anxious, paranoid Speech: Clear, soft, minimal Mood: Okay. Affect: Bunted Thought process: Linear, paranoid Thought Content: Worried that something will happen to stop him from returning to his fpc. Cognition: A&O x4 Insight: Fair Judgment: Fair Interventions PRN's used: None Therapeutic interventions: Provided 1:1 assessment with therapeutic communication and active listening, ensured contract for safety, encouraged participation in group and unit activities, medication administration/education/monitoring, provided distraction, direction, positive reinforcement, and Q15 minute safety checks. Restraints/seclusion/emergency medication: None Justification: Public guardian met with pt and determined that he is at baseline and ready to discharge back to [facility]. Discharge pending.
[2021-07-23] MEDS ORDERED: BENZ1TAB90 PO (16:02)
[2021-07-23] MEDS ORDERED: FLO0.4C PO (16:02)
[2021-07-23] MEDS ORDERED: HYDR50TA65 PO (16:02)
[2021-07-23] MEDS ORDERED: OLAN5TAB75 PO ×2 (16:02)
[2021-07-23] MEDS ORDERED: NICO-503 PO (16:02)
[2021-07-23] MEDS ORDERED: TRAZ-251 PO (16:02)
[2021-07-23] MEDS ORDERED: ATOR20TA66 PO (16:02)
[2021-07-23] MEDS ORDERED: SERT-434 PO (16:02)
[2021-07-23] MEDS ORDERED: MIRT45TA79 PO (16:02)
[2021-07-23] MEDS ORDERED: OLAN10TA73 PO (16:02)
[2021-07-23] MEDS ORDERED: BUPR-94 PO (16:02)
--- NOTE | 2021-07-23 17:08 | NUR ---
PICKUP 10:30 AM ESTRELLA Botello will get picked up by [facility] Wed at 10:30 AM to discharge to [facility]. CUCA Thurman
[2021-07-23 19:24] VITALS: BP 111/72
[2021-07-23] MEDS: mirtazapine 15mg tablet PO SCH (20:20)
[2021-07-23] MEDS: olanzapine 10mg tablet PO SCH (20:20)
[2021-07-23] MEDS: sertraline 50mg tablet PO SCH (20:20)
[2021-07-23] MEDS: tamsulosin 0.4mg capsule PO SCH (20:21)
[2021-07-23] MEDS: acetaminophen 325mg tablet PO PRN (20:21)
--- NOTE | 2021-07-24 00:50 | NUR ---
Nursing Progress Note Legal hold: LPS Report received from Surjit Dayshift blasting clay miner Why they are here: Client is living at [facility]. Client reported thoughts of suicide, feelings of paranoia, and visual hallucinations. Assessment What has happened this shift: One to one with the patient to assess for severity of depressive symptoms and self harm risk as well as hallucinations. The patient appeared clean and well groomed. He was very pleasant during the evening assessment and his replies were logical and linear. He denied that he felt suicidal but did endorse high anxiety. He denied any auditory or visual hallucinations. He reported that his energy level was "not too great" and he also complained of poor short term memory. He did have rhythmic hand movements. When asked about other side effects to medications he complained of significant dry mouth. He is medication and treatment compliant. His behavior is appropriate and he does not require additional supervision or redirection from staff. He is attending to his ADLs independently. He is looking forward to returning to his board and care. His insight and judgement are fair. He is alert and oriented. He did complain of back pain and received PRN tylenol. Justification of Continued Inpatient Treatment: The patient will be picked up by [facility] in the morning to be transported to his fpc.
[2021-07-24] MEDS: pantoprazole 40mg Tablet.DR PO SCH (07:27)
[2021-07-24] MEDS: mineral oil/petrolatum, white cream 113gm jar TP SCH (07:27)
[2021-07-24] MEDS: hydrOXYzine 25 MG tablet PO SCH (07:27)
[2021-07-24] MEDS: OLANZAPINE 5 MG TABLET PO SCH (07:27)
[2021-07-24] MEDS: atorvastatin 20mg tablet PO SCH (07:27)
[2021-07-24] MEDS: benztropine 1mg tablet PO SCH (07:27)
[2021-07-24] MEDS: docusate sod 100mg capsule PO SCH (07:27)
[2021-07-24] MEDS: buPROPion SR 150mg tablet PO SCH (07:27)
[2021-07-24 07:44] VITALS: BP 113/65
--- NOTE | 2021-07-24 10:41 | NUR ---
Discharge Note: Follow up plan reviewed with the patient who is agreeable to discharge back to [facility]. Escorted off the unit by staff with all of his belongings at 10:40 and is picked up by the [facility] furniture delivery driver. Discharged with the following instructions: Follow-Up: Patient has been scheduled/referred to the following providers for post-hospital discharge and aftercare treatment. Psychiatrist: Appointment: 07/25/21 at [address] [facility] [address] Hat Brim Curler: FOSTER Simon Address: [facility] and [facility] [address] [place] [address] Transportation: [facility] Patient given community crisis services information and National suicide hotline handout. Resources for education regarding mental illness: [address] [address] For urgent mental health crisis needs please contact Mobile Crisis Outreach Team Thursday through Thursday 8:30am to 5:00pm. . Mobile Crisis Outreach Team [address] [place] [id number] Urgent Out-patient Mental Health Services 365 Days A Year: [address] [address] Hours: Mon thru Fri 12pm-9pm Weekends 11am-9pm
== END 2021-07-24 10:40 | disposition home or self-care (01) | DRG 885 ==
LOC: ADULT MH 21:12
PROVIDERS: ADMIT Psychiatry & Neurology Psychiatry; ATTEND Psychiatry & Neurology Psychiatry
DX: F33.2 Major depressive disorder, recurrent severe without psychotic features (principal); R45.851 Suicidal ideations; F25.1 Schizoaffective disorder, depressive type; E78.5 Hyperlipidemia, unspecified; F17.210 Nicotine dependence, cigarettes, uncomplicated; G89.29 Other chronic pain; Z20.822 Contact with and (suspected) exposure to COVID-19; M51.36 Other intervertebral disc degeneration, lumbar region; R35.1 Nocturia; I10 Essential (primary) hypertension; K21.9 Gastro-esophageal reflux disease without esophagitis; K59.00 Constipation, unspecified; F41.9 Anxiety disorder, unspecified; G47.30 Sleep apnea, unspecified; J44.9 Chronic obstructive pulmonary disease, unspecified; N40.1 Benign prostatic hyperplasia with lower urinary tract symptoms; Z79.899 Other long term (current) drug therapy; Z81.1 Family history of alcohol abuse and dependence; Z82.5 Family history of asthma and other chronic lower respiratory diseases; Z88.0 Allergy status to penicillin; Z98.61 Coronary angioplasty status; Z71.6 Tobacco abuse counseling; R68.2 Dry mouth, unspecified
CPT/HCPCS: 36415; 70450; 80061; 82948; 83036; 87081; 87635; 93005; 94760; Q0177

== ENCOUNTER 2021-09-23 14:05 | Emergency (ER) | payer MEDICARE, MEDICAID ==
[~2021-09-23] VITALS: Ht 185.4 cm; Wt 63.6 kg
[~2021-09-23 14:05] MED LIST changes: -ALBU8HFA PO; +BENZ1TAB90 PO; -BUPR-344 PO; +BUPR-94 PO; +FLO0.4C PO; +FLUT1BLS4 PO; -HYDR-3686 PO; +HYDR50TA65 PO; -MICO57CR2 TOP; +MICO57CR2 TP; -MIRT-87 PO; +MIRT45TA79 PO; +NAPR220C62 PO; +NICO-503 PO; +OLAN10TA73 PO; -OLAN15TA35 PO; +OLAN5TAB75 PO; -QUET100T34 PO; +SERT-434 PO; +TRAZ-251 PO; -TRAZ-256 PO; -tamsulosin capsule PO
--- NOTE | 2021-09-23 14:20 | NUR ---
Gomez [phone] for a ride home
[2021-09-23 14:39] VITALS: BP 132/84
[2021-09-23 15:18] LABS: BASOPHILS % (AUTO) 0.4 % (0-1); EOSINOPHILS # (AUTO) 0.1 X10'3 (0-0.9); EOSINOPHILS % (AUTO) 1.3 % (0-6); HEMATOCRIT 39.5 % (42.0-52.0); HEMOGLOBIN 13.5 g/dl (14.0-17.9); LYMPHOCYTES # (AUTO) 1.3 X10'3 (1.1-4.8); LYMPHOCYTES % (AUTO) 14.8 % (21-51); MEAN CORPUSCULAR HGB CONC 34.1 g/dL (33.0-36.5); MEAN CORPUSCULAR VOLUME 87.9 FL (78-98); MEAN PLATELET VOLUME 7.5 FL (7.4-10.4); MONOCYTES # (AUTO) 0.6 X10'3 (0-0.9); MONOCYTES % (AUTO) 6.2 % (2-12); NEUTROPHILS % (AUTO) 77.3 % (42-75); PLATELET COUNT 229 X10'3 (140-440); RED BLOOD COUNT 4.49 X10'6 (4.70-6.10); RED CELL DISTRIBUTION WIDTH 12.7 % (11.5-14.5)
[2021-09-23 15:30] LABS: ALANINE AMINOTRANSFERASE 87 U/L (12-78); ALBUMIN 3.7 G/DL (3.4-5.0); ALKALINE PHOSPHATASE 110 IU/L (46-116); ANION GAP 9 (8-16); ASPARTATE AMINO TRANSFERASE 43 U/L (10-37); BILIRUBIN,TOTAL 0.3 MG/DL (0.1-1.0); BLOOD UREA NITROGEN 12 MG/DL (7-18); BUN/CREATININE RATIO 15.2 (5.4-32.0); CALCIUM 8.8 MG/DL (8.5-10.1); CHLORIDE 101 MMOL/L (99-107); CREATININE 0.79 MG/DL (0.60-1.10); GLUCOSE 91 MG/DL (70-104); POTASSIUM 3.9 MMOL/L (3.5-5.1); SODIUM 138 MMOL/L (135-145); TOTAL CARBON DIOXIDE 28.4 MMOL/L (24-32); TOTAL PROTEIN 7.3 G/DL (6.4-8.2); eGFR > 90 ML/MIN
--- NOTE | 2021-09-23 16:57 | NUR ---
MARIA [phone]
--- NOTE | 2021-09-23 17:31 | NUR ---
MARIA (CONSERVATOR) IF PT IS UNABLE TO BE DISCHARGED BY 9:30 HE WILL HAVE NO FISHERIES INSPECTOR TO BE ABLE TO TAKE HIM HOME UNTIL 8AM
== END 2021-09-23 19:20 | disposition left against medical advice (07) ==
LOC: ER 14:05
DX: R42 Dizziness and giddiness (principal); Z53.21 Procedure and treatment not carried out due to patient leaving prior to being seen by health care provider
CPT/HCPCS: 36415; 71045; 80053; 83880; 84484; 85025

== ENCOUNTER 2021-09-25 17:32 | Inpatient (IN) | payer MEDICARE, MEDICAID ==
[~2021-09-25] VITALS: Ht 185.4 cm; Wt 64.0 kg
[2021-09-25 18:10] LABS: BASOPHILS # (AUTO) 0.1 X10'3 (0-0.2); BASOPHILS % (AUTO) 1.1 % (0-1); EOSINOPHILS # (AUTO) 0.1 X10'3 (0-0.9); EOSINOPHILS % (AUTO) 0.8 % (0-6); HEMOGLOBIN 12.5 g/dl (14.0-17.9); LYMPHOCYTES # (AUTO) 1.7 X10'3 (1.1-4.8); LYMPHOCYTES % (AUTO) 15.6 % (21-51); MEAN CORPUSCULAR HEMOGLOBIN 29.5 PG (27.0-31.0); MEAN CORPUSCULAR HGB CONC 33.9 g/dL (33.0-36.5); MEAN CORPUSCULAR VOLUME 86.8 FL (78-98); MONOCYTES # (AUTO) 0.6 X10'3 (0-0.9); MONOCYTES % (AUTO) 5.7 % (2-12); NEUTROPHILS # (AUTO) 8.2 X10'3 (1.8-7.7); NEUTROPHILS % (AUTO) 76.8 % (42-75); PLATELET COUNT 211 X10'3 (140-440); RED BLOOD COUNT 4.26 X10'6 (4.70-6.10); RED CELL DISTRIBUTION WIDTH 12.6 % (11.5-14.5); WHITE BLOOD COUNT 10.6 X10'3 (4.5-11.0)
[2021-09-25 18:19] LABS: ALANINE AMINOTRANSFERASE 102 U/L (12-78); ALBUMIN 3.5 G/DL (3.4-5.0); ALBUMIN/GLOBULIN RATIO 1.1 (1.1-1.5); ALKALINE PHOSPHATASE 113 IU/L (46-116); ANION GAP 7 (8-16); ASPARTATE AMINO TRANSFERASE 62 U/L (10-37); BILIRUBIN,TOTAL 0.5 MG/DL (0.1-1.0); BLOOD UREA NITROGEN 11 MG/DL (7-18); CALCIUM 8.5 MG/DL (8.5-10.1); CHLORIDE 99 MMOL/L (99-107); CREATININE 0.92 MG/DL (0.60-1.10); GLUCOSE 111 MG/DL (70-104); POTASSIUM 3.5 MMOL/L (3.5-5.1); SODIUM 131 MMOL/L (135-145); TOTAL CARBON DIOXIDE 25.2 MMOL/L (24-32); TOTAL PROTEIN 6.7 G/DL (6.4-8.2); eGFR 83 ML/MIN
[2021-09-25 18:29] LABS: ETHANOL < 0.010 GM/DL (0.0-0.010)
--- NOTE | 2021-09-25 20:13 | NUR ---
I SPOKE TO PT, HE WAS SIPPING ON WATER. EYE CONTACT WHEN ANSWERING QUESTIONS ONLY. STATES THAT HE HAS BEEN FALLING FOR A FEW DAYS AND DOESN'T WANT TO GET OUT OF BED. DENIES HEARING VOICES. DENIES WANTING TO HURT HIMSELF OR OTHERS.
--- NOTE | 2021-09-25 21:00 | NUR ---
PT IS SLEEPING ON HIS SIDE. EQUAL RISE AND FALL OF CHEST.
--- NOTE | 2021-09-25 22:00 | NUR ---
PT SLEEPING ON HIS BACK. EQUAL RISE AND FALL OF CHEST.
--- NOTE | 2021-09-25 22:59 | NUR ---
PT REQUESTED A SANDWICH. PT PROVIDED WITH A TURKEY SANDWICH.
--- NOTE | 2021-09-25 23:30 | NUR ---
PT REMOVED MASK TO EAT AND I NOTICED DRIED BLOOD ON HIS CHIN. WHEN I ASKED HIM ABOUT IT, HE TOLD ME HE FELL "YESTERDAY" BEFORE COMING HERE. HAD WEIGHT LOSS COUNSELOR, WARREN, FLUSH IT. REPORTED THIS TO DR SANDS AND HAD HIM ASSESS THE WOUND. HE ASSESSED WOUND AND STATED HE WILL PUT IN ORDERS FOR A CT SCAN.
--- NOTE | 2021-09-26 00:30 | NUR ---
PT HEADED TO CT
--- NOTE | 2021-09-26 01:45 | NUR ---
PT BACK FROM CT
--- NOTE | 2021-09-26 02:37 | NUR ---
PT SLEEPING ON HIS LEFT SIDE. EQUAL RISE AND FALL OF CHEST.
--- NOTE | 2021-09-26 03:00 | NUR ---
PT URINATED WITH HELP OF A TECH. URINE SAMPLE OBTAINED
[2021-09-26 03:14] LABS: CLARITY,URINE CLEAR (Clear); COLOR,URINE YELLOW (Yellow); GLUCOSE, URINE NEGATIVE (Neg); KETONES,URINE NEGATIVE (Neg); LEUKOCYTE ESTERASE ,URINE NEGATIVE (Neg); NITRITES, URINE NEGATIVE (Neg); OCCULT BLOOD,URINE NEGATIVE (Neg); PROTEIN,URINE NEGATIVE (Neg); UROBILINOGEN,URINE 0.2 E.U/dL (0.2-1.0)
[2021-09-26 03:16] LABS: UA COLLECTION TYPE URINAL
[2021-09-26 03:17] LABS: URINE AMPHETAMINE SCREEN NEGATIVE (Neg); URINE BARBITUATE SCREEN NEGATIVE (Neg); URINE BENZODIAZEPINES SCREEN NEGATIVE (Neg); URINE CANNABINOID SCREEN NEGATIVE (Neg); URINE COCAINE SCREEN NEGATIVE (Neg); URINE METHADONE SCREEN NEGATIVE (Neg); URINE OPIATE SCREEN NEGATIVE (Neg); URINE PHENCYCLIDINE SCREEN NEGATIVE (Neg)
--- NOTE | 2021-09-26 05:00 | NUR ---
The patient moved to bed 25 in the main ER
--- NOTE | 2021-09-26 05:00 | NUR ---
Packet sent to [facility]
--- NOTE | 2021-09-26 06:19 | NUR ---
pt sleeping comfortable
--- NOTE | 2021-09-26 06:32 | NUR ---
TECH RETOOK PT BP, PT BP 97/74
--- NOTE | 2021-09-26 06:32 | NUR ---
PT UP TO BR X1 ASSIST,THEN BACK TO BED.PT COMFORT NO C/O.
[2021-09-26] MEDS ORDERED: OLAN2.5T3 PO (10:57)
[2021-09-26] MEDS ORDERED: BUPR75TA8 PO (10:57)
[2021-09-26] MEDS ORDERED: TRAZ150T78 PO (10:57)
[2021-09-26] MEDS ORDERED: SERT50TA PO (10:57)
[2021-09-26] MEDS ORDERED: ATOR40TA PO (10:57)
[2021-09-26] MEDS ORDERED: FLUT1BLS4 INH (10:57)
[2021-09-26] MEDS ORDERED: OLAN5TAB75 PO (10:57)
[2021-09-26] MEDS ORDERED: BENZ1TAB7 PO (10:57)
[2021-09-26] MEDS ORDERED: HYDR-3686 PO (10:57)
[2021-09-26] MEDS ORDERED: FLO0.4C PO (10:57)
[2021-09-26] MEDS ORDERED: MIRT-116 PO (10:57)
[2021-09-26 13:00] VITALS: BP 122/71
[2021-09-26] MEDS ORDERED: loperamide 2mg capsule PO PRN (13:15)
[2021-09-26] MEDS ORDERED: magnesium hydroxide 30ml (MOM) UD suspension PO PRN (13:15)
[2021-09-26] MEDS ORDERED: mag hydrox/Alum hydrox/simeth 30ml oral suspension PO PRN (13:15)
[2021-09-26 13:20] VITALS: BP 122/71
--- NOTE | 2021-09-26 13:52 | NUR ---
Admit note: Pt admitted today on 5149 for gravely disabled form our ER at 1300. Pt stopped drinking water, hasn't left his bed due to fear and paranoia. Pt not caring for his basic needs. Pt has been falling at [place] and is on [facility] conservatorship. Addendum: 09/26/21 at 1359 by Surjit Sepulveda) ZAKI Pt has history of Schizoaffective disorder.
[2021-09-26] MEDS: hydrOXYzine 25 MG tablet PO PRN (14:01)
[2021-09-26] MEDS ORDERED: ipratropium/albuterol 3ml nebule NEB SCH (15:00)
[2021-09-26 19:38] VITALS: BP 122/64
[2021-09-26] MEDS: mirtazapine 15mg tablet PO SCH (20:21)
[2021-09-26] MEDS: sertraline 50mg tablet PO SCH (20:21)
[2021-09-26] MEDS: tamsulosin 0.4mg capsule PO SCH (20:22)
[2021-09-26] MEDS: olanzapine 10mg tablet PO SCH (20:22)
[2021-09-26] MEDS: OLANZAPINE 5 MG TABLET PO SCH (20:22)
[2021-09-26] MEDS: traZODone 50mg tablet PO SCH (20:23)
[2021-09-26] MEDS: docusate sod 100mg capsule PO SCH (20:23)
[2021-09-26] MEDS ORDERED: budesonide 0.5mg/2ml UD nebule IH SCH (21:00)
[2021-09-26] MEDS: budesonide 0.5mg/2ml UD nebule IH SCH (21:00)
--- NOTE | 2021-09-27 05:05 | NUR ---
Nursing Progress Note: Ayan Problem: Pt admitted today on 5150 for gravely disabled form our ER at 1300. Pt stopped drinking water, hasn't left his bed due to fear and paranoia. Pt not caring for his basic needs. Pt has been falling at [facility] and is on LPS conservatorship. Interventions: Maintained a safe and supportive environment, provided clear and simple instructions, ensured contract for safety, and provided active listening and positive encouragement, monitored behaviors maintained Q 15min safety checks. Response: Patient was polite and cooperative. Patient was found lying in bed at beginning of shift and was explained why certain clothing and belts are not allowed. Patient spent majority of the shift in his room and sleeping. Patient did come out for a short while at beginning of shift but refused to participate in snack. Patient had to be awaken to be given night medications. Patient took night medications without issue and returned to sleep. Plan: Per FANTA Gonzales, pt. continues to require medication titration and a safe and supportive environment
[2021-09-27] MEDS: docusate sod 100mg capsule PO SCH ×2 (07:40→20:09)
[2021-09-27] MEDS: pantoprazole 40mg Tablet.DR PO SCH (07:40)
[2021-09-27] MEDS: benztropine 1mg tablet PO SCH (07:40)
[2021-09-27] MEDS: OLANZAPINE 5 MG TABLET PO SCH ×2 (07:40→20:10)
[2021-09-27] MEDS: buPROPion SR 150mg tablet PO SCH ×2 (07:40→20:34)
[2021-09-27] MEDS: atorvastatin 20mg tablet PO SCH (07:40)
[2021-09-27 08:18] LABS: CHOL/HDL RATIO 3.1 (0.00-4.99); CHOLESTEROL 136 MG/DL (0-200); HDL CHOLESTEROL 44 MG/DL (35-60); LDL CHOLESTEROL 66 MG/DL (50-100); TRIGLYCERIDES 80 MG/DL (20-135)
[2021-09-27 08:23] VITALS: BP 95/56
[2021-09-27] MEDS: budesonide 0.5mg/2ml UD nebule IH SCH ×2 (08:39→20:13)
[2021-09-27] MEDS: ipratropium/albuterol 3ml nebule NEB PRN (08:39)
[2021-09-27 08:57] LABS: HEMOGLOBIN A1C 5.8 % (4.5-6.2)
--- NOTE | 2021-09-27 10:29 | NUR ---
Malnutrition consult: Pt reports 14-23 lb wt loss with decreased appetite per malnutrition risk screen with RN. Per physician notes pt has "become increasingly paranoid that his food and water is being poisoned". Pt with recent scaled wt h/o 62.2 kg in July of this year, current scaled wt hx 60.9 kg. This is non-significant wt loss of 2% (1.3 kg) in two months. Pt on a regular diet, averaging 44% PO intake meeting roughly 51% estimated energy needs and 67% estimated protein needs for IBW, though ate well at admit in July documented with mostly 75-100% PO intake throughout LOS. Hopeful that appetite/PO intake will improve this admit. Pt with no documented decrease in muscle strength or edema and per ED report appears well developed well nourished. Pt currently lacks a minimum of two criteria for malnutrition. Will continue to follow and further monitor qualifying criteria for malnutrition. Addendum: 09/27/21 at [address] Amended: Links added.
--- NOTE | 2021-09-27 11:04 | NUR ---
Patient down for MRI in wheelchair accompanied by x1 staff and security.
--- NOTE | 2021-09-27 12:07 | NUR ---
Patient back in room.
[2021-09-27] MEDS ORDERED: NICOTINE POLACRILEX 2 MG LOZENGE BC PRN (13:00)
--- NOTE | 2021-09-27 13:27 | NUR ---
Ayan is a 66 y/o male who [facility] He was residing at [facility]. He was not caring for himself, had not been drinking water, and had not left his bed due to far and paranoia. He was placed on 5150 and brought to [facility] ED for placement. Per [facility] evaluation, Ayan was difficult to converse with and presented as confused and disoriented. He expressed fear to leave his bed due to recent falls. He reported fear of drinking water because he did not want to get up to use the restroom due to fear of falling. He has a history of anxiety and depression and more recently has been presenting with paranoia and psychotic symptoms including visual hallucinations. 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 Per [facility], Ayan is unable to return to [facility] and is in need of placement once stable. CUCA Thurman Addendum: 09/27/21 at 1329 by Yelitza Greer SS Amended: Links added.
--- NOTE | 2021-09-27 15:22 | NUR ---
Nursing Progress Note: Ayan Problem: Pt admitted today on 5150 for gravely disabled form our ER at 1300. Pt stopped drinking water, hasn't left his bed due to fear and paranoia. Pt not caring for his basic needs. Pt has been falling at [facility] and is on LPS conservatorship. Interventions: Maintained a safe and supportive environment, provided clear and simple instructions, ensured contract for safety, and provided active listening and positive encouragement, monitored behaviors maintained Q 15min safety checks. Response: Received patient appearing to be sleeping comfortably in bed. Patient easily awaken, pleasant and cooperative with med administration and assessments. Patient eye contact varies. Will make eye contact on and off during 1:1 interview looking down for the most part. Patient denies A/V hallucination and SI/HI. Patient needed to be encouraged several times before going to dining room for meal and hesitant at first. Patient napping throughout the day. Only waking up for meals, snacks and when patient was down to MRI. Patient does not interact with other patients. No PRNs needed for this shift at this time. Plan: Per FANTA Gonzales, pt. continues to require medication titration and a safe and supportive environment
[2021-09-27 19:48] VITALS: BP 127/66
[2021-09-27] MEDS: sertraline 50mg tablet PO SCH (20:09)
[2021-09-27] MEDS: olanzapine 10mg tablet PO SCH (20:10)
[2021-09-27] MEDS: mirtazapine 15mg tablet PO SCH (20:10)
[2021-09-27] MEDS: traZODone 50mg tablet PO SCH (20:11)
[2021-09-27] MEDS: tamsulosin 0.4mg capsule PO SCH (20:11)
--- NOTE | 2021-09-28 05:00 | NUR ---
Nursing Progress Note: Ayan Problem: Pt admitted today on 5150 for gravely disabled form our ER at 1300. Pt stopped drinking water, hasn't left his bed due to fear and paranoia. Pt not caring for his basic needs. Pt has been falling at [facility] and is on LPS conservatorship. Interventions: Maintained a safe and supportive environment, provided clear and simple instructions, ensured contract for safety, and provided active listening and positive encouragement, monitored behaviors maintained Q 15min safety checks. Response: Patient was observed laying in bed at beginning of shift. Patient stayed in room self isolating all shift. When nurse would check on patient he was either sleeping or staring off into the distance. Patient complained of feeling unsteady on feet when initially getting up to use rest room. Patient was polite and cooperate and took all night medication without issue. Patient was able to talk to his sister and stated they had a good conversation. Plan: Per FANTA Gonzales, pt. continues to require medication titration and a safe and supportive environment
[2021-09-28] MEDS: benztropine 1mg tablet PO SCH ×2 (07:54→20:18)
[2021-09-28] MEDS: atorvastatin 20mg tablet PO SCH (07:55)
[2021-09-28] MEDS: docusate sod 100mg capsule PO SCH ×2 (07:55→20:18)
[2021-09-28] MEDS: pantoprazole 40mg Tablet.DR PO SCH (07:55)
[2021-09-28] MEDS: OLANZAPINE 5 MG TABLET PO SCH ×2 (07:55→20:17)
[2021-09-28] MEDS: buPROPion SR 150mg tablet PO SCH (07:55)
[2021-09-28 08:00] VITALS: BP 98/59
[2021-09-28] MEDS: budesonide 0.5mg/2ml UD nebule IH SCH ×2 (08:42→19:34)
--- NOTE | 2021-09-28 15:07 | NUR ---
Nursing Progress Note: Problem: Pt admitted today on 5150 for gravely disabled form [facility] ER at. Pt stopped drinking water and wasnt leaving his bed due to fear and paranoia. Pt not caring for his basic needs and falling at [facility] and is on [facility] conservatorship. Interventions: Maintained a safe and supportive environment, provided clear and simple instructions, ensured contract for safety, and provided active listening and positive encouragement, monitored behaviors maintained Q 15min safety checks. Response: Received Pt in bed sleeping w/o distress. He woke and was cooperative with vitals. Pt pleasant during AM assessments and came to community room for meals. Pt spent most of day in his room. At one point, he reported forgetting where his room was and was seen wandering in another room. Patient denies A/V hallucination and SI/HI. Patient napped throughout the day. Pt did not need or request PRN medication this shift. Plan: Per FANTA Gonzales, pt. continues to require medication titration and a safe and supportive environment.
[2021-09-28] MEDS ORDERED: saliva stimulant agent 45ml spray MM PRN (17:15)
[2021-09-28 18:00] VITALS: BP 98/61
[2021-09-28 20:00] VITALS: BP 98/61
[2021-09-28] MEDS: olanzapine 10mg tablet PO SCH (20:18)
[2021-09-28] MEDS: tamsulosin 0.4mg capsule PO SCH (20:18)
[2021-09-28] MEDS: mirtazapine 15mg tablet PO SCH (20:18)
[2021-09-28] MEDS: sertraline 50mg tablet PO SCH (20:18)
[2021-09-28] MEDS ORDERED: traZODone 50mg tablet PO SCH (21:00)
--- NOTE | 2021-09-29 04:26 | NUR ---
Nursing Progress Note: Problem: Pt admitted today on 5150 for gravely disabled form [facility] ER at. Pt stopped drinking water and wasnt leaving his bed due to fear and paranoia. Pt not caring for his basic needs and falling at [facility] and is on LPS conservatorship. Interventions: Maintained a safe and supportive environment, provided clear and simple instructions, ensured contract for safety, and provided active listening and positive encouragement, monitored behaviors maintained Q 15min safety checks. Response: Patient is pleasant and cooperative with care; compliant with medication. Patient denies SI, HI, A/VH; no apparent delusions expressed. Patient mostly isolative to his room; came out for HS snack and quickly returned to his room; observed sleeping and does not appear to be having difficulty. Plan: Per FANTA Gonzaels, pt. continues to require medication titration and a safe and supportive environment.
[2021-09-29] MEDS ORDERED: BIOTENE DRY MOUTH MOISTURIZING PO PRN (06:05)
[2021-09-29 08:00] VITALS: BP 108/64
[2021-09-29] MEDS: buPROPion SR 150mg tablet PO SCH ×2 (08:00→13:30)
[2021-09-29] MEDS: benztropine 1mg tablet PO SCH ×2 (08:00→20:17)
[2021-09-29] MEDS: pantoprazole 40mg Tablet.DR PO SCH (08:00)
[2021-09-29] MEDS: atorvastatin 20mg tablet PO SCH (08:00)
[2021-09-29] MEDS: docusate sod 100mg capsule PO SCH ×2 (08:00→20:17)
[2021-09-29] MEDS: OLANZAPINE 5 MG TABLET PO SCH ×2 (08:00→20:17)
[2021-09-29] MEDS: nicotine 14mg patch - 24hr TD SCH (08:02)
[2021-09-29 08:29] LABS: BASOPHILS # (AUTO) 0.1 X10'3 (0-0.2); BASOPHILS % (AUTO) 0.6 % (0-1); EOSINOPHILS # (AUTO) 0.2 X10'3 (0-0.9); EOSINOPHILS % (AUTO) 1.7 % (0-6); HEMATOCRIT 40.2 % (42.0-52.0); HEMOGLOBIN 13.5 g/dl (14.0-17.9); LYMPHOCYTES # (AUTO) 1.5 X10'3 (1.1-4.8); LYMPHOCYTES % (AUTO) 15.3 % (21-51); MEAN CORPUSCULAR HEMOGLOBIN 29.7 PG (27.0-31.0); MEAN CORPUSCULAR HGB CONC 33.7 g/dL (33.0-36.5); MEAN CORPUSCULAR VOLUME 88.1 FL (78-98); MEAN PLATELET VOLUME 7.9 FL (7.4-10.4); MONOCYTES # (AUTO) 0.6 X10'3 (0-0.9); MONOCYTES % (AUTO) 6.3 % (2-12); NEUTROPHILS # (AUTO) 7.2 X10'3 (1.8-7.7); NEUTROPHILS % (AUTO) 76.1 % (42-75); PLATELET COUNT 217 X10'3 (140-440); RED BLOOD COUNT 4.56 X10'6 (4.70-6.10); RED CELL DISTRIBUTION WIDTH 13.1 % (11.5-14.5); WHITE BLOOD COUNT 9.5 X10'3 (4.5-11.0)
[2021-09-29 08:50] LABS: IRON 87 UG/DL (53-167)
[2021-09-29 08:51] LABS: ALANINE AMINOTRANSFERASE 77 U/L (12-78); ALBUMIN 3.5 G/DL (3.4-5.0); ALKALINE PHOSPHATASE 113 IU/L (46-116); ANION GAP 10 (8-16); ASPARTATE AMINO TRANSFERASE 36 U/L (10-37); BILIRUBIN,TOTAL 0.3 MG/DL (0.1-1.0); BLOOD UREA NITROGEN 18 MG/DL (7-18); BUN/CREATININE RATIO 21.2 (5.4-32.0); CALCIUM 8.7 MG/DL (8.5-10.1); CHLORIDE 102 MMOL/L (99-107); CREATININE 0.85 MG/DL (0.60-1.10); FERRITIN 236 NG/ML (26-388); GLUCOSE 129 MG/DL (70-104); POTASSIUM 4.1 MMOL/L (3.5-5.1); SODIUM 137 MMOL/L (135-145); TOTAL CARBON DIOXIDE 25.3 MMOL/L (24-32); TOTAL PROTEIN 7.1 G/DL (6.4-8.2); eGFR > 90 ML/MIN
[2021-09-29] MEDS: budesonide 0.5mg/2ml UD nebule IH SCH ×2 (10:04→20:31)
[2021-09-29] MEDS: ipratropium/albuterol 3ml nebule NEB PRN (10:04)
[2021-09-29] MEDS: hydrOXYzine 25 MG tablet PO PRN (13:43)
--- NOTE | 2021-09-29 17:53 | NUR ---
Nursing Progress Note: Ayan Problem: Pt admitted today on 5150 for gravely disabled form [facility] ER at. Pt stopped drinking water and wasnt leaving his bed due to fear and paranoia. Pt not caring for his basic needs and falling at [facility] and is on [facility] conservatorship. Patient had no episodes of falling on this shift. He is observed to be more independent of ADLs and active on the unit. Interventions: Provided 1:1 assessment, established rapport, active listening and positive encouragement, medication administration, maintained a safe and supportive environment, ensured contract for safety, provided redirection as needed, and maintained Q 15 min safety checks. Encouraged participation of ADLs. Patient showered on this shift. Response: Patient received sleeping in his room at change of shift. He joined for breakfast in the group room with peers. Patient was receptive to 1:1 assessment and scheduled medication. He was observed pacing up and down the hallway throughout the morning, appearing to be exercising. Patient denies SI/HI, AH or VH. Does not appear to be responding to internal stimuli. Patient reported to this marketing underwriter that he is anxious about going back to board and care. Patient endorsing that he is worried if they will accept him back or not. Patient reported feelings of anxiety and was given PRN Atarax at 1343 with effectiveness. He is calm, pleasant, and cooperative with care. Patient observed quietly pacing around the unit throughout the day. Patient noted napping intermittently in his room. He was active on the unit the majority of the shift and participated for snack/meal times in the group room with peers. Plan: Patient continues to require medication adjustment and monitoring in a safe and supportive environment.
[2021-09-29 19:20] VITALS: BP 135/63
[2021-09-29] MEDS: olanzapine 10mg tablet PO SCH (20:17)
[2021-09-29] MEDS: tamsulosin 0.4mg capsule PO SCH (20:17)
[2021-09-29] MEDS: mirtazapine 15mg tablet PO SCH (20:18)
[2021-09-29] MEDS: sertraline 50mg tablet PO SCH (20:18)
[2021-09-29] MEDS: traZODone 50mg tablet PO SCH (20:19)
--- NOTE | 2021-09-30 04:43 | NUR ---
Nursing Progress Note: Problem: Pt admitted today on 5150 for gravely disabled form [facility] ER at. Pt stopped drinking water and wasnt leaving his bed due to fear and paranoia. Pt not caring for his basic needs and falling at [facility] and is on [facility] conservatorship. Interventions: Maintained a safe and supportive environment, provided clear and simple instructions, ensured contract for safety, and provided active listening and positive encouragement, monitored behaviors maintained Q 15min safety checks. Response: Patient is pleasant and cooperative with care; compliant with medication. Nicotine patch removed. Denies SI, HI, A/VH bu endorses depression and "worried about conservatorship." No apparent delusions expressed. Patient appeared brighter today as he was joking with marine underwriter. He participated in HS snack and promptly returned to bed; observed sleeping and does not appear to be having difficulty. Plan: Per FANTA Gonzales, pt. continues to require medication titration and a safe and supportive environment.
[2021-09-30 08:00] VITALS: BP 108/64
[2021-09-30] MEDS: docusate sod 100mg capsule PO SCH ×2 (08:28→20:13)
[2021-09-30] MEDS: benztropine 1mg tablet PO SCH ×2 (08:28→20:13)
[2021-09-30] MEDS: atorvastatin 20mg tablet PO SCH (08:28)
[2021-09-30] MEDS: buPROPion SR 150mg tablet PO SCH ×2 (08:29→12:45)
[2021-09-30] MEDS: hydrOXYzine 25 MG tablet PO PRN (08:29)
[2021-09-30] MEDS: OLANZAPINE 5 MG TABLET PO SCH ×2 (08:29→20:13)
[2021-09-30] MEDS: pantoprazole 40mg Tablet.DR PO SCH (08:29)
[2021-09-30] MEDS: nicotine 14mg patch - 24hr TD SCH (09:03)
[2021-09-30] MEDS: acetaminophen 325mg tablet PO PRN (09:05)
[2021-09-30] MEDS: budesonide 0.5mg/2ml UD nebule IH SCH ×2 (09:38→20:08)
--- NOTE | 2021-09-30 11:12 | NUR ---
Initial: Pt admitted w/ major depression per EMR. Currently on Regular diet w/ mostly 100% intake of meals meeting needs at this time. LBM 09/28 receiving routine colace. No nutrition intervention implemented at this time, will continue to monitor. Recs: 1. Continue Regular diet as tolerated 2. Bowel care per rx 3. Weekly wts Addendum: 09/30/21 at [address] Amended: Links added.
--- NOTE | 2021-09-30 15:33 | NUR ---
Nursing Progress Note Problem: Pt admitted on a 5150 for gravely disabled form [facility] ER. Pt stopped drinking water and wasnt leaving his bed due to fear and paranoia. Pt not caring for his basic needs and falling at [facility] and is on LPS conservatorship. Interventions: Provided 1:1 assessment, established rapport, active listening and positive encouragement, medication administration, maintained a safe and supportive environment, ensured contract for safety, provided redirection as needed, and maintained Q 15 min safety checks. Encouraged participation of ADLs. Response: Patient asleep at change of shift. Pt receptive to 1:1 assessment done at bedside and medication administration. He denies feelings of depression but has a lot of anxiety. He believes his anxiety is stemming from being unsure about his future placement. Pt provided PRN Atarax per request as well as PRN Tylenol for back pain, both effective. Denies A&VH. Pt seen napping in his room throughout the day as well as pacing. Plan: Patient continues to require medication adjustment and monitoring in a safe and supportive environment. As of 09/30/21 the group social worker informed the team of the plan to get Mr. Grider in a more supportive environment than [place].
[2021-09-30 19:29] VITALS: BP 103/60
[2021-09-30] MEDS: sertraline 50mg tablet PO SCH (20:13)
[2021-09-30] MEDS: traZODone 50mg tablet PO SCH (20:13)
[2021-09-30] MEDS: mirtazapine 15mg tablet PO SCH (20:13)
[2021-09-30] MEDS: olanzapine 10mg tablet PO SCH (20:13)
[2021-09-30] MEDS: tamsulosin 0.4mg capsule PO SCH (20:13)
--- NOTE | 2021-10-01 04:40 | NUR ---
Nursing Progress Note: Problem: Pt admitted today on 5150 for gravely disabled form [facility] ER at. Pt stopped drinking water and wasnt leaving his bed due to fear and paranoia. Pt not caring for his basic needs and falling at [facility] and is on LPS conservatorship. Interventions: Maintained a safe and supportive environment, provided clear and simple instructions, ensured contract for safety, and provided active listening and positive encouragement, monitored behaviors maintained Q 15min safety checks. Response: Patient is pleasant and cooperative with care; compliant with medication. Nicotine patch removed. He denies SI, HI, A/VH but continues to endorse depression. He continued to explain he's a little sad to not be going back to [facility] but appeared to understand needing more care. Patient continues to mostly isolate to his room but observed participating in HS snack. Patient is observed sleeping and does not appear to be having difficulty. Plan: Per FANTA Gonzales, pt. continues to require medication titration and a safe and supportive environment.
[2021-10-01] MEDS: OLANZAPINE 5 MG TABLET PO SCH ×2 (07:31→20:32)
[2021-10-01] MEDS: benztropine 1mg tablet PO SCH ×2 (07:31→20:32)
[2021-10-01] MEDS: atorvastatin 20mg tablet PO SCH (07:31)
[2021-10-01] MEDS: pantoprazole 40mg Tablet.DR PO SCH (07:31)
[2021-10-01] MEDS: docusate sod 100mg capsule PO SCH ×2 (07:31→20:31)
[2021-10-01] MEDS: buPROPion SR 150mg tablet PO SCH ×2 (07:31→12:07)
[2021-10-01] MEDS: nicotine 14mg patch - 24hr TD SCH (07:32)
[2021-10-01 08:00] VITALS: BP 119/54
[2021-10-01] MEDS: budesonide 0.5mg/2ml UD nebule IH SCH ×2 (10:05→21:00)
--- NOTE | 2021-10-01 15:11 | NUR ---
PLACEMENT Sent placement packet to [place] office. CUCA Thurman
--- NOTE | 2021-10-01 15:50 | NUR ---
Nursing Progress Note: Ayan Problem: Pt stopped drinking water, hasn't left his bed due to fear and paranoia. Pt not caring for his basic needs. Pt has been failing at [facility] and is on LPS conservatorship. Intervention: Medication given as ordered. Provided with a safe and therapeutic environment, clear communication, active listening and positive encouragement. Response: Patient is resting quietly in bed at the start of the shift. Cooperative with assessment and medications. Patient verbalizes being disappointed over having to change living situations. Patient states, My landlord said I cant live there anymore. I fall too much. Patient endorses hearing voices at times but not since his admission here. Denies any suicidal/ homicidal ideation. He is unable to formulate a plan for food clothing and fdc at this time. Plan: Patient continues to require crisis interruption and stabilization with medication management and monitoring in a safe and therapeutic environment. He is LPS Conserved, and will require placement.
[2021-10-01] MEDS ORDERED: saliva stimulant agent 45ml spray MM PRN (16:05)
[2021-10-01 19:33] VITALS: BP 100/61
[2021-10-01] MEDS: olanzapine 10mg tablet PO SCH (20:31)
[2021-10-01] MEDS: sertraline 50mg tablet PO SCH (20:31)
[2021-10-01] MEDS: mirtazapine 15mg tablet PO SCH (20:32)
[2021-10-01] MEDS: traZODone 50mg tablet PO SCH (20:32)
[2021-10-01] MEDS: tamsulosin 0.4mg capsule PO SCH (20:32)
--- NOTE | 2021-10-02 04:35 | NUR ---
Nursing Progress Note: Problem: Pt admitted today on 5150 for gravely disabled form [facility] ER at. Pt stopped drinking water and wasnt leaving his bed due to fear and paranoia. Pt not caring for his basic needs and falling at [facility] and is on [facility] conservatorship. Interventions: Maintained a safe and supportive environment, provided clear and simple instructions, ensured contract for safety, and provided active listening and positive encouragement, monitored behaviors maintained Q 15min safety checks. Response: Patient is pleasant and cooperative with care; compliant with medication. Nicotine patch removed. Denies SI, HI, A/VH; no apparent delusions expressed. Patient continues to self isolate to his bedroom. Received HS snack prior to bed; observed sleeping and does not appear to be having difficulty. Plan: Per FANTA Gonzales, pt. continues to require medication titration and a safe and supportive environment.
[2021-10-02] MEDS: benztropine 1mg tablet PO SCH ×2 (07:14→20:47)
[2021-10-02] MEDS: nicotine 14mg patch - 24hr TD SCH (07:14)
[2021-10-02] MEDS: OLANZAPINE 5 MG TABLET PO SCH ×2 (07:14→20:47)
[2021-10-02] MEDS: atorvastatin 20mg tablet PO SCH (07:14)
[2021-10-02] MEDS: docusate sod 100mg capsule PO SCH ×2 (07:14→20:47)
[2021-10-02] MEDS: pantoprazole 40mg Tablet.DR PO SCH (07:14)
[2021-10-02] MEDS: buPROPion SR 150mg tablet PO SCH ×2 (07:14→12:38)
[2021-10-02 07:43] VITALS: BP 119/65
[2021-10-02] MEDS: budesonide 0.5mg/2ml UD nebule IH SCH ×2 (09:22→20:00)
--- NOTE | 2021-10-02 16:32 | NUR ---
Nursing Progress Note: Ayan Problem: Pt stopped drinking water, hasn't left his bed due to fear and paranoia. Pt not caring for his basic needs. Pt has been falling at [facility] and is on LPS conservatorship. Intervention: Medication given as ordered. Provided with a safe and therapeutic environment, clear communication, active listening and positive encouragement. Response: Patient is resting quietly in bed at the start of the shift. Cooperative with assessment and medication. Denies any mental health symptoms at this time. Patient isolates to his room and appears guarded. Endorses feeling upset about having to move out of [facility]. Patient is unable to formulate a plan for food, clothing and detention at this time. Plan: Patient continues to require crisis interruption and stabilization with medication management and monitoring in a safe and therapeutic environment. He is LPS Conserved, and will require placement.
[2021-10-02 19:24] VITALS: BP 120/70
[2021-10-02] MEDS ORDERED: saliva stimulant agent 45ml spray MM PRN (20:45)
[2021-10-02] MEDS: tamsulosin 0.4mg capsule PO SCH (20:47)
[2021-10-02] MEDS: mirtazapine 15mg tablet PO SCH (20:47)
[2021-10-02] MEDS: sertraline 50mg tablet PO SCH (20:48)
[2021-10-02] MEDS: traZODone 50mg tablet PO SCH (20:48)
[2021-10-02] MEDS: olanzapine 10mg tablet PO SCH (20:48)
[2021-10-02] MEDS ORDERED: [UNRECOGNIZED DRUG - REMARK] MM PRN (22:35)
--- NOTE | 2021-10-02 23:12 | NUR ---
Nursing Progress Note: Ayan Problem: Pt stopped drinking water, hasn't left his bed due to fear and paranoia. Pt not caring for his basic needs. Pt has been falling at [facility] and is on LPS conservatorship. Intervention: Medication given as ordered. Provided with a safe and therapeutic environment, clear communication, active listening and positive encouragement. Response: Patient resting in bed at change of shift. Pt is calm, cooperative and pleasant. Pt is concerned about involuntary movement in his legs and feet. Pt states he has discussed this with provider. Providers note indicates provider is aware. Pt spent time talking with his sister on the phone, and attended snack w/peers in the group room but isolates to himself. Pt took HS meds at bedtime and went to sleep. Plan: Patient continues to require crisis interruption and stabilization with medication management and monitoring in a safe and therapeutic environment. He is LPS Conserved, and will require placement.
[2021-10-03 07:04] VITALS: BP 109/61
[2021-10-03] MEDS: OLANZAPINE 5 MG TABLET PO SCH ×2 (07:45→20:26)
[2021-10-03] MEDS: benztropine 1mg tablet PO SCH (07:45)
[2021-10-03] MEDS: nicotine 14mg patch - 24hr TD SCH (07:45)
[2021-10-03] MEDS: docusate sod 100mg capsule PO SCH ×2 (07:46→20:27)
[2021-10-03] MEDS: buPROPion SR 150mg tablet PO SCH ×2 (07:46→12:56)
[2021-10-03] MEDS: atorvastatin 20mg tablet PO SCH (07:46)
[2021-10-03] MEDS: pantoprazole 40mg Tablet.DR PO SCH (07:46)
[2021-10-03] MEDS: budesonide 0.5mg/2ml UD nebule IH SCH ×2 (10:24→20:08)
--- NOTE | 2021-10-03 17:05 | NUR ---
Nursing Progress Note: Problem: Pt stopped drinking water, hasn't left his bed due to fear and paranoia. Pt not caring for his basic needs. Pt has been falling at [facility] and is on LPS conservatorship. Intervention: Administered medications as prescribed. Obtained weekly weight. Provided therapeutic communication with active listening. Encouraged pt to participate in activities on the unit. Response: Pt took his medications as prescribed. He shared his concern over his weight loss. Spent most of the day isolating. Up for meals and snacks. Plan: Patient continues to require crisis interruption and stabilization with medication management and monitoring in a safe and therapeutic environment. He is LPS Conserved, and will require placement.
[2021-10-03 20:00] VITALS: BP 112/59
[2021-10-03] MEDS: tamsulosin 0.4mg capsule PO SCH (20:25)
[2021-10-03] MEDS: sertraline 50mg tablet PO SCH (20:26)
[2021-10-03] MEDS: mirtazapine 15mg tablet PO SCH (20:26)
[2021-10-03] MEDS: olanzapine 10mg tablet PO SCH (20:26)
[2021-10-03] MEDS ORDERED: traZODone 50mg tablet PO SCH (21:00)
--- NOTE | 2021-10-04 02:26 | NUR ---
Nursing Progress Note: Ayan Problem: Pt stopped drinking water, hasn't left his bed due to fear and paranoia. Pt not caring for his basic needs. Pt has been falling at [facility] and is on LPS conservatorship. Intervention: Medication given as ordered. Provided with a safe and therapeutic environment, clear communication, active listening and positive encouragement. Response: Patient in room lying down at shift change. The patient states that he has not heard any voices today but does hear them. The patient is polite and appropriate. The patient requested that his Trazodone be lowered so he doesn't feel drowsy in the day time. Pt Trazodone lowered from 150mg to 100mg per Dr Jaimes. The pt took evening meds w/o complications and went to bed shortly after. Plan: Patient continues to require crisis interruption and stabilization with medication management and monitoring in a safe and therapeutic environment. He is LPS Conserved, and will require placement.
[2021-10-04 07:09] VITALS: BP 99/57
[2021-10-04] MEDS: atorvastatin 20mg tablet PO SCH (08:28)
[2021-10-04] MEDS: OLANZAPINE 5 MG TABLET PO SCH (08:28)
[2021-10-04] MEDS: buPROPion SR 150mg tablet PO SCH ×2 (08:28→13:15)
[2021-10-04] MEDS: nicotine 14mg patch - 24hr TD SCH (08:28)
[2021-10-04] MEDS: pantoprazole 40mg Tablet.DR PO SCH (08:28)
[2021-10-04] MEDS: docusate sod 100mg capsule PO SCH ×2 (08:29→20:29)
[2021-10-04] MEDS: budesonide 0.5mg/2ml UD nebule IH SCH ×2 (09:02→20:12)
--- NOTE | 2021-10-04 10:10 | NUR ---
PLACEMENT UPDATE Ayan' is packet is currently being reviewed at [facility]. CUCA Thurman
--- NOTE | 2021-10-04 15:28 | NUR ---
FALL NOTE: Pt. was found sitting on the floor near nurses station [id number]. He reported he lost his balance d/t having his hands full. Pt. was able to get up without problem, no c/o pain, no bruising found. Pt. denied hitting his head, neuro checked and WNL. Pt. has a Hx of falls at most recent placement. Post fall VS showed a low diastolic of 41. Nsg. encouraged fluids to be increased, pharmacy to review medications, and provider notified. All protocols followed [facility] for additional assessments.
--- NOTE | 2021-10-04 17:29 | NUR ---
Nursing Progress Note: Ayan Problem: Pt stopped drinking water, hasn't left his bed due to fear and paranoia. Pt not caring for his basic needs. Pt has been falling at [facility] and is on LPS conservatorship. Pt. had an unwitnessed fall this afternoon without injury. Today pt. self isolates in his room and didnt attend group, c/o fatigue. Intervention: Urban Renewal Manager continues to provide pt. with a safe and therapeutic environment, clear communication, active listening and positive encouragement. Medications administered. Pt. encouraged to participate in group therapy, and 1:1 assessment provided. Response: Pt. reported feeling a lot of fatigue and reported I dont want to come out of my room, I have some anxiety Urban Renewal Manager administered routine medications; pt. reported a decrease in anxiety. He was not interested in attending group and verbally engages with credit underwriter minimally often responding after long periods. Pt. denies ASE to medications and ate all his meals and snacks in main dining room with cohorts, but often observed sitting alone and not engaging with others. Post fall assessment completed (please see note) Pt. was found to have low diastolic; fluids encouraged and provider notified. Plan: Patient continues to require crisis interruption and stabilization with medication management and monitoring in a safe and therapeutic environment. He is LPS Conserved, and will require placement.
[2021-10-04] MEDS: acetaminophen 325mg tablet PO PRN (18:49)
[2021-10-04 19:06] VITALS: BP 124/61
[2021-10-04] MEDS: mirtazapine 15mg tablet PO SCH (20:29)
[2021-10-04] MEDS: sertraline 50mg tablet PO SCH (20:30)
[2021-10-04] MEDS: tamsulosin 0.4mg capsule PO SCH (20:34)
[2021-10-04] MEDS ORDERED: traZODone 50mg tablet PO SCH (21:00)
[2021-10-04] MEDS ORDERED: olanzapine 10mg tablet PO SCH (21:00)
--- NOTE | 2021-10-04 23:57 | NUR ---
Nursing Progress Note: Ayan Problem: Pt stopped drinking water, hasn't left his bed due to fear and paranoia. Pt not caring for his basic needs. Pt has been falling at [facility] and is on LPS conservatorship. Intervention: Medication given as ordered. Provided with a safe and therapeutic environment, clear communication, active listening and positive encouragement. Response: Patient in community room eating dinner and watching movie at a table by himself. The patient had his walker and exclaimed that he had a fall earlier in the day.After dinner this sign writer hand walked the patient back to his room where he reported back pain 07/14, the patient was given Tylenol for pain relief and had good effect. The patient denies A/H V/H I/S I/H. The patient reported that he was feeling anxious due to over hearing a conversation with another pt and their nurse about going to [facility]. The pt expressed that he did not want to go to [facility] and wanted to find appropriate housing in the area. The patient then stated he was concerned that his conservator would not like that he had fallen. The pt took evening meds w/o complications and asked for a snack and went to sleep shortly after. Plan: Patient continues to require crisis interruption and stabilization with medication management and monitoring in a safe and therapeutic environment. He is LPS Conserved, and will require placement.
--- NOTE | 2021-10-05 04:27 | NUR ---
FALL NOTE: Elliott large bang from nurses station, pt found sitting on toilet in bathroom winded and short of breath. Patient exclaimed that he had fallen after parking his 4WW outside of restroom and thought he could make it the rest of the way. Patient helped back to bed. Assessment was normal. Patient reports falling on bottom, slight redness but no S/S of trauma or bruising. Patient completed neuro test and WNL. Post VS, 94%, 62, 14, 104/62
[2021-10-05 07:25] LABS: BASOPHILS # (AUTO) 0.1 X10'3 (0-0.2); BASOPHILS % (AUTO) 0.8 % (0-1); EOSINOPHILS # (AUTO) 0.2 X10'3 (0-0.9); EOSINOPHILS % (AUTO) 1.9 % (0-6); HEMATOCRIT 39.8 % (42.0-52.0); HEMOGLOBIN 13.5 g/dl (14.0-17.9); LYMPHOCYTES # (AUTO) 1.5 X10'3 (1.1-4.8); LYMPHOCYTES % (AUTO) 16.2 % (21-51); MEAN CORPUSCULAR HEMOGLOBIN 29.9 PG (27.0-31.0); MEAN CORPUSCULAR VOLUME 87.9 FL (78-98); MEAN PLATELET VOLUME 7.7 FL (7.4-10.4); MONOCYTES # (AUTO) 0.6 X10'3 (0-0.9); NEUTROPHILS # (AUTO) 6.7 X10'3 (1.8-7.7); NEUTROPHILS % (AUTO) 74.1 % (42-75); PLATELET COUNT 203 X10'3 (140-440); RED BLOOD COUNT 4.53 X10'6 (4.70-6.10); RED CELL DISTRIBUTION WIDTH 13.1 % (11.5-14.5)
[2021-10-05] MEDS: atorvastatin 20mg tablet PO SCH (07:55)
[2021-10-05] MEDS: pantoprazole 40mg Tablet.DR PO SCH (07:55)
[2021-10-05] MEDS: docusate sod 100mg capsule PO SCH ×2 (07:56→20:04)
[2021-10-05] MEDS: buPROPion SR 150mg tablet PO SCH ×2 (07:56→12:44)
[2021-10-05] MEDS: nicotine 14mg patch - 24hr TD SCH (07:57)
[2021-10-05 08:00] VITALS: BP 103/60
[2021-10-05] MEDS ORDERED: OLANZAPINE 5 MG TABLET PO SCH (08:00)
[2021-10-05 08:13] LABS: ALANINE AMINOTRANSFERASE 69 U/L (12-78); ALBUMIN 3.6 G/DL (3.4-5.0); ALKALINE PHOSPHATASE 111 IU/L (46-116); ANION GAP 5 (8-16); ASPARTATE AMINO TRANSFERASE 35 U/L (10-37); BILIRUBIN,TOTAL 0.3 MG/DL (0.1-1.0); BLOOD UREA NITROGEN 17 MG/DL (7-18); BUN/CREATININE RATIO 18.3 (5.4-32.0); CALCIUM 9.2 MG/DL (8.5-10.1); CHLORIDE 106 MMOL/L (99-107); CREATININE 0.93 MG/DL (0.60-1.10); GLUCOSE 102 MG/DL (70-104); POTASSIUM 4.2 MMOL/L (3.5-5.1); SODIUM 140 MMOL/L (135-145); TOTAL CARBON DIOXIDE 28.9 MMOL/L (24-32); TOTAL PROTEIN 7.3 G/DL (6.4-8.2); eGFR 82 ML/MIN
[2021-10-05] MEDS: budesonide 0.5mg/2ml UD nebule IH SCH ×2 (09:06→19:33)
[2021-10-05] MEDS: acetaminophen 325mg tablet PO PRN (10:03)
--- NOTE | 2021-10-05 16:34 | NUR ---
Nursing Progress Note: Ayan Problem: Pt here because he stopped drinking water, hasn't left his bed due to fear and paranoia. Pt not caring for his basic needs. Pt has been falling at [facility] and is on LPS conservatorship. Today Pt. monitored SP unwitnessed fall 10/05/21, 10/04/21 without injury. Pt. required LOS for safety d/t poor safety awareness, He continues to self-isolate, and endorses paranoia. Intervention: Cement Grinding Mill Operator continues to provide pt. with a safe and therapeutic environment, clear communication, active listening and positive encouragement. Medications administered. Pt. encouraged to participate in group therapy, and 1:1 assessment provided. LOS provided, PT evaluation completed. Response: Pt. assessed SP fall, no bruising found, no new c/o pain. Pt. did c/o old back pain, Britney always had PRN Tylenol given; he reported effectiveness. Pt. was awake most of shift and observed talking to LOS staff member about a range of topic. Opt. reports I like the door half closed because I feel people are looking at me sometimes Cement Grinding Mill Operator ensured pt. he safe here and is allowed privacy. Pt. was seen by PT and utilized the walker throughout the shift. Pt. is cooperative and friendly but is blunted at times. Poor safety awareness at times observed requiring queuing to slow speed of ambulation. Public Guardian notified of pt. 414 fall, d/t the early hour the call was placed by this feature writer at [phone]. A message was left on a secured voicemail system d/t office closed on weekend. Plan: Patient continues to require crisis interruption and stabilization with medication management and monitoring in a safe and therapeutic environment. He is LPS Conserved, and will require placement.
[2021-10-05 19:00] VITALS: BP 94/57
[2021-10-05] MEDS: olanzapine 10mg tablet PO SCH (20:04)
[2021-10-05] MEDS: mirtazapine 15mg tablet PO SCH (20:04)
[2021-10-05] MEDS: tamsulosin 0.4mg capsule PO SCH (20:04)
[2021-10-05] MEDS: sertraline 50mg tablet PO SCH (20:05)
--- NOTE | 2021-10-06 00:55 | NUR ---
Nursing Progress Note: Ayan Problem: Pt here because he stopped drinking water, hasn't left his bed due to fear and paranoia. Pt not caring for his basic needs. Pt has been falling at [facility] and is on LPS conservatorship. Today Pt. monitored SP unwitnessed fall 10/05/21, 10/04/21 without injury. Pt. required LOS for safety d/t poor safety awareness, He continues to self-isolate, and endorses paranoia. Intervention: Sewing Machine Maintenance Mechanic continues to provide pt. with a safe and therapeutic environment, clear communication, active listening and positive encouragement. Medications administered. Pt. encouraged to participate in group therapy, and 1:1 assessment provided. LOS provided, PT evaluation completed. Response: The pt was in bed sleeping at shift change, The patient was awoken by this contract writer and began to complain of lack of sleep from the previous night. The patient then stated he wished to sleep longer and went back to sleep. The patient woke up for evening meds which he took with no complications and was offeed a snack which he accepted graciously. The patient awoke again at around midnight to presumably go to the bathroom. This nurse was thee to help him make it safely to the toilet with out injury. The patient decided alf there he did not need his walker and left it and walked the final half to the bathroom w/o it. The patient finished using the restroom and was mumbling that he though it ridiculous that he had to do this. The patient went to sleep shortly after. This nurse stayed in the hallway the remainder of the night near the patients door for safety reasons. Plan: Patient continues to require crisis interruption and stabilization with medication management and monitoring in a safe and therapeutic environment. He is LPS Conserved, and will require placement.
[2021-10-06 07:46] VITALS: BP 108/66
[2021-10-06] MEDS: nicotine 14mg patch - 24hr TD SCH (07:55)
[2021-10-06] MEDS: docusate sod 100mg capsule PO SCH ×2 (07:55→21:01)
[2021-10-06] MEDS: atorvastatin 20mg tablet PO SCH (07:56)
[2021-10-06] MEDS: pantoprazole 40mg Tablet.DR PO SCH (07:56)
[2021-10-06] MEDS: buPROPion SR 150mg tablet PO SCH ×2 (07:56→12:53)
[2021-10-06] MEDS: OLANZAPINE 5 MG TABLET PO SCH ×2 (07:59→13:47)
[2021-10-06] MEDS: budesonide 0.5mg/2ml UD nebule IH SCH ×2 (09:35→21:00)
[2021-10-06] MEDS: acetaminophen 325mg tablet PO PRN (16:28)
--- NOTE | 2021-10-06 17:20 | NUR ---
Nursing Progress Note: Problem: Pt admitted on 09/26 for a 5150 for gravely disabled. Pt is reportedly stopped drinking water, and hasn't left his bed due to fear and paranoia. Pt is not caring for his basic needs. Pt has been falling at [facility] and is on LPS conservatorship. Interventions: Received patient while he was sitting up in bed in his room. Walked with the patient to the Community Room for breakfast. Patient walking using a 4 wheeled walker. Patient was steady in his gait while ambulating, and would either call out for help when he felt weak, or would ambulate a few steps to inform me he would be ambulating within this department using his walker. Multiple laps made with the patient who always remembered to use his walker, and consistently had a steady gait. Patient was offered toileting approximately every 2 hours or sooner if needed. Patient denies depression at this time, as well as no auditory or visual hallucinations. Patient did speak to this keno writer at length about the rest of his belongings at [facility] at this time. Response: Patient appears much stronger than yesterday, and has practiced walking up and down the hallways throughout the day. TC placed to SAMI Torre, and left a message per patients request on [facility] returning his belongings: Patient reports the following items are at [email or web address] at this time: 1) Laptop (worth $1,000) 2) Expensive guitar (worth $1200) I was told my guitar is in the storage room. 3) 2 pair of new jeans (in a small plastic bag) 4) 2 new shirt and at least 5 used shirts 5) I have a whole clothesline of clothing in my room. Patient reports My sister sends me my clothes all the time. Left a message on [employer]. Plan: Patient continues to require a safe and supportive environment and medication adjustments. Patient requires ambulation at least 5 times a day to increase strength while using his walker.
[2021-10-06 19:00] VITALS: BP 103/58
[2021-10-06] MEDS: olanzapine 10mg tablet PO SCH (21:02)
[2021-10-06] MEDS: tamsulosin 0.4mg capsule PO SCH (21:02)
[2021-10-06] MEDS: mirtazapine 15mg tablet PO SCH (21:02)
[2021-10-06] MEDS: sertraline 50mg tablet PO SCH (21:02)
--- NOTE | 2021-10-07 01:47 | NUR ---
Nursing Progress Note: Ayan Problem: Pt here because he stopped drinking water, hasn't left his bed due to fear and paranoia. Pt not caring for his basic needs. Pt has been falling at [facility] and is on LPS conservatorship. Intervention: Provide pt. with a safe and therapeutic environment, clear communication, active listening and positive encouragement. Medications administered. Pt. encouraged to participate in group therapy, and 1:1 assessment provided. LOS provided, PT evaluation completed. Response: The pt was in bed sleeping at shift change, He got up for snack then returned to room took all medications without difficulty. Pt says he hears voices but "it has not been for a long time." unable or unwilling to provide more information. Pt is concerned that he will not be allowed to return to [facility] when he leaves here. Per pt, Because he fell down they now consider him to high of a liability. Pt is using a Walker to ambulate. Plan: Patient continues to require crisis interruption and stabilization with medication management and monitoring in a safe and therapeutic environment. He is LPS Conserved, and will require placement.
--- NOTE | 2021-10-07 06:57 | NUR ---
Reassessment: Pt currently on Regular diet w/ y 100% intake of meals meeting needs at this time. LBM 10/04 receiving routine colace. No nutrition intervention implemented at this time, will continue to monitor. Recs: 1. Continue Regular diet as tolerated 2. Bowel care per rx 3. Weekly wts Addendum: 10/07/21 at [address] Amended: Links added.
[2021-10-07 08:00] VITALS: BP 124/45
[2021-10-07] MEDS: atorvastatin 20mg tablet PO SCH (08:00)
[2021-10-07] MEDS: OLANZAPINE 5 MG TABLET PO SCH ×2 (08:00→13:19)
[2021-10-07] MEDS: buPROPion SR 150mg tablet PO SCH ×2 (08:00→13:19)
[2021-10-07] MEDS: docusate sod 100mg capsule PO SCH ×2 (08:00→20:16)
[2021-10-07] MEDS: pantoprazole 40mg Tablet.DR PO SCH (08:00)
[2021-10-07] MEDS: nicotine 14mg patch - 24hr TD SCH (08:00)
[2021-10-07] MEDS: budesonide 0.5mg/2ml UD nebule IH SCH ×2 (09:09→20:07)
[2021-10-07] MEDS: acetaminophen 325mg tablet PO PRN (16:10)
--- NOTE | 2021-10-07 17:31 | NUR ---
Nursing Progress Note: Problem: Pt admitted on 09/26 for a 5150 for gravely disabled. Pt is reportedly stopped drinking water, and hasn't left his bed due to fear and paranoia. Pt is not caring for his basic needs. Pt has been falling at [facility] and is on [facility] conservatorship. Interventions: RN continues to provide pt. with a safe and therapeutic environment, clear communication, active listening and positive encouragement. Medications administered. Pt. encouraged to participate in group therapy, and 1:1 assessment provided. PT assessed pt. and attempted to do walking exercise with pt. but pt. refused. Pt. showered, but needs stand-by assist in the shower. Response: Pt. asleep at start of shift and went back to sleep after breakfast. Pt. is compliant with assessment and medications. Pt. denies SI/HI but reports feelings of depression and anxiety due to not being able to return to [place]. Pt. reports A/V hallucinations, reports hearing sounds as well as seeing people at of the corner of his eye who arent there. Pt. requested to shower and shave and was independent with stand-by assist due to unsteady gate. Plan: Patient continues to require a safe and supportive environment and medication adjustments. Patient requires ambulation at least 5 times a day to increase strength while using his walker.
[2021-10-07 20:00] VITALS: BP 102/74
[2021-10-07] MEDS: mirtazapine 15mg tablet PO SCH (20:16)
[2021-10-07] MEDS: tamsulosin 0.4mg capsule PO SCH (20:16)
[2021-10-07] MEDS: sertraline 50mg tablet PO SCH (20:17)
[2021-10-07] MEDS: olanzapine 10mg tablet PO SCH (20:17)
--- NOTE | 2021-10-08 03:17 | NUR ---
Nursing Progress Note: Problem: Pt admitted on 09/26 for a 5150 for gravely disabled. Pt is reportedly stopped drinking water, and hasn't left his bed due to fear and paranoia. Pt is not caring for his basic needs. Pt has been falling at [facility] and is on LPS conservatorship. Interventions: RN continues to provide pt. with a safe and therapeutic environment, clear communication, active listening and positive encouragement. Medications administered. Pt. encouraged to participate in group therapy, and 1:1 assessment provided. PT assessed pt. and attempted to do walking exercise with pt. but pt. refused. Pt. showered, but needs stand-by assist in the shower. Response: Patient spent the night isolated to his bed. He reports that he's too paranoid to spend much time out of his room. He also says that he worries too much, and he's worried right now about his stuff. Patient did not define what stuff or where it is. He did however, talk about his public guardian being on vacation, and how he's unable to get any answers about his "stuff." He also mentions a recurring theme about him getting discharged with nowhere to go. Reminded him that he always worries about that, but it's never happened. Patient comes out of his room for snack time then hurries back to his room where he feels safe. He is compliant with HS meds, denies side effects, and goes to sleep soon after. Plan: Patient continues to require a safe and supportive environment and medication adjustments. Patient requires ambulation at least 5 times a day to increase strength while using his walker.
[2021-10-08 08:00] VITALS: BP 110/60
[2021-10-08] MEDS: docusate sod 100mg capsule PO SCH ×2 (08:05→20:20)
[2021-10-08] MEDS: pantoprazole 40mg Tablet.DR PO SCH (08:05)
[2021-10-08] MEDS: OLANZAPINE 5 MG TABLET PO SCH ×2 (08:06→13:18)
[2021-10-08] MEDS: nicotine 14mg patch - 24hr TD SCH (08:06)
[2021-10-08] MEDS: atorvastatin 20mg tablet PO SCH (08:06)
[2021-10-08] MEDS: buPROPion SR 150mg tablet PO SCH ×2 (08:06→13:18)
[2021-10-08] MEDS: budesonide 0.5mg/2ml UD nebule IH SCH ×2 (08:58→21:00)
--- NOTE | 2021-10-08 11:16 | NUR ---
Pt. attended group today. Todays group was about the difference between Growth Mindset vs. Fixed Mindset. We learned about the differences and then discussed what aspect of developing a growth mindset they wanted to work on. Pts could work on a vision page to integrate some of the lessons learned from today's group. Pt engaged in the group though the majority of his thoughts were not on topic and circumstantial in presentation. His demeanor was pleasant and compliant. His mood was good with a restricted affect. His thoughts contained delusional thoughts and his thought process was circumstantial. He did not engage in the Vision Page activity. Remedios Richardson LCSW
--- NOTE | 2021-10-08 17:33 | NUR ---
Nursing Progress Note: Problem: Pt admitted on 09/26 for a 5150 for gravely disabled. Pt is reportedly stopped drinking water, and hasn't left his bed due to fear and paranoia. Pt is not caring for his basic needs. Pt has been falling at [facility] and is on LPS conservatorship. Interventions: Received patient and ambulated with him while he was using his walker from his room to the Community Room for breakfast. Patient sat in the Community Room after breakfast and watch TV for approximately about one hour. Patient reports he has been getting stronger using the walker. Appetite Good. At approximately 1130, patient asked to speak directly with me and asked if he was discharging today. Informed the patient that they have not yet located a facility for him to discharge to. Informed the patient that he will be told about where he will be going for discharge a day or two ahead of time. Patient was nervous with his fingers grasping tightly onto objects. Patient then was shown some clothing that was located on his shelf in his room. Asked patient if that was his clothing. Response: Patient pleasant and cooperative. Appeared slightly anxious earlier today when he thought he was discharging to another facility today. While in the patients room located a stack of pants and shirts and socks on his shelving. Asked the patient if this was his clothing, and he said No. Asked patient to come over and take a close look at the clothing, and the patient stated Theres my clothing. Patient started smiling and apologized for taking up my time asking me to report that his clothing was still at [facility]. Patient was extremely happy this was resolved. Plan: Patient continues to require a safe and supportive environment and medication adjustments. Patient requires ambulation at least 5 times a day to increase strength while using his walker.
[2021-10-08] MEDS: acetaminophen 325mg tablet PO PRN (17:48)
[2021-10-08] MEDS: mirtazapine 15mg tablet PO SCH (20:19)
[2021-10-08] MEDS: olanzapine 10mg tablet PO SCH (20:19)
[2021-10-08] MEDS: sertraline 50mg tablet PO SCH (20:20)
[2021-10-08] MEDS: tamsulosin 0.4mg capsule PO SCH (20:20)
[2021-10-08 20:28] VITALS: BP 102/59
--- NOTE | 2021-10-09 01:41 | NUR ---
Nursing Progress Note: Problem: Pt admitted on 09/26 for a 5150 for gravely disabled. Pt is reportedly stopped drinking water, and hasn't left his bed due to fear and paranoia. Pt is not caring for his basic needs. Pt has been falling at [facility] and is on LPS conservatorship. Interventions: RN continues to provide pt. with a safe and therapeutic environment, clear communication, active listening and positive encouragement. Medications administered. Pt. encouraged to participate in group therapy, and 1:1 assessment provided. PT assessed pt. and attempted to do walking exercise with pt. but pt. refused. Pt. showered, but needs stand-by assist in the shower. Response: Patient isolating on his bed at shift change. He reports that he's longer worried about his "stuff" that was missing. It was here all the time. Patient continues to fear that he will be discharged with nowhere to go. He says paranoia a little better today. Patient gets up and uses his walker to ambulate to the community room for snack time. He receives his meds, then goes back to his room. Plan: Patient continues to require a safe and supportive environment and medication adjustments. Patient requires ambulation at least 5 times a day to increase strength while using his walker.
[2021-10-09 07:43] VITALS: BP 104/63
[2021-10-09] MEDS: atorvastatin 20mg tablet PO SCH (07:55)
[2021-10-09] MEDS: pantoprazole 40mg Tablet.DR PO SCH (07:55)
[2021-10-09] MEDS: OLANZAPINE 5 MG TABLET PO SCH ×2 (07:55→13:45)
[2021-10-09] MEDS: buPROPion SR 150mg tablet PO SCH ×2 (07:55→13:43)
[2021-10-09] MEDS: docusate sod 100mg capsule PO SCH ×2 (07:55→20:21)
[2021-10-09] MEDS: nicotine 14mg patch - 24hr TD SCH (07:59)
[2021-10-09] MEDS: hydrOXYzine 25 MG tablet PO PRN ×2 (09:01→15:08)
[2021-10-09] MEDS: budesonide 0.5mg/2ml UD nebule IH SCH ×2 (09:16→21:00)
--- NOTE | 2021-10-09 09:48 | NUR ---
Pt. attended group today. Today we discussed Wellness and utilized the Self Care Wheel to help Patients determine the wellness/self-care activities they enjoy in each domain presented in the wheel. The four domains are the physical, spiritual, emotional and physical. We then did an art expression call Path to Wellness. Pt. was appropriate in the group. His demeanor was compliant and pleasant. He engaged in the art expression and shared what his picture was about appropriately. He shared his steps to wellness with the group. He shared that prayer and nature are very important to him. His mood was good with a restricted affect. Remedios Richardson LCSW
--- NOTE | 2021-10-09 11:40 | NUR ---
PLACEMENT UPDATE Ayan has been accepted to [facility] and a bed is currently available. Admit date is currently unknown. CUCA Thurman
--- NOTE | 2021-10-09 16:53 | NUR ---
Nursing Progress Note: Ayan Problem: Pt here because he stopped drinking water, hasn't left his bed due to fear and paranoia. Pt not caring for his basic needs. Pt has been falling at [facility] and is on LPS conservatorship. Pt. c/o anxiety and excessive worries re discharge and being homeless. In addition he self isolates and refrains from socializing from cohorts. Intervention: Federal District Clerk continues to provide pt. with a safe and therapeutic environment, clear communication, active listening and positive encouragement. Medications administered. Pt. encouraged to participate in group therapy, and 1:1 assessment provided. Response: Pt. denies SI, HI, A/VH but reports increased anxiety and reports worrying about being discharged and homeless. This singer songwriter encouraged pt. to talk to SS and his P. Guardian. He was given PRN Atarax 25; reports minimal effectiveness. Federal District Clerk notified provider and obtained N.O; effective results. Pt. is friendly and request singer songwriter to sit and talk often. He self isolates in his due to anxiety therefor pt. has minimal social interaction with cohorts. He did attend group and all meals and snacks in dining room, but returns to his room quickly. Additionally he c/o old chronic back pain PRN Tylenol given. Plan: Patient continues to require crisis interruption and stabilization with medication management and monitoring in a safe and therapeutic environment. He is LPS Conserved, and will require placement.
[2021-10-09] MEDS: acetaminophen 325mg tablet PO PRN (19:00)
[2021-10-09 20:00] VITALS: BP 112/50
[2021-10-09] MEDS: mirtazapine 15mg tablet PO SCH (20:21)
[2021-10-09] MEDS: olanzapine 10mg tablet PO SCH (20:21)
[2021-10-09] MEDS: tamsulosin 0.4mg capsule PO SCH (20:21)
[2021-10-09] MEDS: sertraline 50mg tablet PO SCH (20:21)
--- NOTE | 2021-10-10 00:05 | NUR ---
Nursing Progress Note: Ayan Problem: Pt here because he stopped drinking water, hasn't left his bed due to fear and paranoia. Pt not caring for his basic needs. Pt has been falling at [facility] and is on LPS conservatorship. Pt. c/o anxiety and excessive worries re discharge and being homeless. In addition he self isolates and refrains from socializing from cohorts. Intervention: Sanitation Worker Cleaning Machinery continues to provide pt. with a safe and therapeutic environment, clear communication, active listening and positive encouragement. Medications administered. Pt. encouraged to participate in group therapy, and 1:1 assessment provided. Response: Pt in his room resting at change of shift, Pt. denies SI, HI, A/VH but states he has mild anxiety at this time. Pt. is friendly and calm with assessment, he complains of back pain 6/10, PRN Tylenol given with good effect. Pt self-isolated to his room most of the evening. Pt declined snacks and took all HS medications without issue. Plan: Patient continues to require crisis interruption and stabilization with medication management and monitoring in a safe and therapeutic environment. He is LPS Conserved, and will require placement.
[2021-10-10] MEDS: pantoprazole 40mg Tablet.DR PO SCH (07:47)
[2021-10-10] MEDS: atorvastatin 20mg tablet PO SCH (07:47)
[2021-10-10] MEDS: OLANZAPINE 5 MG TABLET PO SCH ×2 (07:47→13:43)
[2021-10-10] MEDS: docusate sod 100mg capsule PO SCH ×2 (07:47→20:14)
[2021-10-10] MEDS: buPROPion SR 150mg tablet PO SCH ×2 (07:47→13:43)
[2021-10-10] MEDS: nicotine 14mg patch - 24hr TD SCH (07:48)
[2021-10-10] MEDS: acetaminophen 325mg tablet PO PRN (07:52)
[2021-10-10 08:00] VITALS: BP 100/54
[2021-10-10] MEDS: hydrOXYzine 25 MG tablet PO PRN ×2 (09:26→18:56)
[2021-10-10] MEDS: budesonide 0.5mg/2ml UD nebule IH SCH ×2 (09:54→21:00)
[2021-10-10] MEDS ORDERED: MIRT-116 PO (15:56)
[2021-10-10] MEDS ORDERED: TRAZ150T78 PO (15:56)
[2021-10-10] MEDS ORDERED: FLO0.4C PO (15:56)
[2021-10-10] MEDS ORDERED: OMEP20CA16 PO (15:56)
[2021-10-10] MEDS ORDERED: SERT50TA PO (15:56)
[2021-10-10] MEDS ORDERED: DOCU100C40 PO (15:56)
[2021-10-10] MEDS ORDERED: FLUT1BLS4 INH (15:56)
[2021-10-10] MEDS ORDERED: NICO-631 TD (15:56)
[2021-10-10] MEDS ORDERED: BUPR-72 PO (15:57)
[2021-10-10] MEDS ORDERED: NICO-907 BC (15:57)
[2021-10-10] MEDS ORDERED: ATOR20TA66 PO (15:57)
[2021-10-10] MEDS ORDERED: SALI42GE MM (15:57)
--- NOTE | 2021-10-10 16:48 | NUR ---
Nursing Progress Note: Ayan Problem: Pt here because he stopped drinking water, hasn't left his bed due to fear and paranoia. Pt not caring for his basic needs. Pt has been falling at [facility] and is on LPS conservatorship. Pt. c/o feelings of anxiety and continues to self-isolate in his room. Intervention: Radio Board Operator Announcer continues to provide pt. with a safe and therapeutic environment, clear communication, active listening and positive encouragement. Medications administered. Pt. encouraged to participate in group therapy, and 1:1 assessment provided. Response: Pt. denies SI, HI, A/VH, he endorses anxiety and requested PRN Atarax. He reports the Atarax has been helpful. He c/o poor sleep last night, so this underwriter mortgage loan discussed PRN for HS. Pt. had c/o back pain reporting it is from the jump [place] the bridge PRN Tylenol given. Later in the afternoon he reported his public guardian found placement in [place] at the [facility]. Pt. ate all meals and attended snack time with cohorts but is withdrawn from others. Pt. attended group today and is pleasant. Plan: Patient continues to require crisis interruption and stabilization with medication management and monitoring in a safe and therapeutic environment. He is LPS Conserved, and will require placement.
[2021-10-10 20:00] VITALS: BP 117/60
[2021-10-10] MEDS: traZODone 50mg tablet PO PRN (20:13)
[2021-10-10] MEDS: mirtazapine 15mg tablet PO SCH (20:14)
[2021-10-10] MEDS: sertraline 50mg tablet PO SCH (20:14)
[2021-10-10] MEDS: tamsulosin 0.4mg capsule PO SCH (20:15)
[2021-10-10] MEDS: olanzapine 10mg tablet PO SCH (20:15)
--- NOTE | 2021-10-10 20:46 | NUR ---
Nicotine patch removed NOC shift.
[2021-10-10 21:48] VITALS: BP 117/60
--- NOTE | 2021-10-11 00:34 | NUR ---
Nursing Progress Note: Ayan Problem: Pt here because he stopped drinking water, hasn't left his bed due to fear and paranoia. Pt not caring for his basic needs. Pt has been falling at [facility] and is on LPS conservatorship. Pt. c/o feelings of anxiety and continues to self-isolate in his room. Intervention: Activities Aide continues to provide pt. with a safe and therapeutic environment, clear communication, active listening and positive encouragement. Medications administered. Pt. encouraged to participate in group therapy, and 1:1 assessment provided. Response: Pt resting in his room at change of shift. Pt states he is doing okay and his day went as good as any. He states I guess they found me a place to go to. Pt seemed excited and says I will believe it when I get there. Pt states anxiety 5/10 PRN atarax given with good effect. Pt up for snacks and took all HS medications without issue. Pt to bed shortly after med pass. PRN trazadone given at pts request. Plan: Patient continues to require crisis interruption and stabilization with medication management and monitoring in a safe and therapeutic environment. He is LPS Conserved, and will require placement.
[2021-10-11] MEDS: acetaminophen 325mg tablet PO PRN (07:53)
[2021-10-11] MEDS: buPROPion SR 150mg tablet PO SCH ×2 (07:54→14:03)
[2021-10-11] MEDS: OLANZAPINE 5 MG TABLET PO SCH ×2 (07:54→14:03)
[2021-10-11] MEDS: atorvastatin 20mg tablet PO SCH (07:55)
[2021-10-11] MEDS: pantoprazole 40mg Tablet.DR PO SCH (07:55)
[2021-10-11] MEDS: nicotine 14mg patch - 24hr TD SCH (07:55)
[2021-10-11] MEDS: docusate sod 100mg capsule PO SCH ×2 (07:55→20:12)
[2021-10-11 08:00] VITALS: BP 107/59
[2021-10-11] MEDS: budesonide 0.5mg/2ml UD nebule IH SCH ×2 (09:00→20:23)
--- NOTE | 2021-10-11 13:25 | NUR ---
DISCHARGE Thursday10/14/21 AT 8 AM A Space Engineer will be picking up Ayan with his belongings and medications on ThursdayOctober 16 at [facility] about 8 am. Ayan will be transported to [facility]. Please have an itemized list of belongings and medication ready for the Space Engineer at Discharge. He will need a Covid test done prior to Thursday. Please send him with water and snacks for the drive. CUCA Thurman
[2021-10-11 14:13] VITALS: BP 107/59
--- NOTE | 2021-10-11 15:59 | NUR ---
Nursing Progress Note: Ayan Problem: Pt here because he stopped drinking water, hasn't left his bed due to fear and paranoia. Pt not caring for his basic needs. Pt has been falling at [facility] and is on LPS conservatorship. Pt. c/o feelings worried due to his new facility. Intervention: Squeak Rattle And Leak Repairer continues to provide pt. with a safe and therapeutic environment, clear communication, active listening and positive encouragement. Medications administered. Pt. encouraged to participate in group therapy, and 1:1 assessment provided. Response: Pt. presented very fatigued until around 1100. He reported he slept well last night and participated more with cohorts. Pt. reported a decrease in anxiety today, but did c/o chronic back pain and received PRN Tylenol. Pt. ate all meals in the dining room with cohorts but continues to keep to himself but he does make eye contact with others. Pt. has discussed his new placement to be in [place] and has reported feeling worried; internal communications writer encouraged pt. to talk to his guardian for details. Plan: Patient continues to require crisis interruption and stabilization with medication management and monitoring in a safe and therapeutic environment. He is LPS Conserved, and will require placement.
[2021-10-11] MEDS: hydrOXYzine 25 MG tablet PO PRN (18:52)
[2021-10-11 19:00] VITALS: BP 97/44
[2021-10-11] MEDS: mirtazapine 15mg tablet PO SCH (20:12)
[2021-10-11] MEDS: olanzapine 10mg tablet PO SCH (20:12)
[2021-10-11] MEDS: traZODone 50mg tablet PO PRN (20:12)
[2021-10-11] MEDS: sertraline 50mg tablet PO SCH (20:12)
[2021-10-11] MEDS: tamsulosin 0.4mg capsule PO SCH (20:12)
--- NOTE | 2021-10-12 00:28 | NUR ---
Nursing Progress Note: Ayan Problem: Pt here because he stopped drinking water, hasn't left his bed due to fear and paranoia. Pt not caring for his basic needs. Pt has been falling at [facility] and is on LPS conservatorship. Pt. c/o feelings worried due to his new facility. Intervention: Section Hand continues to provide pt. with a safe and therapeutic environment, clear communication, active listening and positive encouragement. Medications administered. Pt. encouraged to participate in group therapy, and 1:1 assessment provided. Response: Pt. in his room resting at change e of shift. Pt states he is doing OK but has some concerns regarding his placement in [place]. When questioning his concerns pt states dont know what to think because its 150 miles away. But my sister will be closer. Pt given 50MG of atarax for anxiety with good results. Pt up for snack time and took all HS medications without issue. PT isolated back to his room after snacks. No needs at this time. Plan: Patient continues to require crisis interruption and stabilization with medication management and monitoring in a safe and therapeutic environment. He is LPS Conserved, and will require placement.
[2021-10-12] MEDS: atorvastatin 20mg tablet PO SCH (08:00)
[2021-10-12] MEDS: docusate sod 100mg capsule PO SCH ×2 (08:00→21:01)
[2021-10-12] MEDS: OLANZAPINE 5 MG TABLET PO SCH ×2 (08:01→13:27)
[2021-10-12] MEDS: pantoprazole 40mg Tablet.DR PO SCH (08:01)
[2021-10-12] MEDS: buPROPion SR 150mg tablet PO SCH ×2 (08:01→13:27)
[2021-10-12] MEDS: nicotine 14mg patch - 24hr TD SCH (08:05)
[2021-10-12 08:34] VITALS: BP 98/51
[2021-10-12] MEDS: budesonide 0.5mg/2ml UD nebule IH SCH ×2 (09:00→20:32)
--- NOTE | 2021-10-12 17:26 | NUR ---
Nursing Progress Note Problem: Pt here because he stopped drinking water, hasn't left his bed due to fear and paranoia. Pt not caring for his basic needs. Pt has been falling at [facility] and is on LPS conservatorship. Pt. c/o feelings worried due to his new facility. Intervention: Cloth Framer continues to provide pt. with a safe and therapeutic environment, clear communication, active listening and positive encouragement. Medications administered. Pt. encouraged to participate in group therapy, and 1:1 assessment provided. Response: Received Pt in bed sleeping w/o distress. Pt woke and was cooperative with vitals and AM assessments and meds. He ate meals well and was interactive with staff. He ambulated well around the unit with FWW and at times w/o. Pt received Covid test and result was negative. This made him nervous about his placement and he was relieved with negative result. Pt remains anxious about discharge and new placement but appears to respond to reassurance although temporary. Plan: Patient continues to require crisis interruption and stabilization with medication management and monitoring in a safe and therapeutic environment. He is LPS Conserved, and will require placement.
[2021-10-12 19:00] VITALS: BP 117/67
[2021-10-12] MEDS: mirtazapine 15mg tablet PO SCH (21:00)
[2021-10-12] MEDS: traZODone 50mg tablet PO PRN (21:00)
[2021-10-12] MEDS: sertraline 50mg tablet PO SCH (21:01)
[2021-10-12] MEDS: olanzapine 10mg tablet PO SCH (21:01)
[2021-10-12] MEDS: tamsulosin 0.4mg capsule PO SCH (21:01)
--- NOTE | 2021-10-13 05:16 | NUR ---
Nursing Progress Note Problem: Pt here because he stopped drinking water, hasn't left his bed due to fear and paranoia. Pt not caring for his basic needs. Pt has been falling at [facility] and is on LPS conservatorship. Pt. c/o feelings worried due to his new facility. Intervention: [place] Mill Worker continues to provide pt. with a safe and therapeutic environment, clear communication, active listening and positive encouragement. Medications administered. Pt. encouraged to participate in group therapy, and 1:1 assessment provided. Response: Received patient in bed resting comfortably. Patient woke and was cooperative with vitals, assessments, and medication administration. He actually came to nursing station to request Trazodone, which was given with other medicines. He says that "it seems to be working very well". He ambulated without the FWW. Patient resorted to bed, again very patient, pleasant, and cooperative. He rested for the night. Plan: Patient continues to require crisis interruption and stabilization with medication management and monitoring in a safe and therapeutic environment. He is LPS Conserved, and will require placement.
[2021-10-13 08:00] VITALS: BP 105/58
[2021-10-13] MEDS: OLANZAPINE 5 MG TABLET PO SCH ×2 (08:08→13:43)
[2021-10-13] MEDS: docusate sod 100mg capsule PO SCH ×2 (08:08→20:10)
[2021-10-13] MEDS: pantoprazole 40mg Tablet.DR PO SCH (08:08)
[2021-10-13] MEDS: buPROPion SR 150mg tablet PO SCH ×2 (08:08→13:43)
[2021-10-13] MEDS: atorvastatin 20mg tablet PO SCH (08:08)
[2021-10-13] MEDS: nicotine 14mg patch - 24hr TD SCH (08:11)
[2021-10-13] MEDS: budesonide 0.5mg/2ml UD nebule IH SCH ×2 (10:12→19:32)
[2021-10-13] MEDS ORDERED: OLAN5TAB29 PO (12:21)
[2021-10-13] MEDS ORDERED: TRAZ-251 PO (12:21)
[2021-10-13] MEDS ORDERED: HYDR-3686 PO (12:21)
[2021-10-13] MEDS ORDERED: IPRA3AMP9 NEB (12:21)
[2021-10-13] MEDS: acetaminophen 325mg tablet PO PRN (14:03)
--- NOTE | 2021-10-13 17:03 | NUR ---
Nursing Progress Note Problem: Pt here because he stopped drinking water, hasn't left his bed due to fear and paranoia. Pt not caring for his basic needs. Pt has been falling at [facility] and is on LPS conservatorship. Pt. worried about going to new facility. Intervention: Museum Exhibit Technician continues to provide pt. with a safe and therapeutic environment, clear communication, active listening and positive encouragement. Medications administered. Pt. encouraged to participate in group therapy, and 1:1 assessment provided. Response: Received Pt in bed sleeping w/o distress. Pt woke and was cooperative with vitals and AM assessments and meds. Pt received breathing Tx this AM with good effect. He ate meals well and spent most of day in room. He c/o headache and received Tylenol with good effect. He continues to ambulate well around the unit with FWW. Speech is clear and coherent and he showed mild anxiety r/t discharge and new placement tomorrow. Plan: Patient continues to require crisis interruption and stabilization with medication management and monitoring in a safe and therapeutic environment. He is LPS Conserved, and awaiting placement at new facility.
[2021-10-13 19:48] VITALS: BP 115/69
[2021-10-13] MEDS: tamsulosin 0.4mg capsule PO SCH (20:10)
[2021-10-13] MEDS: mirtazapine 15mg tablet PO SCH (20:11)
[2021-10-13] MEDS: sertraline 50mg tablet PO SCH (20:11)
[2021-10-13] MEDS: olanzapine 10mg tablet PO SCH (20:11)
[2021-10-13] MEDS: traZODone 50mg tablet PO PRN (20:18)
--- NOTE | 2021-10-13 23:14 | NUR ---
Nursing Progress Note Problem: Pt here because he stopped drinking water, hasn't left his bed due to fear and paranoia. Pt not caring for his basic needs. Pt has been falling at [facility] and is on LPS conservatorship. Pt. worried about going to new facility. Intervention: Assistant Manager Quality Management continues to provide pt. with a safe and therapeutic environment, clear communication, active listening and positive encouragement. Medications administered. Pt. encouraged to participate in group therapy, and 1:1 assessment provided. Response: Received Pt in room relaxing after dinner. Pt appropriately anxious/excited about going to new facility tomorrow. Pt had snack and took HS meds w/o issue. Pt walking well with and w/o FWW. Pts speech continues to be clear and he is interactive when engaged. Pt denies SI and went to bed after meds. Plan: Patient continues to require crisis interruption and stabilization with medication management and monitoring in a safe and therapeutic environment. He is LPS Conserved, and awaiting placement at new facility.
[2021-10-14] MEDS: docusate sod 100mg capsule PO SCH (08:24)
[2021-10-14] MEDS: OLANZAPINE 5 MG TABLET PO SCH (08:24)
[2021-10-14] MEDS: atorvastatin 20mg tablet PO SCH (08:24)
[2021-10-14] MEDS: pantoprazole 40mg Tablet.DR PO SCH (08:24)
[2021-10-14] MEDS: buPROPion SR 150mg tablet PO SCH (08:25)
[2021-10-14] MEDS: nicotine 14mg patch - 24hr TD SCH (08:25)
--- NOTE | 2021-10-14 08:27 | NUR ---
Pt discharged to [facility] in [place], [place]. Pt's belongings inventoried and discharged with the pt. per MAEGAN Schrader. Pt left with bags of clothing and his medications. Pt ate prior to leaving and was given a bag lunch with drinks in it. All discharge papers sent to Public [facility] per policy's. Pt thanked the staff before leaving.
== END 2021-10-14 08:27 | DRG 885 ==
LOC: ER 17:33 → ED HOLD 09-26 10:50 → ADULT MH 09-26 13:01
PROVIDERS: ADMIT Psychiatry & Neurology Psychiatry; ATTEND Psychiatry & Neurology Psychiatry
DX: F25.1 Schizoaffective disorder, depressive type (principal); F32.3 Major depressive disorder, single episode, severe with psychotic features; Z68.1 Body mass index [BMI] 19.9 or less, adult; E87.1 Hypo-osmolality and hyponatremia; D64.9 Anemia, unspecified; E78.5 Hyperlipidemia, unspecified; F17.210 Nicotine dependence, cigarettes, uncomplicated; F41.9 Anxiety disorder, unspecified; G89.29 Other chronic pain; I10 Essential (primary) hypertension; J44.9 Chronic obstructive pulmonary disease, unspecified; Z20.822 Contact with and (suspected) exposure to COVID-19; Z60.2 Problems related to living alone; K21.9 Gastro-esophageal reflux disease without esophagitis; R68.2 Dry mouth, unspecified; R63.4 Abnormal weight loss; K59.00 Constipation, unspecified; R26.2 Difficulty in walking, not elsewhere classified; N40.0 Benign prostatic hyperplasia without lower urinary tract symptoms; Z63.72 Alcoholism and drug addiction in family; Z79.899 Other long term (current) drug therapy; Z81.1 Family history of alcohol abuse and dependence; Z82.5 Family history of asthma and other chronic lower respiratory diseases; Z86.73 Personal history of transient ischemic attack (TIA), and cerebral infarction without residual deficits; Z98.61 Coronary angioplasty status; Z56.0 Unemployment, unspecified; Z59.00 Homelessness unspecified; Z71.6 Tobacco abuse counseling; E11.9 Type 2 diabetes mellitus without complications
CPT/HCPCS: 36415; 70450; 70551; 71045; 80053; 80061; 80305; 80320; 81003; 82607; 82728; 83036; 83540; 83880; 84443; 84484; 85025; 87081; 94640; 94760; 97110; 97116; 97161; 97530; 99285; Q0177